=== PATIENT | female | born 1950 | race Hispanic/Latino ===

== ENCOUNTER 2019-01-03 21:32 | Emergency (ER) | payer OTHER ==
--- NOTE | 2019-01-03 22:05 | EDPHYS ---
Physician Documentation [facility] Name: Karin Mendosa Age: 68 yrs Sex: Female : 1950 Arrival Date: 01/03/2019 Time: 21:33 Bed 14 Private MD: ED Physician Yonas Castle Historical: - Allergies: 01/03 21:44 Morphine; la1 - PMHx: 21:44 Diabetes - NIDDM; Hypertension; Arthritis; Hypothyroidism; la1 - Immunization history:: Adult Immunizations up to date. - Social history:: Smoking status: Patient/guardian denies using tobacco. - Ebola Screening: : No symptoms or risks identified at this time. Vital Signs: 21:44 BP 170 / 80; Pulse 80; Resp 16; Temp 98.4; Pulse Ox 100% on R/A; Weight 99.79 kg; la1 22:29 BP 130 / 79; Pulse 75; Resp 18; Pulse Ox 98% on R/A; NIH Stroke Scale Scores: 21:50 NIHSS Score: 0 MDM: 22:04 Patient medically screened. kdr Administered Medications: 22:13 Drug: Neurontin 300 mg Route: PO; 22:28 Follow up: Response: No adverse reaction Disposition: 01/03/19 22:04 Discharged to Home. Impression: Idiopathic peripheral autonomic neuropathy. - Condition is Stable. - Discharge Instructions: Peripheral Neuropathy. - Prescriptions for Neurontin 300 mg Oral Capsule - take 1 capsule by ORAL route every 8 hours; 15 capsule. - Medication Reconciliation Form, Thank You Letter, Antibiotic Education, Prescription Opioid Use form. - Follow up: Alejandro Child MD; When: 2 - 3 days; Reason: If symptoms return, Further diagnostic work-up, Recheck today's complaints, Continuance of care, Re-evaluation by your physician. - Problem is new. - Symptoms have improved. NIH Stroke Scale - NIH Stroke Score Date: 01/03/2019 Time: 21:50 Total Score = 0 1a. Level of Consciousness (LOC) - 0(Alert) 1b. Level of Consciousness (LOC) (Year \T\ Age) - 0(Both) 1c. LOC Commands (Open \T\ Closes Eyes/Special Inspector) - 0(Both) 2. Best Gaze (Lateral Gaze Paresis) - 0(Normal) 3. Visual Field Loss - 0(No visual loss) 4. Facial Palsy - 0(Normal) 5a. Left Arm: Motor (10-second hold) - 0(No drift) 5b. Right Arm: Motor (10-second hold) - 0(No drift) 6a. Left Leg: Motor (5-second hold - always test supine) - 0(No drift) 6b. Right Leg: Motor (5-second hold - always test supine) - 0(No drift) 7. Limb Ataxia (finger/nose \T\ heel/haynes - test with eyes open) - 0(Absent) 8. Sensory Loss (pinprick arms/legs/face) - 0(Normal) 9. Best Language: Aphasia (description/naming/reading) - 0(No aphasia) 10. Dysarthria (speech clarity - read or repeat words) - 0(Normal) 11. Extinction and Inattention (visual/tactile/auditory/spatial/personal) - 0(No abnormality) Initials: Signatures: Yonas Castle MD MD [facility] Jamie Hoang RN RN laHeather Miller Corrections: (The following items were deleted from the chart) 22:29 22:04 01/03/2019 22:04 Discharged to Home. Impression: Idiopathic peripheral wh autonomic neuropathy. Condition is Stable. Forms are Medication Reconciliation Form, Thank You Letter, Antibiotic Education, Prescription Opioid Use. Follow up: Alejandro Child; When: 2 - 3 days; Reason: If symptoms return, Further diagnostic work-up, Recheck today's complaints, Continuance of care, Re-evaluation by your physician. Problem is new. Symptoms have improved. kdr
--- NOTE | 2019-01-03 22:05 | ER ---
Nurse's Notes [facility] Name: Karin Mendosa Age: 68 yrs Sex: Female : 1950 Arrival Date: 01/03/2019 Time: 21:33 Bed 14 Private MD: Diagnosis: Idiopathic peripheral autonomic neuropathy Presentation: 01/03 21:42 Presenting complaint: Patient states: numbness to left leg that began yesterday, left la1 arm numbness that began three days ago, pain on whole left side of body. Transition of care: patient was not received from another setting of care. Onset of symptoms was January 03, 2019. Risk Assessment: Do you want to hurt yourself or someone else? Patient reports no desire to harm self or others. Initial Sepsis Screen: Does the patient meet any 2 criteria? No. Patient's initial sepsis screen is negative. Does the patient have a suspected source of infection? No. Patient's initial sepsis screen is negative. Care prior to arrival: None. 21:42 Method Of Arrival: Wheelchair la1 21:42 Acuity: RAY 3 la1 Historical: - Allergies: 21:44 Morphine; la1 - PMHx: 21:44 Diabetes - NIDDM; Hypertension; Arthritis; Hypothyroidism; la1 - Immunization history:: Adult Immunizations up to date. - Social history:: Smoking status: Patient/guardian denies using tobacco. - Ebola Screening: : No symptoms or risks identified at this time. Screenin:50 VAN Screening: Arm Drift: Patient shows no arm weakness. Patient is VAN negative. wh Visual Disturbance: No visual disturbance noted. Aphasia: No aphasia noted. Neglect: No neglect noted. 22:00 Abuse screen: Denies threats or abuse. Denies injuries from another. Nutritional wh screening: No deficits noted. Tuberculosis screening: No symptoms or risk factors identified. Fall Risk None identified. Assessment: 21:50 General: Appears in no apparent distress. Behavior is calm, cooperative, appropriate wh for age. Pain: Complains of pain in lumbar area Pain does not radiate. Pain currently is 4 out of 10 on a pain scale. Quality of pain is described as aching. Neuro: Level of Consciousness is awake, alert, obeys commands, Oriented to person, place, time, situation, Appropriate for age Stamp Mounter are equal bilaterally Gait is steady, Speech is normal, Facial symmetry appears normal, Pupils are PERRLA, Reports paresthesias in left leg. Cardiovascular: Heart tones S1 S2. Respiratory: Airway is patent Respiratory effort is even, unlabored, Respiratory pattern is regular, symmetrical. GI: Abdomen is flat, non-distended. : No signs and/or symptoms were reported regarding the genitourinary system. EENT: No signs and/or symptoms were reported regarding the EENT system. Derm: Skin is intact, is healthy with good turgor, Skin is pink, warm \T\ dry. normal. Musculoskeletal: Circulation, motion, and sensation intact. Range of motion: intact in all extremities. 22:23 Reassessment: Patient appears in no apparent distress at this time. No changes from previously documented assessment. Patient and/or family updated on plan of care and expected duration. Pain level reassessed. Patient is alert, oriented x 3, equal unlabored respirations, skin warm/dry/pink. Vital Signs: 21:44 BP 170 / 80; Pulse 80; Resp 16; Temp 98.4; Pulse Ox 100% on R/A; Weight 99.79 kg; la1 22:29 BP 130 / 79; Pulse 75; Resp 18; Pulse Ox 98% on R/A; NIH Stroke Scale Scores: 21:50 NIHSS Score: 0 ED Course: 21:33 Patient arrived in ED. cf2 21:43 Triage completed. la1 21:44 Arm band placed on left wrist. la1 21:48 Heather Noyola is Primary Nurse. wh 21:49 Yonas Castle MD is Attending Physician. kdr 22:00 Patient has correct armband on for positive identification. Bed in low position. Call light in reach. Side rails up X 1. Pulse ox on. NIBP on. 22:04 Alejandro Child MD is Referral Physician. kdr 22:27 No provider procedures requiring assistance completed. Patient did not have IV access during this emergency room visit. Administered Medications: 22:13 Drug: Neurontin 300 mg Route: PO; 22:28 Follow up: Response: No adverse reaction Outcome: 22:04 Discharge ordered by . kdr 22:28 Discharged to home ambulatory, with family. 22:28 Condition: stable 22:28 Discharge instructions given to patient, family, Instructed on discharge instructions, follow up and referral plans. medication usage, POC Peripheral Neuropathy Demonstrated understanding of instructions, follow-up care, medications, POC Prescriptions given X 1. 22:29 Patient left the ED. NIH Stroke Scale - NIH Stroke Score Date: 01/03/2019 Time: 21:50 Total Score = 0 1a. Level of Consciousness (LOC) - 0(Alert) 1b. Level of Consciousness (LOC) (Year \T\ Age) - 0(Both) 1c. LOC Commands (Open \T\ Closes Eyes/Labor Utilization Superintendent) - 0(Both) 2. Best Gaze (Lateral Gaze Paresis) - 0(Normal) 3. Visual Field Loss - 0(No visual loss) 4. Facial Palsy - 0(Normal) 5a. Left Arm: Motor (10-second hold) - 0(No drift) 5b. Right Arm: Motor (10-second hold) - 0(No drift) 6a. Left Leg: Motor (5-second hold - always test supine) - 0(No drift) 6b. Right Leg: Motor (5-second hold - always test supine) - 0(No drift) 7. Limb Ataxia (finger/nose \T\ heel/haynes - test with eyes open) - 0(Absent) 8. Sensory Loss (pinprick arms/legs/face) - 0(Normal) 9. Best Language: Aphasia (description/naming/reading) - 0(No aphasia) 10. Dysarthria (speech clarity - read or repeat words) - 0(Normal) 11. Extinction and Inattention (visual/tactile/auditory/spatial/personal) - 0(No abnormality) Initials: Signatures: Yonas Castle MD MD [facility] Jamie Hoang RN RN kate1 Heather Noyola Dennys Leiva2
[2019-01-03] MEDS ORDERED: GABAPENTIN 300 MG CAP ONE (22:12)
[2019-01-03 23:06] VITALS: TEMP 98.4
[2019-01-03 23:07] VITALS: BP 130/79; O2SAT 98
== END 2019-01-03 22:29 | disposition home or self-care (01) ==
LOC: ER 21:32
DX: G90.09 Other idiopathic peripheral autonomic neuropathy (principal); I10 Essential (primary) hypertension; Z88.5 Allergy status to narcotic agent
CPT/HCPCS: 99283

== ENCOUNTER 2020-09-24 10:11 | Emergency (ER) | payer OTHER ==
--- NOTE | 2020-09-24 12:23 | RAD REPORT ---
EXAM DESCRIPTION: CT - [id number] - 09/24/2020 12:05 pm CLINICAL HISTORY: Trauma, head and neck injury. Numbness/tingling;Pain COMPARISON: No comparisons TECHNIQUE: Axial 5 mm thick images of the head were obtained. Axial 2 mm thick images of the cervical spine were obtained with sagittal and coronal reconstruction images generated and reviewed. All CT scans are performed using dose optimization technique as appropriate and may include automated exposure control or mA/KV adjustment according to patient size. FINDINGS: CT HEAD WITHOUT CONTRAST: No acute hemorrhage, hydrocephalus or extra-axial collection is identified.No areas of brain edema or midline shift. The paranasal sinuses and mastoids are clear.The calvarium is intact. CT CERVICAL SPINE WITHOUT CONTRAST: No fracture or subluxation.No prevertebral soft tissues swelling is identified. ACDF changes are pres ent at the C4-5 level. There are adjacent level degenerative changes at the C5-6 level with at least mild to moderate left neural foraminal narrowing. No definite central spinal stenosis is appreciated. IMPRESSION: No acute intracranial or cervical spine findings.
--- NOTE | 2020-09-24 12:42 | EDPHYS ---
Physician Documentation [facility] Name: Karin Mendosa Age: 70 yrs Sex: Female : 1950 Arrival Date: 09/24/2020 Time: 10:15 Bed 24 Private MD: ED Physician Pedro Calabrese HPI: 09/24 12:37 This 70 yrs old Female presents to ER via Ambulatory with complaints of rn Numbness Of Arm, Finger problem,left side pain. 12:37 The patient or guardian complains of pain, that is chronic. The complaints affect the rn left arm. Onset: The symptoms/episode began/occurred " Years ago". Modifying factors: The symptoms are alleviated by OTC meds, the symptoms are aggravated by nothing. Associated signs and symptoms: Pertinent positives: numbness, Pertinent negatives: decreased range of motion, deformity, erythema, fever, swelling, warmth, weakness. Severity of symptoms: At their worst the symptoms were moderate, in the emergency department the symptoms have improved. The patient has experienced similar episodes in the past, chronically. The patient has not recently seen a physician. Patient reports left arm tingling and pain for years, no recent injury, feels like pain coming from neck, has similar symptoms involving lower back and left leg. No weakness of extremity. Also has longstanding diabetes and known neuropathy. Denies any recent changes. Improved with Aleve, no help with Tylenol.. Historical: - Allergies: 10:51 Morphine; iw - Home Meds: 10:51 metformin 1,000 mg Oral tab 1 tab 2 times per day [Active]; glimepiride 1 mg Oral tab 1 iw tab once daily [Active]; atorvastatin 20 mg oral tab 1 tab once daily [Active]; Unithroid 137 mcg oral tab 1 tab once daily [Active]; lisinopril 40 mg Oral tab 1 tab once daily [Active]; isulin [Active]; - PMHx: 10:51 Arthritis; Diabetes - NIDDM; Hypertension; Hypothyroidism; iw - Immunization history:: Client reports receiving the 2nd dose of the Covid vaccine. - Social history:: Smoking status: Smoking status: Smoking status: Patient denies any tobacco usage or history of. - Family history:: not pertinent. - Hospitalizations: : No recent hospitalization is reported. ROS: 12:37 Constitutional: Negative for fever, chills, and weight loss, Eyes: Negative for injury, rn pain, redness, and discharge, Neck: Negative for injury, and swelling, Cardiovascular: Negative for chest pain, palpitations, and edema, Respiratory: Negative for shortness of breath, cough, wheezing, and pleuritic chest pain, Abdomen/GI: Negative for abdominal pain, nausea, vomiting, diarrhea, and constipation, Back: Negative for injury and pain, : Negative for injury, bleeding, discharge, and swelling, MS/Extremity: Negative for injury and deformity, Skin: Negative for injury, rash, and discoloration, Neuro: Negative for headache, weakness, and seizure Exam: 12:37 Constitutional: This is a well developed, well nourished patient who is awake, alert, rn and in no acute distress. Head/Face: Normocephalic, atraumatic. Neck: Trachea midline, no masses palpated, and no cervical lymphadenopathy. Supple, full range of motion without nuchal rigidity, or vertebral point tenderness. No Meningismus. Cardiovascular: Regular rate and rhythm. No pulse deficits. Respiratory: No increased work of breathing, no retractions or nasal flaring. Abdomen/GI: Soft, non-tender Skin: Warm, dry with normal turgor. Normal color with no rashes, no lesions, and no evidence of cellulitis. MS/ Extremity: Pulses equal, no cyanosis. Neurovascular intact. Full, normal range of motion. Equal circumference. Neuro: Awake and alert, GCS 15, oriented to person, place, time, and situation. Cranial nerves II-XII grossly intact. Motor strength 5/5 in all extremities. Sensory grossly intact. Cerebellar exam normal. Vital Signs: 10:49 BP 148 / 73; Pulse 94; Resp 16; Temp 97.6; Pulse Ox 98% on R/A; iw 12:30 BP 176 / 78; Pulse 79; Resp 16; Pulse Ox 100% on R/A; Pain 8/10; zb 12:45 BP 145 / 53; Pulse 80; Resp 16; Pulse Ox 99% on R/A; zb MDM: 11:51 Patient medically screened. rn 12:37 Differential diagnosis: Radiculopathy, neuropathy, disc problems, arthritis. Data rn reviewed: vital signs, nurses notes, radiologic studies, CT scan, and as a result, I will discharge patient. Counseling: I had a detailed discussion with the patient and/or guardian regarding: the historical points, exam findings, and any diagnostic results supporting the discharge/admit diagnosis, radiology results, the need for outpatient follow up, to return to the emergency department if symptoms worsen or persist or if there are any questions or concerns that arise at home. Special discussion: I discussed with the patient/guardian in detail that at this point there is no indication for admission to the hospital. It is understood, however, that if the symptoms persist or worsen the patient needs to return immediately for re-evaluation. Based on the history and exam findings, there is no indication for further emergent testing or inpatient evaluation. I discussed with the patient/guardian the need to see the back specialist for further evaluation of the symptoms. 12:37 ED course: No acute findings on CT head or CT C-spine, sounds most like radiculopathy, rn no acute trauma, normal exam. Will DC home with PCP follow-up.. 09/24 11:01 Order name: CT Head C Spine; Complete Time: 12:24 rn Administered Medications: No medications were administered Disposition Summary: 09/24/20 12:42 Discharge Ordered Location: Home rn Problem: chronic rn Symptoms: have improved rn Condition: Stable rn Diagnosis - Radiculopathy, cervical region rn - Diabetes mellitus due to underlying condition with diabetic neuropathy, unspecified rn Followup: rn - With: Private Physician - When: As needed - Reason: Recheck today's complaints, Re-evaluation by your physician Discharge Instructions: - Discharge Summary Sheet rn - Cervical Radiculopathy rn - Neuropathic Pain rn - Pinched Nerve rn Forms: - Medication Reconciliation Form rn - Thank You Letter rn - Antibiotic rn ostomy - Prescription Opioid Use rn Prescriptions: - Medrol (José Manuel) 4 mg Oral Tablets, Dose Pack - take 1 tablet by ORAL route as directed - follow package instructions; 1 rn packet; Refills: 0, Product Selection Permitted Signatures: Dispatcher [employer] Laura Morales RN Pedro Russell MD MD rn
--- NOTE | 2020-09-24 12:42 | ER ---
Nurse's Notes [facility] Name: Karin Mendosa Age: 70 yrs Sex: Female : 1950 Arrival Date: 09/24/2020 Time: 10:15 Bed 24 Private MD: Diagnosis: Radiculopathy, cervical region;Diabetes mellitus due to underlying condition with diabetic neuropathy, unspecified Presentation: 09/24 10:49 Chief complaint: Patient's son or daughter states: has had pain in left arm and once in iw a while her left ring finger will get stuck in bent position , and is having pain in left side of back, X 2-3 days, now pain has moved to front , sometimes she feels pressure in her chest and her left side of head hurts from forehead to ear to neck. Coronavirus screen: At this time, the client does not indicate any symptoms associated with coronavirus-19. Ebola Screen: Patient negative for fever greater than or equal to 101.5 degrees Fahrenheit, and additional compatible Ebola Virus Disease symptoms Patient denies exposure to infectious person. Patient denies travel to an Ebola-affected area in the 21 days before illness onset. No symptoms or risks identified at this time. Initial Sepsis Screen: Does the patient meet any 2 criteria? No. Patient's initial sepsis screen is negative. Does the patient have a suspected source of infection? No. Patient's initial sepsis screen is negative. Risk Assessment: Do you want to hurt yourself or someone else? Patient reports no desire to harm self or others. Onset of symptoms was September 21, 2020. 10:49 Method Of Arrival: Ambulatory iw 10:49 Acuity: RAY 3 iw Historical: - Allergies: 10:51 Morphine; iw - Home Meds: 10:51 metformin 1,000 mg Oral tab 1 tab 2 times per day [Active]; glimepiride 1 mg Oral tab 1 iw tab once daily [Active]; atorvastatin 20 mg oral tab 1 tab once daily [Active]; Unithroid 137 mcg oral tab 1 tab once daily [Active]; lisinopril 40 mg Oral tab 1 tab once daily [Active]; isulin [Active]; - PMHx: 10:51 Arthritis; Diabetes - NIDDM; Hypertension; Hypothyroidism; iw - Immunization history:: Client reports receiving the 2nd dose of the Covid vaccine. - Social history:: Smoking status: Smoking status: Smoking status: Patient denies any tobacco usage or history of. - Family history:: not pertinent. - Hospitalizations: : No recent hospitalization is reported. Screenin:30 Abuse screen: Denies threats or abuse. Denies injuries from another. Nutritional zb screening: No deficits noted. Tuberculosis screening: No symptoms or risk factors identified. Fall Risk None identified. Assessment: 12:25 General: Appears in no apparent distress. Behavior is calm, cooperative, appropriate zb for age. Pain: Complains of pain in back, left hand and left arm Pain currently is 9 out of 10 on a pain scale. Quality of pain is described as sharp, tingling, throbbing. Neuro: Level of Consciousness is awake, alert, obeys commands, Oriented to person, place, time, situation, General Cargo Clerk are weak bilaterally Moves all extremities. Full function. Neuro: Reports numbness in left hand. Cardiovascular: Capillary refill < 3 seconds Patient's skin is warm and dry. Respiratory: Airway is patent. GI: Abdomen is flat. :. : No deficits noted. Derm: Skin is intact, is healthy with good turgor. Musculoskeletal: Range of motion: intact in all extremities. 12:46 Reassessment: Patient appears in no apparent distress at this time. Patient and/or zb family updated on plan of care and expected duration. Pain level reassessed. Patient is alert, oriented x 3, equal unlabored respirations, skin warm/dry/pink. ECP at bedside discussing care and results. Vital Signs: 10:49 BP 148 / 73; Pulse 94; Resp 16; Temp 97.6; Pulse Ox 98% on R/A; iw 12:30 BP 176 / 78; Pulse 79; Resp 16; Pulse Ox 100% on R/A; Pain 8/10; zb 12:45 BP 145 / 53; Pulse 80; Resp 16; Pulse Ox 99% on R/A; zb ED Course: 10:15 Patient arrived in ED. mr 10:51 Triage completed. iw 11:51 Pedro Calabrese MD is Attending Physician. rn 12:05 CT Head C Spine In Process Unspecified. EDMS 12:12 Donna Fuller, DEMOND is Primary Nurse. zb 12:31 Patient has correct armband on for positive identification. Call light in reach. Side zb rails up X 1. Adult w/ patient. Pulse ox on. NIBP on. Door closed. Noise minimized. 12:46 Arm band placed on. zb 12:57 No provider procedures requiring assistance completed. Patient did not have IV access zb during this emergency room visit. Administered Medications: No medications were administered Outcome: 12:42 Discharge ordered by . rn 12:57 Discharged to home ambulatory, with family. zb 12:57 Condition: stable 12:57 Discharge instructions given to patient, family, Instructed on discharge instructions, follow up and referral plans. medication usage, Demonstrated understanding of instructions, follow-up care, medications, Prescriptions given X 1. 12:57 Patient left the ED. zb Signatures: Dispatcher [employer] Sweta Cash Irene, Pedro Russell RN, MD MD rn Brown, Zipporah, RN RN zb
[2020-09-24 13:01] VITALS: TEMP 97.6
[2020-09-24 13:06] VITALS: BP 145/53; O2SAT 99
== END 2020-09-24 12:57 | disposition home or self-care (01) ==
LOC: ER 10:11
DX: M54.12 Radiculopathy, cervical region (principal); E11.40 Type 2 diabetes mellitus with diabetic neuropathy, unspecified; Z79.4 Long term (current) use of insulin; I10 Essential (primary) hypertension; Z88.5 Allergy status to narcotic agent
CPT/HCPCS: 70450; 72125; 99283

== ENCOUNTER 2021-12-30 22:51 | Observation (INO) | payer OTHER ==
--- OUTSIDE RECORDS SUMMARY | 2021-12-30 22:56 | XMS REPORT | Continuity of Care Document ---
:1950 Author Organization [facility] t Address [address] Ortiz [address] [place] [id number] Care Team Providers Name Role Phone Williamza Sarai FORMAN Primary Care Physician [phone] Problems This patient has no known problems. Allergies, Adverse Reactions, Alerts This patient has no known allergies or adverse reactions. Medications Ordered Filled Start Stop Current Ordering Indication Dosage Frequency Signature Comments Components Source Medication Medication Date Date Medication? Clinician (SIG) Name Name AMLODIPINE 1 No BESYLATE 10 0-24 MG TABS 00:00: 00 IBUPROFEN 2021-0 No 600 MG TABS 8-23 00:00: 00 IBUPROFEN 2021-0 No 600 MG TABS 8-23 00:00: 00 &lt 2022-0 No 600 7-21 00:00: 00 &lt 2022-0 No 7-21 00:00: 00 &lt 2022-0 No 600 7-21 00:00: 00 &lt 2022-0 No 7-21 00:00: 00 &lt 2022-0 No 7-01 00:00: 00 &lt 2022-0 No 7-01 00:00: 00 Tresiba 2021-0 No (3 mL) FlexTouch 5-25 U-200 00:00: insulin 200 00 unit/mL (3 mL) subcutaneou s pen lisinopril 2021-0 No 1mg 40 mg 5-25 tablet 00:00: 00 atorvastati 2021-0 No 1mg n 20 mg 5-25 tablet 00:00: 00 levothyroxi 2-0 No 1mcg ne 137 mcg 5-25 tablet 00:00: 00 Tresiba 2-0 No (3 mL) FlexTouch 5-25 U-200 00:00: insulin 200 00 unit/mL (3 mL) subcutaneou s pen lisinopril 2022-0 No 1mg 40 mg 5-25 tablet 00:00: 00 atorvastati 2-0 No 1mg n 20 mg 5-25 tablet 00:00: 00 levothyroxi 2-0 No 1mcg ne 137 mcg 5-25 tablet 00:00: 00 metformin 2-0 No 1mg 1,000 mg 2-17 tablet 00:00: 00 ibuprofen 2022-0 No 1mg 600 mg 2-17 tablet 00:00: 00 metformin 2022-0 No 1mg 1,000 mg 2-17 tablet 00:00: 00 metformin 2022-0 No 1mg 1,000 mg 2-17 tablet 00:00: 00 ibuprofen 2022-0 No 1mg 600 mg 2-17 tablet 00:00: 00 metformin 2-0 No 1mg 1,000 mg 2-17 tablet 00:00: 00 lisinopril 1-1 No 1mg 40 mg 0-19 tablet 00:00: 00 atorvastati 1-1 No 1mg n 20 mg 0-19 tablet 00:00: 00 ibuprofen 1-1 No 1mg 600 mg 0-19 tablet 00:00: 00 levothyroxi 1-1 No 1mcg ne 137 mcg 0-19 tablet 00:00: 00 lisinopril 1-1 No 1mg 40 mg 0-19 tablet 00:00: 00 atorvastati 1-1 No 1mg n 20 mg 0-19 tablet 00:00: 00 ibuprofen 1-1 No 1mg 600 mg 0-19 tablet 00:00: 00 levothyroxi 1-1 No 1mcg ne 137 mcg 0-19 tablet 00:00: 00 Tresiba 1-0 No (3 mL) FlexTouch 8-05 U-200 00:00: insulin 200 00 unit/mL (3 mL) subcutaneou s pen lisinopril 1-0 No 1mg 40 mg 8-05 tablet 00:00: 00 atorvastati 1-0 No 1mg n 20 mg 8-05 tablet 00:00: 00 ibuprofen 1-0 No 1mg 600 mg 8-05 tablet 00:00: 00 Dose 2021-0 No Unknown 8-05 00:00: 00 levothyroxi 1-0 No 1mcg ne 137 mcg 8-05 tablet 00:00: 00 Tresiba 2021-0 No (3 mL) FlexTouch 8-05 U-200 00:00: insulin 200 00 unit/mL (3 mL) subcutaneou s pen lisinopril 2021-0 No 1mg 40 mg 8-05 tablet 00:00: 00 atorvastati 2021-0 No 1mg n 20 mg 8-05 tablet 00:00: 00 ibuprofen 2021-0 No 1mg 600 mg 8-05 tablet 00:00: 00 Dose 2021-0 No Unknown 8-05 00:00: 00 levothyroxi 2021-0 No 1mcg ne 137 mcg 8-05 tablet 00:00: 00 lisinopril 2021-0 No 1mg 40 mg 6-28 tablet 00:00: 00 lisinopril 2021-0 No 1mg 40 mg 6-28 tablet 00:00: 00 levothyroxi 2021-0 No 1mcg ne 137 mcg 5-22 tablet 00:00: 00 levothyroxi 2021-0 No 1mcg ne 137 mcg 5-22 tablet 00:00: 00 atorvastati 2021-0 No 1mg n 20 mg 5-21 tablet 00:00: 00 lisinopril 2021-0 No 1mg 40 mg 5-21 tablet 00:00: 00 glimepiride 2021-0 No 1mg 1 mg tablet 5-21 00:00: 00 metformin 2021-0 No 1mg 1,000 mg 5-21 tablet 00:00: 00 ibuprofen 2021-0 No 1mg 600 mg 5-21 tablet 00:00: 00 glimepiride 2021-0 No 2mg 1 mg tablet 5-21 00:00: 00 levothyroxi 2021-0 No 1mcg ne 137 mcg 5-21 tablet 00:00: 00 atorvastati 2021-0 No 1mg n 20 mg 5-21 tablet 00:00: 00 lisinopril 2021-0 No 1mg 40 mg 5-21 tablet 00:00: 00 glimepiride 2021-0 No 1mg 1 mg tablet 5-21 00:00: 00 metformin 2021-0 No 1mg 1,000 mg 5-21 tablet 00:00: 00 ibuprofen 2021-0 No 1mg 600 mg 5-21 tablet 00:00: 00 glimepiride 1-0 No 2mg 1 mg tablet 5- 00:00: 00 levothyroxi 2021-0 No 1mcg ne 137 mcg 5-21 tablet 00:00: 00 atorvastati 2021-0 No 1mg n 20 mg 4-09 tablet 00:00: 00 lisinopril 2021-0 No 1mg 30 mg 4-09 tablet 00:00: 00 atorvastati 1-0 No 1mg n 20 mg 4-09 tablet 00:00: 00 glimepiride 1-0 No 1mg 1 mg tablet 06-03 00:00: 00 metformin 1-0 No 1mg 1,000 mg 4-09 tablet 00:00: 00 glimepiride 1-0 No 1mg 1 mg tablet 06-03 00:00: 00 metformin 1-0 No 1mg 1,000 mg 4-09 tablet 00:00: 00 levothyroxi 1-0 No 1mcg ne 137 mcg 4-09 tablet 00:00: 00 levothyroxi 1-0 No 1mcg ne 137 mcg 4-09 tablet 00:00: 00 atorvastati 1-0 No 1mg n 20 mg 4-09 tablet 00:00: 00 lisinopril 1-0 No 1mg 30 mg 4-09 tablet 00:00: 00 atorvastati 1-0 No 1mg n 20 mg 4-09 tablet 00:00: 00 glimepiride 1-0 No 1mg 1 mg tablet 06-03 00:00: 00 metformin 2021-0 No 1mg 1,000 mg 4-09 tablet 00:00: 00 glimepiride 1-0 No 1mg 1 mg tablet 06-03 00:00: 00 metformin 2021-0 No 1mg 1,000 mg 4-09 tablet 00:00: 00 levothyroxi 2021-0 No 1mcg ne 137 mcg 4-09 tablet 00:00: 00 levothyroxi 1-0 No 1mcg ne 137 mcg 4-09 tablet 00:00: 00 lisinopril 2021-0 No 1mg 30 mg 1-13 tablet 00:00: 00 atorvastati 2021-0 No 1mg n 20 mg 1-13 tablet 00:00: 00 glimepiride 1-0 No 1mg 1 mg tablet 1-13 00:00: 00 metformin 1-0 No 1mg 1,000 mg 1-13 tablet 00:00: 00 levothyroxi 1-0 No 1mcg ne 137 mcg 1-13 tablet 00:00: 00 lisinopril 1-0 No 1mg 30 mg 1-13 tablet 00:00: 00 atorvastati 1-0 No 1mg n 20 mg 1-13 tablet 00:00: 00 glimepiride 1-0 No 1mg 1 mg tablet 1-13 00:00: 00 metformin 1-0 No 1mg 1,000 mg 1-13 tablet 00:00: 00 levothyroxi 1-0 No 1mcg ne 137 mcg 1-13 tablet 00:00: 00 metformin 1-0 No 1mg 1,000 mg 1-06 tablet 00:00: 00 metformin 1-0 No 1mg 1,000 mg 1-06 tablet 00:00: 00 diclofenac 2020-1 No 1% 3 % topical 0-13 gel 00:00: 00 lisinopril 2019-1 No 1mg 30 mg 0-13 tablet 00:00: 00 atorvastati 2019-1 No 1mg n 20 mg 0-13 tablet 00:00: 00 diclofenac 2020-1 No 1% 3 % topical 0-13 gel 00:00: 00 lisinopril 2020-1 No 1mg 30 mg 0-13 tablet 00:00: 00 atorvastati 2019-1 No 1mg n 20 mg 0-13 tablet 00:00: 00 levothyroxi 2019-1 No 1mcg ne 137 mcg 0-13 tablet 00:00: 00 levothyroxi 2020-1 No 1mcg ne 137 mcg 0-13 tablet 00:00: 00 glimepiride 2020-0 No 1mg 1 mg tablet 7 00:00: 00 levothyroxi 2020-0 No 1mcg ne 137 mcg 7-23 tablet 00:00: 00 glimepiride 2020-0 No 1mg 1 mg tablet 7 00:00: 00 levothyroxi 2020-0 No 1mcg ne 137 mcg 7-23 tablet 00:00: 00 Tresiba 2020-0 No 30(3 FlexTouch 7-14 mL) U-200 00:00: insulin 200 00 unit/mL (3 mL) subcutaneou s pen Tresiba 2020-0 No (3 mL) FlexTouch 7-14 U-200 00:00: insulin 200 00 unit/mL (3 mL) subcutaneou s pen lisinopril 2020-0 No 1mg 30 mg 7-14 tablet 00:00: 00 atorvastati 2020-0 No 1mg n 20 mg 7-14 tablet 00:00: 00 metformin 2020-0 No 1mg 1,000 mg 7-14 tablet 00:00: 00 levothyroxi 2020-0 No 1mcg ne 100 mcg 7-14 tablet 00:00: 00 Tresiba 2020-0 No 30(3 FlexTouch 7-14 mL) U-200 00:00: insulin 200 00 unit/mL (3 mL) subcutaneou s pen Tresiba 2020-0 No (3 mL) FlexTouch 7-14 U-200 00:00: insulin 200 00 unit/mL (3 mL) subcutaneou s pen lisinopril 2020-0 No 1mg 30 mg 7-14 tablet 00:00: 00 atorvastati 2020-0 No 1mg n 20 mg 7-14 tablet 00:00: 00 metformin 2020-0 No 1mg 1,000 mg 7-14 tablet 00:00: 00 levothyroxi 2020-0 No 1mcg ne 100 mcg 7-14 tablet 00:00: 00 levothyroxi 2020-0 No 1mcg ne 100 mcg 6-09 tablet 00:00: 00 levothyroxi 2020-0 No 1mcg ne 100 mcg 6-09 tablet 00:00: 00 lisinopril 2020-0 No 1mg 30 mg 4-03 tablet 00:00: 00 lisinopril 2020-0 No 1mg 30 mg 4-03 tablet 00:00: 00 Tresiba 2020-0 No 30(3 FlexTouch 4-02 mL) U-200 00:00: insulin 200 00 unit/mL (3 mL) subcutaneou s pen atorvastati 2020-0 No 1mg n 20 mg 4-02 tablet 00:00: 00 metformin 2020-0 No 1mg 1,000 mg 4-02 tablet 00:00: 00 Tresiba 2020-0 No 30(3 FlexTouch 4-02 mL) U-200 00:00: insulin 200 00 unit/mL (3 mL) subcutaneou s pen atorvastati 2020-0 No 1mg n 20 mg 4-02 tablet 00:00: 00 metformin 2020-0 No 1mg 1,000 mg 4-02 tablet 00:00: 00 metformin 2020-0 No 1mg 1,000 mg 3-09 tablet 00:00: 00 metformin 2020-0 No 1mg 1,000 mg 3-09 tablet 00:00: 00 Tresiba 2020-0 No 30(3 FlexTouch 1-09 mL) U-200 00:00: insulin 200 00 unit/mL (3 mL) subcutaneou s pen atorvastati 2020-0 No 1mg n 20 mg 1-09 tablet 00:00: 00 Tresiba 2020-0 No 30(3 FlexTouch 1-09 mL) U-200 00:00: insulin 200 00 unit/mL (3 mL) subcutaneou s pen atorvastati 2020-0 No 1mg n 20 mg 1-09 tablet 00:00: 00 Tresiba 2019-1 No 30(3 FlexTouch 1-30 mL) U-200 00:00: insulin 200 00 unit/mL (3 mL) subcutaneou s pen lisinopril 2019-1 No 1mg 30 mg 1-30 tablet 00:00: 00 metformin 2019-1 No 1mg 1,000 mg 1-30 tablet 00:00: 00 levothyroxi 2019-1 No 1mcg ne 100 mcg 1-30 tablet 00:00: 00 Tresiba 2019-1 No 30(3 FlexTouch 1-30 mL) U-200 00:00: insulin 200 00 unit/mL (3 mL) subcutaneou s pen lisinopril 2019-1 No 1mg 30 mg 1-30 tablet 00:00: 00 metformin 2019-1 No 1mg 1,000 mg 1-30 tablet 00:00: 00 levothyroxi 2019-1 No 1mcg ne 100 mcg 1-30 tablet 00:00: 00 Immunizations Ordered Immunization Filled Immunization Date Status Commen ts Source Name Name Kristina COVID-2020-05-07 Completed Vaccine 00:00:00 Kristina COVID-19 2020-05-07 Completed Vaccine 00:00:00 Moderna COVID-19 2020-04-01 Completed Vaccine 00:00:00 Moderna COVID-19 2020-04-01 Completed Vaccine 00:00:00 Influenza, seasonal, 2020-01-05 Completed inj 00:00:00 Influenza, seasonal, 2020-01-05 Completed inj 00:00:00 Influenza, seasonal, 2019-12-26 Completed inj 00:00:00 Influenza, seasonal, 2019-12-26 Completed inj 00:00:00 Vital Signs Vital Name Observation Time Observation Value Comments Source BP Systolic 2021-12-26 17:05:00 166 mm[Hg] BP Diastolic 2021-12-26 17:05:00 85 mm[Hg] Weight Measured 2021-12-26 17:05:00 208.50 pounds Height Measured 2021-12-26 17:05:00 63.00 inches Body Temperature 2021-12-26 17:05:00 Heart Rate 2021-12-26 17:05:00 92.00 /min Respiratory Rate 2021-12-26 17:05:00 BP Systolic 2021-12-12 12:05:00 160 mm[Hg] BP Diastolic 2021-12-12 12:05:00 84 mm[Hg] Weight Measured 2021-12-12 12:05:00 207.00 pounds Height Measured 2021-12-12 12:05:00 63.00 inches Body Temperature 2021-12-12 12:05:00 98.30 degrees Heart Rate 2021-12-12 12:05:00 91.00 /min Respiratory Rate 2021-12-12 12:05:00 17.00 /min BP Systolic 2021-07-19 10:43:00 147 mm[Hg] BP Diastolic 2021-07-19 10:43:00 80 mm[Hg] Weight Measured 2021-07-19 10:43:00 205.60 pounds Height Measured 2021-07-19 10:43:00 Body Temperature 2021-07-19 10:43:00 97.00 degrees Heart Rate 2021-07-19 10:43:00 102.00 /min Respiratory Rate 2021-07-19 10:43:00 BP Systolic 2020-12-13 17:08:00 186 mm[Hg] BP Diastolic 2020-12-13 17:08:00 94 mm[Hg] Weight Measured 2020-12-13 17:08:00 217.80 pounds Height Measured 2020-12-13 17:08:00 63.00 inches Body Temperature 2020-12-13 17:08:00 97.40 degrees Heart Rate 2020-12-13 17:08:00 83.00 /min Respiratory Rate 2020-12-13 17:08:00 16.00 /min BP Systolic 2020-09-29 08:29:00 160 mm[Hg] BP Diastolic 2020-09-29 08:29:00 77 mm[Hg] Weight Measured 2020-09-29 08:29:00 211.20 pounds Height Measured 2020-09-29 08:29:00 63.00 inches Body Temperature 2020-09-29 08:29:00 96.90 degrees Heart Rate 2020-09-29 08:29:00 78.00 /min Respiratory Rate 2020-09-29 08:29:00 16.00 /min BP Systolic 2020-07-15 09:46:00 152 mm[Hg] BP Diastolic 2020-07-15 09:46:00 82 mm[Hg] Weight Measured 2020-07-15 09:46:00 218.00 pounds Height Measured 2020-07-15 09:46:00 63.00 inches Body Temperature 2020-07-15 09:46:00 98.00 degrees Heart Rate 2020-07-15 09:46:00 84.00 /min Respiratory Rate 2020-07-15 09:46:00 BP Systolic 2020-03-09 14:20:00 178 mm[Hg] BP Diastolic 2020-03-09 14:20:00 87 mm[Hg] Weight Measured 2020-03-09 14:20:00 220.20 pounds Height Measured 2020-03-09 14:20:00 63.00 inches Body Temperature 2020-03-09 14:20:00 98.30 degrees Heart Rate 2020-03-09 14:20:00 93.00 /min Respiratory Rate 2020-03-09 14:20:00 BP Systolic 2019-12-26 08:55:00 175 mm[Hg] BP Diastolic 2019-12-26 08:55:00 82 mm[Hg] Weight Measured 2019-12-26 08:55:00 216.80 pounds Height Measured 2019-12-26 08:55:00 63.00 inches Body Temperature 2019-12-26 08:55:00 98.70 degrees Heart Rate 2019-12-26 08:55:00 83.00 /min Respiratory Rate 2019-12-26 08:55:00 16.00 /min BP Systolic 2019-09-08 11:21:00 181 mm[Hg] BP Diastolic 2019-09-08 11:21:00 74 mm[Hg] Weight Measured 2019-09-08 11:21:00 214.00 pounds Height Measured 2019-09-08 11:21:00 63.00 inches Body Temperature 2019-09-08 11:21:00 98.30 degrees Heart Rate 2019-09-08 11:21:00 80.00 /min Respiratory Rate 2019-09-08 11:21:00 18.00 /min BP Systolic 2019-05-28 08:45:00 161 mm[Hg] BP Diastolic 2019-05-28 08:45:00 83 mm[Hg] Weight Measured 2019-05-28 08:45:00 213.00 pounds Height Measured 2019-05-28 08:45:00 63.00 inches Body Temperature 2019-05-28 08:45:00 97.70 degrees Heart Rate 2019-05-28 08:45:00 79.00 /min Respiratory Rate 2019-05-28 08:45:00 16.00 /min BP Systolic 2019-03-05 11:16:00 BP Diastolic 2019-03-05 11:16:00 Weight Measured 2019-03-05 11:16:00 213.00 pounds Height Measured 2019-03-05 11:16:00 63.00 inches Body Temperature 2019-03-05 11:16:00 Heart Rate 2019-03-05 11:16:00 Respiratory Rate 2019-03-05 11:16:00 Procedures This patient has no known procedures. Plan of Care Planned Activity Planned Date Details Comments Source Goal Plan of Care Note [code = 50341-4] Goal Plan of Care Note [code = 09847-3] Goal Plan of Care Note [code = 21406-0] Goal Plan of Care Note [code = 50544-5] Goal Plan of Care Note [code = 58664-6] Goal Plan of Care Note [code = 46300-7] Goal Plan of Care Note [code = 36077-4] Goal Plan of Care Note [code = 93926-0] Goal Plan of Care Note [code = 63198-2] Goal Plan of Care Note [code = 94215-0] Goal Plan of Care Note [code = 52364-2] Goal Plan of Care Note [code = 85485-1] Goal Plan of Care Note [code = 78224-0] Goal Plan of Care Note [code = 82024-9] Goal Plan of Care Note [code = 22204-6] Goal Plan of Care Note [code = 69874-2] Goal Plan of Care Note [code = 87793-1] Goal Plan of Care Note [code = 27769-6] Goal Plan of Care Note [code = 40121-2] Goal Plan of Care Note [code = 78037-1] Goal Plan of Care Note [code = 62846-1] Goal Plan of Care Note [code = 48009-7] Goal Plan of Care Note [code = 40403-9] Goal Plan of Care Note [code = 19255-6] Goal Plan of Care Note [code = 85277-6] Goal Plan of Care Note [code = 64301-8] Goal Plan of Care Note [code = 33098-0] Goal Plan of Care Note [code = 00446-3] Encounters Start End Encounter Admission Attending Care Care Encounter Source Date/Time Date/Time Type Type Clinicians Facility Department ID 2021-12-26 2021-12-26 Outpatient NORBERTO THORNTON [id number] [facility] 16:57:36 16:57:36 1101 [address] Keith 2021-12-26 2021-12-26 Outpatient [id number] 00:00:00 00:00:00 Visit [id number] 2021-12-13 2021-12-13 Outpatient NORBERTO THORNTON [id number] [place] 10:06:48 10:06:48 1019 F Keith 2021-12-12 2021-12-12 Outpatient NORBERTO THORNTON [id number] [place] 12:01:06 12:01:06 1018 F Keith 2021-12-12 2021-12-12 Outpatient [id number] 00:00:00 00:00:00 Visit [id number] Results Test Description Test Time Test Comments Results Result Comments Source CBC W/AUTO DIFF WITH PLATELETS 2021-12-14 08:22:24 Test Item Value Reference Range Interpretation Comme nts WBC (test code = 1001) 8.6 K/UL 3.5-11.0 RBC (test code = 1002) 4.38 M/UL 3.80-5.40 HEMOGLOBIN (test code = 1003) 12.8 G/DL 11.5-15.5 HEMATOCRIT (test code = 1004) 39.3 % 34.0-45.0 MCV (test code = 1005) 89.7 fL 80.0-99.0 MCH (test code = 1006) 29.2 PG 25.0-33.0 MCHC (test code = 1007) 32.6 G/DL 31.0-36.0 RDW (test code = 1038) 13.2 % 11.5-15.0 NEUTROPHILS (test code = 53.5 % 1008) LYMPHOCYTES (test code = 36.8 % 1010) MONOCYTES (test code = 1011) 6.5 % EOSINOPHILS (test code = 2.3 % 1012) BASOPHILS (test code = 1013) 0.7 % IMMATURE GRANULOCYTES (test 0.2 % code = 1036) NUCLEATED RBCS (test code = 0.0 /100 WBC'S See_Comment [Automated message] The 1065) system which ge nerated this result transmit bhanu reference range : 0.0. The reference range was not used to interpr et this result as rayne l/abnormal. PLATELET COUNT (test code = 260 K/UL [phone]) ABSOLUTE NEUTROPHILS (test 4.62 K/UL 1.50-7.50 code = 1066) ABSOLUTE LYMPHOCYTES (test 3.18 K/UL 1.00-4.00 code = 1067) ABSOLUTE MONOCYTES (test code 0.56 K/UL 0.20-1.00 = 1068) ABSOLUTE EOSINOPHILS (test 0.20 K/UL 0.00-0.50 code = 1040) ABSOLUTE BASOPHILS (test code 0.06 K/UL 0.00-0.20 = 1069) ABS IMMATURE GRANULOCYTES 0.02 K/UL 0.00-0.10 (test code = 1020) ABS NUCLEATED RBCS (test code 0.00 K/UL 0.00-0.11 = 20729) HEMOGLOBIN [id number] 07:58:23 Test Item Value Reference Range Interpretation Comments HEMOGLOBIN A1c (test 9.5 % 4.2-5.6 H [employer] AN DIABETES code = 61732) ASSOCIATION IDELINES FOR HGB A1C: PREDIABETES/INC REASED RISK . . . . . . . 5.7 -6.4% DIAGNOSIS OF DI ABETES . . . . . . . . . >=6 .5% WITH CONFIRMATION OR APPROPRIATE SYMPTOMS NOTE: ASSAY MAY BE AFFECTED BY HEMOGLOBINOPATH IES (SICKLE CELL ANEMIA, S- C DISEASE, OTHERS) OR NEIDA FICIALLY LOWERED BY DECR EASED RED CELL SURVIVAL ( HEMOLYTIC ANEMIAS, BLOOD LOSS, ETC.). CONSIDER ALTERN ATE TESTING OR LABORATORY C ONSULTATION. TSH, THIRD [id number] 05:47:57 Test Item Value Reference Range Interpretation Comments TSH, THIRD 0.549 UIU/ML 0.400-4.100 UNLESS OTHERWI SE GENERATION (test INDICATED, ALL TESTING code = 2821) PERFORMED [facility], [address] DIRECTOR: SHAYY GARCIA M.D. CLIA NUMBER [id number] CAP ACCREDITATION N O. [id number] COMPREHENSIVE METABOLIC [id number] 04:41:17 Test Item Value Reference Range Interpretation Comments GLUCOSE (test code = 165 MG/DL 70-99 H 2216) BUN (test code = 25 MG/DL 8-23 H 2207) CREATININE (test 1.25 MG/DL 0.60-1.30 code = 2214) eGFR (2020 CKD-EPI) 46 ML/MIN/1.73 >60 L The N KF-ASN (test code = 56329) Taskforc e recommends use of Cystatin C to confirm eGFR inadults at [facility] k for CKD. [facility] offers eGFR with Cystatin C-Creatinineusi ng the 2020 CKD-EP I eGFR_creat-cyst at equation (order code 3057) toincreas e the accuracy of estimated GFR. For more informatio n, contactyour acc ount executive or se e announcement [email or web address] CALC BUN/CREAT (test 20 RATIO 6-28 code = 2235) SODIUM (test code = 138 MEQ/L [phone]) POTASSIUM (test code 5.3 MEQ/L 3.5-5.4 = 2227) CHLORIDE (test code 102 MEQ/L 95-107 = 2214) CARBON DIOXIDE (test 23 MEQ/L 19-31 code = 220) CALCIUM (test code = 10.1 MG/DL 8.5-10.5 2208) PROTEIN, TOTAL (test 7.4 G/DL 6.1-8.3 code = 222) ALBUMIN (test code = 4.3 G/DL 3.5-5.2 2200) CALC GLOBULIN (test 3.1 G/DL 1.9-3.7 code = 224) CALC A/G RATIO (test 1.4 RATIO 1.0-2.6 code = 223) BILIRUBIN, TOTAL 0.3 MG/DL See_Comment [Automated message] (test code = 220) The [employer]ste [employer] which generated this result transmit bhanu reference range : <=1.2. The refe rence range was not u sed to interpret th is result as normal/abnormal . ALKALINE PHOSPHATASE 80 U/L 40-142 (test code = 2204) AST (test code = 18 U/L 9-40 2217) ALT (test code = 19 U/L 5-40 2218) LIPID [id number] 04:41:17 Test Item Value Reference Range Interpretation Comments CHOLESTEROL (test 245 MG/DL <200 H code = 2210) TRIGLYCERIDES (test 403 MG/DL <150 H code = 2232) HDL CHOLESTEROL 43 MG/DL >39 (test code = 2220) CALC LDL CHOL (test (NOTE) MG/DL <100 UNABLE T O CALCULATE A code = 2237) VALID LDL LISET STEROL WHEN THE TRIGLYCERIDEVAL UE IS GREATER THAN 40 0 MG/DL.UNABLE TO CALCULATE A GABY ID LDL CHOLESTEROL WHE N THE TRIGLYCERIDEVAL UE IS GREATER THAN 40 0 MG/DL. NOTE: CALCULATE D LDL IS BASED ON GRISELDA -CHAVEZ METHOD WHICHINC LUDES ADJUSTABLE TRIGLYCERIDE:VL DL CHOLESTEROL RAT IO.THIS FACTOR VARIES B Y MEASURED TRIGLY CERIDE AND NON-HDLCHOL ESTEROL CONCENTRATIONS WITH INCREASED CALCU LATED LDL SEENIN HIGH ER TRIGLYCERIDE OR LOWER NON-HDL SPECIME NS. FOR MOREINFORMATION , SEE CLIENT ANNOUNCE MENT AT [email or web address] CalcLDL-C RISK RATIO LDL/HDL (NOTE) RATIO <3.22 UNABLE TO CALCULATE (test code = 2238) HEMOGLOBIN [id number] 00:00:00 Test Item Value Reference Range Interpretation Comments HEMOGLOBIN A1c (test code = 99519) 9.5 % HEMOGLOBIN [id number] 00:00:00 Test Item Value Reference Range Interpretation Comments HEMOGLOBIN A1c (test code = 03110) 9.5 % HEMOGLOBIN [id number] 00:00:00 Test Item Value Reference Range Interpretation Comments HEMOGLOBIN A1c (test code = 71906) 9.5 % CBC W/AUTO [id number] 00:00:00 Test Item Value Reference Range Interpretation Comments WBC (test code = 1001) 8.6 K/UL RBC (test code = 1002) 4.38 M/UL HEMOGLOBIN (test code = 1003) 12.8 G/DL HEMATOCRIT (test code = 1004) 39.3 % MCV (test code = 1005) 89.7 fL MCH (test code = 1006) 29.2 PG MCHC (test code = 1007) 32.6 G/DL RDW (test code = 1038) 13.2 % NEUTROPHILS (test code = 1008) 53.5 % LYMPHOCYTES (test code = 1010) 36.8 % MONOCYTES (test code = 1011) 6.5 % EOSINOPHILS (test code = 1012) 2.3 % BASOPHILS (test code = 1013) 0.7 % IMMATURE GRANULOCYTES (test 0.2 % code = 1036) NUCLEATED RBCS (test code = 0.0 /100WBC'S 1065) PLATELET COUNT (test code = 260 K/UL 1015) ABSOLUTE NEUTROPHILS (test code 4.62 K/UL = 1066) ABSOLUTE LYMPHOCYTES (test code 3.18 K/UL = 1067) ABSOLUTE MONOCYTES (test code = 0.56 K/UL 1068) ABSOLUTE EOSINOPHILS (test code 0.20 K/UL = 1040) ABSOLUTE BASOPHILS (test code = 0.06 K/UL 1069) ABS IMMATURE GRANULOCYTES (test 0.02 K/UL code = 1020) ABS NUCLEATED RBCS (test code = 0.00 K/UL 54967) CBC W/AUTO [id number] 00:00:00 Test Item Value Reference Range Interpretation Comments WBC (test code = 1001) 8.6 K/UL RBC (test code = 1002) 4.38 M/UL HEMOGLOBIN (test code = 1003) 12.8 G/DL HEMATOCRIT (test code = 1004) 39.3 % MCV (test code = 1005) 89.7 fL MCH (test code = 1006) 29.2 PG MCHC (test code = 1007) 32.6 G/DL RDW (test code = 1038) 13.2 % NEUTROPHILS (test code = 1008) 53.5 % LYMPHOCYTES (test code = 1010) 36.8 % MONOCYTES (test code = 1011) 6.5 % EOSINOPHILS (test code = 1012) 2.3 % BASOPHILS (test code = 1013) 0.7 % IMMATURE GRANULOCYTES (test 0.2 % code = 1036) NUCLEATED RBCS (test code = 0.0 /100WBC'S 1065) PLATELET COUNT (test code = 260 K/UL 1015) ABSOLUTE NEUTROPHILS (test code 4.62 K/UL = 1066) ABSOLUTE LYMPHOCYTES (test code 3.18 K/UL = 1067) ABSOLUTE MONOCYTES (test code = 0.56 K/UL 1068) ABSOLUTE EOSINOPHILS (test code 0.20 K/UL = 1040) ABSOLUTE BASOPHILS (test code = 0.06 K/UL 1069) ABS IMMATURE GRANULOCYTES (test 0.02 K/UL code = 1020) ABS NUCLEATED RBCS (test code = 0.00 K/UL 15247) CBC W/AUTO [id number] 00:00:00 Test Item Value Reference Range Interpretation Comments WBC (test code = 1001) 8.6 K/UL RBC (test code = 1002) 4.38 M/UL HEMOGLOBIN (test code = 1003) 12.8 G/DL HEMATOCRIT (test code = 1004) 39.3 % MCV (test code = 1005) 89.7 fL MCH (test code = 1006) 29.2 PG MCHC (test code = 1007) 32.6 G/DL RDW (test code = 1038) 13.2 % NEUTROPHILS (test code = 1008) 53.5 % LYMPHOCYTES (test code = 1010) 36.8 % MONOCYTES (test code = 1011) 6.5 % EOSINOPHILS (test code = 1012) 2.3 % BASOPHILS (test code = 1013) 0.7 % IMMATURE GRANULOCYTES (test 0.2 % code = 1036) NUCLEATED RBCS (test code = 0.0 /100WBC'S 1065) PLATELET COUNT (test code = 260 K/UL 1015) ABSOLUTE NEUTROPHILS (test code 4.62 K/UL = 1066) ABSOLUTE LYMPHOCYTES (test code 3.18 K/UL = 1067) ABSOLUTE MONOCYTES (test code = 0.56 K/UL 1068) ABSOLUTE EOSINOPHILS (test code 0.20 K/UL = 1040) ABSOLUTE BASOPHILS (test code = 0.06 K/UL 1069) ABS IMMATURE GRANULOCYTES (test 0.02 K/UL code = 1020) ABS NUCLEATED RBCS (test code = 0.00 K/UL 59366) COMPREHENSIVE METABOLIC [id number] 00:00:00 Test Item Value Reference Range Interpretation Comments GLUCOSE (test code = 2217) 165 MG/DL BUN (test code = 2208) 25 MG/DL CREATININE (test code = 2214) 1.25 MG/DL eGFR (2020 CKD-EPI) (test code 46 ML/MIN/1.73 = 59780) CALC BUN/CREAT (test code = 20 RATIO 2235) SODIUM (test code = 2231) 138 MEQ/L POTASSIUM (test code = 2228) 5.3 MEQ/L CHLORIDE (test code = 2215) 102 MEQ/L CARBON DIOXIDE (test code = 23 MEQ/L 2205) CALCIUM (test code = 2209) 10.1 MG/DL PROTEIN, TOTAL (test code = 7.4 G/DL 2228) ALBUMIN (test code = 2201) 4.3 G/DL CALC GLOBULIN (test code = 3.1 G/DL 2240) CALC A/G RATIO (test code = 1.4 RATIO 2234) BILIRUBIN, TOTAL (test code = 0.3 MG/DL 2206) ALKALINE PHOSPHATASE (test 80 U/L code = 2204) AST (test code = 2218) 18 U/L ALT (test code = 2219) 19 U/L COMPREHENSIVE METABOLIC [id number] 00:00:00 Test Item Value Reference Range Interpretation Comments GLUCOSE (test code = 2217) 165 MG/DL BUN (test code = 2208) 25 MG/DL CREATININE (test code = 2214) 1.25 MG/DL eGFR (2020 CKD-EPI) (test code 46 ML/MIN/1.73 = 78007) CALC BUN/CREAT (test code = 20 RATIO 2235) SODIUM (test code = 2231) 138 MEQ/L POTASSIUM (test code = 2228) 5.3 MEQ/L CHLORIDE (test code = 2215) 102 MEQ/L CARBON DIOXIDE (test code = 23 MEQ/L 2205) CALCIUM (test code = 220) 10.1 MG/DL PROTEIN, TOTAL (test code = 7.4 G/DL 2228) ALBUMIN (test code = 220) 4.3 G/DL CALC GLOBULIN (test code = 3.1 G/DL 2239) CALC A/G RATIO (test code = 1.4 RATIO 2233) BILIRUBIN, TOTAL (test code = 0.3 MG/DL 2206) ALKALINE PHOSPHATASE (test 80 U/L code = 2204) AST (test code = 2218) 18 U/L ALT (test code = 2219) 19 U/L LIPID [id number] 00:00:00 Test Item Value Reference Range Interpretation Comments CHOLESTEROL (test code = 2210) 245 MG/DL TRIGLYCERIDES (test code = 2232) 403 MG/DL HDL CHOLESTEROL (test code = 43 MG/DL 0) CALC LDL CHOL (test code = 2237) (NOTE) MG/DL RISK RATIO LDL/HDL (test code = (NOTE) RATIO 2238) LIPID [id number] 00:00:00 Test Item Value Reference Range Interpretation Comments CHOLESTEROL (test code = 2210) 245 MG/DL TRIGLYCERIDES (test code = 2232) 403 MG/DL HDL CHOLESTEROL (test code = 43 MG/DL 2220) CALC LDL CHOL (test code = 2237) (NOTE) MG/DL RISK RATIO LDL/HDL (test code = (NOTE) RATIO 2238) TSH, THIRD [id number] 00:00:00 Test Item Value Reference Range Interpretation Comments TSH, THIRD GENERATION (test code 0.549 UIU/ML = 2821) TSH, THIRD [id number] 00:00:00 Test Item Value Reference Range Interpretation Comments TSH, THIRD GENERATION (test code 0.549 UIU/ML = 2821) TSH, THIRD [id number] 00:00:00 Test Item Value Reference Range Interpretation Comments TSH, THIRD GENERATION (test code 0.549 UIU/ML = 2821) COMPREHENSIVE METABOLIC [id number] 05:40:31 Test Item Value Reference Range Interpretation Comments GLUCOSE (test code = 212 MG/DL 70-99 H 2216) BUN (test code = 24 MG/DL 8-23 H 2207) CREATININE (test 1.35 MG/DL 0.60-1.30 H code = 2214) eGFR (2020 CKD-EPI) 42 ML/MIN/1.73 >60 L (test code = 95935) CALC BUN/CREAT (test 18 RATIO 6-28 code = 2235) SODIUM (test code = 136 MEQ/L 685-788 3342) POTASSIUM (test code 5.0 MEQ/L 3.5-5.4 = 2227) CHLORIDE (test code 100 MEQ/L 95-107 = 2215) CARBON DIOXIDE (test 22 MEQ/L 19-31 code = 2206) CALCIUM (test code = 10.2 MG/DL 8.5-10.5 2208) PROTEIN, TOTAL (test 7.8 G/DL 6.1-8.3 code = 2229) ALBUMIN (test code = 4.6 G/DL 3.5-5.2 2200) CALC GLOBULIN (test 3.2 G/DL 1.9-3.7 code = 2240) CALC A/G RATIO (test 1.4 RATIO 1.0-2.6 code = 2234) BILIRUBIN, TOTAL 0.2 MG/DL See_Comment [Automated message] (test code = 2207) The syste m which generated this result transmit bhanu reference range : <=1.2. The refe rence range was not u sed to interpret th is result as normal/abnormal . ALKALINE PHOSPHATASE 77 U/L 40-142 (test code = 2204) AST (test code = 20 U/L 9-40 2217) ALT (test code = 24 U/L 5-40 2218) LIPID [id number] 05:40:31 Test Item Value Reference Range Interpretation Comments CHOLESTEROL (test 168 MG/DL <200 code = 2210) TRIGLYCERIDES (test 305 MG/DL <150 H code = 2232) HDL CHOLESTEROL (test 48 MG/DL >39 code = 2220) CALC LDL CHOL (test 83 MG/DL <100 NOTE: C ALCULATED LDL code = 2237) IS BASED ON GRISELDA-CHAVEZ METHOD WHICHINCLUDES ADJUSTABLE TRIGLYCERIDE:VL DL CHOLESTEROL RAT IO.THIS FACTOR VARIES B Y MEASURED TRIGLY CERIDE AND NON-HDLCHOL ESTEROL CONCENTRATIONS WITH INCREASED CALCU LATED LDL SEENIN HIGH ER TRIGLYCERIDE OR LOWER NON-HDL SPECIME NS. FOR MOREINFORMATION , SEE CLIENT ANNOUNCE MENT AT [email or web address] RISK RATIO LDL/HDL 1.73 RATIO <3.22 UNLESS O THERWISE (test code = 2238) INDICATED , ALL TESTING PERFORMED [facility], [facility]. [address] [place] [id number] [place] [address] DIRECTOR: SHAYY GARCIA M.D. IA NUMBER [id number] CAP ACCREDITATION N O. [id number] HEMOGLOBIN [id number] 03:57:08 Test Item Value Reference Range Interpretation Comments HEMOGLOBIN A1c (test 8.4 % 4.2-5.6 H AMERIC AN DIABETES code = 01869) ASSOCIATION IDELINES FOR HGB A1C: PREDIABETES/INC REASED RISK . . . . . . . 5.7 -6.4% DIAGNOSIS OF DI ABETES . . . . . . . . . >=6 .5% WITH CONFIRMATION OR APPROPRIATE SYMPTOMS NOTE: ASSAY MAY BE AFFECTED BY HEMOGLOBINOPATH IES (SICKLE CELL ANEMIA, S- C DISEASE, OTHERS) OR NEIDA FICIALLY LOWERED BY DECR EASED RED CELL SURVIVAL ( HEMOLYTIC ANEMIAS, BLOOD LOSS, ETC.). CONSIDER ALTERN ATE TESTING OR LABORATORY C ONSULTATION. HEMOGLOBIN [id number] 00:00:00 Test Item Value Reference Range Interpretation Comments HEMOGLOBIN A1c (test code = 71414) 8.4 % HEMOGLOBIN [id number] 00:00:00 Test Item Value Reference Range Interpretation Comments HEMOGLOBIN A1c (test code = 94500) 8.4 % HEMOGLOBIN [id number] 00:00:00 Test Item Value Reference Range Interpretation Comments HEMOGLOBIN A1c (test code = 18401) 8.4 % COMPREHENSIVE METABOLIC [id number] 00:00:00 Test Item Value Reference Range Interpretation Comments GLUCOSE (test code = 2217) 212 MG/DL BUN (test code = 2208) 24 MG/DL CREATININE (test code = 2214) 1.35 MG/DL eGFR (2020 CKD-EPI) (test code 42 ML/MIN/1.73 = 54395) CALC BUN/CREAT (test code = 18 RATIO 2235) SODIUM (test code = 2231) 136 MEQ/L POTASSIUM (test code = 2228) 5.0 MEQ/L CHLORIDE (test code = 2215) 100 MEQ/L CARBON DIOXIDE (test code = 22 MEQ/L 220) CALCIUM (test code = 2209) 10.2 MG/DL PROTEIN, TOTAL (test code = 7.8 G/DL 2228) ALBUMIN (test code = 2201) 4.6 G/DL CALC GLOBULIN (test code = 3.2 G/DL 2240) CALC A/G RATIO (test code = 1.4 RATIO 2234) BILIRUBIN, TOTAL (test code = 0.2 MG/DL 2206) ALKALINE PHOSPHATASE (test 77 U/L code = 2204) AST (test code = 2218) 20 U/L ALT (test code = 2219) 24 U/L COMPREHENSIVE METABOLIC [id number] 00:00:00 Test Item Value Reference Range Interpretation Comments GLUCOSE (test code = 2217) 212 MG/DL BUN (test code = 2208) 24 MG/DL CREATININE (test code = 2214) 1.35 MG/DL eGFR (2020 CKD-EPI) (test code 42 ML/MIN/1.73 = 69093) CALC BUN/CREAT (test code = 18 RATIO 2235) SODIUM (test code = 2231) 136 MEQ/L POTASSIUM (test code = 2228) 5.0 MEQ/L CHLORIDE (test code = 2215) 100 MEQ/L CARBON DIOXIDE (test code = 22 MEQ/L 220) CALCIUM (test code = 2209) 10.2 MG/DL PROTEIN, TOTAL (test code = 7.8 G/DL 2228) ALBUMIN (test code = 2201) 4.6 G/DL CALC GLOBULIN (test code = 3.2 G/DL 2240) CALC A/G RATIO (test code = 1.4 RATIO 2234) BILIRUBIN, TOTAL (test code = 0.2 MG/DL 2206) ALKALINE PHOSPHATASE (test 77 U/L code = 2204) AST (test code = 2218) 20 U/L ALT (test code = 2219) 24 U/L LIPID [id number] 00:00:00 Test Item Value Reference Range Interpretation Comments CHOLESTEROL (test code = 2210) 168 MG/DL TRIGLYCERIDES (test code = 2232) 305 MG/DL HDL CHOLESTEROL (test code = 2220) 48 MG/DL CALC LDL CHOL (test code = 2237) 83 MG/DL RISK RATIO LDL/HDL (test code = 1.73 RATIO 2238) LIPID [id number] 00:00:00 Test Item Value Reference Range Interpretation Comments CHOLESTEROL (test code = 2210) 168 MG/DL TRIGLYCERIDES (test code = 2232) 305 MG/DL HDL CHOLESTEROL (test code = 2220) 48 MG/DL CALC LDL CHOL (test code = 2237) 83 MG/DL RISK RATIO LDL/HDL (test code = 1.73 RATIO 2238) HEMOGLOBIN [id number] 00:00:00 Test Item Value Reference Range Interpretation Comments HEMOGLOBIN A1c (test code = 32270) 8.4 % HEMOGLOBIN [id number] 00:00:00 Test Item Value Reference Range Interpretation Comments HEMOGLOBIN A1c (test code = 07587) 8.4 % HEMOGLOBIN [id number] 00:00:00 Test Item Value Reference Range Interpretation Comments HEMOGLOBIN A1c (test code = 92990) 8.4 % COMPREHENSIVE METABOLIC [id number] 00:00:00 Test Item Value Reference Range Interpretation Comments GLUCOSE (test code = 2217) 212 MG/DL BUN (test code = 2208) 24 MG/DL CREATININE (test code = 2214) 1.35 MG/DL eGFR (2020 CKD-EPI) (test code 42 ML/MIN/1.73 = 19947) CALC BUN/CREAT (test code = 18 RATIO 5) SODIUM (test code = 2231) 136 MEQ/L POTASSIUM (test code = 2228) 5.0 MEQ/L CHLORIDE (test code = 2215) 100 MEQ/L CARBON DIOXIDE (test code = 22 MEQ/L 2205) CALCIUM (test code = 2209) 10.2 MG/DL PROTEIN, TOTAL (test code = 7.8 G/DL 2228) ALBUMIN (test code = 2201) 4.6 G/DL CALC GLOBULIN (test code = 3.2 G/DL 2240) CALC A/G RATIO (test code = 1.4 RATIO 2234) BILIRUBIN, TOTAL (test code = 0.2 MG/DL 2206) ALKALINE PHOSPHATASE (test 77 U/L code = 2204) AST (test code = 2218) 20 U/L ALT (test code = 2219) 24 U/L COMPREHENSIVE METABOLIC [id number] 00:00:00 Test Item Value Reference Range Interpretation Comments GLUCOSE (test code = 2217) 212 MG/DL BUN (test code = 2208) 24 MG/DL CREATININE (test code = 2214) 1.35 MG/DL eGFR (2020 CKD-EPI) (test code 42 ML/MIN/1.73 = 48404) CALC BUN/CREAT (test code = 18 RATIO 2235) SODIUM (test code = 2231) 136 MEQ/L POTASSIUM (test code = 2228) 5.0 MEQ/L CHLORIDE (test code = 2215) 100 MEQ/L CARBON DIOXIDE (test code = 22 MEQ/L 2205) CALCIUM (test code = 2209) 10.2 MG/DL PROTEIN, TOTAL (test code = 7.8 G/DL 2228) ALBUMIN (test code = 2201) 4.6 G/DL CALC GLOBULIN (test code = 3.2 G/DL 2240) CALC A/G RATIO (test code = 1.4 RATIO 2234) BILIRUBIN, TOTAL (test code = 0.2 MG/DL 2206) ALKALINE PHOSPHATASE (test 77 U/L code = 2204) AST (test code = 2218) 20 U/L ALT (test code = 2219) 24 U/L LIPID [id number] 00:00:00 Test Item Value Reference Range Interpretation Comments CHOLESTEROL (test code = 2210) 168 MG/DL TRIGLYCERIDES (test code = 2232) 305 MG/DL HDL CHOLESTEROL (test code = 2220) 48 MG/DL CALC LDL CHOL (test code = 2237) 83 MG/DL RISK RATIO LDL/HDL (test code = 1.73 RATIO 2238) LIPID [id number] 00:00:00 Test Item Value Reference Range Interpretation Comments CHOLESTEROL (test code = 2210) 168 MG/DL TRIGLYCERIDES (test code = 2232) 305 MG/DL HDL CHOLESTEROL (test code = 2220) 48 MG/DL CALC LDL CHOL (test code = 2237) 83 MG/DL RISK RATIO LDL/HDL (test code = 1.73 RATIO 2238) TSH, THIRD [id number] 05:23:02 Test Item Value Reference Range Interpretation Comments TSH, THIRD 1.730 UIU/ML 0.400-4.100 UNLESS OTHERWI SE GENERATION (test INDICATED, ALL TESTING code = 2821) PERFORMED [facility], [facility] [address] [place] [id number] [place] [address] DIRECTOR: SHAYY GARCIA M.D. CLIA NUMBER [id number] CAP ACCREDITATION N O. [id number] HEMOGLOBIN [id number] 04:30:06 Test Item Value Reference Range Interpretation Comments HEMOGLOBIN A1c (test 9.6 % 4.2-5.6 H AMERI CAN DIABETES code = 12822) ASSOCIATION IDELINES FOR HGB A1C: PREDIABETES/INC REASED RISK . . . . . . . 5.7 -6.4% DIAGNOSIS OF DI ABETES . . . . . . . . . >=6 .5% WITH CONFIRMATION OR APPROPRIATE SYMPTOMS NOTE: ASSAY MAY BE AFFECTED BY HEMOGLOBINOPATH IES (SICKLE CELL ANEMIA, S- C DISEASE, OTHERS) OR NEIDA FICIALLY LOWERED BY DECR EASED RED CELL SURVIVAL ( HEMOLYTIC ANEMIAS, BLOOD LOSS, ETC.). CONSIDER ALTERN ATE TESTING OR LABORATORY C ONSULTATION. LIPID [id number] 02:53:37 Test Item Value Reference Range Interpretation Comments CHOLESTEROL (test 156 MG/DL <200 code = 2210) TRIGLYCERIDES (test 182 MG/DL <150 H code = 2232) HDL CHOLESTEROL (test 52 MG/DL >39 code = 2220) CALC LDL CHOL (test 76 MG/DL <100 NOTE: C ALCULATED LDL code = 2237) IS BASED ON GRISELDA-CHAVEZ METHOD WHICHINCLUDES ADJUSTABLE TRIGLYCERIDE:VL DL CHOLESTEROL RAT IO.THIS FACTOR VARIES B Y MEASURED TRIGLY CERIDE AND NON-HDLCHOL ESTEROL CONCENTRATIONS WITH INCREASED CALCU LATED LDL SEENIN HIGH ER TRIGLYCERIDE OR LOWER NON-HDL SPECIME NS. FOR MOREINFORMATION , SEE CLIENT ANNOUNCE MENT AT [email or web address] RISK RATIO LDL/HDL 1.46 RATIO <3.22 (test code = 2238) COMPREHENSIVE METABOLIC [id number] 02:53:37 Test Item Value Reference Range Interpretation Comments GLUCOSE (test code = 195 MG/DL 70-99 H 2216) BUN (test code = 23 MG/DL 8-23 2207) CREATININE (test 1.13 MG/DL 0.60-1.30 code = 221) eGFR (2020 CKD-EPI) 53 ML/MIN/1.73 >60 L (test code = 07027) CALC BUN/CREAT (test 20 RATIO 6-28 code = 223) SODIUM (test code = 141 MEQ/L 389-706 5001) POTASSIUM (test code 5.1 MEQ/L 3.5-5.4 = 2227) CHLORIDE (test code 103 MEQ/L 95-107 = 2214) CARBON DIOXIDE (test 24 MEQ/L 19-31 code = 2205) CALCIUM (test code = 9.5 MG/DL 8.5-10.5 2208) PROTEIN, TOTAL (test 7.6 G/DL 6.1-8.3 code = 2228) ALBUMIN (test code = 4.3 G/DL 3.5-5.2 2200) CALC GLOBULIN (test 3.3 G/DL 1.9-3.7 code = 2240) CALC A/G RATIO (test 1.3 RATIO 1.0-2.6 code = 2234) BILIRUBIN, TOTAL 0.3 MG/DL See_Comment [Automated message] (test code = 220) The syste m which generated this result transmit bhanu reference range : <=1.2. The refe rence range was not u sed to interpret th is result as normal/abnormal . ALKALINE PHOSPHATASE 77 U/L 40-142 (test code = 2203) AST (test code = 26 U/L 9-40 2217) ALT (test code = 24 U/L 5-40 2218) HEMOGLOBIN [id number] 00:00:00 Test Item Value Reference Range Interpretation Comments HEMOGLOBIN A1c (test code = 55976) 9.6 % HEMOGLOBIN [id number] 00:00:00 Test Item Value Reference Range Interpretation Comments HEMOGLOBIN A1c (test code = 12695) 9.6 % HEMOGLOBIN [id number] 00:00:00 Test Item Value Reference Range Interpretation Comments HEMOGLOBIN A1c (test code = 29175) 9.6 % LIPID [id number] 00:00:00 Test Item Value Reference Range Interpretation Comments CHOLESTEROL (test code = 2210) 156 MG/DL TRIGLYCERIDES (test code = 2232) 182 MG/DL HDL CHOLESTEROL (test code = 2220) 52 MG/DL CALC LDL CHOL (test code = 2237) 76 MG/DL RISK RATIO LDL/HDL (test code = 1.46 RATIO 2238) LIPID [id number] 00:00:00 Test Item Value Reference Range Interpretation Comments CHOLESTEROL (test code = 2210) 156 MG/DL TRIGLYCERIDES (test code = 2232) 182 MG/DL HDL CHOLESTEROL (test code = 2220) 52 MG/DL CALC LDL CHOL (test code = 2237) 76 MG/DL RISK RATIO LDL/HDL (test code = 1.46 RATIO 2238) COMPREHENSIVE METABOLIC [id number] 00:00:00 Test Item Value Reference Range Interpretation Comments GLUCOSE (test code = 2217) 195 MG/DL BUN (test code = 2208) 23 MG/DL CREATININE (test code = 2214) 1.13 MG/DL eGFR (2020 CKD-EPI) (test code 53 ML/MIN/1.73 = 70865) CALC BUN/CREAT (test code = 20 RATIO 2235) SODIUM (test code = 2231) 141 MEQ/L POTASSIUM (test code = 2228) 5.1 MEQ/L CHLORIDE (test code = 2215) 103 MEQ/L CARBON DIOXIDE (test code = 24 MEQ/L 2205) CALCIUM (test code = 2209) 9.5 MG/DL PROTEIN, TOTAL (test code = 7.6 G/DL 2228) ALBUMIN (test code = 2201) 4.3 G/DL CALC GLOBULIN (test code = 3.3 G/DL 2239) CALC A/G RATIO (test code = 1.3 RATIO 2234) BILIRUBIN, TOTAL (test code = 0.3 MG/DL 2206) ALKALINE PHOSPHATASE (test 77 U/L code = 2204) AST (test code = 2218) 26 U/L ALT (test code = 2219) 24 U/L COMPREHENSIVE METABOLIC [id number] 00:00:00 Test Item Value Reference Range Interpretation Comments GLUCOSE (test code = 2217) 195 MG/DL BUN (test code = 2208) 23 MG/DL CREATININE (test code = 2214) 1.13 MG/DL eGFR (2020 CKD-EPI) (test code 53 ML/MIN/1.73 = 44014) CALC BUN/CREAT (test code = 20 RATIO 2234) SODIUM (test code = 2231) 141 MEQ/L POTASSIUM (test code = 2228) 5.1 MEQ/L CHLORIDE (test code = 2215) 103 MEQ/L CARBON DIOXIDE (test code = 24 MEQ/L 2205) CALCIUM (test code = 2209) 9.5 MG/DL PROTEIN, TOTAL (test code = 7.6 G/DL 2228) ALBUMIN (test code = 220) 4.3 G/DL CALC GLOBULIN (test code = 3.3 G/DL 2239) CALC A/G RATIO (test code = 1.3 RATIO 2233) BILIRUBIN, TOTAL (test code = 0.3 MG/DL 2206) ALKALINE PHOSPHATASE (test 77 U/L code = 2204) AST (test code = 2218) 26 U/L ALT (test code = 2219) 24 U/L [id number] 00:00:00 Test Item Value Reference Range Interpretation Comments TSH, THIRD GENERATION (test code 1.730 UIU/ML = 2821) [id number] 00:00:00 Test Item Value Reference Range Interpretation Comments TSH, THIRD GENERATION (test code 1.730 UIU/ML = 2821) [id number] 00:00:00 Test Item Value Reference Range Interpretation Comments TSH, THIRD GENERATION (test code 1.730 UIU/ML = 2821) HEMOGLOBIN [id number] 00:00:00 Test Item Value Reference Range Interpretation Comments HEMOGLOBIN A1c (test code = 44856) 9.6 % HEMOGLOBIN [id number] 00:00:00 Test Item Value Reference Range Interpretation Comments HEMOGLOBIN A1c (test code = 24488) 9.6 % HEMOGLOBIN [id number] 00:00:00 Test Item Value Reference Range Interpretation Comments HEMOGLOBIN A1c (test code = 03803) 9.6 % LIPID [id number] 00:00:00 Test Item Value Reference Range Interpretation Comments CHOLESTEROL (test code = 2210) 156 MG/DL TRIGLYCERIDES (test code = 2232) 182 MG/DL HDL CHOLESTEROL (test code = 2220) 52 MG/DL CALC LDL CHOL (test code = 2237) 76 MG/DL RISK RATIO LDL/HDL (test code = 1.46 RATIO 2238) LIPID [id number] 00:00:00 Test Item Value Reference Range Interpretation Comments CHOLESTEROL (test code = 2210) 156 MG/DL TRIGLYCERIDES (test code = 2232) 182 MG/DL HDL CHOLESTEROL (test code = 2220) 52 MG/DL CALC LDL CHOL (test code = 2237) 76 MG/DL RISK RATIO LDL/HDL (test code = 1.46 RATIO 2238) COMPREHENSIVE METABOLIC [id number] 00:00:00 Test Item Value Reference Range Interpretation Comments GLUCOSE (test code = 2217) 195 MG/DL BUN (test code = 2208) 23 MG/DL CREATININE (test code = 2214) 1.13 MG/DL eGFR (2020 CKD-EPI) (test code 53 ML/MIN/1.73 = 91780) CALC BUN/CREAT (test code = 20 RATIO 2235) SODIUM (test code = 2231) 141 MEQ/L POTASSIUM (test code = 2228) 5.1 MEQ/L CHLORIDE (test code = 2215) 103 MEQ/L CARBON DIOXIDE (test code = 24 MEQ/L 2205) CALCIUM (test code = 2209) 9.5 MG/DL PROTEIN, TOTAL (test code = 7.6 G/DL 2228) ALBUMIN (test code = 2201) 4.3 G/DL CALC GLOBULIN (test code = 3.3 G/DL 2240) CALC A/G RATIO (test code = 1.3 RATIO 2234) BILIRUBIN, TOTAL (test code = 0.3 MG/DL 2206) ALKALINE PHOSPHATASE (test 77 U/L code = 2204) AST (test code = 2218) 26 U/L ALT (test code = 2219) 24 U/L COMPREHENSIVE METABOLIC [id number] 00:00:00 Test Item Value Reference Range Interpretation Comments GLUCOSE (test code = 2217) 195 MG/DL BUN (test code = 2208) 23 MG/DL CREATININE (test code = 2214) 1.13 MG/DL eGFR (2020 CKD-EPI) (test code 53 ML/MIN/1.73 = 84735) CALC BUN/CREAT (test code = 20 RATIO 2235) SODIUM (test code = 2231) 141 MEQ/L POTASSIUM (test code = 2228) 5.1 MEQ/L CHLORIDE (test code = 2215) 103 MEQ/L CARBON DIOXIDE (test code = 24 MEQ/L 2205) CALCIUM (test code = 2209) 9.5 MG/DL PROTEIN, TOTAL (test code = 7.6 G/DL 2228) ALBUMIN (test code = 2201) 4.3 G/DL CALC GLOBULIN (test code = 3.3 G/DL 2239) CALC A/G RATIO (test code = 1.3 RATIO 2233) BILIRUBIN, TOTAL (test code = 0.3 MG/DL 2206) ALKALINE PHOSPHATASE (test 77 U/L code = 220) AST (test code = 2218) 26 U/L ALT (test code = 2219) 24 U/L [id number] 00:00:00 Test Item Value Reference Range Interpretation Comments TSH, THIRD GENERATION (test code 1.730 UIU/ML = 2821) [id number] 00:00:00 Test Item Value Reference Range Interpretation Comments TSH, THIRD GENERATION (test code 1.730 UIU/ML = 2821) [id number] 00:00:00 Test Item Value Reference Range Interpretation Comments TSH, THIRD GENERATION (test code 1.730 UIU/ML = 2821) CBC W/AUTO [id number] 00:00:00 Test Item Value Reference Range Interpretation Comments WBC (test code = 1001) 7.6 K/UL RBC (test code = 1002) 4.07 M/UL HEMOGLOBIN (test code = 1003) 12.1 G/DL HEMATOCRIT (test code = 1004) 36.9 % MCV (test code = 1005) 90.7 fL MCH (test code = 1006) 29.7 PG MCHC (test code = 1007) 32.8 G/DL RDW (test code = 1038) 13.8 % NEUTROPHILS (test code = 1008) 54.4 % LYMPHOCYTES (test code = 1010) 34.7 % MONOCYTES (test code = 1011) 7.4 % EOSINOPHILS (test code = 1012) 2.5 % BASOPHILS (test code = 1013) 0.7 % IMMATURE GRANULOCYTES (test 0.3 % code = 1036) NUCLEATED RBCS (test code = 0.0 /100WBC'S 1065) PLATELET COUNT (test code = 222 K/UL 1015) ABSOLUTE NEUTROPHILS (test code 4.12 K/UL = 1066) ABSOLUTE LYMPHOCYTES (test code 2.62 K/UL = 1067) ABSOLUTE MONOCYTES (test code = 0.56 K/UL 1068) ABSOLUTE EOSINOPHILS (test code 0.19 K/UL = 1040) ABSOLUTE BASOPHILS (test code = 0.05 K/UL 1069) ABS IMMATURE GRANULOCYTES (test 0.02 K/UL code = 1020) ABS NUCLEATED RBCS (test code = 0.00 K/UL 62395) CBC W/AUTO [id number] 00:00:00 Test Item Value Reference Range Interpretation Comments WBC (test code = 1001) 7.6 K/UL RBC (test code = 1002) 4.07 M/UL HEMOGLOBIN (test code = 1003) 12.1 G/DL HEMATOCRIT (test code = 1004) 36.9 % MCV (test code = 1005) 90.7 fL MCH (test code = 1006) 29.7 PG MCHC (test code = 1007) 32.8 G/DL RDW (test code = 1038) 13.8 % NEUTROPHILS (test code = 1008) 54.4 % LYMPHOCYTES (test code = 1010) 34.7 % MONOCYTES (test code = 1011) 7.4 % EOSINOPHILS (test code = 1012) 2.5 % BASOPHILS (test code = 1013) 0.7 % IMMATURE GRANULOCYTES (test 0.3 % code = 1036) NUCLEATED RBCS (test code = 0.0 /100WBC'S 1065) PLATELET COUNT (test code = 222 K/UL 1015) ABSOLUTE NEUTROPHILS (test code 4.12 K/UL = 1066) ABSOLUTE LYMPHOCYTES (test code 2.62 K/UL = 1067) ABSOLUTE MONOCYTES (test code = 0.56 K/UL 1068) ABSOLUTE EOSINOPHILS (test code 0.19 K/UL = 1040) ABSOLUTE BASOPHILS (test code = 0.05 K/UL 1069) ABS IMMATURE GRANULOCYTES (test 0.02 K/UL code = 1020) ABS NUCLEATED RBCS (test code = 0.00 K/UL 72757) CBC W/AUTO [id number] 00:00:00 Test Item Value Reference Range Interpretation Comments WBC (test code = 1001) 7.6 K/UL RBC (test code = 1002) 4.07 M/UL HEMOGLOBIN (test code = 1003) 12.1 G/DL HEMATOCRIT (test code = 1004) 36.9 % MCV (test code = 1005) 90.7 fL MCH (test code = 1006) 29.7 PG MCHC (test code = 1007) 32.8 G/DL RDW (test code = 1038) 13.8 % NEUTROPHILS (test code = 1008) 54.4 % LYMPHOCYTES (test code = 1010) 34.7 % MONOCYTES (test code = 1011) 7.4 % EOSINOPHILS (test code = 1012) 2.5 % BASOPHILS (test code = 1013) 0.7 % IMMATURE GRANULOCYTES (test 0.3 % code = 1036) NUCLEATED RBCS (test code = 0.0 /100WBC'S 1065) PLATELET COUNT (test code = 222 K/UL 1015) ABSOLUTE NEUTROPHILS (test code 4.12 K/UL = 1066) ABSOLUTE LYMPHOCYTES (test code 2.62 K/UL = 1067) ABSOLUTE MONOCYTES (test code = 0.56 K/UL 1068) ABSOLUTE EOSINOPHILS (test code 0.19 K/UL = 1040) ABSOLUTE BASOPHILS (test code = 0.05 K/UL 1069) ABS IMMATURE GRANULOCYTES (test 0.02 K/UL code = 1020) ABS NUCLEATED RBCS (test code = 0.00 K/UL 47274) HEMOGLOBIN [id number] 00:00:00 Test Item Value Reference Range Interpretation Comments HEMOGLOBIN A1c (test code = 38809) 9.1 % HEMOGLOBIN [id number] 00:00:00 Test Item Value Reference Range Interpretation Comments HEMOGLOBIN A1c (test code = 62098) 9.1 % HEMOGLOBIN [id number] 00:00:00 Test Item Value Reference Range Interpretation Comments HEMOGLOBIN A1c (test code = 03797) 9.1 % LIPID [id number] 00:00:00 Test Item Value Reference Range Interpretation Comments CHOLESTEROL (test code = 2210) 136 MG/DL TRIGLYCERIDES (test code = 2232) 191 MG/DL HDL CHOLESTEROL (test code = 2220) 44 MG/DL CALC LDL CHOL (test code = 2237) 66 MG/DL RISK RATIO LDL/HDL (test code = 1.50 RATIO 8) LIPID [id number] 00:00:00 Test Item Value Reference Range Interpretation Comments CHOLESTEROL (test code = 2210) 136 MG/DL TRIGLYCERIDES (test code = 2232) 191 MG/DL HDL CHOLESTEROL (test code = 2220) 44 MG/DL CALC LDL CHOL (test code = 2237) 66 MG/DL RISK RATIO LDL/HDL (test code = 1.50 RATIO 2238) CBC W/AUTO [id number] 00:00:00 Test Item Value Reference Range Interpretation Comments WBC (test code = 1001) 7.6 K/UL RBC (test code = 1002) 4.07 M/UL HEMOGLOBIN (test code = 1003) 12.1 G/DL HEMATOCRIT (test code = 1004) 36.9 % MCV (test code = 1005) 90.7 fL MCH (test code = 1006) 29.7 PG MCHC (test code = 1007) 32.8 G/DL RDW (test code = 1038) 13.8 % NEUTROPHILS (test code = 1008) 54.4 % LYMPHOCYTES (test code = 1010) 34.7 % MONOCYTES (test code = 1011) 7.4 % EOSINOPHILS (test code = 1012) 2.5 % BASOPHILS (test code = 1013) 0.7 % IMMATURE GRANULOCYTES (test 0.3 % code = 1036) NUCLEATED RBCS (test code = 0.0 /100WBC'S 1065) PLATELET COUNT (test code = 222 K/UL 1015) ABSOLUTE NEUTROPHILS (test code 4.12 K/UL = 1066) ABSOLUTE LYMPHOCYTES (test code 2.62 K/UL = 1067) ABSOLUTE MONOCYTES (test code = 0.56 K/UL 1068) ABSOLUTE EOSINOPHILS (test code 0.19 K/UL = 1040) ABSOLUTE BASOPHILS (test code = 0.05 K/UL 1069) ABS IMMATURE GRANULOCYTES (test 0.02 K/UL code = 1020) ABS NUCLEATED RBCS (test code = 0.00 K/UL 31232) CBC W/AUTO [id number] 00:00:00 Test Item Value Reference Range Interpretation Comments WBC (test code = 1001) 7.6 K/UL RBC (test code = 1002) 4.07 M/UL HEMOGLOBIN (test code = 1003) 12.1 G/DL HEMATOCRIT (test code = 1004) 36.9 % MCV (test code = 1005) 90.7 fL MCH (test code = 1006) 29.7 PG MCHC (test code = 1007) 32.8 G/DL RDW (test code = 1038) 13.8 % NEUTROPHILS (test code = 1008) 54.4 % LYMPHOCYTES (test code = 1010) 34.7 % MONOCYTES (test code = 1011) 7.4 % EOSINOPHILS (test code = 1012) 2.5 % BASOPHILS (test code = 1013) 0.7 % IMMATURE GRANULOCYTES (test 0.3 % code = 1036) NUCLEATED RBCS (test code = 0.0 /100WBC'S 1065) PLATELET COUNT (test code = 222 K/UL 1015) ABSOLUTE NEUTROPHILS (test code 4.12 K/UL = 1066) ABSOLUTE LYMPHOCYTES (test code 2.62 K/UL = 1067) ABSOLUTE MONOCYTES (test code = 0.56 K/UL 1068) ABSOLUTE EOSINOPHILS (test code 0.19 K/UL = 1040) ABSOLUTE BASOPHILS (test code = 0.05 K/UL 1069) ABS IMMATURE GRANULOCYTES (test 0.02 K/UL code = 1020) ABS NUCLEATED RBCS (test code = 0.00 K/UL 01708) CBC W/AUTO [id number] 00:00:00 Test Item Value Reference Range Interpretation Comments WBC (test code = 1001) 7.6 K/UL RBC (test code = 1002) 4.07 M/UL HEMOGLOBIN (test code = 1003) 12.1 G/DL HEMATOCRIT (test code = 1004) 36.9 % MCV (test code = 1005) 90.7 fL MCH (test code = 1006) 29.7 PG MCHC (test code = 1007) 32.8 G/DL RDW (test code = 1038) 13.8 % NEUTROPHILS (test code = 1008) 54.4 % LYMPHOCYTES (test code = 1010) 34.7 % MONOCYTES (test code = 1011) 7.4 % EOSINOPHILS (test code = 1012) 2.5 % BASOPHILS (test code = 1013) 0.7 % IMMATURE GRANULOCYTES (test 0.3 % code = 1036) NUCLEATED RBCS (test code = 0.0 /100WBC'S 1065) PLATELET COUNT (test code = 222 K/UL 1015) ABSOLUTE NEUTROPHILS (test code 4.12 K/UL = 1066) ABSOLUTE LYMPHOCYTES (test code 2.62 K/UL = 1067) ABSOLUTE MONOCYTES (test code = 0.56 K/UL 1068) ABSOLUTE EOSINOPHILS (test code 0.19 K/UL = 1040) ABSOLUTE BASOPHILS (test code = 0.05 K/UL 1069) ABS IMMATURE GRANULOCYTES (test 0.02 K/UL code = 1020) ABS NUCLEATED RBCS (test code = 0.00 K/UL 40371) HEMOGLOBIN [id number] 00:00:00 Test Item Value Reference Range Interpretation Comments HEMOGLOBIN A1c (test code = 30868) 9.1 % HEMOGLOBIN [id number] 00:00:00 Test Item Value Reference Range Interpretation Comments HEMOGLOBIN A1c (test code = 29635) 9.1 % HEMOGLOBIN [id number] 00:00:00 Test Item Value Reference Range Interpretation Comments HEMOGLOBIN A1c (test code = 45532) 9.1 % LIPID [id number] 00:00:00 Test Item Value Reference Range Interpretation Comments CHOLESTEROL (test code = 2210) 136 MG/DL TRIGLYCERIDES (test code = 2232) 191 MG/DL HDL CHOLESTEROL (test code = 2220) 44 MG/DL CALC LDL CHOL (test code = 2237) 66 MG/DL RISK RATIO LDL/HDL (test code = 1.50 RATIO 2238) LIPID [id number] 00:00:00 Test Item Value Reference Range Interpretation Comments CHOLESTEROL (test code = 2210) 136 MG/DL TRIGLYCERIDES (test code = 2232) 191 MG/DL HDL CHOLESTEROL (test code = 2220) 44 MG/DL CALC LDL CHOL (test code = 2237) 66 MG/DL RISK RATIO LDL/HDL (test code = 1.50 RATIO 2238) HEMOGLOBIN [id number] 00:00:00 Test Item Value Reference Range Interpretation Comments HEMOGLOBIN A1c (test code = 97748) 10.0 % LIPID [id number] 00:00:00 Test Item Value Reference Range Interpretation Comments CHOLESTEROL (test code = 2210) 143 MG/DL TRIGLYCERIDES (test code = 2232) 258 MG/DL HDL CHOLESTEROL (test code = 2220) 45 MG/DL CALC LDL CHOL (test code = 2237) 68 MG/DL RISK RATIO LDL/HDL (test code = 1.51 RATIO 2238) LIPID [id number] 00:00:00 Test Item Value Reference Range Interpretation Comments CHOLESTEROL (test code = 2210) 143 MG/DL TRIGLYCERIDES (test code = 2232) 258 MG/DL HDL CHOLESTEROL (test code = 2220) 45 MG/DL CALC LDL CHOL (test code = 2237) 68 MG/DL RISK RATIO LDL/HDL (test code = 1.51 RATIO 2238) COMPREHENSIVE METABOLIC [id number] 00:00:00 Test Item Value Reference Range Interpretation Comments GLUCOSE (test code = 2217) 166 MG/DL BUN (test code = 2208) 19 MG/DL CREATININE (test code = 2214) 1.04 MG/DL eGFR AMER. (test code 63 ML/MIN/1.73 = 03350) eGFR NON- AMER. (test 55 ML/MIN/1.73 code = 11854) CALC BUN/CREAT (test code = 18 RATIO 2235) SODIUM (test code = 2231) 138 MEQ/L POTASSIUM (test code = 2228) 5.3 MEQ/L CHLORIDE (test code = 2215) 102 MEQ/L CARBON DIOXIDE (test code = 24 MEQ/L 2205) CALCIUM (test code = 2209) 9.6 MG/DL PROTEIN, TOTAL (test code = 7.3 G/DL 2228) ALBUMIN (test code = 2201) 4.2 G/DL CALC GLOBULIN (test code = 3.1 G/DL 2240) CALC A/G RATIO (test code = 1.4 RATIO 2234) BILIRUBIN, TOTAL (test code = 0.3 MG/DL 2206) ALKALINE PHOSPHATASE (test 81 U/L code = 2204) AST (test code = 2218) 26 U/L ALT (test code = 2219) 23 U/L COMPREHENSIVE METABOLIC [id number] 00:00:00 Test Item Value Reference Range Interpretation Comments GLUCOSE (test code = 2217) 166 MG/DL BUN (test code = 2208) 19 MG/DL CREATININE (test code = 2214) 1.04 MG/DL eGFR AMER. (test code 63 ML/MIN/1.73 = 98799) eGFR NON- AMER. (test 55 ML/MIN/1.73 code = 16578) CALC BUN/CREAT (test code = 18 RATIO 2235) SODIUM (test code = 2231) 138 MEQ/L POTASSIUM (test code = 2228) 5.3 MEQ/L CHLORIDE (test code = 2215) 102 MEQ/L CARBON DIOXIDE (test code = 24 MEQ/L 2205) CALCIUM (test code = 2209) 9.6 MG/DL PROTEIN, TOTAL (test code = 7.3 G/DL 2228) ALBUMIN (test code = 2201) 4.2 G/DL CALC GLOBULIN (test code = 3.1 G/DL 0) CALC A/G RATIO (test code = 1.4 RATIO 2234) BILIRUBIN, TOTAL (test code = 0.3 MG/DL 2206) ALKALINE PHOSPHATASE (test 81 U/L code = 2204) AST (test code = 2218) 26 U/L ALT (test code = 2219) 23 U/L [id number] 00:00:00 Test Item Value Reference Range Interpretation Comments TSH, THIRD GENERATION (test code 2.640 UIU/ML = 2821) [id number] 00:00:00 Test Item Value Reference Range Interpretation Comments TSH, THIRD GENERATION (test code 2.640 UIU/ML = 2821) [id number] 00:00:00 Test Item Value Reference Range Interpretation Comments TSH, THIRD GENERATION (test code 2.640 UIU/ML = 2821) HEMOGLOBIN [id number] 00:00:00 Test Item Value Reference Range Interpretation Comments HEMOGLOBIN A1c (test code = 07119) 10.0 % HEMOGLOBIN [id number] 00:00:00 Test Item Value Reference Range Interpretation Comments HEMOGLOBIN A1c (test code = 48355) 10.0 % HEMOGLOBIN [id number] 00:00:00 Test Item Value Reference Range Interpretation Comments HEMOGLOBIN A1c (test code = 00278) 10.0 % LIPID [id number] 00:00:00 Test Item Value Reference Range Interpretation Comments CHOLESTEROL (test code = 2210) 143 MG/DL TRIGLYCERIDES (test code = 2232) 258 MG/DL HDL CHOLESTEROL (test code = 2220) 45 MG/DL CALC LDL CHOL (test code = 2237) 68 MG/DL RISK RATIO LDL/HDL (test code = 1.51 RATIO 2238) LIPID [id number] 00:00:00 Test Item Value Reference Range Interpretation Comments CHOLESTEROL (test code = 2210) 143 MG/DL TRIGLYCERIDES (test code = 2232) 258 MG/DL HDL CHOLESTEROL (test code = 2220) 45 MG/DL CALC LDL CHOL (test code = 2237) 68 MG/DL RISK RATIO LDL/HDL (test code = 1.51 RATIO 2238) COMPREHENSIVE METABOLIC [id number] 00:00:00 Test Item Value Reference Range Interpretation Comments GLUCOSE (test code = 2217) 166 MG/DL BUN (test code = 2208) 19 MG/DL CREATININE (test code = 2214) 1.04 MG/DL eGFR AMER. (test code 63 ML/MIN/1.73 = 31620) eGFR NON- AMER. (test 55 ML/MIN/1.73 code = 30630) CALC BUN/CREAT (test code = 18 RATIO 2235) SODIUM (test code = 2231) 138 MEQ/L POTASSIUM (test code = 2228) 5.3 MEQ/L CHLORIDE (test code = 2215) 102 MEQ/L CARBON DIOXIDE (test code = 24 MEQ/L 2205) CALCIUM (test code = 2209) 9.6 MG/DL PROTEIN, TOTAL (test code = 7.3 G/DL 2228) ALBUMIN (test code = 2201) 4.2 G/DL CALC GLOBULIN (test code = 3.1 G/DL 2239) CALC A/G RATIO (test code = 1.4 RATIO 2233) BILIRUBIN, TOTAL (test code = 0.3 MG/DL 2206) ALKALINE PHOSPHATASE (test 81 U/L code = 2204) AST (test code = 2218) 26 U/L ALT (test code = 2219) 23 U/L COMPREHENSIVE METABOLIC [id number] 00:00:00 Test Item Value Reference Range Interpretation Comments GLUCOSE (test code = 2217) 166 MG/DL BUN (test code = 2208) 19 MG/DL CREATININE (test code = 2214) 1.04 MG/DL eGFR AMER. (test code 63 ML/MIN/1.73 = 76688) eGFR NON- AMER. (test 55 ML/MIN/1.73 code = 88428) CALC BUN/CREAT (test code = 18 RATIO 2235) SODIUM (test code = 2231) 138 MEQ/L POTASSIUM (test code = 2228) 5.3 MEQ/L CHLORIDE (test code = 2215) 102 MEQ/L CARBON DIOXIDE (test code = 24 MEQ/L 2206) CALCIUM (test code = 2209) 9.6 MG/DL PROTEIN, TOTAL (test code = 7.3 G/DL 222) ALBUMIN (test code = 2201) 4.2 G/DL CALC GLOBULIN (test code = 3.1 G/DL 2240) CALC A/G RATIO (test code = 1.4 RATIO 2234) BILIRUBIN, TOTAL (test code = 0.3 MG/DL 220) ALKALINE PHOSPHATASE (test 81 U/L code = 2204) AST (test code = 2218) 26 U/L ALT (test code = 2219) 23 U/L [id number] 00:00:00 Test Item Value Reference Range Interpretation Comments TSH, THIRD GENERATION (test code 2.640 UIU/ML = 2821) [id number] 00:00:00 Test Item Value Reference Range Interpretation Comments TSH, THIRD GENERATION (test code 2.640 UIU/ML = 2821) [id number] 00:00:00 Test Item Value Reference Range Interpretation Comments TSH, THIRD GENERATION (test code 2.640 UIU/ML = 2821) HEMOGLOBIN [id number] 00:00:00 Test Item Value Reference Range Interpretation Comments HEMOGLOBIN A1c (test code = 36552) 10.0 % HEMOGLOBIN [id number] 00:00:00 Test Item Value Reference Range Interpretation Comments HEMOGLOBIN A1c (test code = 71989) 10.0 % MICROALBUMIN/CREATININE, RANDOM AND [id number] 00:00:00 Test Item Value Reference Range Interpretation Comments CREATININE, URINE, CONC. (test 68.9 MG/DL code = 2072) ALBUMIN, URINE, RANDOM (test code 0.3 MG/DL = 08720) CALC ALBUMIN/CREAT, RND (test code 4 MG/G = 15031) MICROALBUMIN/CREATININE, RANDOM AND [id number] 00:00:00 Test Item Value Reference Range Interpretation Comments CREATININE, URINE, CONC. (test 68.9 MG/DL code = 2072) ALBUMIN, URINE, RANDOM (test code 0.3 MG/DL = 31126) CALC ALBUMIN/CREAT, RND (test code 4 MG/G = 04157) MICROALBUMIN/CREATININE, RANDOM AND [id number] 00:00:00 Test Item Value Reference Range Interpretation Comments CREATININE, URINE, CONC. (test 68.9 MG/DL code = 2072) ALBUMIN, URINE, RANDOM (test code 0.3 MG/DL = 25957) CALC ALBUMIN/CREAT, RND (test code 4 MG/G = 38292) MICROALBUMIN/CREATININE, RANDOM AND [id number] 00:00:00 Test Item Value Reference Range Interpretation Comments CREATININE, URINE, CONC. (test 68.9 MG/DL code = 2072) ALBUMIN, URINE, RANDOM (test code 0.3 MG/DL = 77537) CALC ALBUMIN/CREAT, RND (test code 4 MG/G = 61004) HEMOGLOBIN [id number] 00:00:00 Test Item Value Reference Range Interpretation Comments HEMOGLOBIN A1c (test code = 73189) 8.9 % HEMOGLOBIN [id number] 00:00:00 Test Item Value Reference Range Interpretation Comments HEMOGLOBIN A1c (test code = 71945) 8.9 % LIPID [id number] 00:00:00 Test Item Value Reference Range Interpretation Comments CHOLESTEROL (test code = 2210) 132 MG/DL TRIGLYCERIDES (test code = 2232) 224 MG/DL HDL CHOLESTEROL (test code = 2220) 45 MG/DL CALC LDL CHOL (test code = 2237) 59 MG/DL RISK RATIO LDL/HDL (test code = 1.31 RATIO 2238) LIPID [id number] 00:00:00 Test Item Value Reference Range Interpretation Comments CHOLESTEROL (test code = 2210) 132 MG/DL TRIGLYCERIDES (test code = 2232) 224 MG/DL HDL CHOLESTEROL (test code = 2220) 45 MG/DL CALC LDL CHOL (test code = 2237) 59 MG/DL RISK RATIO LDL/HDL (test code = 1.31 RATIO 2238) COMPREHENSIVE METABOLIC [id number] 00:00:00 Test Item Value Reference Range Interpretation Comments GLUCOSE (test code = 2217) 137 MG/DL BUN (test code = 2208) 21 MG/DL CREATININE (test code = 2214) 1.21 MG/DL eGFR AMER. (test code 53 ML/MIN/1.73 = 08404) eGFR NON- AMER. (test 46 ML/MIN/1.73 code = 00605) CALC BUN/CREAT (test code = 17 RATIO 2235) SODIUM (test code = 2231) 141 MEQ/L POTASSIUM (test code = 2228) 5.0 MEQ/L CHLORIDE (test code = 2215) 105 MEQ/L CARBON DIOXIDE (test code = 24 MEQ/L 2205) CALCIUM (test code = 2209) 9.8 MG/DL PROTEIN, TOTAL (test code = 7.5 G/DL 2228) ALBUMIN (test code = 2201) 4.3 G/DL CALC GLOBULIN (test code = 3.2 G/DL 2240) CALC A/G RATIO (test code = 1.3 RATIO 2234) BILIRUBIN, TOTAL (test code = 0.3 MG/DL 2206) ALKALINE PHOSPHATASE (test 62 U/L code = 2204) AST (test code = 2218) 21 U/L ALT (test code = 2219) 22 U/L COMPREHENSIVE METABOLIC [id number] 00:00:00 Test Item Value Reference Range Interpretation Comments GLUCOSE (test code = 2217) 137 MG/DL BUN (test code = 2208) 21 MG/DL CREATININE (test code = 2214) 1.21 MG/DL eGFR AMER. (test code 53 ML/MIN/1.73 = 78189) eGFR NON- AMER. (test 46 ML/MIN/1.73 code = 69391) CALC BUN/CREAT (test code = 17 RATIO 2235) SODIUM (test code = 2231) 141 MEQ/L POTASSIUM (test code = 2228) 5.0 MEQ/L CHLORIDE (test code = 2215) 105 MEQ/L CARBON DIOXIDE (test code = 24 MEQ/L 2205) CALCIUM (test code = 2209) 9.8 MG/DL PROTEIN, TOTAL (test code = 7.5 G/DL 2228) ALBUMIN (test code = 2201) 4.3 G/DL CALC GLOBULIN (test code = 3.2 G/DL 2240) CALC A/G RATIO (test code = 1.3 RATIO 2234) BILIRUBIN, TOTAL (test code = 0.3 MG/DL 2206) ALKALINE PHOSPHATASE (test 62 U/L code = 2204) AST (test code = 2218) 21 U/L ALT (test code = 2219) 22 U/L HEMOGLOBIN [id number] 00:00:00 Test Item Value Reference Range Interpretation Comments HEMOGLOBIN A1c (test code = 73515) 8.9 % HEMOGLOBIN [id number] 00:00:00 Test Item Value Reference Range Interpretation Comments HEMOGLOBIN A1c (test code = 32833) 8.9 % HEMOGLOBIN [id number] 00:00:00 Test Item Value Reference Range Interpretation Comments HEMOGLOBIN A1c (test code = 00930) 8.9 % LIPID [id number] 00:00:00 Test Item Value Reference Range Interpretation Comments CHOLESTEROL (test code = 2210) 132 MG/DL TRIGLYCERIDES (test code = 2232) 224 MG/DL HDL CHOLESTEROL (test code = 2220) 45 MG/DL CALC LDL CHOL (test code = 2237) 59 MG/DL RISK RATIO LDL/HDL (test code = 1.31 RATIO 2238) LIPID [id number] 00:00:00 Test Item Value Reference Range Interpretation Comments CHOLESTEROL (test code = 2210) 132 MG/DL TRIGLYCERIDES (test code = 2232) 224 MG/DL HDL CHOLESTEROL (test code = 2220) 45 MG/DL CALC LDL CHOL (test code = 2237) 59 MG/DL RISK RATIO LDL/HDL (test code = 1.31 RATIO 2238) COMPREHENSIVE METABOLIC [id number] 00:00:00 Test Item Value Reference Range Interpretation Comments GLUCOSE (test code = 2217) 137 MG/DL BUN (test code = 2208) 21 MG/DL CREATININE (test code = 2214) 1.21 MG/DL eGFR AMER. (test code 53 ML/MIN/1.73 = 03312) eGFR NON- AMER. (test 46 ML/MIN/1.73 code = 26453) CALC BUN/CREAT (test code = 17 RATIO 2235) SODIUM (test code = 2231) 141 MEQ/L POTASSIUM (test code = 2228) 5.0 MEQ/L CHLORIDE (test code = 2215) 105 MEQ/L CARBON DIOXIDE (test code = 24 MEQ/L 2205) CALCIUM (test code = 2209) 9.8 MG/DL PROTEIN, TOTAL (test code = 7.5 G/DL 2228) ALBUMIN (test code = 220) 4.3 G/DL CALC GLOBULIN (test code = 3.2 G/DL 2239) CALC A/G RATIO (test code = 1.3 RATIO 2234) BILIRUBIN, TOTAL (test code = 0.3 MG/DL 2206) ALKALINE PHOSPHATASE (test 62 U/L code = 2204) AST (test code = 2218) 21 U/L ALT (test code = 2219) 22 U/L COMPREHENSIVE METABOLIC [id number] 00:00:00 Test Item Value Reference Range Interpretation Comments GLUCOSE (test code = 2217) 137 MG/DL BUN (test code = 2208) 21 MG/DL CREATININE (test code = 2214) 1.21 MG/DL eGFR AMER. (test code 53 ML/MIN/1.73 = 47347) eGFR NON- AMER. (test 46 ML/MIN/1.73 code = 26471) CALC BUN/CREAT (test code = 17 RATIO 2235) SODIUM (test code = 2231) 141 MEQ/L POTASSIUM (test code = 2228) 5.0 MEQ/L CHLORIDE (test code = 2215) 105 MEQ/L CARBON DIOXIDE (test code = 24 MEQ/L 2205) CALCIUM (test code = 2209) 9.8 MG/DL PROTEIN, TOTAL (test code = 7.5 G/DL 2228) ALBUMIN (test code = 2201) 4.3 G/DL CALC GLOBULIN (test code = 3.2 G/DL 2239) CALC A/G RATIO (test code = 1.3 RATIO 2233) BILIRUBIN, TOTAL (test code = 0.3 MG/DL 2206) ALKALINE PHOSPHATASE (test 62 U/L code = 2204) AST (test code = 2218) 21 U/L ALT (test code = 2219) 22 U/L HEMOGLOBIN [id number] 00:00:00 Test Item Value Reference Range Interpretation Comments HEMOGLOBIN A1c (test code = 27123) 8.9 % ALBUMIN/CREATININE RATIO, URINE, RANDOM [ADDED]2019-09-16 00:00:00 Test Item Value Reference Range Interpretation Comments CREATININE, URINE, TEST NOT PERFORMED MG/DL CONC. (test code = 2072) ALBUMIN, URINE, TEST NOT PERFORMED MG/DL RANDOM (test code = 88954) CALC ALBUMIN/CREAT, TEST NOT PERFORMED MG/G RND (test code = 27976) ALBUMIN/CREATININE RATIO, URINE, RANDOM [ADDED]2019-09-16 00:00:00 Test Item Value Reference Range Interpretation Comments CREATININE, URINE, TEST NOT PERFORMED MG/DL CONC. (test code = 207) ALBUMIN, URINE, TEST NOT PERFORMED MG/DL RANDOM (test code = 70789) CALC ALBUMIN/CREAT, TEST NOT PERFORMED MG/G RND (test code = 21680) ALBUMIN/CREATININE RATIO, URINE, RANDOM [ADDED]2019-09-16 00:00:00 Test Item Value Reference Range Interpretation Comments CREATININE, URINE, TEST NOT PERFORMED MG/DL CONC. (test code = 2072) ALBUMIN, URINE, TEST NOT PERFORMED MG/DL RANDOM (test code = 94034) CALC ALBUMIN/CREAT, TEST NOT PERFORMED MG/G RND (test code = 38289) ALBUMIN/CREATININE RATIO, URINE, RANDOM [ADDED]2019-09-16 00:00:00 Test Item Value Reference Range Interpretation Comments CREATININE, URINE, TEST NOT PERFORMED MG/DL CONC. (test code = 2072) ALBUMIN, URINE, TEST NOT PERFORMED MG/DL RANDOM (test code = 67669) CALC ALBUMIN/CREAT, TEST NOT PERFORMED MG/G RND (test code = 71725) COMPREHENSIVE METABOLIC PANEL [ADDED]2019-09-12 00:00:00 Test Item Value Reference Range Interpretation Comments GLUCOSE (test code = 2217) 182 MG/DL BUN (test code = 2208) 25 MG/DL CREATININE (test code = 2214) 1.16 MG/DL eGFR AMER. (test code 56 ML/MIN/1.73 = 17339) eGFR NON- AMER. (test 48 ML/MIN/1.73 code = 02544) CALC BUN/CREAT (test code = 22 RATIO 2235) SODIUM (test code = 2231) 138 MEQ/L POTASSIUM (test code = 2228) 4.7 MEQ/L CHLORIDE (test code = 2215) 101 MEQ/L CARBON DIOXIDE (test code = 22 MEQ/L 2205) CALCIUM (test code = 2209) 9.9 MG/DL PROTEIN, TOTAL (test code = 7.5 G/DL 2228) ALBUMIN (test code = 2201) 4.5 G/DL CALC GLOBULIN (test code = 3.0 G/DL 2239) CALC A/G RATIO (test code = 1.5 RATIO 2234) BILIRUBIN, TOTAL (test code = 0.2 MG/DL 2206) ALKALINE PHOSPHATASE (test 75 U/L code = 2204) AST (test code = 2218) 24 U/L ALT (test code = 2219) 23 U/L LIPID PANEL [ADDED]2019-09-12 00:00:00 Test Item Value Reference Range Interpretation Comments CHOLESTEROL (test code = 2210) 165 MG/DL TRIGLYCERIDES (test code = 2232) 345 MG/DL HDL CHOLESTEROL (test code = 2220) 50 MG/DL CALC LDL CHOL (test code = 2237) 73 MG/DL RISK RATIO LDL/HDL (test code = 1.46 RATIO 2238) LIPID PANEL [ADDED]2019-09-12 00:00:00 Test Item Value Reference Range Interpretation Comments CHOLESTEROL (test code = 2210) 165 MG/DL TRIGLYCERIDES (test code = 2232) 345 MG/DL HDL CHOLESTEROL (test code = 2220) 50 MG/DL CALC LDL CHOL (test code = 2237) 73 MG/DL RISK RATIO LDL/HDL (test code = 1.46 RATIO 2238) TSH, THIRD GENERATION [ADDED]2019-09-12 00:00:00 Test Item Value Reference Range Interpretation Comments TSH, THIRD GENERATION (test code 9.860 UIU/ML = 2821) TSH, THIRD GENERATION [ADDED]2019-09-12 00:00:00 Test Item Value Reference Range Interpretation Comments TSH, THIRD GENERATION (test code 9.860 UIU/ML = 2821) TSH, THIRD GENERATION [ADDED]2019-09-12 00:00:00 Test Item Value Reference Range Interpretation Comments TSH, THIRD GENERATION (test code 9.860 UIU/ML = 2821) NOTE: [ADDED]2019-09-12 00:00:00 Test Item Value Reference Range Interpretation Comments NOTE: (test code = 998) (NOTE) COMPREHENSIVE METABOLIC PANEL [ADDED]2019-09-12 00:00:00 Test Item Value Reference Range Interpretation Comments GLUCOSE (test code = 2217) 182 MG/DL BUN (test code = 2208) 25 MG/DL CREATININE (test code = 2214) 1.16 MG/DL eGFR AMER. (test code 56 ML/MIN/1.73 = 35610) eGFR NON- AMER. (test 48 ML/MIN/1.73 code = 19605) CALC BUN/CREAT (test code = 22 RATIO 2235) SODIUM (test code = 2231) 138 MEQ/L POTASSIUM (test code = 2228) 4.7 MEQ/L CHLORIDE (test code = 2215) 101 MEQ/L CARBON DIOXIDE (test code = 22 MEQ/L 220) CALCIUM (test code = 2209) 9.9 MG/DL PROTEIN, TOTAL (test code = 7.5 G/DL 2228) ALBUMIN (test code = 2201) 4.5 G/DL CALC GLOBULIN (test code = 3.0 G/DL 2240) CALC A/G RATIO (test code = 1.5 RATIO 2234) BILIRUBIN, TOTAL (test code = 0.2 MG/DL 220) ALKALINE PHOSPHATASE (test 75 U/L code = 2204) AST (test code = 2218) 24 U/L ALT (test code = 2219) 23 U/L COMPREHENSIVE METABOLIC PANEL [ADDED]2019-09-12 00:00:00 Test Item Value Reference Range Interpretation Comments GLUCOSE (test code = 2217) 182 MG/DL BUN (test code = 2208) 25 MG/DL CREATININE (test code = 2214) 1.16 MG/DL eGFR AMER. (test code 56 ML/MIN/1.73 = 95804) eGFR NON- AMER. (test 48 ML/MIN/1.73 code = 19989) CALC BUN/CREAT (test code = 22 RATIO 2235) SODIUM (test code = 2231) 138 MEQ/L POTASSIUM (test code = 2228) 4.7 MEQ/L CHLORIDE (test code = 2215) 101 MEQ/L CARBON DIOXIDE (test code = 22 MEQ/L 2205) CALCIUM (test code = 2209) 9.9 MG/DL PROTEIN, TOTAL (test code = 7.5 G/DL 2228) ALBUMIN (test code = 2201) 4.5 G/DL CALC GLOBULIN (test code = 3.0 G/DL 2240) CALC A/G RATIO (test code = 1.5 RATIO 2234) BILIRUBIN, TOTAL (test code = 0.2 MG/DL 7) ALKALINE PHOSPHATASE (test 75 U/L code = 2204) AST (test code = 2218) 24 U/L ALT (test code = 2219) 23 U/L LIPID PANEL [ADDED]2019-09-12 00:00:00 Test Item Value Reference Range Interpretation Comments CHOLESTEROL (test code = 2210) 165 MG/DL TRIGLYCERIDES (test code = 2232) 345 MG/DL HDL CHOLESTEROL (test code = 2220) 50 MG/DL CALC LDL CHOL (test code = 2237) 73 MG/DL RISK RATIO LDL/HDL (test code = 1.46 RATIO 2238) LIPID PANEL [ADDED]2019-09-12 00:00:00 Test Item Value Reference Range Interpretation Comments CHOLESTEROL (test code = 2210) 165 MG/DL TRIGLYCERIDES (test code = 2232) 345 MG/DL HDL CHOLESTEROL (test code = 2220) 50 MG/DL CALC LDL CHOL (test code = 2237) 73 MG/DL RISK RATIO LDL/HDL (test code = 1.46 RATIO 2238) TSH, THIRD GENERATION [ADDED]2019-09-12 00:00:00 Test Item Value Reference Range Interpretation Comments TSH, THIRD GENERATION (test code 9.860 UIU/ML = 2821) TSH, THIRD GENERATION [ADDED]2019-09-12 00:00:00 Test Item Value Reference Range Interpretation Comments TSH, THIRD GENERATION (test code 9.860 UIU/ML = 2821) TSH, THIRD GENERATION [ADDED]2019-09-12 00:00:00 Test Item Value Reference Range Interpretation Comments TSH, THIRD GENERATION (test code 9.860 UIU/ML = 2821) NOTE: [ADDED]2019-09-12 00:00:00 Test Item Value Reference Range Interpretation Comments NOTE: (test code = 998) (NOTE) COMPREHENSIVE METABOLIC PANEL [ADDED]2019-09-12 00:00:00 Test Item Value Reference Range Interpretation Comments GLUCOSE (test code = 2217) 182 MG/DL BUN (test code = 2208) 25 MG/DL CREATININE (test code = 2214) 1.16 MG/DL eGFR AMER. (test code 56 ML/MIN/1.73 = 75091) eGFR NON- AMER. (test 48 ML/MIN/1.73 code = 36071) CALC BUN/CREAT (test code = 22 RATIO 2235) SODIUM (test code = 2231) 138 MEQ/L POTASSIUM (test code = 2228) 4.7 MEQ/L CHLORIDE (test code = 2215) 101 MEQ/L CARBON DIOXIDE (test code = 22 MEQ/L 2206) CALCIUM (test code = 2209) 9.9 MG/DL PROTEIN, TOTAL (test code = 7.5 G/DL 2228) ALBUMIN (test code = 2201) 4.5 G/DL CALC GLOBULIN (test code = 3.0 G/DL 2240) CALC A/G RATIO (test code = 1.5 RATIO 2234) BILIRUBIN, TOTAL (test code = 0.2 MG/DL 7) ALKALINE PHOSPHATASE (test 75 U/L code = 2204) AST (test code = 2218) 24 U/L ALT (test code = 2219) 23 U/L CBC W/AUTO DIFF WITH PLATELETS [ADDED]2019-09-11 00:00:00 Test Item Value Reference Range Interpretation Comments WBC (test code = 1001) 8.7 K/UL RBC (test code = 1002) 4.14 M/UL HEMOGLOBIN (test code = 1003) 12.3 G/DL HEMATOCRIT (test code = 1004) 38.2 % MCV (test code = 1005) 92.3 fL MCH (test code = 1006) 29.7 PG MCHC (test code = 1007) 32.2 G/DL RDW (test code = 1038) 13.9 % NEUTROPHILS (test code = 1008) 58.7 % LYMPHOCYTES (test code = 1010) 34.3 % MONOCYTES (test code = 1011) 4.6 % EOSINOPHILS (test code = 1012) 1.7 % BASOPHILS (test code = 1013) 0.7 % PLATELET COUNT (test code = 1015) 232 K/UL CBC W/AUTO DIFF WITH PLATELETS [ADDED]2019-09-11 00:00:00 Test Item Value Reference Range Interpretation Comments WBC (test code = 1001) 8.7 K/UL RBC (test code = 1002) 4.14 M/UL HEMOGLOBIN (test code = 1003) 12.3 G/DL HEMATOCRIT (test code = 1004) 38.2 % MCV (test code = 1005) 92.3 fL MCH (test code = 1006) 29.7 PG MCHC (test code = 1007) 32.2 G/DL RDW (test code = 1038) 13.9 % NEUTROPHILS (test code = 1008) 58.7 % LYMPHOCYTES (test code = 1010) 34.3 % MONOCYTES (test code = 1011) 4.6 % EOSINOPHILS (test code = 1012) 1.7 % BASOPHILS (test code = 1013) 0.7 % PLATELET COUNT (test code = 1015) 232 K/UL CBC W/AUTO DIFF WITH PLATELETS [ADDED]2019-09-11 00:00:00 Test Item Value Reference Range Interpretation Comments WBC (test code = 1001) 8.7 K/UL RBC (test code = 1002) 4.14 M/UL HEMOGLOBIN (test code = 1003) 12.3 G/DL HEMATOCRIT (test code = 1004) 38.2 % MCV (test code = 1005) 92.3 fL MCH (test code = 1006) 29.7 PG MCHC (test code = 1007) 32.2 G/DL RDW (test code = 1038) 13.9 % NEUTROPHILS (test code = 1008) 58.7 % LYMPHOCYTES (test code = 1010) 34.3 % MONOCYTES (test code = 1011) 4.6 % EOSINOPHILS (test code = 1012) 1.7 % BASOPHILS (test code = 1013) 0.7 % PLATELET COUNT (test code = 1015) 232 K/UL HEMOGLOBIN A1c [ADDED]2019-09-11 00:00:00 Test Item Value Reference Range Interpretation Comments HEMOGLOBIN A1c (test code = 44556) 9.0 % HEMOGLOBIN A1c [ADDED]2019-09-11 00:00:00 Test Item Value Reference Range Interpretation Comments HEMOGLOBIN A1c (test code = 76558) 9.0 % HEMOGLOBIN A1c [ADDED]2019-09-11 00:00:00 Test Item Value Reference Range Interpretation Comments HEMOGLOBIN A1c (test code = 26976) 9.0 % CBC W/AUTO DIFF WITH PLATELETS [ADDED]2019-09-11 00:00:00 Test Item Value Reference Range Interpretation Comments WBC (test code = 1001) 8.7 K/UL RBC (test code = 1002) 4.14 M/UL HEMOGLOBIN (test code = 1003) 12.3 G/DL HEMATOCRIT (test code = 1004) 38.2 % MCV (test code = 1005) 92.3 fL MCH (test code = 1006) 29.7 PG MCHC (test code = 1007) 32.2 G/DL RDW (test code = 1038) 13.9 % NEUTROPHILS (test code = 1008) 58.7 % LYMPHOCYTES (test code = 1010) 34.3 % MONOCYTES (test code = 1011) 4.6 % EOSINOPHILS (test code = 1012) 1.7 % BASOPHILS (test code = 1013) 0.7 % PLATELET COUNT (test code = 1015) 232 K/UL CBC W/AUTO DIFF WITH PLATELETS [ADDED]2019-09-11 00:00:00 Test Item Value Reference Range Interpretation Comments WBC (test code = 1001) 8.7 K/UL RBC (test code = 1002) 4.14 M/UL HEMOGLOBIN (test code = 1003) 12.3 G/DL HEMATOCRIT (test code = 1004) 38.2 % MCV (test code = 1005) 92.3 fL MCH (test code = 1006) 29.7 PG MCHC (test code = 1007) 32.2 G/DL RDW (test code = 1038) 13.9 % NEUTROPHILS (test code = 1008) 58.7 % LYMPHOCYTES (test code = 1010) 34.3 % MONOCYTES (test code = 1011) 4.6 % EOSINOPHILS (test code = 1012) 1.7 % BASOPHILS (test code = 1013) 0.7 % PLATELET COUNT (test code = 1015) 232 K/UL CBC W/AUTO DIFF WITH PLATELETS [ADDED]2019-09-11 00:00:00 Test Item Value Reference Range Interpretation Comments WBC (test code = 1001) 8.7 K/UL RBC (test code = 1002) 4.14 M/UL HEMOGLOBIN (test code = 1003) 12.3 G/DL HEMATOCRIT (test code = 1004) 38.2 % MCV (test code = 1005) 92.3 fL MCH (test code = 1006) 29.7 PG MCHC (test code = 1007) 32.2 G/DL RDW (test code = 1038) 13.9 % NEUTROPHILS (test code = 1008) 58.7 % LYMPHOCYTES (test code = 1010) 34.3 % MONOCYTES (test code = 1011) 4.6 % EOSINOPHILS (test code = 1012) 1.7 % BASOPHILS (test code = 1013) 0.7 % PLATELET COUNT (test code = 1015) 232 K/UL HEMOGLOBIN A1c [ADDED]2019-09-11 00:00:00 Test Item Value Reference Range Interpretation Comments HEMOGLOBIN A1c (test code = 29301) 9.0 % HEMOGLOBIN A1c [ADDED]2019-09-11 00:00:00 Test Item Value Reference Range Interpretation Comments HEMOGLOBIN A1c (test code = 55783) 9.0 % HEMOGLOBIN A1c [ADDED]2019-09-11 00:00:00 Test Item Value Reference Range Interpretation Comments HEMOGLOBIN A1c (test code = 58467) 9.0 % CBC W/AUTO [id number] 00:00:00 Test Item Value Reference Range Interpretation Comments WBC (test code = 1001) 8.1 K/UL RBC (test code = 1002) 4.05 M/UL HEMOGLOBIN (test code = 1003) 12.0 G/DL HEMATOCRIT (test code = 1004) 35.7 % MCV (test code = 1005) 88.1 fL MCH (test code = 1006) 29.6 PG MCHC (test code = 1007) 33.6 G/DL RDW (test code = 1038) 13.5 % NEUTROPHILS (test code = 1008) 61.7 % LYMPHOCYTES (test code = 1010) 29.4 % MONOCYTES (test code = 1011) 5.9 % EOSINOPHILS (test code = 1012) 2.4 % BASOPHILS (test code = 1013) 0.6 % PLATELET COUNT (test code = 1015) 224 K/UL CBC W/AUTO [id number] 00:00:00 Test Item Value Reference Range Interpretation Comments WBC (test code = 1001) 8.1 K/UL RBC (test code = 1002) 4.05 M/UL HEMOGLOBIN (test code = 1003) 12.0 G/DL HEMATOCRIT (test code = 1004) 35.7 % MCV (test code = 1005) 88.1 fL MCH (test code = 1006) 29.6 PG MCHC (test code = 1007) 33.6 G/DL RDW (test code = 1038) 13.5 % NEUTROPHILS (test code = 1008) 61.7 % LYMPHOCYTES (test code = 1010) 29.4 % MONOCYTES (test code = 1011) 5.9 % EOSINOPHILS (test code = 1012) 2.4 % BASOPHILS (test code = 1013) 0.6 % PLATELET COUNT (test code = 1015) 224 K/UL HEMOGLOBIN [id number] 00:00:00 Test Item Value Reference Range Interpretation Comments HEMOGLOBIN A1c (test code = 05075) 8.3 % HEMOGLOBIN [id number] 00:00:00 Test Item Value Reference Range Interpretation Comments HEMOGLOBIN A1c (test code = 83308) 8.3 % HEMOGLOBIN [id number] 00:00:00 Test Item Value Reference Range Interpretation Comments HEMOGLOBIN A1c (test code = 42003) 8.3 % COMPREHENSIVE METABOLIC [id number] 00:00:00 Test Item Value Reference Range Interpretation Comments GLUCOSE (test code = 2217) 159 MG/DL BUN (test code = 2208) 22 MG/DL CREATININE (test code = 2214) 1.06 MG/DL eGFR AMER. (test code 62 ML/MIN/1.73 = 82192) eGFR NON- AMER. (test 54 ML/MIN/1.73 code = 79061) CALC BUN/CREAT (test code = 21 RATIO 2235) SODIUM (test code = 2231) 138 MEQ/L POTASSIUM (test code = 2228) 5.0 MEQ/L CHLORIDE (test code = 2215) 101 MEQ/L CARBON DIOXIDE (test code = 24 MEQ/L 2205) CALCIUM (test code = 2209) 9.5 MG/DL PROTEIN, TOTAL (test code = 7.2 G/DL 2228) ALBUMIN (test code = 2201) 4.2 G/DL CALC GLOBULIN (test code = 3.0 G/DL 2239) CALC A/G RATIO (test code = 1.4 RATIO 2234) BILIRUBIN, TOTAL (test code = 0.3 MG/DL 2206) ALKALINE PHOSPHATASE (test 74 U/L code = 2204) AST (test code = 2218) 16 U/L ALT (test code = 2219) 18 U/L COMPREHENSIVE METABOLIC [id number] 00:00:00 Test Item Value Reference Range Interpretation Comments GLUCOSE (test code = 2217) 159 MG/DL BUN (test code = 2208) 22 MG/DL CREATININE (test code = 2214) 1.06 MG/DL eGFR AMER. (test code 62 ML/MIN/1.73 = 47906) eGFR NON- AMER. (test 54 ML/MIN/1.73 code = 27535) CALC BUN/CREAT (test code = 21 RATIO 2235) SODIUM (test code = 2231) 138 MEQ/L POTASSIUM (test code = 2228) 5.0 MEQ/L CHLORIDE (test code = 2215) 101 MEQ/L CARBON DIOXIDE (test code = 24 MEQ/L 220) CALCIUM (test code = 2209) 9.5 MG/DL PROTEIN, TOTAL (test code = 7.2 G/DL 2228) ALBUMIN (test code = 2201) 4.2 G/DL CALC GLOBULIN (test code = 3.0 G/DL 2240) CALC A/G RATIO (test code = 1.4 RATIO 2234) BILIRUBIN, TOTAL (test code = 0.3 MG/DL 2206) ALKALINE PHOSPHATASE (test 74 U/L code = 2204) AST (test code = 2218) 16 U/L ALT (test code = 2219) 18 U/L LIPID [id number] 00:00:00 Test Item Value Reference Range Interpretation Comments CHOLESTEROL (test code = 2210) 145 MG/DL TRIGLYCERIDES (test code = 2232) 270 MG/DL HDL CHOLESTEROL (test code = 2220) 49 MG/DL CALC LDL CHOL (test code = 2237) 64 MG/DL RISK RATIO LDL/HDL (test code = 1.31 RATIO 2238) LIPID [id number] 00:00:00 Test Item Value Reference Range Interpretation Comments CHOLESTEROL (test code = 2210) 145 MG/DL TRIGLYCERIDES (test code = 2232) 270 MG/DL HDL CHOLESTEROL (test code = 2220) 49 MG/DL CALC LDL CHOL (test code = 2237) 64 MG/DL RISK RATIO LDL/HDL (test code = 1.31 RATIO 2238) CBC W/AUTO [id number] 00:00:00 Test Item Value Reference Range Interpretation Comments WBC (test code = 1001) 8.1 K/UL RBC (test code = 1002) 4.05 M/UL HEMOGLOBIN (test code = 1003) 12.0 G/DL HEMATOCRIT (test code = 1004) 35.7 % MCV (test code = 1005) 88.1 fL MCH (test code = 1006) 29.6 PG MCHC (test code = 1007) 33.6 G/DL RDW (test code = 1038) 13.5 % NEUTROPHILS (test code = 1008) 61.7 % LYMPHOCYTES (test code = 1010) 29.4 % MONOCYTES (test code = 1011) 5.9 % EOSINOPHILS (test code = 1012) 2.4 % BASOPHILS (test code = 1013) 0.6 % PLATELET COUNT (test code = 1015) 224 K/UL CBC W/AUTO [id number] 00:00:00 Test Item Value Reference Range Interpretation Comments WBC (test code = 1001) 8.1 K/UL RBC (test code = 1002) 4.05 M/UL HEMOGLOBIN (test code = 1003) 12.0 G/DL HEMATOCRIT (test code = 1004) 35.7 % MCV (test code = 1005) 88.1 fL MCH (test code = 1006) 29.6 PG MCHC (test code = 1007) 33.6 G/DL RDW (test code = 1038) 13.5 % NEUTROPHILS (test code = 1008) 61.7 % LYMPHOCYTES (test code = 1010) 29.4 % MONOCYTES (test code = 1011) 5.9 % EOSINOPHILS (test code = 1012) 2.4 % BASOPHILS (test code = 1013) 0.6 % PLATELET COUNT (test code = 1015) 224 K/UL CBC W/AUTO [id number] 00:00:00 Test Item Value Reference Range Interpretation Comments WBC (test code = 1001) 8.1 K/UL RBC (test code = 1002) 4.05 M/UL HEMOGLOBIN (test code = 1003) 12.0 G/DL HEMATOCRIT (test code = 1004) 35.7 % MCV (test code = 1005) 88.1 fL MCH (test code = 1006) 29.6 PG MCHC (test code = 1007) 33.6 G/DL RDW (test code = 1038) 13.5 % NEUTROPHILS (test code = 1008) 61.7 % LYMPHOCYTES (test code = 1010) 29.4 % MONOCYTES (test code = 1011) 5.9 % EOSINOPHILS (test code = 1012) 2.4 % BASOPHILS (test code = 1013) 0.6 % PLATELET COUNT (test code = 1015) 224 K/UL HEMOGLOBIN [id number] 00:00:00 Test Item Value Reference Range Interpretation Comments HEMOGLOBIN A1c (test code = 83175) 8.3 % HEMOGLOBIN [id number] 00:00:00 Test Item Value Reference Range Interpretation Comments HEMOGLOBIN A1c (test code = 42099) 8.3 % HEMOGLOBIN [id number] 00:00:00 Test Item Value Reference Range Interpretation Comments HEMOGLOBIN A1c (test code = 06457) 8.3 % COMPREHENSIVE METABOLIC [id number] 00:00:00 Test Item Value Reference Range Interpretation Comments GLUCOSE (test code = 2217) 159 MG/DL BUN (test code = 2208) 22 MG/DL CREATININE (test code = 2214) 1.06 MG/DL eGFR AMER. (test code 62 ML/MIN/1.73 = 70225) eGFR NON- AMER. (test 54 ML/MIN/1.73 code = 64423) CALC BUN/CREAT (test code = 21 RATIO 2235) SODIUM (test code = 2231) 138 MEQ/L POTASSIUM (test code = 2228) 5.0 MEQ/L CHLORIDE (test code = 2215) 101 MEQ/L CARBON DIOXIDE (test code = 24 MEQ/L 2205) CALCIUM (test code = 2209) 9.5 MG/DL PROTEIN, TOTAL (test code = 7.2 G/DL 2228) ALBUMIN (test code = 2201) 4.2 G/DL CALC GLOBULIN (test code = 3.0 G/DL 2240) CALC A/G RATIO (test code = 1.4 RATIO 2234) BILIRUBIN, TOTAL (test code = 0.3 MG/DL 2206) ALKALINE PHOSPHATASE (test 74 U/L code = 2204) AST (test code = 2218) 16 U/L ALT (test code = 2219) 18 U/L COMPREHENSIVE METABOLIC [id number] 00:00:00 Test Item Value Reference Range Interpretation Comments GLUCOSE (test code = 2217) 159 MG/DL BUN (test code = 2208) 22 MG/DL CREATININE (test code = 2214) 1.06 MG/DL eGFR AMER. (test code 62 ML/MIN/1.73 = 70572) eGFR NON- AMER. (test 54 ML/MIN/1.73 code = 08904) CALC BUN/CREAT (test code = 21 RATIO 2235) SODIUM (test code = 2231) 138 MEQ/L POTASSIUM (test code = 2228) 5.0 MEQ/L CHLORIDE (test code = 2215) 101 MEQ/L CARBON DIOXIDE (test code = 24 MEQ/L 2205) CALCIUM (test code = 2209) 9.5 MG/DL PROTEIN, TOTAL (test code = 7.2 G/DL 2228) ALBUMIN (test code = 2201) 4.2 G/DL CALC GLOBULIN (test code = 3.0 G/DL 2240) CALC A/G RATIO (test code = 1.4 RATIO 2234) BILIRUBIN, TOTAL (test code = 0.3 MG/DL 2206) ALKALINE PHOSPHATASE (test 74 U/L code = 2204) AST (test code = 2218) 16 U/L ALT (test code = 2219) 18 U/L LIPID [id number] 00:00:00 Test Item Value Reference Range Interpretation Comments CHOLESTEROL (test code = 2210) 145 MG/DL TRIGLYCERIDES (test code = 2232) 270 MG/DL HDL CHOLESTEROL (test code = 2220) 49 MG/DL CALC LDL CHOL (test code = 2237) 64 MG/DL RISK RATIO LDL/HDL (test code = 1.31 RATIO 2238) LIPID [id number] 00:00:00 Test Item Value Reference Range Interpretation Comments CHOLESTEROL (test code = 2210) 145 MG/DL TRIGLYCERIDES (test code = 2232) 270 MG/DL HDL CHOLESTEROL (test code = 2220) 49 MG/DL CALC LDL CHOL (test code = 2237) 64 MG/DL RISK RATIO LDL/HDL (test code = 1.31 RATIO 2238) CBC W/AUTO [id number] 00:00:00 Test Item Value Reference Range Interpretation Comments WBC (test code = 1001) 8.1 K/UL RBC (test code = 1002) 4.05 M/UL HEMOGLOBIN (test code = 1003) 12.0 G/DL HEMATOCRIT (test code = 1004) 35.7 % MCV (test code = 1005) 88.1 fL MCH (test code = 1006) 29.6 PG MCHC (test code = 1007) 33.6 G/DL RDW (test code = 1038) 13.5 % NEUTROPHILS (test code = 1008) 61.7 % LYMPHOCYTES (test code = 1010) 29.4 % MONOCYTES (test code = 1011) 5.9 % EOSINOPHILS (test code = 1012) 2.4 % BASOPHILS (test code = 1013) 0.6 % PLATELET COUNT (test code = 1015) 224 K/UL
[2021-12-30 23:29] LABS: Absolute Lymphocytes (CBC) 4.4 K/uL (0.7-4.9); Hematocrit 36.9 % (36.0-45.0); Lymphocytes % 42.8 % (15.3-44.8); MCV 88.7 fL (80-100); MPV 10.4 fL (7.6-11.3); RBC Red Blood Cell Count 4.16 M/uL (3.86-4.86)
[2021-12-30] MEDS ORDERED: ASPIRIN 81 MG CHEWABLE TABLET ONE (23:29)
[2021-12-30 23:31] LABS: Protime INR 0.95
[2021-12-30 23:47] LABS: SARS-CoV-2 Antigen Rapid Res Negative (Negative)
[2021-12-30 23:49] LABS: Albumin 3.8 g/dL (3.4-5.0); Bilirubin Direct 0.1 mg/dL (0-0.2); Bilirubin Total 0.3 mg/dL (0.2-1.0); Magnesium 2.2 mg/dL (1.8-2.4); Potassium 3.9 mmol/L (3.5-5.1); Troponin High Sensitivity 8.3 pg/mL (<58.9)
--- NOTE | 2021-12-30 23:57 | EDPHYS ---
Physician Documentation [facility] Name: Karin Mendosa Age: 71 yrs Sex: Female : 1950 Arrival Date: 12/30/2021 Time: 22:54 Bed 18 Private MD: ED Physician Yonas Castle HPI: 12/30 23:47 This 71 yrs old Female presents to ER via Ambulatory with complaints of Chest kb Pressure. 23:47 The patient or guardian reports chest pain that is located primarily in the anterior kb chest wall, left. Onset: 20 minute(s) ago. The pain does not radiate. Associated signs and symptoms: Pertinent positives: shortness of breath. The chest pain is described as a pressure. Duration: The patient or guardian reports a single episode, that is still ongoing. Modifying factors: The symptoms are alleviated by nothing. the symptoms are aggravated by nothing. Severity of pain: At its worst the pain was moderate in the emergency department the pain is unchanged. The patient has not experienced similar symptoms in the past. The patient has not recently seen a physician. 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 Reports pain is getting better, but still there. . Historical: - Allergies: 23:23 Morphine; bb - Home Meds: 23:23 atorvastatin 20 mg Oral tab 1 tab once daily [Active]; isulin [Active]; lisinopril 40 bb mg Oral tab 1 tab once daily [Active]; metformin 1,000 mg Oral tab 1 tab 2 times per day [Active]; amlodipine oral [Active]; Farxiga oral [Active]; - PMHx: 23:23 Arthritis; Diabetes - NIDDM; Hypertension; Hypothyroidism; bb - Immunization history:: Client reports receiving the 2nd dose of the Covid vaccine, Moderna. - Social history:: Smoking status: Patient denies any tobacco usage or history of. ROS: 23:47 Constitutional: Negative for fever, chills, and weight loss. kb 23:47 Cardiovascular: Positive for chest pain, Negative for edema, orthopnea, palpitations, paroxysmal nocturnal dyspnea. 23:47 Respiratory: Positive for shortness of breath. 23:47 All other systems are negative. Exam: 23:24 Constitutional: This is a well developed, well nourished patient who is awake, alert, kb and in no acute distress. Head/Face: Normocephalic, atraumatic. ENT: Moist Mucous membranes Cardiovascular: Regular rate and rhythm with a normal S1 and S2. No gallops, murmurs, or rubs. No pulse deficits. Respiratory: Respirations even and unlabored. No increased work of breathing. Talking in full sentences Abdomen/GI: Soft, non-tender. No distention Skin: Warm, dry with normal turgor. Normal color. MS/ Extremity: Pulses equal, no cyanosis. Neurovascular intact. Full, normal range of motion. Neuro: Awake and alert, GCS 15, oriented to person, place, time, and situation. Moves all extremities. Normal gait. Psych: Awake, alert, with orientation to person, place and time. Behavior, mood, and affect are within normal limits. 23:24 ECG was reviewed by the Attending Physician. Vital Signs: 23:00 BP 174 / 65; Pulse 101; Resp 18 S; Temp 98.3(O); Pulse Ox 98% on R/A; Weight 93.89 kg bb (R); Height 5 ft. 4 in. (162.56 cm) (R); Pain 0/10; 23:45 BP 165 / 64; Pulse 92; Resp 15 S; Pulse Ox 96% on R/A; bb 12/31 01:10 BP 142 / 63; Pulse 91; Resp 19 S; Pulse Ox 97% on R/A; bb 12/30 23:00 Body Mass Index 35.53 (93.89 kg, 162.56 cm) bb MDM: 12/30 23:02 Patient medically screened. kb 23:24 Data reviewed: vital signs, nurses notes. Data interpreted: Pulse oximetry: on room air kb is 98 %. Interpretation: normal. Counseling: I had a detailed discussion with the patient and/or guardian regarding: the historical points, exam findings, and any diagnostic results supporting the discharge/admit diagnosis, lab results, radiology results, the need for further work-up and treatment in the hospital. 23:54 The patient was given aspirin in the Emergency Department. kb 23:54 ED course: H:1, E:0, A:2,R:2,T0=5. kb 12/30 23:09 Order name: Basic Metabolic Panel; Complete Time: 23:53 kb 12/30 23:09 Order name: CBC with Diff; Complete Time: 23:42 kb 12/30 23:09 Order name: LFT's; Complete Time: 23:53 kb 12/30 23:09 Order name: Magnesium; Complete Time: 23:53 kb 12/30 23:09 Order name: NT PRO-BNP; Complete Time: 23:53 kb 12/30 23:09 Order name: PT-INR; Complete Time: 23:42 kb 12/30 23:09 Order name: Troponin HS; Complete Time: 23:53 kb 12/30 23:09 Order name: XRAY Chest (1 view) kb 12/30 23:09 Order name: EKG; Complete Time: 23:10 kb 12/30 23:09 Order name: Cardiac monitoring; Complete Time: 23:18 kb 12/30 23:09 Order name: EKG - Nurse/Tech; Complete Time: 23:25 kb 12/30 23:09 Order name: IV Saline Lock; Complete Time: 23:25 kb 12/30 23:09 Order name: SARS RAPID; Complete Time: 23:48 kb 12/30 23:09 Order name: Labs collected and sent; Complete Time: 23:25 kb 12/30 23:09 Order name: O2 Per Protocol; Complete Time: 23:18 kb 12/30 23:09 Order name: O2 Sat Monitoring; Complete Time: 23:18 kb EC:24 Rate is 100 beats/min. Rhythm is regular. QRS Dawson is Normal. ND interval is normal at kb 178 msec. QRS interval is normal at 106 msec. QT interval is normal at 482 msec. Administered Medications: 23:33 Drug: Aspirin Chewable Tablet 324 mg Route: PO; bb 12/31 01:13 Follow up: Response: No adverse reaction bb Disposition: 06:04 Co-signature as Attending Physician, Yonas Castle MD I agree with the assessment and kdr plan of care. Disposition Summary: 12/30/21 23:56 Hospitalization Ordered Hospitalization Status: Observation kb Provider: May Cabrera Location: Telemetry/MedSurg (observation) kb Condition: Stable kb Problem: new kb Symptoms: are unchanged kb Bed/Room Type: Standard Room Assignment: 232(12/31/21 00:19) Diagnosis - Chest pain, unspecified kb Forms: - Medication Reconciliation Form kb - SBAR form kb Signatures: Dispatcher [employer] EDMS Jama Ashley, [employer]IDENT[employer] INSURANCE INSPECTOR-Ayana Escobedo RN RN mw Rittger, Kevin, MD MD [facility] Britta Pena RN RN bb Corrections: (The following items were deleted from the chart) 00:19 12/30 23:56 kb
--- NOTE | 2021-12-30 23:57 | ER ---
Nurse's Notes [facility] Name: Karin Mendosa Age: 71 yrs Sex: Female : 1950 Arrival Date: 12/30/2021 Time: 22:54 Bed 18 Private MD: Diagnosis: Chest pain, unspecified Presentation: 12/30 23:00 Chief complaint: Patient states: she was told by her PCP she needs to come to ED to bb check her high blood pressure. Coronavirus screen: At this time, the client does not indicate any symptoms associated with coronavirus-19. Ebola Screen: No symptoms or risks identified at this time. Initial Sepsis Screen: Does the patient meet any 2 criteria? No. Patient's initial sepsis screen is negative. Does the patient have a suspected source of infection? No. Patient's initial sepsis screen is negative. Risk Assessment: Do you want to hurt yourself or someone else? Patient reports no desire to harm self or others. Onset of symptoms was December 30, 2021. 23:00 Method Of Arrival: Ambulatory bb 23:00 Acuity: RAY 3 bb Historical: - Allergies: 23:23 Morphine; bb - Home Meds: 23:23 atorvastatin 20 mg Oral tab 1 tab once daily [Active]; isulin [Active]; lisinopril 40 bb mg Oral tab 1 tab once daily [Active]; metformin 1,000 mg Oral tab 1 tab 2 times per day [Active]; amlodipine oral [Active]; Farxiga oral [Active]; - PMHx: 23:23 Arthritis; Diabetes - NIDDM; Hypertension; Hypothyroidism; bb - Immunization history:: Client reports receiving the 2nd dose of the Covid vaccine, Moderna. - Social history:: Smoking status: Patient denies any tobacco usage or history of. Screenin:25 Abuse screen: Denies threats or abuse. Nutritional screening: No deficits noted. bb Tuberculosis screening: No symptoms or risk factors identified. Fall Risk None identified. Assessment: 23:25 General: Appears in no apparent distress. Behavior is calm, cooperative. Pain: Denies bb pain. Neuro: Level of Consciousness is awake, alert, obeys commands, Oriented to person, place, time, situation. Cardiovascular: Capillary refill < 3 seconds Patient's skin is warm and dry. Respiratory: Respiratory effort is even, unlabored, Respiratory pattern is regular. GI: No signs and/or symptoms were reported involving the gastrointestinal system. Derm: Skin is pink, warm \T\ dry. Musculoskeletal: Circulation, motion, and sensation intact. 23:45 Reassessment: Patient is alert, oriented x 3, equal unlabored respirations, skin bb warm/dry/pink. 12/31 01:10 Reassessment: Patient is alert, oriented x 3, equal unlabored respirations, skin bb warm/dry/pink. Gay SINGH at bedside for discussion of admission pt verbalized understanding of and agrees to plan of care. 01:13 Reassessment: report called to Rolando LAGOS for room 232. bb Vital Signs: 12/30 23:00 BP 174 / 65; Pulse 101; Resp 18 S; Temp 98.3(O); Pulse Ox 98% on R/A; Weight 93.89 kg bb (R); Height 5 ft. 4 in. (162.56 cm) (R); Pain 0/10; 23:45 BP 165 / 64; Pulse 92; Resp 15 S; Pulse Ox 96% on R/A; bb 12/31 01:10 BP 142 / 63; Pulse 91; Resp 19 S; Pulse Ox 97% on R/A; bb 12/30 23:00 Body Mass Index 35.53 (93.89 kg, 162.56 cm) bb ED Course: 12/30 22:54 Patient arrived in ED. ja2 22:58 Britta Pena, DEMOND is Primary Nurse. bb 23:02 Ashley [facility]C [facility] kb 23:02 Yonas Castle MD is Attending Physician. kb 23:23 Triage completed. bb 23:23 Arm band placed on. EKG completed in triage. Results shown to MD. bb 23:25 Patient has correct armband on for positive identification. color television console monitor on. Pulse bb ox on. NIBP on. Warm blanket given. 23:25 SARS RAPID Sent. mm9 23:25 Basic Metabolic Panel Sent. mm9 23:25 LFT's Sent. mm9 23:25 Patient maintains SpO2 saturation greater than 95% on room air. bb 23:26 CBC with Diff Sent. mm9 23:26 Magnesium Sent. mm9 23:26 NT PRO-BNP Sent. mm9 23:26 PT-INR Sent. mm9 23:26 Troponin HS Sent. mm9 23:26 Initial lab(s) drawn, by me, sent to lab. EKG done, by ED staff, reviewed by Ashley ABBOTT COVID swab sent to lab. Inserted saline lock: 22 gauge in right antecubital area, using aseptic technique. Blood collected. 23:35 XRAY Chest (1 view) In Process Unspecified. EDMS 23:56 May Cabrera MD is Hospitalizing Provider. kb 12/31 01:09 No provider procedures requiring assistance completed. Patient admitted, IV remains in bb place. Administered Medications: 12/30 23:33 Drug: Aspirin Chewable Tablet 324 mg Route: PO; bb 12/31 01:13 Follow up: Response: No adverse reaction bb Medication: 12/30 23:25 VIS not applicable for this client. bb Outcome: 23:56 Decision to Hospitalize by Provider. kb 12/31 01:09 Admitted to Tele with chart. bb Condition: stable Instructed on the need for admit. 01:19 Patient left the ED. bb Signatures: Dispatcher [employer] EDMS Ashley Jama, HOME HEALTH CLINICAL SUPERVISORKaren SNIDERP-Britta Murguia, DEMOND RN Kesha Ronquillo Maria mm9 Corrections: (The following items were deleted from the chart) 12/30 23:23 23:00 Chief complaint: bb bb
--- NOTE | 2021-12-31 00:18 | P.HP ---
Certification for Inpatient Patient admitted to: Observation With expected LOS: <2 Midnights Patient will require the following post-hospital care: None Practitioner: I am a practitioner with admitting privileges, knowledge of patient current condition, hospital course, and medical plan of care. Services: Services provided to patient in accordance with Admission requirements found in Title 42 Section 412.3 of the Code of Federal Regulations <Kathleen Fuller - Last Filed: 12/31/21 03:15> Patient History Date of Service: 12/31/21 Reason for admission: Chest Pain History of Present Illness: Patient is a 71 year old female with history of hypertension and non-insulin dependent type 2 diabetes who presented to the ED with complaints of high blood pressure and chest pressure. Patient reports that she was at her PCP's office and was sent here due to high blood pressure reading. BP was 174/65 upon arrival to ED. She states that she has also been experiencing some chest pressure and a sensation of her heart pounding. She denies nausea, shortness of breath, or diaphoresis. She states the symptoms have now resolved. Her EKG was unremarkable. Labs significant for sodium 133, BUN 34, creatinine 1.7, glucose 249, Troponin negative. She was given 324 mg aspirin. Chest xray negative. Patient does not have a ring barker operator nor has had a cardiac workup. ED provider wishes to admit patient for observation for ACS rule out. Home medications list reviewed: Yes - Past Medical/Surgical History Diabetic: Yes -: Type 2 Diabetes, Non-Insulin Dependent -: Hypertension Past Surgical History: Patient denies surgical history Psychosocial/ Personal History: Patient lives at home with her daughter. - Family History Family History: Reviewed- Non-Contributory - Social History Smoking Status: Never smoker Alcohol use: No CD- Drugs: No Caffeine use: Yes Place of Residence: Home <JonnyKathleen - Last Filed: 12/31/21 03:15> Date of Service: 12/31/21 <May Cabrera - Last Filed: 12/31/21 17:39> Allergies morphine Allergy (Verified 12/31/21 01:36 CDT) Anaphylaxis Home Medications: Amlodipine [Norvasc] 10 mg PO DAILY 12/31/21 Ascorbic Acid [Vitamin C] 1,000 mg PO DAILY 12/31/21 Atorvastatin Calcium 40 mg PO BEDTIME 12/31/21 Dapagliflozin Propanediol [Farxiga] 10 mg PO DAILY 12/31/21 Insulin Degludec [Tresiba] 40 unit SQ DAILY 12/31/21 Lisinopril [Zestril] 40 mg PO DAILY 12/31/21 Metformin HCl 1,000 mg PO BID 12/31/21 Review of Systems Cardiovascular: Chest Pain <Kathleen Fuller - Last Filed: 12/31/21 03:15> Physical Examination - Physical Exam General: Alert, In no apparent distress HEENT: Atraumatic, PERRLA, EOMI, Sclerae nonicteric Neck: Supple, 2+ carotid pulse no bruit, No LAD, Without JVD or thyroid abnormality Respiratory: Clear to auscultation bilaterally, Normal air movement Cardiovascular: Regular rate/rhythm, Normal S1 S2 Gastrointestinal: Normal bowel sounds, No tenderness Musculoskeletal: No tenderness Integumentary: No rashes Neurological: Normal speech, Normal strength at 5/5 x4 extr, Normal tone, Normal affect - Studies Laboratory Data (last 24 hrs) 12/30/21 23:15: PT 10.4, INR 0.95 12/30/21 23:15: WBC 10.30, Hgb 12.4, Hct 36.9, Plt Count 250 12/30/21 23:15: Sodium 133 L, Potassium 3.9, BUN 34 H, Creatinine 1.70 H, G lucose 249 H, Magnesium 2.2, Total Bilirubin 0.3, AST 12 L, ALT 23, Alkaline Phosphatase 84 <Kathleen Fuller - Last Filed: 12/31/21 03:15> - Studies Laboratory Data (last 24 hrs) 12/30/21 23:15: PT 10.4, INR 0.95 12/30/21 23:15: WBC 10.30, Hgb 12.4, Hct 36.9, Plt Count 250 12/30/21 23:15: Sodium 133 L, Potassium 3.9, BUN 34 H, Creatinine 1.70 H, Glucose 249 H, Magnesium 2.2, Total Bilirubin 0.3, AST 12 L, ALT 23, Alkaline Phosphatase 84 <May Cabrera - Last Filed: 12/31/21 17:39> Assessment and Plan - Problems (Diagnosis) (1) Chest pain Current Visit: Yes Status: Acute Qualifiers: Chest pain type: unspecified Qualified Code(s): R07.9 - Chest pain, unspecified (2) Hypertension Current Visit: Yes Status: Chronic Qualifiers: Hypertension type: primary hypertension Qualified Code(s): I10 - Essential (primary) hypertension (3) Type 2 diabetes mellitus Current Visit: Yes Status: Chronic Qualifiers: Diabetes mellitus termite helper insulin use: without termite helper use Diabetes mellitus complication status: with hyperglycemia Qualified Code(s): E11.65 - Type 2 diabetes mellitus with hyperglycemia (4) Chronic kidney disease Current Visit: Yes Status: Chronic Qualifiers: Chronic kidney disease stage: stage 3 (moderate) Chronic kidney disease stage 3 subtype: stage 3b (GFR 30-44) Qualified Code(s): N18.32 - Chronic kidney disease, stage 3b - Plan Patient is admitted for observation for ACS rule out. Initial troponin negative. Trend. Aspirin and atorvastatin daily. Echo ordered. Cardiology consult. Monitor on telemetry. ACHS accu checks with mild sliding scale insulin and diabetic diet. Lipid panel, TSH, and A1c pending. Unsure if kidney function is at baseline as we do not have any previous labs on file. Monitor and replete electrolytes per protocol. Reconcile and continue home medications. Lovenox for VTE prophylaxis. Full code. Patient primarily Sammarinese-speaking. Daughter at bedside translating. Discharge Plan: Home Plan to discharge in: 24 Hours - Advance Directives Does patient have a Living Will: No Does patient have a Durable POA for Healthcare: No - Code Status/Comfort Care Code Status Assessed: Yes (Full) Critical Care: No Time Spent Managing Pts Care (In Minutes): 50 <Kathleen Fuller - Last Filed: 12/31/21 03:15> Date of Service: 12/31/21 Spoke with cardiology. Plan to do a stress test and an echocardiogram in the morning. If this is negative then anticipate discharge home. <May Cabrera - Last Filed: 12/31/21 17:39>
[2021-12-31 01:35] VITALS: O2SAT 96; BMI 35.0
[2021-12-31] MEDS ORDERED: ONDANSETRON 4 MG/2 ML VIAL IV PRN (01:51)
[2021-12-31] MEDS ORDERED: ACETAMINOPHEN 500 MG TAB PO PRN (01:51)
[2021-12-31] MEDS ORDERED: HYDRALAZINE HCL 20 MG/ML VIAL IV PRN (03:10)
[2021-12-31 06:59] LABS: Thyroid Stimulating Hormone 0.332 uIU/mL (0.360-3.740); Troponin High Sensitivity 17.2 pg/mL (<58.9)
[2021-12-31 07:09] LABS: Specific Gravity 1.011 (1.005-1.030); Urine Bilirubin NEGATIVE (Negative); Urine Blood Negative (Negative); Urine Clarity Clear (Clear); Urine Color Colorless (Yellow); Urine Glucose 4+ (Over) (Negative); Urine Protein NEGATIVE (Negative); Urine Urobilinogen Normal (Normal)
[2021-12-31] MEDS: INSULIN -REGULAR HUMAN 50 UNIT/0.5 ML ML SQ SCH ×4 (07:30→21:08)
[2021-12-31] MEDS: lisinopriL 20 MG TAB PO SCH (08:41)
[2021-12-31] MEDS: ASPIRIN EC 81 MG TAB PO SCH (08:42)
[2021-12-31] MEDS: AMLODIPINE 10 MG TAB PO SCH (08:42)
[2021-12-31] MEDS: METFORMIN HCL 500 MG TAB PO SCH ×2 (08:42→21:08)
[2021-12-31] MEDS: Insulin Degludec [Tresiba] 100 UNIT/ML Vial SQ SCH (08:43)
[2021-12-31] MEDS: ENOXAPARIN 30 MG/0.3 ML SQ SCH (08:43)
[2021-12-31] MEDS: Dapagliflozin Propanediol [Farxiga] 10 MG Tablet PO SCH (08:43)
[2021-12-31] MEDS ORDERED: INFLUENZA VACCINE (for 6+ mo) 0.5 ML DOSE IMVAC ONE (09:00)
[2021-12-31] MEDS ORDERED: PNEUMOCOCCAL VACCINE 0.5 ML IMVAC ONE (09:00)
--- NOTE | 2021-12-31 18:50 | CON ---
Date of Consultation: 12/31/2021 Reason For Consultation: Chest pain. History Of Present Illness: Ms. Mendosa is a 71-year-old Latin-Kyrgy[place] woman, non-South [place]ese speaking. I obtained the history with the help of her family. She has a history of diabetes, hypertension, dy slipidemia, and hypothyroidism. Came in with left upper chest pain that is pressure without any naus ea, vomiting, diaphoresis, PND, orthopnea, pedal edema, palpitation, or syncope. The patient's sympt oms were nonexertional. She has ruled out for DE. Her creatinine is 1.7. Otherwise, her EKG, chest x-ray, troponin are negative. Allergies: SHE IS ALLERGIC TO MORPHINE. Past Medical History: As stated above. Review of Systems: Negative. Social History: Negative. Family History: Negative. Medications: She does take metformin, aspirin, lisinopril, Norvasc, insulin, and Lipitor at home. Physical Examination: Vital Signs: Stable, afebrile. HEENT: Negative. Neck: Supple with no bruit. Chest: Clear. Cardiac: Normal. Abdomen: Benign. Extremities: Revealed no clubbing, cyanosis, or edema. Diagnostic Data: Normal except for the creatinine is 1.7. Troponin, BNP, chest x-ray, and EKG are n egative. Impression And Plan: Atypical chest pain in a woman with obesity, diabetes, hypertension, dyslipidem ia. I think it would be reasonable to do an echocardiogram and a Lexiscan on her in the morning befo re she goes home, she agrees to that. Her other problems include hypothyroidism, diabetes, hypertens ion, and dyslipidemia are well controlled at this point. BENNY/ANN Voice ID: [id number] Report ID: [id number]
[2021-12-31] MEDS ORDERED: ATORVASTATIN 40 MG TAB PO SCH (21:00)
--- NOTE | 2021-12-31 21:11 | RAD REPORT ---
EXAM DESCRIPTION: XR Chest, 1 View CLINICAL HISTORY: The patient is 71 years old and is Female; CHEST PAIN TECHNIQUE: Frontal view of the chest. COMPARISON: No relevant prior studies available. FINDINGS: Lungs: Unremarkable. No consolidation. Pleural space: Unremarkable. No pneumothorax. Heart: Unremarkable. Mediastinum: Unremarkable. Bones/joints: Postsurgical changes in the cervical spine. IMPRESSION: No acute findings in the chest. Electronically signed by: Ray Macias MD 12/30/2021 11:49 PM CDT Due to temporary technical issues with the PACS/Fluency reporting system, reports are being signed by the in house radiologists without review as a courtesy to insure prompt reporting. The interpreting radiologist is fully responsible for the content of the report.
[2022-01-01 03:52] LABS: Absolute Lymphocytes (CBC) 3.3 K/uL (0.7-4.9); Hematocrit 34.1 % (36.0-45.0); Lymphocytes % 38.7 % (15.3-44.8); MCV 88.7 fL (80-100); MPV 10.4 fL (7.6-11.3); RBC Red Blood Cell Count 3.84 M/uL (3.86-4.86)
[2022-01-01 04:15] LABS: Magnesium 2.3 mg/dL (1.8-2.4); Phosphorus 4.1 mg/dL (2.5-4.9); Potassium 4.8 mmol/L (3.5-5.1)
[2022-01-01] MEDS: INSULIN -REGULAR HUMAN 50 UNIT/0.5 ML ML SQ SCH ×2 (07:30→11:30)
[2022-01-01] MEDS: Insulin Degludec [Tresiba] 100 UNIT/ML Vial SQ SCH (09:00)
[2022-01-01] MEDS: Dapagliflozin Propanediol [Farxiga] 10 MG Tablet PO SCH (09:00)
[2022-01-01] MEDS: AMLODIPINE 10 MG TAB PO SCH (11:39)
[2022-01-01] MEDS: ASPIRIN EC 81 MG TAB PO SCH (11:39)
[2022-01-01] MEDS: METFORMIN HCL 500 MG TAB PO SCH (11:40)
[2022-01-01] MEDS: lisinopriL 20 MG TAB PO SCH (11:40)
[2022-01-01] MEDS: ENOXAPARIN 30 MG/0.3 ML SQ SCH (11:41)
[2022-01-01 12:04] VITALS: BP 129/59
--- NOTE | 2022-01-01 12:14 | EKG ---
Test Date: 2021-12-30 Test Time: 23:13:41 Sales And Marketing Agent: HUMBERTO MEASUREMENT RESULTS: Intervals: Rate: 100 SC: 178 QRSD: 106 QT: 374 QTc: 482 [place]: P: 39 SC: 178 QRS: -7 T: 30 INTERPRETIVE STATEMENTS: Normal sinus rhythm Possible Left atrial enlargement Left ventricular hypertrophy Abnormal ECG No previous ECG available for comparison Electronically Signed On 01-01-22 12:12:19 BALE PILER by Beto Torres
--- NOTE | 2022-01-01 12:19 | RAD REPORT ---
EXAM DESCRIPTION: NM - Rest Stress Cardiac Imaging - 01/01/2022 11:12 am CLINICAL HISTORY: Chest pain. COMPARISON: None. TECHNIQUE: The patient was administered 10.1 mCi of Tc 99m Sestamibi prior to resting SPECT imaging of the heart. The patient was then administered 31.8 mCi of Tc 99m Sestamibi following exercise or ph armacologic stress. Multiplanar SPECT images were reviewed. FINDINGS: Small area of diminished radiotracer uptake i involves the apical left ventricular myocard ium on rest and stress images. Remainder of the left ventricular myocardium demonstrates normal radiotracer activity on stress image s. The left ventricular ejection fraction equals 62% IMPRESSION: Apparent small fixed perfusion defect apical left ventricular myocardium probably physio logic thinning. An infarct can have a similar appearance No evidence of stress-induced ischemia
--- NOTE | 2022-01-01 14:06 | ECHO ---
HEIGHT: 5 ft 4 in WEIGHT: 204 lb 4.8 oz DATE OF STUDY: 01/01/[address]: Kathleen Fuller 2-DIMENSIONAL: YES M.MODE: YES DOPPLER: YES COLOR FLOW: YES TDS: NO PORTABLE: YES DEFINITY: NO BUBBLE STUDY: NO DIAGNOSIS: CHEST PAIN CARDIAC HISTORY: CATHERIZATION: NO SURGERY: NO PROSTHETIC VALVE: NO PACEMAKER: NO MEASUREMENTS (cm) DIASTOLIC (NORMALS) SYSTOLIC (NORMALS) IVSd 1.0 (0.6-1.2) LA Diam 2.5 (1.9-4.0) LVEF 55-60% LVIDd 4.3 (3.5-5.7) LVIDs 3.2 (2.0-3.5) %FS 25% LVPWd 1.2 (0.6-1.2) Ao Diam 3.1 (2.0-3.7) 2 DIMENSIONAL ASSESSMENT: RIGHT ATRIUM: NORMAL LEFT ATRIUM: NORMAL RIGHT VENTRICLE: NORMAL LEFT VENTRICLE: NORMAL TRICUSPID VALVE: MITRAL VALVE: PULMONIC VALVE: NORMAL AORTIC VALVE: NORMAL PERICARDIAL EFFUSION: NONE AORTIC ROOT: NORMAL LEFT VENTRICULAR WALL MOTION: NORMAL DOPPLER/COLOR FLOW: MILD MITRAL AND TRICUSPID REGURGITATION. COMMENTS: NORMAL LEFT VENTRICULAR EJECTION FRACTION 55-60%. NORMAL WALL MOTION. MILD MITRAL AND TRICUSPID REGURGITATION. POOR WINDOWS. TECHNOLOGIST: Ashley MARTINEZ
--- NOTE | 2022-01-01 14:19 | TREADPHA ---
DX: CHEST PAIN Date of Study: 01/01/2022 Ht: 5' 4 " Wt: 204 lb 4.8 oz Consulting Physician: GORDY MEDICATIONS: NORVASC, ASPIRIN, LIPITOR, LOVENOX, NOVOLIN-R, PRINIVIL HISTORY: 71 YEAR OLD FEMALE WITH COMPLAINTS OF CHEST PAIN. PATIENT REPORTS ALLERGY TO MORPHINE. PHYSICIAL EXAMINATION: RESTING B.P.: 152/71 RESTING H.R.: 85 RESTING EKG: NORMAL SINUS RHYTHM, WITHIN NORMAL LIMITS. PROTOCOL: LEXISCAN EXERCISE TIME: 3:30 B.P. AT PEAK STRESS: 175/64 IMPRESSION: LEXISCAN INJECTED. CARDIOLITE INJECTED PER PROTOCOL. SEE NUCLEAR MEDICINE REPORT. PATIENT DENIES CHEST PAIN. NO PREMATURE VENTRICULAR COMPLEXES OR PREMATURE ATRIAL COMPLEXES. NO SUPRAVENTRICULAR TACHYCARDIA OR VENTRICULAR TACHYCARDIA NOTED. NO EKG CHANGES OF ISCHEMIA WITH LEXISCAN.
--- NOTE | 2022-01-01 16:16 | P.DS ---
Admission Date: 12/31/21 Discharge Date: 01/01/22 Disposition: ROUTINE DISCHARGE Discharge Condition: GOOD Reason for Admission: Chest Pain Consultations: 1. Cardiology Hospital Course: DIAGNOSES: # Atypical Chest Pain # Hypertensive Urgency # Type II Diabetes Mellitus # Chronic Kidney Disease Stage III HOSPITAL COURSE: Ms. Karin Mendosa is a pleasant 71 year old female with a past medical history significant for type II diabetes mellitus, hypertension, and chronic kidney disease stage III who was admitted to the [facility] on 12/31/2021 for chest pain. She was admitted to the Medicine service. Her EKG was reportedly without STEMI criteria. Her troponin trend was 8.3-17.2, respectively. Cardiology was consulted and she was evaluated by Dr. Knight. A transthoracic echocardiogram was obtained, which revealed, "normal left ventricular ejection fraction 55-60%. normal wall motion. mild mitral and tricuspid regurgitation. poor windows." A cardiac nuclear stress test revealed, "no evidence of stress-induced ischemia." This morning, she reports that she no longer is experiencing any chest pain. Dr. Knight has cleared her for discharge with a close outpatient follow-up. She and her daughter are in agreement with this plan. On 01/01/2022, she was seen on morning rounds and deemed medically stable for discharge. She was discharged with instructions to schedule follow-up appointments with her PCP (Dr. Guadalupe) and with Cardiology (Dr. Knight). She and her daughter were given the opportunity to ask questions and reported no further questions. Furthermore, all questions were answered to the best of my ability. A copy of this discharge summary will be sent to the above providers to facilitate continuity of care. Today, I personally spent 20 minutes on her case, of which greater than 50% of the time was spent in patient education, counseling, and coordination of care as described above. Vital Signs/Physical Exam: Temp Pulse Resp BP Pulse Ox 97.3 F 90 14 129/59 L 96 01/01/22 12:00 01/01/22 12:00 01/01/22 12:00 01/01/22 12:00 01/01/22 12:00 General: Alert, In no apparent distress, Oriented x3 HEENT: Atraumatic, PERRLA, Mucous membr. moist/pink, EOMI, Sclerae nonicteric Neck: Supple, JVD not distended Respiratory: Clear to auscultation bilaterally, Normal air movement Cardiovascular: No edema, Regular rate/rhythm, Normal S1 S2, No gallops, No rubs, No murmurs Gastrointestinal: Normal bowel sounds, Soft and benign, Non-distended, No tenderness, No rebound, No guarding Musculoskeletal: No clubbing Integumentary: No rashes Neurological: Normal speech, Cranial nerves 3-12 intact, Normal affect Laboratory Data at Discharge: WBC 8.50 K/uL (4.3-10.9) 01/01/22 03:26 Hgb 11.5 g/dL (12.0-15.0) L 01/01/22 03:26 Hct 34.1 % (36.0-45.0) L 01/01/22 03:26 Plt Count 222 K/uL (152-406) 01/01/22 03:26 PT 10.4 SECONDS (9.5-12.5) 12/30/21 23:15 INR 0.95 12/30/21 23:15 Sodium 135 mmol/L (136-145) L 01/01/22 03:26 Potassium 4.8 mmol/L (3.5-5.1) 01/01/22 03:26 BUN 34 mg/dL (7-18) H 01/01/22 03:26 Creatinine 1.44 mg/dL (0.55-1.3) H 01/01/22 03:26 Glucose 103 mg/dL (74-106) 01/01/22 03:26 Phosphorus 4.1 mg/dL (2.5-4.9) 01/01/22 03:26 Magnesium 2.3 mg/dL (1.8-2.4) 01/01/22 03:26 Total Bilirubin 0.3 mg/dL (0.2-1.0) 12/30/21 23:15 AST 12 U/L (15-37) L 12/30/21 23:15 ALT 23 U/L (12-78) 12/30/21 23:15 Alkaline Phosphatase 84 U/L (45-117) 12/30/21 23:15 Triglycerides 187 mg/dL (<150) H 12/31/21 06:05 Cholesterol 122 mg/dL (<200) 12/31/21 06:05 HDL Cholesterol 45 mg/dL (40-60) 12/31/21 06:05 Cholesterol/HDL Ratio 2.71 12/31/21 06:05 Home Medications: RX: Amlodipine [Norvasc*] 10 mg PO DAILY 12/31/21 RX: Ascorbic Acid [Vitamin C] 1,000 mg PO DAILY 12/31/21 RX: Atorvastatin Calcium 40 mg PO BEDTIME 12/31/21 RX: Dapagliflozin Propanediol [Farxiga] 10 mg PO DAILY 12/31/21 RX: Insulin Degludec [Tresiba] 40 unit SQ DAILY 12/31/21 RX: Lisinopril [Zestril] 40 mg PO DAILY 12/31/21 RX: Metformin HCl 1,000 mg PO BID 12/31/21 Diet: AHA Activity: Ad annabel Followup: Jessee Knight MD [ACTIVE - CAN ADMIT] - DonavonOTIRWIN [Primary Care Provider] - Time spent managing pt's care (in minutes): 20
[2022-01-01 17:09] VITALS: TEMP 98.1
== END 2022-01-01 16:39 | disposition home or self-care (01) ==
LOC: ER 22:51 → ERHOLD 12-31 00:11 → 2ND 12-31 01:14
PROVIDERS: ADMIT Hospitalist; ATTEND Internal Medicine
DX: R07.89 Other chest pain (principal); I16.0 Hypertensive urgency; E11.22 Type 2 diabetes mellitus with diabetic chronic kidney disease; I12.9 Hypertensive chronic kidney disease with stage 1 through stage 4 chronic kidney disease, or unspecified chronic kidney disease; N18.30 Chronic kidney disease, stage 3 unspecified; E03.9 Hypothyroidism, unspecified; E66.9 Obesity, unspecified; E78.5 Hyperlipidemia, unspecified; Z88.6 Allergy status to analgesic agent; Z20.822 Contact with and (suspected) exposure to COVID-19; Z23 Encounter for immunization
CPT/HCPCS: 93005; 93017; 93306; 85025 ×2; 80048 ×2; 36415 ×2; 83735 ×2; 84100; 85610; 80061; 82947 ×7; 80076; 84443; 81003; 84484 ×2; 83880; 71045; 90471 ×2; 90732; 78452; 99285; 87811; J1815; Q2035; J1650 ×2; A9500; G0378 ×3

== ENCOUNTER → 2023-03-09 | Emergency (ER) | payer OTHER ==
[~2023-03-09] MED LIST: INSULIN REGULAR (HUMAN) 100 UNIT/ML ONE; MAGNESIUM SULFATE 1 gm IVPB 1 GM/100 ML BAG IV ONE; NA CHLORIDE 0.9% 500 ML ONE
--- OUTSIDE RECORDS SUMMARY | 2023-03-09 15:24 | XMS REPORT | Continuity of Care Document ---
Author Name Unknown Address [address] [place] [address] [address] [address] th[address] Address [address] [facility] [place]. [address] [place] [address] Care Team Providers Care Buckle Stapler Name Role Phone Sarai Charles Primary Care Physician [phone] GC_GCBZW_Kadiyala_S Attending Clinician Unavaila ble GC_GCBZW_Kadiyala_S Admitting Clinician Unavaila ble Medications Ordered Medication Name Filled Medication Name Start Date Stop Date Current Medication? Ordering Clinician Indication Dosage Frequency Signature (SIG) Comments Components Source AMLODIPINE BESYLATE 10 MG TABS 2021-1 0-24 00:00: 00 No IBUPROFEN 600 MG TABS 2021-0 8-23 00:00: 00 No IBUPROFEN 600 MG TABS 2-0 8-23 00:00: 00 No &lt 2022-0 7-21 00:00: 00 No 600 &lt 2022-0 7-21 00:00: 00 No &lt 2022-0 7-21 00:00: 00 No 600 &lt 2022-0 7-21 00:00: 00 No &lt 2022-0 7-01 00:00: 00 No &lt 2022-0 7-01 00:00: 00 No Tresiba FlexTouch U-200 insulin 200 unit/mL (3 mL) subcutaneou s pen 07-19 00:00: 00 No (3 mL) lisinopril 40 mg tablet 07-19 00:00: 00 No 1mg atorvastati n 20 mg tablet 07-19 00:00: 00 No 1mg levothyroxi ne 137 mcg tablet 07-19 00:00: 00 No 1mcg Tresiba FlexTouch U-200 insulin 200 unit/mL (3 mL) subcutaneou s pen - 00:00: 00 No (3 mL) lisinopril 40 mg tablet 5- 00:00: 00 No 1mg atorvastati n 20 mg tablet 5- 00:00: 00 No 1mg levothyroxi ne 137 mcg tablet 5- 00:00: 00 No 1mcg metformin 1,000 mg tablet 2-17 00:00: 00 No 1mg ibuprofen 600 mg tablet 2-17 00:00: 00 No 1mg metformin 1,000 mg tablet 2- 00:00: 00 No 1mg metformin 1,000 mg tablet 2- 00:00: 00 No 1mg ibuprofen 600 mg tablet 2-17 00:00: 00 No 1mg metformin 1,000 mg tablet 2-17 00:00: 00 No 1mg lisinopril 40 mg tablet 2020-02 0-19 00:00: 00 No 1mg atorvastati n 20 mg tablet 2020-02 0-19 00:00: 00 No 1mg ibuprofen 600 mg tablet 2020-02 0-19 00:00: 00 No 1mg levothyroxi ne 137 mcg tablet 2020-02 0-19 00:00: 00 No 1mcg lisinopril 40 mg tablet 2020-02 0-19 00:00: 00 No 1mg atorvastati n 20 mg tablet 2020-02 0-19 00:00: 00 No 1mg ibuprofen 600 mg tablet 2020-02 0-19 00:00: 00 No 1mg levothyroxi ne 137 mcg tablet 2020-02 0-19 00:00: 00 No 1mcg Tresiba FlexTouch U-200 insulin 200 unit/mL (3 mL) subcutaneou s pen 8-05 00:00: 00 No (3 mL) lisinopril 40 mg tablet 8-05 00:00: 00 No 1mg atorvastati n 20 mg tablet 8-05 00:00: 00 No 1mg ibuprofen 600 mg tablet 09-29 00:00: 00 No 1mg Dose Unknown 09-29 00:00: 00 No levothyroxi ne 137 mcg tablet 09-29 00:00: 00 No 1mcg Tresiba FlexTouch U-200 insulin 200 unit/mL (3 mL) subcutaneou s pen 09-29 00:00: 00 No (3 mL) lisinopril 40 mg tablet 09-29 00:00: 00 No 1mg atorvastati n 20 mg tablet 09-29 00:00: 00 No 1mg ibuprofen 600 mg tablet 09-29 00:00: 00 No 1mg Dose Unknown 09-29 00:00: 00 No levothyroxi ne 137 mcg tablet 09-29 00:00: 00 No 1mcg lisinopril 40 mg tablet 08-22 00:00: 00 No 1mg lisinopril 40 mg tablet 08-22 00:00: 00 No 1mg levothyroxi ne 137 mcg tablet 07-16 00:00: 00 No 1mcg levothyroxi ne 137 mcg tablet 07-16 00:00: 00 No 1mcg atorvastati n 20 mg tablet 07-15 00:00: 00 No 1mg lisinopril 40 mg tablet 07-15 00:00: 00 No 1mg glimepiride 1 mg tablet 07-15 00:00: 00 No 1mg metformin 1,000 mg tablet 07-15 00:00: 00 No 1mg ibuprofen 600 mg tablet 07-15 00:00: 00 No 1mg glimepiride 1 mg tablet 07-15 00:00: 00 No 2mg levothyroxi ne 137 mcg tablet 07-15 00:00: 00 No 1mcg atorvastati n 20 mg tablet 07-15 00:00: 00 No 1mg lisinopril 40 mg tablet 07-15 00:00: 00 No 1mg glimepiride 1 mg tablet 07-15 00:00: 00 No 1mg metformin 1,000 mg tablet 07-15 00:00: 00 No 1mg ibuprofen 600 mg tablet 07-15 00:00: 00 No 1mg glimepiride 1 mg tablet 07-15 00:00: 00 No 2mg levothyroxi ne 137 mcg tablet 07-15 00:00: 00 No 1mcg atorvastati n 20 mg tablet 06-03 00:00: 00 No 1mg lisinopril 30 mg tablet 06-03 00:00: 00 No 1mg atorvastati n 20 mg tablet 06-03 00:00: 00 No 1mg glimepiride 1 mg tablet 06-03 00:00: 00 No 1mg metformin 1,000 mg tablet 06-03 00:00: 00 No 1mg glimepiride 1 mg tablet 06-03 00:00: 00 No 1mg metformin 1,000 mg tablet 06-03 00:00: 00 No 1mg levothyroxi ne 137 mcg tablet 06-03 00:00: 00 No 1mcg levothyroxi ne 137 mcg tablet 06-03 00:00: 00 No 1mcg atorvastati n 20 mg tablet 06-03 00:00: 00 No 1mg lisinopril 30 mg tablet 06-03 00:00: 00 No 1mg atorvastati n 20 mg tablet 06-03 00:00: 00 No 1mg glimepiride 1 mg tablet 06-03 00:00: 00 No 1mg metformin 1,000 mg tablet 06-03 00:00: 00 No 1mg glimepiride 1 mg tablet 06-03 00:00: 00 No 1mg metformin 1,000 mg tablet 06-03 00:00: 00 No 1mg levothyroxi ne 137 mcg tablet 06-03 00:00: 00 No 1mcg levothyroxi ne 137 mcg tablet 2021-0 4-09 00:00: 00 No 1mcg lisinopril 30 mg tablet 1- 00:00: 00 No 1mg atorvastati n 20 mg tablet - 00:00: 00 No 1mg glimepiride 1 mg tablet 03-09 00:00: 00 No 1mg metformin 1,000 mg tablet - 00:00: 00 No 1mg levothyroxi ne 137 mcg tablet 03-09 00:00: 00 No 1mcg lisinopril 30 mg tablet 03-09 00:00: 00 No 1mg atorvastati n 20 mg tablet 03-09 00:00: 00 No 1mg glimepiride 1 mg tablet 03-09 00:00: 00 No 1mg metformin 1,000 mg tablet 03-09 00:00: 00 No 1mg levothyroxi ne 137 mcg tablet 03-09 00:00: 00 No 1mcg metformin 1,000 mg tablet 1- 00:00: 00 No 1mg metformin 1,000 mg tablet 1 00:00: 00 No 1mg diclofenac 3 % topical gel 2019-02 0 00:00: 00 No 1% lisinopril 30 mg tablet 2019-02 0 00:00: 00 No 1mg atorvastati n 20 mg tablet 2019-02 0 00:00: 00 No 1mg diclofenac 3 % topical gel 2019-02 0 00:00: 00 No 1% lisinopril 30 mg tablet 2019-02 0 00:00: 00 No 1mg atorvastati n 20 mg tablet 2019-02 0 00:00: 00 No 1mg levothyroxi ne 137 mcg tablet 2019-02 0 00:00: 00 No 1mcg levothyroxi ne 137 mcg tablet 2019-02 0 00:00: 00 No 1mcg glimepiride 1 mg tablet 09-16 00:00: 00 No 1mg levothyroxi ne 137 mcg tablet 09-16 00:00: 00 No 1mcg glimepiride 1 mg tablet 09-16 00:00: 00 No 1mg levothyroxi ne 137 mcg tablet 09-16 00:00: 00 No 1mcg Tresiba FlexTouch U-200 insulin 200 unit/mL (3 mL) subcutaneou s pen 09-07 00:00: 00 No 30(3 mL) Tresiba FlexTouch U-200 insulin 200 unit/mL (3 mL) subcutaneou s pen 09-07 00:00: 00 No (3 mL) lisinopril 30 mg tablet 09-07 00:00: 00 No 1mg atorvastati n 20 mg tablet 09-07 00:00: 00 No 1mg metformin 1,000 mg tablet 09-07 00:00: 00 No 1mg levothyroxi ne 100 mcg tablet 09-07 00:00: 00 No 1mcg Tresiba FlexTouch U-200 insulin 200 unit/mL (3 mL) subcutaneou s pen 09-07 00:00: 00 No 30(3 mL) Tresiba FlexTouch U-200 insulin 200 unit/mL (3 mL) subcutaneou s pen 09-07 00:00: 00 No (3 mL) lisinopril 30 mg tablet 09-07 00:00: 00 No 1mg atorvastati n 20 mg tablet 09-07 00:00: 00 No 1mg metformin 1,000 mg tablet 09-07 00:00: 00 No 1mg levothyroxi ne 100 mcg tablet 09-07 00:00: 00 No 1mcg levothyroxi ne 100 mcg tablet 08-03 00:00: 00 No 1mcg levothyroxi ne 100 mcg tablet 609 00:00: 00 No 1mcg lisinopril 30 mg tablet 4-03 00:00: 00 No 1mg lisinopril 30 mg tablet 4 00:00: 00 No 1mg Tresiba FlexTouch U-200 insulin 200 unit/mL (3 mL) subcutaneou s pen 4-02 00:00: 00 No 30(3 mL) atorvastati n 20 mg tablet 05-27 00:00: 00 No 1mg metformin 1,000 mg tablet 05-27 00:00: 00 No 1mg Tresiba FlexTouch U-200 insulin 200 unit/mL (3 mL) subcutaneou s pen 05-27 00:00: 00 No 30(3 mL) atorvastati n 20 mg tablet 05-27 00:00: 00 No 1mg metformin 1,000 mg tablet 05-27 00:00: 00 No 1mg metformin 1,000 mg tablet 05-03 00:00: 00 No 1mg metformin 1,000 mg tablet 05-03 00:00: 00 No 1mg Tresiba FlexTouch U-200 insulin 200 unit/mL (3 mL) subcutaneou s pen 03-05 00:00: 00 No 30(3 mL) atorvastati n 20 mg tablet 03-05 00:00: 00 No 1mg Tresiba FlexTouch U-200 insulin 200 unit/mL (3 mL) subcutaneou s pen 03-05 00:00: 00 No 30(3 mL) atorvastati n 20 mg tablet 03-05 00:00: 00 No 1mg Tresiba FlexTouch U-200 insulin 200 unit/mL (3 mL) subcutaneou s pen 2018-02 00:00: 00 No 30(3 mL) lisinopril 30 mg tablet 2018-02 00:00: 00 No 1mg metformin 1,000 mg tablet 2018-02 00:00: 00 No 1mg levothyroxi ne 100 mcg tablet 2018-02 00:00: 00 No 1mcg Tresiba FlexTouch U-200 insulin 200 unit/mL (3 mL) subcutaneou s pen 2018-02 00:00: 00 No 30(3 mL) lisinopril 30 mg tablet 2018-02 00:00: 00 No 1mg metformin 1,000 mg tablet 2018-02 00:00: 00 No 1mg levothyroxi ne 100 mcg tablet 2018-02 00:00: 00 No 1mcg Vital Signs Vital Name Observation Time Observation Value Comments S ource BP Systolic 2021-12-26 17:05:00 166 mm[Hg] BP [...] Rate 2019-03-05 11:16:00 Respiratory Rate 2019-03-05 11:16:00 Plan of Care Planned Activity Planned Date Details Comments Source Goal Plan of Care Note [code = 52197-2] Goal Plan of Care Note [code = 85394-2] Goal Plan of Care Note [code = 57697-0] Goal Plan of Care Note [code = 04827-3] Goal Plan of Care Note [code = 57017-3] Goal Plan of Care Note [code = 61352-5] Goal Plan of Care Note [code = 98160-7] Goal Plan of Care Note [code = 89189-9] Goal Plan of Care Note [code = 60522-7] Goal Plan of Care Note [code = 28055-2] Goal Plan of Care Note [code = 33953-4] Goal Plan of Care Note [code = 23046-0] Goal Plan of Care Note [code = 93315-5] Goal Plan of Care Note [code = 87204-3] Goal Plan of Care Note [code = 44197-5] Goal Plan of Care Note [code = 38681-5] Goal Plan of Care Note [code = 90575-2] Goal Plan of Care Note [code = 41952-3] Goal Plan of Care Note [code = 53967-3] Goal Plan of Care Note [code = 64799-8] Goal Plan of Care Note [code = 79419-3] Goal Plan of Care Note [code = 32264-1] Goal Plan of Care Note [code = 40406-3] Goal Plan of Care Note [code = 81878-8] Goal Plan of Care Note [code = 46010-4] Goal Plan of Care Note [code = 44611-7] Goal Plan of Care Note [code = 69751-7] Goal Plan of Care Note [code = 90703-7] Encounters Start Date/Time End Date/Time Encounter Type Admission Type Attending [facility] Facility Care Department Encounter ID Source 2023-03-02 09:32:20 2023-03-02 09:32:20 Outpatient [facility] [id number] Omero Parker 2023-02-28 16:55:23 2023-02-28 16:55:23 Outpatient [facility] [id number] Omero Parker 2022-12-25 00:00:00 2022-12-25 00:00:00 Outpatient GC_GCBZW_Ka diyala_S PRIV PRIV [id number] [facility] 2022-12-24 00:00:00 2022-12-24 00:00:00 Outpatient GC_GCBZW_Ka diyala_S PRIV PRIV [id number] [facility] 2022-11-09 08:19:14 2022-11-09 08:19:[address] [facility] [id number] Omero Parker 2022-10-11 11:42:48 2022-10-11 11:42:[address] [facility] [id number] Omero Parker 2022-06-20 11:50:09 2022-06-20 11:50:09 Outpatient [facility] [id number] Omeroadia Parker 2022-03-08 10:19:19 2022-03-08 10:19:19 Outpatient [facility] [id number] Omero Parker 2021-12-26 16:57:36 2021-12-26 16:57:36 Outpatient [facility] [id number] Omero Parker 2021-12-26 00:00:00 2021-12-26 00:00:00 Outpatient Visit [id number] 2021-12-13 10:06:48 2021-12-13 10:06:48 Outpatient [facility] [id number] Omero Parker 2021-12-12 12:01:06 2021-12-12 12:01:06 Outpatient [facility] [id number] Omero Parker 2021-12-12 00:00:00 2021-12-12 00:00:00 Outpatient Visit [id number] Results Test Description Test Time Test Comments Results Result Co mments Source LIPID [id number] 00:08:51* Test Item Value Reference Range Interpretation Comme nts CHOLESTEROL (test code = 2210) 164 MG/DL <200 TRIGLYCERIDES (test code = 2232) 363 MG/DL <150 H HDL CHOLESTEROL (test code = 2220) 40 MG/DL >39 CALC LDL CHOL (test code = 2237) 80 MG/DL <100 NOTE: CALCULATED LDL IS BASED ON GRISELDA-CHAVEZ METHOD WHICHINCLUDES ADJUSTABLE TRIGLYCERIDE:VLDL CHOLESTEROL RATIO.THIS FACTOR VARIES BY MEASURED TRIGLYCERIDE AND NON-HDLCHOLESTEROL CONCENTRATIONS WITH INCREASED CALCULATED LDL SEENIN HIGHER TRIGLYCERIDE OR LOWER NON-HDL SPECIMENS. FOR MOREINFORMATION, SEE CLIENT ANNOUNCEMENT AT [email or web address] RISK RATIO LDL/HDL (test code = 2238) 2.00 RATIO <3.22 HEMOGLOBIN [id number] 04:30:09* Test Item Value Reference Range Interpretation Comme [facility] HEMOGLOBIN A1c (test code = 40875) 8.6 % 4.2-5.6 H [employer] GUIDELINES FOR HGB A1C: PREDIABETES/INCREASED RISK . . . . . . . 5.7-6.4% DIAGNOSIS OF DIABETES . . . . . . . . . >=6.5% WITH CONFIRMATION OR APPROPRIATE SYMPTOMS NOTE: ASSAY MAY BE AFFECTED BY HEMOGLOBINOPATHIES (SICKLE CELL ANEMIA, S-C DISEASE, OTHERS) OR ARTIFICIALLY LOWERED BY DECREASED RED CELL SURVIVAL (HEMOLYTIC ANEMIAS, BLOOD LOSS, ETC.). CONSIDER ALTERNATE TESTING OR LABORATORY CONSULTATION. UNLESS OTHERWISE INDICATED, ALL TESTING PERFORMED AT [facility] [address] [place] [address] TRAIN CALLER: KINDRA GUTIERREZ M.D. CLIA NUMBER [id number] [facility] [place] [place]. [id number] TSH, THIRD [id number] 11:05:24* Test Item Value Reference Range Interpretation Comme [facility] TSH, THIRD GENERATION (test code = 2821) 0.449 UIU/ML 0.400-4.100 LIPID [id number] 07:29:44* Test Item Value Reference Range Interpretation Comme nts CHOLESTEROL (test code = 2210) 178 MG/DL <200 TRIGLYCERIDES (test code = 2232) 268 MG/DL <150 H HDL CHOLESTEROL (test code = 2220) 48 MG/DL >39 CALC LDL CHOL (test code = 2237) 92 MG/DL <100 NOTE: CALCULATED LDL IS BASED ON GRISELDA-CHAVEZ METHOD WHICHINCLUDES ADJUSTABLE TRIGLYCERIDE:VLDL CHOLESTEROL RATIO.THIS FACTOR VARIES BY MEASURED TRIGLYCERIDE AND NON-HDLCHOLESTEROL CONCENTRATIONS WITH INCREASED CALCULATED LDL SEENIN HIGHER TRIGLYCERIDE OR LOWER NON-HDL SPECIMENS. FOR MOREINFORMATION, SEE CLIENT ANNOUNCEMENT AT [email or web address] RISK RATIO LDL/HDL (test code = 2238) 1.92 RATIO <3.22 COMPREHENSIVE METABOLIC [id number] 07:29:44* Test Item Value Reference Range Interpretation Comme nts GLUCOSE (test code = 2217) 141 MG/DL 70-99 H BUN (test code = 2208) 27 MG/DL 8-23 H CREATININE (test code = 2214) 1.31 MG/DL 0.60-1.30 H eGFR (2020 CKD-EPI) (test code = 65063) 44 ML/MIN/1.73 >60 L CALC BUN/CREAT (test code = 2234) 21 RATIO 6-28 SODIUM (test code = 2230) 139 MEQ/L 133-146 POTASSIUM (test code = 2227) 4.6 MEQ/L 3.5-5.4 CHLORIDE (test code = 2214) 105 MEQ/L 95-107 CARBON DIOXIDE (test code = 2205) 23 MEQ/L 19-31 CALCIUM (test code = 2208) 9.4 MG/DL 8.5-10.5 PROTEIN, TOTAL (test code = 2228) 6.9 G/DL 6.1-8.3 ALBUMIN (test code = 2200) 3.9 G/DL 3.5-5.2 CALC GLOBULIN (test code = 2239) 3.0 G/DL 1.9-3.7 CALC A/G RATIO (test code = 2233) 1.3 RATIO 1.0-2.6 BILIRUBIN, TOTAL (test code = 2206) 0.3 MG/DL See_Comment [Automated me ssage] The system which generated this result transmitted reference range: <=1.2. The reference range was not used to interpret this result as normal/abnormal. ALKALINE PHOSPHATASE (test code = 2203) 69 U/L 40-142 AST (test code = 2217) 11 U/L 9-40 ALT (test code = 2218) 12 U/L 5-40 UNLESS OTHERWISE INDICATED, ALL TESTING PERFORMED AT [facility] [address] [place] [address] TRAIN CALLER: KINDRA GUTIERREZ M.D. CLIA NUMBER [id number] [facility] [place]. [id number] TSH, THIRD [id number] 05:16:55* Test Item Value Reference Range Interpretation Comme [facility] TSH, THIRD GENERATION (test code = 2821) 0.357 UIU/ML 0.400-4.100 L COMPREHENSIVE METABOLIC [id number] 03:49:34* Test Item Value Reference Range Interpretation Comme nts GLUCOSE (test code = 2216) 114 MG/DL 70-99 H BUN (test code = 2207) 31 MG/DL 8-23 H CREATININE (test code = 2213) 1.20 MG/DL 0.60-1.30 eGFR (2020 CKD-EPI) (test code = 62726) 48 ML/MIN/1.73 >60 L The NKF-ASN Taskforce recommends use of Cystatin C to confirm eGFR inadults at risk for CKD. [facility] offers eGFR with Cystatin C-Creatinineusing the 2020 CKD-EPI eGFR_creat-cystat equation (order code 3057) toincrease the accuracy of estimated GFR. For more information, contactur accounts officer or see announcement [email or web address] CALC BUN/CREAT (test code = 2234) 26 RATIO 6-28 SODIUM (test code = 2230) 141 MEQ/L 133-146 POTASSIUM (test code = 222) 5.2 MEQ/L 3.5-5.4 CHLORIDE (test code = 2214) 106 MEQ/L 95-107 CARBON DIOXIDE (test code = 2205) 22 MEQ/L 19-31 CALCIUM (test code = 2208) 9.6 MG/DL 8.5-10.5 PROTEIN, TOTAL (test code = 2228) 6.8 G/DL 6.1-8.3 ALBUMIN (test code = 2200) 4.2 G/DL 3.5-5.2 CALC GLOBULIN (test code = 2240) 2.6 G/DL 1.9-3.7 CALC A/G RATIO (test code = 2234) 1.6 RATIO 1.0-2.6 BILIRUBIN, TOTAL (test code = 220) <0.2 MG/DL See_Comment [Automated me ssage] The system which generated this result transmitted reference range: <=1.2. The reference range was not used to interpret this result as normal/abnormal. ALKALINE PHOSPHATASE (test code = 2203) 78 U/L 40-142 AST (test code = 2218) 15 U/L 9-40 ALT (test code = 2219) 18 U/L 5-40 LIPID [id number] 03:49:34* Test Item Value Reference Range Interpretation Comme nts CHOLESTEROL (test code = 2210) 193 MG/DL <200 TRIGLYCERIDES (test code = 2232) 461 MG/DL <150 H HDL CHOLESTEROL (test code = 2219) 45 MG/DL >39 CALC LDL CHOL (test code = 2237) (NOTE) MG/DL <100 UNABLE TO CALCUL ATE A VALID LDL CHOLESTEROL WHEN THE TRIGLYCERIDEVALUE IS GREATER THAN 400 MG/DL.UNABLE TO CALCULATE A VALID LDL CHOLESTEROL WHEN THE TRIGLYCERIDEVALUE IS GREATER THAN 400 MG/DL. NOTE: CALCULATED LDL IS BASED ON GRISELDA-CHAVEZ METHOD WHICHINCLUDES ADJUSTABLE TRIGLYCERIDE:VLDL CHOLESTEROL RATIO.THIS FACTOR VARIES BY MEASURED TRIGLYCERIDE AND NON-HDLCHOLESTEROL CONCENTRATIONS WITH INCREASED CALCULATED LDL SEENIN HIGHER TRIGLYCERIDE OR LOWER NON-HDL SPECIMENS. FOR MOREINFORMATION, SEE CLIENT ANNOUNCEMENT AT [email or web address] CalcLDL-C RISK RATIO LDL/HDL (test code = 2238) (NOTE) RATIO <3.22 UNABLE TO BERTO CULATE HEMOGLOBIN [id number] 02:59:31* Test Item Value Reference Range Interpretation Comme nts HEMOGLOBIN A1c (test code = 08612) 7.3 % 4.2-5.6 H [employer]IATION GUIDELINES FOR HGB A1C: PREDIABETES/INCREASED RISK . . . . . . . 5.7-6.4% DIAGNOSIS OF DIABETES . . . . . . . . . >=6.5% WITH CONFIRMATION OR APPROPRIATE SYMPTOMS NOTE: ASSAY MAY BE AFFECTED BY HEMOGLOBINOPATHIES (SICKLE CELL ANEMIA, S-C DISEASE, OTHERS) OR ARTIFICIALLY LOWERED BY DECREASED RED CELL SURVIVAL (HEMOLYTIC ANEMIAS, BLOOD LOSS, ETC.). CONSIDER ALTERNATE TESTING OR LABORATORY CONSULTATION. UNLESS OTHERWISE INDICATED, ALL TESTING PERFORMED AT [facility] [address] [place] [address] TRAIN CALLER: KINDRA GUTIERREZ M.D. IA NUMBER [id number] [facility] [place]. [id number] NOTE:2022-06-23 06:01:29* Test Item Value Reference Range Interpretation Comme nts NOTE: (test code = 998) (NOTE) IN ACCORDANCE [facility] FEDERAL GUIDELINES REQUIRING ALL VERBAL REQUESTS FOR LABORATORY TESTS TO BE ACCOMPANIED BY WRITTEN AUTHORIZATION WITHIN 30 DAYS OF THIS REQUEST, PLEASE SIGN BELOW AND RETURN A COPY OF THIS REPORT BY FAX TO THE LABORATORY SCANNING DEPARTMENT AT [phone]. PHYSICIAN'S SIGNATURE DATE [facility] has important pathology staff changes effective 04/25/2022. New pathology staff will provide uninterrupted, excellent patient care and clinical consultation. See URL: [email or web address]. UNLESS OTHERWISE INDICATED, ALL TESTING PERFORMED AT [facility] [address] [place] [address] TRAIN CALLER: KINDRA GUTIERREZ M.D. CLIA NUMBER [id number] [facility] [place] [place]. [id number] TSH, THIRD [id number] 02:17:51* Test Item Value Reference Range Interpretation Comme nts TSH, THIRD GENERATION (test code = 2821) 1.190 UIU/ML 0.400-4.100 LIPID [id number] 22:43:02* Test Item Value Reference Range Interpretation Comme nts CHOLESTEROL (test code = 2210) 166 MG/DL <200 TRIGLYCERIDES (test code = 2232) 261 MG/DL <150 H HDL CHOLESTEROL (test code = 2220) 47 MG/DL >39 CALC LDL CHOL (test code = 2237) 85 MG/DL <100 NOTE: CALCULATED LDL IS BASED ON GRISELDA-CHAVEZ METHOD WHICHINCLUDES ADJUSTABLE TRIGLYCERIDE:VLDL CHOLESTEROL RATIO.THIS FACTOR VARIES BY MEASURED TRIGLYCERIDE AND NON-HDLCHOLESTEROL CONCENTRATIONS WITH INCREASED CALCULATED LDL SEENIN HIGHER TRIGLYCERIDE OR LOWER NON-HDL SPECIMENS. FOR MOREINFORMATION, SEE CLIENT ANNOUNCEMENT AT [email or web address]-C RISK RATIO LDL/HDL (test code = 2238) 1.81 RATIO <3.22 COMPREHENSIVE METABOLIC [id number] 22:43:02* Test Item Value Reference Range Interpretation Comme nts GLUCOSE (test code = 2217) 115 MG/DL 70-99 H BUN (test code = 2208) 28 MG/DL 8-23 H CREATININE (test code = 2214) 1.39 MG/DL 0.60-1.30 H eGFR (2020 CKD-EPI) (test code = 71927) 41 ML/MIN/1.73 >60 L CALC BUN/CREAT (test code = 2235) 20 RATIO 6-28 SODIUM (test code = 2231) 139 MEQ/L 133-146 POTASSIUM (test code = 2228) 5.7 MEQ/L 3.5-5.4 H CHLORIDE (test code = 2215) 102 MEQ/L 95-107 CARBON DIOXIDE (test code = 2206) 20 MEQ/L 19-31 CALCIUM (test code = 2209) 9.8 MG/DL 8.5-10.5 PROTEIN, TOTAL (test code = 2229) 7.0 G/DL 6.1-8.3 ALBUMIN (test code = 2201) 4.1 G/DL 3.5-5.2 CALC GLOBULIN (test code = 2240) 2.9 G/DL 1.9-3.7 CALC A/G RATIO (test code = 2234) 1.4 RATIO 1.0-2.6 BILIRUBIN, TOTAL (test code = 2207) 0.2 MG/DL See_Comment [Automated me ssage] The system which generated this result transmitted reference range: <=1.2. The reference range was not used to interpret this result as normal/abnormal. ALKALINE PHOSPHATASE (test code = 2204) 71 U/L 40-142 AST (test code = 2218) 12 U/L 9-40 ALT (test code = 2219) 11 U/L 5-40 [facility] has impo rtant pathology staff changes effective 04/25/2022. New pathology staff will provide uninterrupted, excellent patient care and clinical consultation. See URL: [email or web address]. UNLESS OTHERWISE INDICATED, ALL TESTING PERFORMED AT [facility] [address] [place] [address] TRAIN CALLER: KINDRA GUTIERREZ M.D. CLIA NUMBER [id number] [facility] [place] [place]. [id number] HEMOGLOBIN [id number] 05:25:06* Test Item Value Reference Range Interpretation Comme [facility] HEMOGLOBIN A1c (test code = 12723) 8.2 % 4.2-5.6 H [employer] GUIDELINES FOR HGB A1C: PREDIABETES/INCREASED RISK . . . . . . . 5.7-6.4% DIAGNOSIS OF DIABETES . . . . . . . . . >=6.5% WITH CONFIRMATION OR APPROPRIATE SYMPTOMS NOTE: ASSAY MAY BE AFFECTED BY HEMOGLOBINOPATHIES (SICKLE CELL ANEMIA, S-C DISEASE, OTHERS) OR ARTIFICIALLY LOWERED BY DECREASED RED CELL SURVIVAL (HEMOLYTIC ANEMIAS, BLOOD LOSS, ETC.). CONSIDER ALTERNATE TESTING OR LABORATORY CONSULTATION. TSH, THIRD [id number] 06:35:24* Test Item Value Reference Range Interpretation Comme nts TSH, THIRD GENERATION (test code = 2821) 0.494 UIU/ML 0.400-4.100 UNLESS OTHERWISE INDICATED, ALL [facility]ING [facility]FOR[facility] [employer] [address] [place] [id number] TRAIN CALLER: SHAYY GARCIA M.D. CLIA NUMBER [id number] [facility] [place] [place]. [id number] HEMOGLOBIN [id number] 05:34:13* Test Item Value Reference Range Interpretation Comme [facility] HEMOGLOBIN A1c (test code = 37289) 7.9 % 4.2-5.6 H [employer] GUIDELINES FOR HGB A1C: PREDIABETES/INCREASED RISK . . . . . . . 5.7-6.4% DIAGNOSIS OF DIABETES . . . . . . . . . >=6.5% WITH CONFIRMATION OR APPROPRIATE SYMPTOMS NOTE: ASSAY MAY BE AFFECTED BY HEMOGLOBINOPATHIES (SICKLE CELL ANEMIA, S-C DISEASE, OTHERS) OR ARTIFICIALLY LOWERED BY DECREASED RED CELL SURVIVAL (HEMOLYTIC ANEMIAS, BLOOD LOSS, ETC.). CONSIDER ALTERNATE TESTING OR LABORATORY CONSULTATION. COMPREHENSIVE METABOLIC [id number] 03:52:41* Test Item Value Reference Range Interpretation Comme nts GLUCOSE (test code = 2217) 138 MG/DL 70-99 H BUN (test code = 8) 24 MG/DL 8-23 H CREATININE (test code = 2214) 1.35 MG/DL 0.60-1.30 H eGFR (2020 CKD-EPI) (test code = 53813) 42 ML/MIN/1.73 >60 L CALC BUN/CREAT (test code = 2235) 18 RATIO 6-28 SODIUM (test code = 2231) 139 MEQ/L 133-146 POTASSIUM (test code = 2228) 5.0 MEQ/L 3.5-5.4 CHLORIDE (test code = 2215) 105 MEQ/L 95-107 CARBON DIOXIDE (test code = 2206) 23 MEQ/L 19-31 CALCIUM (test code = 2209) 9.5 MG/DL 8.5-10.5 PROTEIN, TOTAL (test code = 222) 7.0 G/DL 6.1-8.3 ALBUMIN (test code = 2201) 4.2 G/DL 3.5-5.2 CALC GLOBULIN (test code = 2240) 2.8 G/DL 1.9-3.7 CALC A/G RATIO (test code = 223) 1.5 RATIO 1.0-2.6 BILIRUBIN, TOTAL (test code = 2207) <0.2 MG/DL See_Comment [Automated me ssage] The system which generated this result transmitted reference range: <=1.2. The reference range was not used to interpret this result as normal/abnormal. ALKALINE PHOSPHATASE (test code = 2203) 73 U/L 40-142 AST (test code = 2218) 13 U/L 9-40 ALT (test code = 2219) 13 U/L 5-40 LIPID [id number] 03:52:41* Test Item Value Reference Range Interpretation Comme nts CHOLESTEROL (test code = 0) 150 MG/DL <200 TRIGLYCERIDES (test code = 2) 277 MG/DL <150 H HDL CHOLESTEROL (test code = 0) 45 MG/DL >39 CALC LDL CHOL (test code = 2236) 69 MG/DL <100 NOTE: CALCULATED LDL IS BASED ON GRISELDA-CHAVEZ METHOD WHICHINCLUDES ADJUSTABLE TRIGLYCERIDE:VLDL CHOLESTEROL RATIO.THIS FACTOR VARIES BY MEASURED TRIGLYCERIDE AND NON-HDLCHOLESTEROL CONCENTRATIONS WITH INCREASED CALCULATED LDL SEENIN HIGHER TRIGLYCERIDE OR LOWER NON-HDL SPECIMENS. FOR MOREINFORMATION, SEE CLIENT ANNOUNCEMENT AT [email or web address] RISK RATIO LDL/HDL (test code = 223) 1.53 RATIO <3.22 CBC W/AUTO DIFF WITH [id number] 08:22:24* Test Item Value Reference Range Interpretation Comme [...] 13.2 % 11.5-15.0 NEUTROPHILS (test code = 1008) 53.5 % LYMPHOCYTES (test code = 1010) 36.8 % MONOCYTES (test code = 1011) 6.5 % EOSINOPHILS (test code = 1012) 2.3 % BASOPHILS (test code = 1013) 0.7 % IMMATURE GRANULOCYTES (test code = 1036) 0.2 % NUCLEATED RBCS (test code = 1065) 0.0 /100 WBC'S See_Comment [Automated [place] [employer]] The system which generated this result transmitted reference range: 0.0. The reference range was not used to interpret this result as normal/abnormal. PLATELET COUNT (test code = 1015) 260 K/UL 130-400 ABSOLUTE NEUTROPHILS (test code = 1066) 4.62 K/UL 1.50-7.50 ABSOLUTE LYMPHOCYTES (test code = 1067) 3.18 K/UL 1.00-4.00 ABSOLUTE MONOCYTES (test code = 1068) 0.56 K/UL 0.20-1.00 ABSOLUTE EOSINOPHILS (test code = 1040) 0.20 K/UL 0.00-0.50 ABSOLUTE BASOPHILS (test code = 1069) 0.06 K/UL 0.00-0.20 ABS IMMATURE GRANULOCYTES (test code = 1020) 0.02 K/UL 0.00-0.10 ABS NUCLEATED RBCS (test code = 39570) 0.00 K/UL 0.00-0.11 HEMOGLOBIN [id number] 07:58:23* Test Item Value Reference Range Interpretation Comme nts HEMOGLOBIN A1c (test code = 16626) 9.5 % 4.2-5.6 H [employer] GUIDELINES FOR HGB A1C: PREDIABETES/INCREASED RISK . . . . . . . 5.7-6.4% DIAGNOSIS OF DIABETES . . . . . . . . . >=6.5% WITH CONFIRMATION OR APPROPRIATE SYMPTOMS NOTE: ASSAY MAY BE AFFECTED BY HEMOGLOBINOPATHIES (SICKLE CELL ANEMIA, S-C DISEASE, OTHERS) OR ARTIFICIALLY LOWERED BY DECREASED RED CELL SURVIVAL (HEMOLYTIC ANEMIAS, BLOOD LOSS, ETC.). CONSIDER ALTERNATE TESTING OR LABORATORY CONSULTATION. TSH, THIRD [id number] 05:47:57* Test Item Value Reference Range Interpretation Comme nts TSH, THIRD GENERATION (test code = 2821) 0.549 UIU/ML 0.400-4.100 UNLESS OTHERWISE INDICATED, ALL TESTING PERFORMED [facility] [address] [place] [id number] TRAIN CALLER: SHAYY GARCIA M.D. CLIA NUMBER [id number] [facility] [place] [place]. [id number] COMPREHENSIVE METABOLIC [id number] 04:41:17* Test Item Value Reference Range Interpretation Comme nts GLUCOSE (test code = 2217) 165 MG/DL 70-99 H BUN (test code = 8) 25 MG/DL 8-23 H CREATININE (test code = 2214) 1.25 MG/DL 0.60-1.30 eGFR (2020 CKD-EPI) (test code = 60036) 46 ML/MIN/1.73 >60 L The NKF-ASN Taskforce recommends use of Cystatin C to confirm eGFR inadults at risk for CKD. [facility] offers eGFR with Cystatin C-Creatinineusing the 2020 CKD-EPI eGFR_creat-cystat equation (order code 3057) toincrease the accuracy of estimated GFR. For more information, contactur accounts officer or see announcement [email or web address] CALC BUN/CREAT (test code = 2234) 20 RATIO 6-28 SODIUM (test code = 223) 138 MEQ/L 133-146 POTASSIUM (test code = 2228) 5.3 MEQ/L 3.5-5.4 CHLORIDE (test code = 2215) 102 MEQ/L 95-107 CARBON DIOXIDE (test code = 2206) 23 MEQ/L 19-31 CALCIUM (test code = 2209) 10.1 MG/DL 8.5-10.5 PROTEIN, TOTAL (test code = 222) 7.4 G/DL 6.1-8.3 ALBUMIN (test code = 2201) 4.3 G/DL 3.5-5.2 CALC GLOBULIN (test code = 2240) 3.1 G/DL 1.9-3.7 CALC A/G RATIO (test code = 2234) 1.4 RATIO 1.0-2.6 BILIRUBIN, TOTAL (test code = 2207) 0.3 MG/DL See_Comment [Automated me ssage] The system which generated this result transmitted reference range: <=1.2. The reference range was not used to interpret this result as normal/abnormal. ALKALINE PHOSPHATASE (test code = 2204) 80 U/L 40-142 AST (test code = 2218) 18 U/L 9-40 ALT (test code = 2219) 19 U/L 5-40 LIPID [id number] 04:41:17* Test Item Value Reference Range Interpretation Comme nts CHOLESTEROL (test code = 2210) 245 MG/DL <200 H TRIGLYCERIDES (test code = 2232) 403 MG/DL <150 H HDL CHOLESTEROL (test code = 2220) 43 MG/DL >39 CALC LDL CHOL (test code = 2237) (NOTE) MG/DL <100 UNABLE TO CALCUL ATE A VALID LDL CHOLESTEROL WHEN THE TRIGLYCERIDEVALUE IS GREATER THAN 400 MG/DL.UNABLE TO CALCULATE A VALID LDL CHOLESTEROL WHEN THE TRIGLYCERIDEVALUE IS GREATER THAN 400 MG/DL. NOTE: CALCULATED LDL IS BASED ON GRISELDA-CHAVEZ METHOD WHICHINCLUDES ADJUSTABLE TRIGLYCERIDE:VLDL CHOLESTEROL RATIO.THIS FACTOR VARIES BY MEASURED TRIGLYCERIDE AND NON-HDLCHOLESTEROL CONCENTRATIONS WITH INCREASED CALCULATED LDL SEENIN HIGHER TRIGLYCERIDE OR LOWER NON-HDL SPECIMENS. FOR MOREINFORMATION, SEE CLIENT ANNOUNCEMENT AT [email or web address] CalcLDL-C RISK RATIO LDL/HDL (test code = 2238) (NOTE) RATIO <3.22 UNABLE TO BERTO CULATE HEMOGLOBIN [id number] 00:00:00* Test Item Value Reference Range Interpretation Comme nts HEMOGLOBIN A1c (test code = 63599) 9.5 % HEMOGLOBIN [id number] 00:00:00* Test Item Value Reference Range Interpretation Comme nts HEMOGLOBIN A1c (test code = 78538) 9.5 % HEMOGLOBIN [id number] 00:00:00* Test Item Value Reference Range Interpretation Comme nts HEMOGLOBIN A1c (test code = 14691) 9.5 % CBC W/AUTO [id number] 00:00:00* Test Item Value Reference Range Interpretation Comme [...] = 1013) 0.7 % IMMATURE GRANULOCYTES (test code = 1036) 0.2 % NUCLEATED RBCS (test code = 1065) 0.0 /100WBC'S PLATELET COUNT (test code = 1015) 260 K/UL ABSOLUTE NEUTROPHILS (test c ode = 1066) 4.62 K/UL ABSOLUTE LYMPHOCYTES (test c ode = 1067) 3.18 K/UL ABSOLUTE MONOCYTES (test cod e = 1068) 0.56 K/UL ABSOLUTE EOSINOPHILS (test c ode = 1040) 0.20 K/UL ABSOLUTE BASOPHILS (test cod e = 1069) 0.06 K/UL ABS IMMATURE GRANULOCYTES (t est code = 1020) 0.02 K/UL ABS NUCLEATED RBCS (test cod e = 38766) 0.00 K/UL CBC W/AUTO [id number] 00:00:00* Test Item Value Reference Range Interpretation Comme [...] = 1013) 0.7 % IMMATURE GRANULOCYTES (test code = 1036) 0.2 % NUCLEATED RBCS (test code = 1065) 0.0 /100WBC'S PLATELET COUNT (test code = 1015) 260 K/UL ABSOLUTE NEUTROPHILS (test c ode = 1066) 4.62 K/UL ABSOLUTE LYMPHOCYTES (test c ode = 1067) 3.18 K/UL ABSOLUTE MONOCYTES (test cod e = 1068) 0.56 K/UL ABSOLUTE EOSINOPHILS (test c ode = 1040) 0.20 K/UL ABSOLUTE BASOPHILS (test cod e = 1069) 0.06 K/UL ABS IMMATURE GRANULOCYTES (t est code = 1020) 0.02 K/UL ABS NUCLEATED RBCS (test cod e = 72436) 0.00 K/UL CBC W/AUTO [id number] 00:00:00* Test Item Value Reference Range Interpretation Comme [...] = 1013) 0.7 % IMMATURE GRANULOCYTES (test code = 1036) 0.2 % NUCLEATED RBCS (test code = 1065) 0.0 /100WBC'S PLATELET COUNT (test code = 1015) 260 K/UL ABSOLUTE NEUTROPHILS (test c ode = 1066) 4.62 K/UL ABSOLUTE LYMPHOCYTES (test c ode = 1067) 3.18 K/UL ABSOLUTE MONOCYTES (test cod e = 1068) 0.56 K/UL ABSOLUTE EOSINOPHILS (test c ode = 1040) 0.20 K/UL ABSOLUTE BASOPHILS (test cod e = 1069) 0.06 K/UL ABS IMMATURE GRANULOCYTES (t est code = 1020) 0.02 K/UL ABS NUCLEATED RBCS (test cod e = 77970) 0.00 K/UL COMPREHENSIVE METABOLIC [id number] 00:00:00* Test Item Value Reference Range Interpretation Comme nts GLUCOSE (test code = 2217) 165 MG/DL BUN (test code = 2208) 25 MG/DL CREATININE (test code = 2214) 1.25 MG/DL eGFR (2020 CKD-EPI) (test co de = 01754) 46 ML/MIN/1.73 CALC BUN/CREAT (test code = 2235) 20 RATIO SODIUM (test code = 2231) 138 MEQ/L POTASSIUM (test code = 2228) 5.3 MEQ/L CHLORIDE (test code = 2215) 102 MEQ/L CARBON DIOXIDE (test code = 2206) 23 MEQ/L CALCIUM (test code = 2209) 10.1 MG/DL PROTEIN, TOTAL (test code = 2229) 7.4 G/DL ALBUMIN (test code = 2201) 4.3 G/DL CALC GLOBULIN (test code = 2240) 3.1 G/DL CALC A/G RATIO (test code = 2234) 1.4 RATIO BILIRUBIN, TOTAL (test code = 2207) 0.3 MG/DL ALKALINE PHOSPHATASE (test code = 2204) 80 U/L AST (test code = 2218) 18 U/L ALT (test code = 2219) 19 U/L COMPREHENSIVE METABOLIC [id number] 00:00:00* Test Item Value Reference Range Interpretation Comme nts GLUCOSE (test code = 2217) 165 MG/DL BUN (test code = 2208) 25 MG/DL CREATININE (test code = 2214) 1.25 MG/DL eGFR (2020 CKD-EPI) (test co de = 88470) 46 ML/MIN/1.73 CALC BUN/CREAT (test code = 2235) 20 RATIO SODIUM (test code = 2231) 138 MEQ/L POTASSIUM (test code = 2228) 5.3 MEQ/L CHLORIDE (test code = 2215) 102 MEQ/L CARBON DIOXIDE (test code = 2206) 23 MEQ/L CALCIUM (test code = 2209) 10.1 MG/DL PROTEIN, TOTAL (test code = 2229) 7.4 G/DL ALBUMIN (test code = 2201) 4.3 G/DL CALC GLOBULIN (test code = 2240) 3.1 G/DL CALC A/G RATIO (test code = 2234) 1.4 RATIO BILIRUBIN, TOTAL (test code = 2207) 0.3 MG/DL ALKALINE PHOSPHATASE (test code = 2204) 80 U/L AST (test code = 2218) 18 U/L ALT (test code = 2219) 19 U/L LIPID [id number] 00:00:00* Test Item Value Reference Range Interpretation Comme nts CHOLESTEROL (test code = 2210) 245 MG/DL TRIGLYCERIDES (test code = 2232) 403 MG/DL HDL CHOLESTEROL (test code = 2220) 43 MG/DL CALC LDL CHOL (test code = 2237) (NOTE) MG/DL RISK RATIO LDL/HDL (test cod e = 2238) (NOTE) RATIO LIPID [id number] 00:00:00* Test Item Value Reference Range Interpretation Comme nts CHOLESTEROL (test code = 2210) 245 MG/DL TRIGLYCERIDES (test code = 2232) 403 MG/DL HDL CHOLESTEROL (test code = 2220) 43 MG/DL CALC LDL CHOL (test code = 2237) (NOTE) MG/DL RISK RATIO LDL/HDL (test cod e = 2238) (NOTE) RATIO TSH, THIRD [id number] 00:00:00* Test Item Value Reference Range Interpretation Comme nts TSH, THIRD GENERATION (test code = 2821) 0.549 UIU/ML TSH, THIRD [id number] 00:00:00* Test Item Value Reference Range Interpretation Comme nts TSH, THIRD GENERATION (test code = 2821) 0.549 UIU/ML TSH, THIRD [id number] 00:00:00* Test Item Value Reference Range Interpretation Comme nts TSH, THIRD GENERATION (test code = 2821) 0.549 UIU/ML COMPREHENSIVE METABOLIC [id number] 05:40:31* Test Item Value Reference Range Interpretation Comme nts GLUCOSE (test code = 2217) 212 MG/DL 70-99 H BUN (test code = 8) 24 MG/DL 8-23 H CREATININE (test code = 2214) 1.35 MG/DL 0.60-1.30 H eGFR (2020 CKD-EPI) (test code = 66431) 42 ML/MIN/1.73 >60 L CALC BUN/CREAT (test code = 2235) 18 RATIO 6-28 SODIUM (test code = 2231) 136 MEQ/L 133-146 POTASSIUM (test code = 8) 5.0 MEQ/L 3.5-5.4 CHLORIDE (test code = 2215) 100 MEQ/L 95-107 CARBON DIOXIDE (test code = 6) 22 MEQ/L 19-31 CALCIUM (test code = 2209) 10.2 MG/DL 8.5-10.5 PROTEIN, TOTAL (test code = 222) 7.8 G/DL 6.1-8.3 ALBUMIN (test code = 2201) 4.6 G/DL 3.5-5.2 CALC GLOBULIN (test code = 2240) 3.2 G/DL 1.9-3.7 CALC A/G RATIO (test code = 2234) 1.4 RATIO 1.0-2.6 BILIRUBIN, TOTAL (test code = 2206) 0.2 MG/DL See_Comment [Automated me ssage] The system which generated this result transmitted reference range: <=1.2. The reference range was not used to interpret this result as normal/abnormal. ALKALINE PHOSPHATASE (test code = 2203) 77 U/L 40-142 AST (test code = 2218) 20 U/L 9-40 ALT (test code = 2219) 24 U/L 5-40 LIPID [id number] 05:40:31* Test Item Value Reference Range Interpretation Comme nts CHOLESTEROL (test code = 2210) 168 MG/DL <200 TRIGLYCERIDES (test code = 2232) 305 MG/DL <150 H HDL CHOLESTEROL (test code = 0) 48 MG/DL >39 CALC LDL CHOL (test code = 7) 83 MG/DL <100 NOTE: CALCULATED LDL IS BASED ON GRISELDA-CHAVEZ METHOD WHICHINCLUDES ADJUSTABLE TRIGLYCERIDE:VLDL CHOLESTEROL RATIO.THIS FACTOR VARIES BY MEASURED TRIGLYCERIDE AND NON-HDLCHOLESTEROL CONCENTRATIONS WITH INCREASED CALCULATED LDL SEENIN HIGHER TRIGLYCERIDE OR LOWER NON-HDL SPECIMENS. FOR MOREINFORMATION, SEE CLIENT ANNOUNCEMENT AT [email or web address] RISK RATIO LDL/HDL (test code = 2238) 1.73 RATIO <3.22 UNLESS OTHERW ISE INDICATED, ALL TESTING PERFORMED [facility] [address] [facility] [place] [address] TRAIN CALLER: SHAYY GARCIA M.D. CLIA NUMBER [id number] [facility] [place]. [id number] HEMOGLOBIN [id number] 03:57:08* Test Item Value Reference Range Interpretation Comme nts HEMOGLOBIN A1c (test code = 32160) 8.4 % 4.2-5.6 H [employer] GUIDELINES FOR HGB A1C: PREDIABETES/INCREASED RISK . . . . . . . 5.7-6.4% DIAGNOSIS OF DIABETES . . . . . . . . . >=6.5% WITH CONFIRMATION OR APPROPRIATE SYMPTOMS NOTE: ASSAY MAY BE AFFECTED BY HEMOGLOBINOPATHIES (SICKLE CELL ANEMIA, S-C DISEASE, OTHERS) OR ARTIFICIALLY LOWERED BY DECREASED RED CELL SURVIVAL (HEMOLYTIC ANEMIAS, BLOOD LOSS, ETC.). CONSIDER ALTERNATE TESTING OR LABORATORY CONSULTATION. LIPID [id number] 00:00:00* Test Item Value Reference Range Interpretation Comme nts CHOLESTEROL (test code = 2210) 168 MG/DL TRIGLYCERIDES (test code = 2232) 305 MG/DL HDL CHOLESTEROL (test code = 2220) 48 MG/DL CALC LDL CHOL (test code = 2237) 83 MG/DL RISK RATIO LDL/HDL (test cod e = 2238) 1.73 RATIO HEMOGLOBIN [id number] 00:00:00* Test Item Value Reference Range Interpretation Comme nts HEMOGLOBIN A1c (test code = 48654) 8.4 % HEMOGLOBIN [id number] 00:00:00* Test Item Value Reference Range Interpretation Comme nts HEMOGLOBIN A1c (test code = 31093) 8.4 % HEMOGLOBIN [id number] 00:00:00* Test Item Value Reference Range Interpretation Comme nts HEMOGLOBIN A1c (test code = 59240) 8.4 % COMPREHENSIVE METABOLIC [id number] 00:00:00* Test Item Value Reference Range Interpretation Comme nts GLUCOSE (test code = 2217) 212 MG/DL BUN (test code = 2208) 24 MG/DL CREATININE (test code = 2214) 1.35 MG/DL eGFR (2020 CKD-EPI) (test co de = 42379) 42 ML/MIN/1.73 CALC BUN/CREAT (test code = 2235) 18 RATIO SODIUM (test code = 2231) 136 MEQ/L POTASSIUM (test code = 2228) 5.0 MEQ/L CHLORIDE (test code = 2215) 100 MEQ/L CARBON DIOXIDE (test code = 2206) 22 MEQ/L CALCIUM (test code = 2209) 10.2 MG/DL PROTEIN, TOTAL (test code = 2229) 7.8 G/DL ALBUMIN (test code = 2201) 4.6 G/DL CALC GLOBULIN (test code = 2240) 3.2 G/DL CALC A/G RATIO (test code = 2234) 1.4 RATIO BILIRUBIN, TOTAL (test code = 2207) 0.2 MG/DL ALKALINE PHOSPHATASE (test code = 2204) 77 U/L AST (test code = 2218) 20 U/L ALT (test code = 2219) 24 U/L COMPREHENSIVE METABOLIC [id number] 00:00:00* Test Item Value Reference Range Interpretation Comme nts GLUCOSE (test code = 2217) 212 MG/DL BUN (test code = 2208) 24 MG/DL CREATININE (test code = 2214) 1.35 MG/DL eGFR (2020 CKD-EPI) (test co de = 16859) 42 ML/MIN/1.73 CALC BUN/CREAT (test code = 2235) 18 RATIO SODIUM (test code = 2231) 136 MEQ/L POTASSIUM (test code = 2228) 5.0 MEQ/L CHLORIDE (test code = 2215) 100 MEQ/L CARBON DIOXIDE (test code = 2206) 22 MEQ/L CALCIUM (test code = 2209) 10.2 MG/DL PROTEIN, TOTAL (test code = 2229) 7.8 G/DL ALBUMIN (test code = 2201) 4.6 G/DL CALC GLOBULIN (test code = 2240) 3.2 G/DL CALC A/G RATIO (test code = 2234) 1.4 RATIO BILIRUBIN, TOTAL (test code = 2207) 0.2 MG/DL ALKALINE PHOSPHATASE (test code = 2204) 77 U/L AST (test code = 2218) 20 U/L ALT (test code = 2219) 24 U/L LIPID [id number] 00:00:00* Test Item Value Reference Range Interpretation Comme nts CHOLESTEROL (test code = 2210) 168 MG/DL TRIGLYCERIDES (test code = 2232) 305 MG/DL HDL CHOLESTEROL (test code = 2220) 48 MG/DL CALC LDL CHOL (test code = 2237) 83 MG/DL RISK RATIO LDL/HDL (test cod e = 2238) 1.73 RATIO LIPID [id number] 00:00:00* Test Item Value Reference Range Interpretation Comme nts CHOLESTEROL (test code = 2210) 168 MG/DL TRIGLYCERIDES (test code = 2232) 305 MG/DL HDL CHOLESTEROL (test code = 2220) 48 MG/DL CALC LDL CHOL (test code = 2237) 83 MG/DL RISK RATIO LDL/HDL (test cod e = 2238) 1.73 RATIO HEMOGLOBIN [id number] 00:00:00* Test Item Value Reference Range Interpretation Comme nts HEMOGLOBIN A1c (test code = 24788) 8.4 % HEMOGLOBIN [id number] 00:00:00* Test Item Value Reference Range Interpretation Comme nts HEMOGLOBIN A1c (test code = 56610) 8.4 % HEMOGLOBIN [id number] 00:00:00* Test Item Value Reference Range Interpretation Comme nts HEMOGLOBIN A1c (test code = 80768) 8.4 % COMPREHENSIVE METABOLIC [id number] 00:00:00* Test Item Value Reference Range Interpretation Comme nts GLUCOSE (test code = 2217) 212 MG/DL BUN (test code = 2208) 24 MG/DL CREATININE (test code = 2214) 1.35 MG/DL eGFR (2020 CKD-EPI) (test co de = 78046) 42 ML/MIN/1.73 CALC BUN/CREAT (test code = 2235) 18 RATIO SODIUM (test code = 2231) 136 MEQ/L POTASSIUM (test code = 2228) 5.0 MEQ/L CHLORIDE (test code = 2215) 100 MEQ/L CARBON DIOXIDE (test code = 2206) 22 MEQ/L CALCIUM (test code = 2209) 10.2 MG/DL PROTEIN, TOTAL (test code = 2229) 7.8 G/DL ALBUMIN (test code = 2201) 4.6 G/DL CALC GLOBULIN (test code = 2240) 3.2 G/DL CALC A/G RATIO (test code = 2234) 1.4 RATIO BILIRUBIN, TOTAL (test code = 2207) 0.2 MG/DL ALKALINE PHOSPHATASE (test code = 2204) 77 U/L AST (test code = 2218) 20 U/L ALT (test code = 2219) 24 U/L COMPREHENSIVE METABOLIC [id number] 00:00:00* Test Item Value Reference Range Interpretation Comme nts GLUCOSE (test code = 2217) 212 MG/DL BUN (test code = 2208) 24 MG/DL CREATININE (test code = 2214) 1.35 MG/DL eGFR (2020 CKD-EPI) (test co de = 89755) 42 ML/MIN/1.73 CALC BUN/CREAT (test code = 2235) 18 RATIO SODIUM (test code = 2231) 136 MEQ/L POTASSIUM (test code = 2228) 5.0 MEQ/L CHLORIDE (test code = 2215) 100 MEQ/L CARBON DIOXIDE (test code = 2206) 22 MEQ/L CALCIUM (test code = 2209) 10.2 MG/DL PROTEIN, TOTAL (test code = 2229) 7.8 G/DL ALBUMIN (test code = 2201) 4.6 G/DL CALC GLOBULIN (test code = 2240) 3.2 G/DL CALC A/G RATIO (test code = 2234) 1.4 RATIO BILIRUBIN, TOTAL (test code = 2207) 0.2 MG/DL ALKALINE PHOSPHATASE (test code = 2204) 77 U/L AST (test code = 2218) 20 U/L ALT (test code = 2219) 24 U/L LIPID [id number] 00:00:00* Test Item Value Reference Range Interpretation Comme nts CHOLESTEROL (test code = 2210) 168 MG/DL TRIGLYCERIDES (test code = 2232) 305 MG/DL HDL CHOLESTEROL (test code = 2220) 48 MG/DL CALC LDL CHOL (test code = 2237) 83 MG/DL RISK RATIO LDL/HDL (test cod e = 2238) 1.73 RATIO TSH, THIRD [id number] 05:23:02* Test Item Value Reference Range Interpretation Comme nts TSH, THIRD GENERATION (test code = 2821) 1.730 UIU/ML 0.400-4.100 UNLESS OTHERWISE INDICATED, ALL TESTING PERFORMED [facility] [address] [place] [address] TRAIN CALLER: SHAYY GARCIA M.D. CLIA NUMBER [id number] [facility] [place]. [id number] HEMOGLOBIN [id number] 04:30:06* Test Item Value Reference Range Interpretation Comme nts HEMOGLOBIN A1c (test code = 18316) 9.6 % 4.2-5.6 H [employer] GUIDELINES FOR HGB A1C: PREDIABETES/INCREASED RISK . . . . . . . 5.7-6.4% DIAGNOSIS OF DIABETES . . . . . . . . . >=6.5% WITH CONFIRMATION OR APPROPRIATE SYMPTOMS NOTE: ASSAY MAY BE AFFECTED BY HEMOGLOBINOPATHIES (SICKLE CELL ANEMIA, S-C DISEASE, OTHERS) OR ARTIFICIALLY LOWERED BY DECREASED RED CELL SURVIVAL (HEMOLYTIC ANEMIAS, BLOOD LOSS, ETC.). CONSIDER ALTERNATE TESTING OR LABORATORY CONSULTATION. LIPID [id number] 02:53:37* Test Item Value Reference Range Interpretation Comme nts CHOLESTEROL (test code = 2210) 156 MG/DL <200 TRIGLYCERIDES (test code = 2232) 182 MG/DL <150 H HDL CHOLESTEROL (test code = 2220) 52 MG/DL >39 CALC LDL CHOL (test code = 2237) 76 MG/DL <100 NOTE: CALCULATED LDL IS BASED ON GRISELDA-CHAVEZ METHOD WHICHINCLUDES ADJUSTABLE TRIGLYCERIDE:VLDL CHOLESTEROL RATIO.THIS FACTOR VARIES BY MEASURED TRIGLYCERIDE AND NON-HDLCHOLESTEROL CONCENTRATIONS WITH INCREASED CALCULATED LDL SEENIN HIGHER TRIGLYCERIDE OR LOWER NON-HDL SPECIMENS. FOR MOREINFORMATION, SEE CLIENT ANNOUNCEMENT AT [email or web address] [email or web address] RATIO LDL/HDL (test code = 2238) 1.46 RATIO <3.22 COMPREHENSIVE METABOLIC [id number] 02:53:37* Test Item Value Reference Range Interpretation Comme nts GLUCOSE (test code = 2217) 195 MG/DL 70-99 H BUN (test code = 220) 23 MG/DL 8-23 CREATININE (test code = 2214) 1.13 MG/DL 0.60-1.30 eGFR (2020 CKD-EPI) (test code = 16596) 53 ML/MIN/1.73 >60 L CALC BUN/CREAT (test code = 2235) 20 RATIO 6-28 SODIUM (test code = 223) 141 MEQ/L 133-146 POTASSIUM (test code = 2228) 5.1 MEQ/L 3.5-5.4 CHLORIDE (test code = 2215) 103 MEQ/L 95-107 CARBON DIOXIDE (test code = 2206) 24 MEQ/L 19-31 CALCIUM (test code = 220) 9.5 MG/DL 8.5-10.5 PROTEIN, TOTAL (test code = 222) 7.6 G/DL 6.1-8.3 ALBUMIN (test code = 220) 4.3 G/DL 3.5-5.2 CALC GLOBULIN (test code = 2240) 3.3 G/DL 1.9-3.7 CALC A/G RATIO (test code = 2234) 1.3 RATIO 1.0-2.6 BILIRUBIN, TOTAL (test code = 2207) 0.3 MG/DL See_Comment [Automated me ssage] The system which generated this result transmitted reference range: <=1.2. The reference range was not used to interpret this result as normal/abnormal. ALKALINE PHOSPHATASE (test code = 2204) 77 U/L 40-142 AST (test code = 2218) 26 U/L 9-40 ALT (test code = 2219) 24 U/L 5-40 [id number] 00:00:00* Test Item Value Reference Range Interpretation Comme nts TSH, THIRD GENERATION (test code = 2821) 1.730 UIU/ML [id number] 00:00:00* Test Item Value Reference Range Interpretation Comme nts TSH, THIRD GENERATION (test code = 2821) 1.730 UIU/ML [id number] 00:00:00* Test Item Value Reference Range Interpretation Comme nts TSH, THIRD GENERATION (test code = 2821) 1.730 UIU/ML HEMOGLOBIN [id number] 00:00:00* Test Item Value Reference Range Interpretation Comme nts HEMOGLOBIN A1c (test code = 04736) 9.6 % HEMOGLOBIN [id number] 00:00:00* Test Item Value Reference Range Interpretation Comme nts HEMOGLOBIN A1c (test code = 63638) 9.6 % HEMOGLOBIN [id number] 00:00:00* Test Item Value Reference Range Interpretation Comme nts HEMOGLOBIN A1c (test code = 08321) 9.6 % LIPID [id number] 00:00:00* Test Item Value Reference Range Interpretation Comme nts CHOLESTEROL (test code = 2210) 156 MG/DL TRIGLYCERIDES (test code = 2232) 182 MG/DL HDL CHOLESTEROL (test code = 2220) 52 MG/DL CALC LDL CHOL (test code = 2237) 76 MG/DL RISK RATIO LDL/HDL (test cod e = 2238) 1.46 RATIO LIPID [id number] 00:00:00* Test Item Value Reference Range Interpretation Comme nts CHOLESTEROL (test code = 2210) 156 MG/DL TRIGLYCERIDES (test code = 2232) 182 MG/DL HDL CHOLESTEROL (test code = 2220) 52 MG/DL CALC LDL CHOL (test code = 2237) 76 MG/DL RISK RATIO LDL/HDL (test cod e = 2238) 1.46 RATIO COMPREHENSIVE METABOLIC [id number] 00:00:00* Test Item Value Reference Range Interpretation Comme nts GLUCOSE (test code = 2217) 195 MG/DL BUN (test code = 2208) 23 MG/DL CREATININE (test code = 2214) 1.13 MG/DL eGFR (2020 CKD-EPI) (test co de = 28999) 53 ML/MIN/1.73 CALC BUN/CREAT (test code = 2235) 20 RATIO SODIUM (test code = 2231) 141 MEQ/L POTASSIUM (test code = 2228) 5.1 MEQ/L CHLORIDE (test code = 2215) 103 MEQ/L CARBON DIOXIDE (test code = 2206) 24 MEQ/L CALCIUM (test code = 2209) 9.5 MG/DL PROTEIN, TOTAL (test code = 2229) 7.6 G/DL ALBUMIN (test code = 2201) 4.3 G/DL CALC GLOBULIN (test code = 2240) 3.3 G/DL CALC A/G RATIO (test code = 2234) 1.3 RATIO BILIRUBIN, TOTAL (test code = 2207) 0.3 MG/DL ALKALINE PHOSPHATASE (test code = 2204) 77 U/L AST (test code = 2218) 26 U/L ALT (test code = 2219) 24 U/L COMPREHENSIVE METABOLIC [id number] 00:00:00* Test Item Value Reference Range Interpretation Comme nts GLUCOSE (test code = 2217) 195 MG/DL BUN (test code = 2208) 23 MG/DL CREATININE (test code = 2214) 1.13 MG/DL eGFR (2020 CKD-EPI) (test co de = 16843) 53 ML/MIN/1.73 CALC BUN/CREAT (test code = 2235) 20 RATIO SODIUM (test code = 2231) 141 MEQ/L POTASSIUM (test code = 2228) 5.1 MEQ/L CHLORIDE (test code = 2215) 103 MEQ/L CARBON DIOXIDE (test code = 2206) 24 MEQ/L CALCIUM (test code = 2209) 9.5 MG/DL PROTEIN, TOTAL (test code = 2229) 7.6 G/DL ALBUMIN (test code = 2201) 4.3 G/DL CALC GLOBULIN (test code = 2240) 3.3 G/DL CALC A/G RATIO (test code = 2234) 1.3 RATIO BILIRUBIN, TOTAL (test code = 2207) 0.3 MG/DL ALKALINE PHOSPHATASE (test code = 2204) 77 U/L AST (test code = 2218) 26 U/L ALT (test code = 2219) 24 U/L [id number] 00:00:00* Test Item Value Reference Range Interpretation Comme nts TSH, THIRD GENERATION (test code = 2821) 1.730 UIU/ML [id number] 00:00:00* Test Item Value Reference Range Interpretation Comme nts TSH, THIRD GENERATION (test code = 2821) 1.730 UIU/ML [id number] 00:00:00* Test Item Value Reference Range Interpretation Comme nts TSH, THIRD GENERATION (test code = 2821) 1.730 UIU/ML HEMOGLOBIN [id number] 00:00:00* Test Item Value Reference Range Interpretation Comme nts HEMOGLOBIN A1c (test code = 63509) 9.6 % HEMOGLOBIN [id number] 00:00:00* Test Item Value Reference Range Interpretation Comme nts HEMOGLOBIN A1c (test code = 41235) 9.6 % HEMOGLOBIN [id number] 00:00:00* Test Item Value Reference Range Interpretation Comme nts HEMOGLOBIN A1c (test code = 45859) 9.6 % LIPID [id number] 00:00:00* Test Item Value Reference Range Interpretation Comme nts CHOLESTEROL (test code = 2210) 156 MG/DL TRIGLYCERIDES (test code = 2232) 182 MG/DL HDL CHOLESTEROL (test code = 2220) 52 MG/DL CALC LDL CHOL (test code = 2237) 76 MG/DL RISK RATIO LDL/HDL (test cod e = 2238) 1.46 RATIO LIPID [id number] 00:00:00* Test Item Value Reference Range Interpretation Comme nts CHOLESTEROL (test code = 2210) 156 MG/DL TRIGLYCERIDES (test code = 2232) 182 MG/DL HDL CHOLESTEROL (test code = 2220) 52 MG/DL CALC LDL CHOL (test code = 2237) 76 MG/DL RISK RATIO LDL/HDL (test cod e = 2238) 1.46 RATIO COMPREHENSIVE METABOLIC [id number] 00:00:00* Test Item Value Reference Range Interpretation Comme nts GLUCOSE (test code = 2217) 195 MG/DL BUN (test code = 2208) 23 MG/DL CREATININE (test code = 2214) 1.13 MG/DL eGFR (2020 CKD-EPI) (test co de = 31461) 53 ML/MIN/1.73 CALC BUN/CREAT (test code = 2235) 20 RATIO SODIUM (test code = 2231) 141 MEQ/L POTASSIUM (test code = 2228) 5.1 MEQ/L CHLORIDE (test code = 2215) 103 MEQ/L CARBON DIOXIDE (test code = 2206) 24 MEQ/L CALCIUM (test code = 2209) 9.5 MG/DL PROTEIN, TOTAL (test code = 2229) 7.6 G/DL ALBUMIN (test code = 2201) 4.3 G/DL CALC GLOBULIN (test code = 2240) 3.3 G/DL CALC A/G RATIO (test code = 2234) 1.3 RATIO BILIRUBIN, TOTAL (test code = 2207) 0.3 MG/DL ALKALINE PHOSPHATASE (test code = 2204) 77 U/L AST (test code = 2218) 26 U/L ALT (test code = 2219) 24 U/L COMPREHENSIVE METABOLIC [id number] 00:00:00* Test Item Value Reference Range Interpretation Comme nts GLUCOSE (test code = 2217) 195 MG/DL BUN (test code = 2208) 23 MG/DL CREATININE (test code = 2214) 1.13 MG/DL eGFR (2020 CKD-EPI) (test co de = 33341) 53 ML/MIN/1.73 CALC BUN/CREAT (test code = 2235) 20 RATIO SODIUM (test code = 2231) 141 MEQ/L POTASSIUM (test code = 2228) 5.1 MEQ/L CHLORIDE (test code = 2215) 103 MEQ/L CARBON DIOXIDE (test code = 2206) 24 MEQ/L CALCIUM (test code = 2209) 9.5 MG/DL PROTEIN, TOTAL (test code = 2229) 7.6 G/DL ALBUMIN (test code = 2201) 4.3 G/DL CALC GLOBULIN (test code = 2240) 3.3 G/DL CALC A/G RATIO (test code = 2234) 1.3 RATIO BILIRUBIN, TOTAL (test code = 2207) 0.3 MG/DL ALKALINE PHOSPHATASE (test code = 2204) 77 U/L AST (test code = 2218) 26 U/L ALT (test code = 2219) 24 U/L CBC W/AUTO [id number] 00:00:00* Test Item Value Reference Range Interpretation Comme nts WBC (test code = 1001) 7.6 K/UL [...] = 1013) 0.7 % IMMATURE GRANULOCYTES (test code = 1036) 0.3 % NUCLEATED RBCS (test code = 1065) 0.0 /100WBC'S PLATELET COUNT (test code = 1015) 222 K/UL ABSOLUTE NEUTROPHILS (test c ode = 1066) 4.12 K/UL ABSOLUTE LYMPHOCYTES (test c ode = 1067) 2.62 K/UL ABSOLUTE MONOCYTES (test cod e = 1068) 0.56 K/UL ABSOLUTE EOSINOPHILS (test c ode = 1040) 0.19 K/UL ABSOLUTE BASOPHILS (test cod e = 1069) 0.05 K/UL ABS IMMATURE GRANULOCYTES (t est code = 1020) 0.02 K/UL ABS NUCLEATED RBCS (test cod e = 74093) 0.00 K/UL CBC W/AUTO [id number] 00:00:00* Test Item Value Reference Range Interpretation Comme nts WBC (test code = 1001) 7.6 K/UL [...] = 1013) 0.7 % IMMATURE GRANULOCYTES (test code = 1036) 0.3 % NUCLEATED RBCS (test code = 1065) 0.0 /100WBC'S PLATELET COUNT (test code = 1015) 222 K/UL ABSOLUTE NEUTROPHILS (test c ode = 1066) 4.12 K/UL ABSOLUTE LYMPHOCYTES (test c ode = 1067) 2.62 K/UL ABSOLUTE MONOCYTES (test cod e = 1068) 0.56 K/UL ABSOLUTE EOSINOPHILS (test c ode = 1040) 0.19 K/UL ABSOLUTE BASOPHILS (test cod e = 1069) 0.05 K/UL ABS IMMATURE GRANULOCYTES (t est code = 1020) 0.02 K/UL ABS NUCLEATED RBCS (test cod e = 80603) 0.00 K/UL CBC W/AUTO [id number] 00:00:00* Test Item Value Reference Range Interpretation Comme nts WBC (test code = 1001) 7.6 K/UL [...] = 1013) 0.7 % IMMATURE GRANULOCYTES (test code = 1036) 0.3 % NUCLEATED RBCS (test code = 1065) 0.0 /100WBC'S PLATELET COUNT (test code = 1015) 222 K/UL ABSOLUTE NEUTROPHILS (test c ode = 1066) 4.12 K/UL ABSOLUTE LYMPHOCYTES (test c ode = 1067) 2.62 K/UL ABSOLUTE MONOCYTES (test cod e = 1068) 0.56 K/UL ABSOLUTE EOSINOPHILS (test c ode = 1040) 0.19 K/UL ABSOLUTE BASOPHILS (test cod e = 1069) 0.05 K/UL ABS IMMATURE GRANULOCYTES (t est code = 1020) 0.02 K/UL ABS NUCLEATED RBCS (test cod e = 20839) 0.00 K/UL HEMOGLOBIN [id number] 00:00:00* Test Item Value Reference Range Interpretation Comme nts HEMOGLOBIN A1c (test code = 63986) 9.1 % HEMOGLOBIN [id number] 00:00:00* Test Item Value Reference Range Interpretation Comme nts HEMOGLOBIN A1c (test code = 59665) 9.1 % HEMOGLOBIN [id number] 00:00:00* Test Item Value Reference Range Interpretation Comme nts HEMOGLOBIN A1c (test code = 66292) 9.1 % LIPID [id number] 00:00:00* Test Item Value Reference Range Interpretation Comme nts CHOLESTEROL (test code = 2210) 136 MG/DL TRIGLYCERIDES (test code = 2232) 191 MG/DL HDL CHOLESTEROL (test code = 2220) 44 MG/DL CALC LDL CHOL (test code = 2237) 66 MG/DL RISK RATIO LDL/HDL (test cod e = 2238) 1.50 RATIO LIPID [id number] 00:00:00* Test Item Value Reference Range Interpretation Comme nts CHOLESTEROL (test code = 2210) 136 MG/DL TRIGLYCERIDES (test code = 2232) 191 MG/DL HDL CHOLESTEROL (test code = 2220) 44 MG/DL CALC LDL CHOL (test code = 2237) 66 MG/DL RISK RATIO LDL/HDL (test cod e = 2238) 1.50 RATIO CBC W/AUTO [id number] 00:00:00* Test Item Value Reference Range Interpretation Comme nts WBC (test code = 1001) 7.6 K/UL [...] = 1013) 0.7 % IMMATURE GRANULOCYTES (test code = 1036) 0.3 % NUCLEATED RBCS (test code = 1065) 0.0 /100WBC'S PLATELET COUNT (test code = 1015) 222 K/UL ABSOLUTE NEUTROPHILS (test c ode = 1066) 4.12 K/UL ABSOLUTE LYMPHOCYTES (test c ode = 1067) 2.62 K/UL ABSOLUTE MONOCYTES (test cod e = 1068) 0.56 K/UL ABSOLUTE EOSINOPHILS (test c ode = 1040) 0.19 K/UL ABSOLUTE BASOPHILS (test cod e = 1069) 0.05 K/UL ABS IMMATURE GRANULOCYTES (t est code = 1020) 0.02 K/UL ABS NUCLEATED RBCS (test cod e = 18104) 0.00 K/UL CBC W/AUTO [id number] 00:00:00* Test Item Value Reference Range Interpretation Comme nts WBC (test code = 1001) 7.6 K/UL [...] = 1013) 0.7 % IMMATURE GRANULOCYTES (test code = 1036) 0.3 % NUCLEATED RBCS (test code = 1065) 0.0 /100WBC'S PLATELET COUNT (test code = 1015) 222 K/UL ABSOLUTE NEUTROPHILS (test c ode = 1066) 4.12 K/UL ABSOLUTE LYMPHOCYTES (test c ode = 1067) 2.62 K/UL ABSOLUTE MONOCYTES (test cod e = 1068) 0.56 K/UL ABSOLUTE EOSINOPHILS (test c ode = 1040) 0.19 K/UL ABSOLUTE BASOPHILS (test cod e = 1069) 0.05 K/UL ABS IMMATURE GRANULOCYTES (t est code = 1020) 0.02 K/UL ABS NUCLEATED RBCS (test cod e = 68185) 0.00 K/UL CBC W/AUTO [id number] 00:00:00* Test Item Value Reference Range Interpretation Comme nts WBC (test code = 1001) 7.6 K/UL [...] = 1013) 0.7 % IMMATURE GRANULOCYTES (test code = 1036) 0.3 % NUCLEATED RBCS (test code = 1065) 0.0 /100WBC'S PLATELET COUNT (test code = 1015) 222 K/UL ABSOLUTE NEUTROPHILS (test c ode = 1066) 4.12 K/UL ABSOLUTE LYMPHOCYTES (test c ode = 1067) 2.62 K/UL ABSOLUTE MONOCYTES (test cod e = 1068) 0.56 K/UL ABSOLUTE EOSINOPHILS (test c ode = 1040) 0.19 K/UL ABSOLUTE BASOPHILS (test cod e = 1069) 0.05 K/UL ABS IMMATURE GRANULOCYTES (t est code = 1020) 0.02 K/UL ABS NUCLEATED RBCS (test cod e = 10085) 0.00 K/UL HEMOGLOBIN [id number] 00:00:00* Test Item Value Reference Range Interpretation Comme nts HEMOGLOBIN A1c (test code = 04870) 9.1 % HEMOGLOBIN [id number] 00:00:00* Test Item Value Reference Range Interpretation Comme nts HEMOGLOBIN A1c (test code = 71756) 9.1 % HEMOGLOBIN [id number] 00:00:00* Test Item Value Reference Range Interpretation Comme nts HEMOGLOBIN A1c (test code = 91282) 9.1 % LIPID [id number] 00:00:00* Test Item Value Reference Range Interpretation Comme nts CHOLESTEROL (test code = 2210) 136 MG/DL TRIGLYCERIDES (test code = 2232) 191 MG/DL HDL CHOLESTEROL (test code = 2220) 44 MG/DL CALC LDL CHOL (test code = 2237) 66 MG/DL RISK RATIO LDL/HDL (test cod e = 2238) 1.50 RATIO LIPID [id number] 00:00:00* Test Item Value Reference Range Interpretation Comme nts CHOLESTEROL (test code = 2210) 136 MG/DL TRIGLYCERIDES (test code = 2232) 191 MG/DL HDL CHOLESTEROL (test code = 2220) 44 MG/DL CALC LDL CHOL (test code = 2237) 66 MG/DL RISK RATIO LDL/HDL (test cod e = 2238) 1.50 RATIO COMPREHENSIVE METABOLIC [id number] 00:00:00* Test Item Value Reference Range Interpretation Comme nts GLUCOSE (test code = 2217) 166 MG/DL BUN (test code = 2208) 19 MG/DL CREATININE (test code = 2214) 1.04 MG/DL eGFR AMER. (test cod e = 12229) 63 ML/MIN/1.73 eGFR NON- AMER. (test code = 67619) 55 ML/MIN/1.73 CALC BUN/CREAT (test code = 2235) 18 RATIO SODIUM (test code = 2231) 138 MEQ/L POTASSIUM (test code = 2228) 5.3 MEQ/L CHLORIDE (test code = 2215) 102 MEQ/L CARBON DIOXIDE (test code = 2206) 24 MEQ/L CALCIUM (test code = 2209) 9.6 MG/DL PROTEIN, TOTAL (test code = 2229) 7.3 G/DL ALBUMIN (test code = 2201) 4.2 G/DL CALC GLOBULIN (test code = 2240) 3.1 G/DL CALC A/G RATIO (test code = 2234) 1.4 RATIO BILIRUBIN, TOTAL (test code = 2207) 0.3 MG/DL ALKALINE PHOSPHATASE (test code = 2204) 81 U/L AST (test code = 2218) 26 U/L ALT (test code = 2219) 23 U/L COMPREHENSIVE METABOLIC [id number] 00:00:00* Test Item Value Reference Range Interpretation Comme nts GLUCOSE (test code = 2217) 166 MG/DL BUN (test code = 2208) 19 MG/DL CREATININE (test code = 2214) 1.04 MG/DL eGFR AMER. (test cod e = 23226) 63 ML/MIN/1.73 eGFR NON- AMER. (test code = 90587) 55 ML/MIN/1.73 CALC BUN/CREAT (test code = 2235) 18 RATIO SODIUM (test code = 2231) 138 MEQ/L POTASSIUM (test code = 2228) 5.3 MEQ/L CHLORIDE (test code = 2215) 102 MEQ/L CARBON DIOXIDE (test code = 2206) 24 MEQ/L CALCIUM (test code = 2209) 9.6 MG/DL PROTEIN, TOTAL (test code = 2229) 7.3 G/DL ALBUMIN (test code = 2201) 4.2 G/DL CALC GLOBULIN (test code = 2240) 3.1 G/DL CALC A/G RATIO (test code = 2234) 1.4 RATIO BILIRUBIN, TOTAL (test code = 2207) 0.3 MG/DL ALKALINE PHOSPHATASE (test code = 2204) 81 U/L AST (test code = 2218) 26 U/L ALT (test code = 2219) 23 U/L [id number] 00:00:00* Test Item Value Reference Range Interpretation Comme nts TSH, THIRD GENERATION (test code = 2821) 2.640 UIU/ML [id number] 00:00:00* Test Item Value Reference Range Interpretation Comme nts TSH, THIRD GENERATION (test code = 2821) 2.640 UIU/ML [id number] 00:00:00* Test Item Value Reference Range Interpretation Comme nts TSH, THIRD GENERATION (test code = 2821) 2.640 UIU/ML HEMOGLOBIN [id number] 00:00:00* Test Item Value Reference Range Interpretation Comme nts HEMOGLOBIN A1c (test code = 96218) 10.0 % HEMOGLOBIN [id number] 00:00:00* Test Item Value Reference Range Interpretation Comme nts HEMOGLOBIN A1c (test code = 50850) 10.0 % HEMOGLOBIN [id number] 00:00:00* Test Item Value Reference Range Interpretation Comme nts HEMOGLOBIN A1c (test code = 39596) 10.0 % LIPID [id number] 00:00:00* Test Item Value Reference Range Interpretation Comme nts CHOLESTEROL (test code = 2210) 143 MG/DL TRIGLYCERIDES (test code = 2232) 258 MG/DL HDL CHOLESTEROL (test code = 2220) 45 MG/DL CALC LDL CHOL (test code = 2237) 68 MG/DL RISK RATIO LDL/HDL (test cod e = 2238) 1.51 RATIO LIPID [id number] 00:00:00* Test Item Value Reference Range Interpretation Comme nts CHOLESTEROL (test code = 2210) 143 MG/DL TRIGLYCERIDES (test code = 2232) 258 MG/DL HDL CHOLESTEROL (test code = 2220) 45 MG/DL CALC LDL CHOL (test code = 2237) 68 MG/DL RISK RATIO LDL/HDL (test cod e = 2238) 1.51 RATIO COMPREHENSIVE METABOLIC [id number] 00:00:00* Test Item Value Reference Range Interpretation Comme nts GLUCOSE (test code = 2217) 166 MG/DL BUN (test code = 2208) 19 MG/DL CREATININE (test code = 2214) 1.04 MG/DL eGFR AMER. (test cod e = 41615) 63 ML/MIN/1.73 eGFR NON- AMER. (test code = 85238) 55 ML/MIN/1.73 CALC BUN/CREAT (test code = 2235) 18 RATIO SODIUM (test code = 2231) 138 MEQ/L POTASSIUM (test code = 2228) 5.3 MEQ/L CHLORIDE (test code = 2215) 102 MEQ/L CARBON DIOXIDE (test code = 2206) 24 MEQ/L CALCIUM (test code = 2209) 9.6 MG/DL PROTEIN, TOTAL (test code = 2229) 7.3 G/DL ALBUMIN (test code = 2201) 4.2 G/DL CALC GLOBULIN (test code = 2240) 3.1 G/DL CALC A/G RATIO (test code = 2234) 1.4 RATIO BILIRUBIN, TOTAL (test code = 2207) 0.3 MG/DL ALKALINE PHOSPHATASE (test code = 2204) 81 U/L AST (test code = 2218) 26 U/L ALT (test code = 2219) 23 U/L COMPREHENSIVE METABOLIC [id number] 00:00:00* Test Item Value Reference Range Interpretation Comme nts GLUCOSE (test code = 2217) 166 MG/DL BUN (test code = 2208) 19 MG/DL CREATININE (test code = 2214) 1.04 MG/DL eGFR AMER. (test cod e = 71175) 63 ML/MIN/1.73 eGFR NON- AMER. (test code = 42802) 55 ML/MIN/1.73 CALC BUN/CREAT (test code = 2235) 18 RATIO SODIUM (test code = 2231) 138 MEQ/L POTASSIUM (test code = 2228) 5.3 MEQ/L CHLORIDE (test code = 2215) 102 MEQ/L CARBON DIOXIDE (test code = 2206) 24 MEQ/L CALCIUM (test code = 2209) 9.6 MG/DL PROTEIN, TOTAL (test code = 2229) 7.3 G/DL ALBUMIN (test code = 2201) 4.2 G/DL CALC GLOBULIN (test code = 2240) 3.1 G/DL CALC A/G RATIO (test code = 2234) 1.4 RATIO BILIRUBIN, TOTAL (test code = 2207) 0.3 MG/DL ALKALINE PHOSPHATASE (test code = 2204) 81 U/L AST (test code = 2218) 26 U/L ALT (test code = 2219) 23 U/L [id number] 00:00:00* Test Item Value Reference Range Interpretation Comme nts TSH, THIRD GENERATION (test code = 2821) 2.640 UIU/ML [id number] 00:00:00* Test Item Value Reference Range Interpretation Comme nts TSH, THIRD GENERATION (test code = 2821) 2.640 UIU/ML [id number] 00:00:00* Test Item Value Reference Range Interpretation Comme nts TSH, THIRD GENERATION (test code = 2821) 2.640 UIU/ML HEMOGLOBIN [id number] 00:00:00* Test Item Value Reference Range Interpretation Comme nts HEMOGLOBIN A1c (test code = 50625) 10.0 % HEMOGLOBIN [id number] 00:00:00* Test Item Value Reference Range Interpretation Comme nts HEMOGLOBIN A1c (test code = 27494) 10.0 % HEMOGLOBIN [id number] 00:00:00* Test Item Value Reference Range Interpretation Comme nts HEMOGLOBIN A1c (test code = 84379) 10.0 % LIPID [id number] 00:00:00* Test Item Value Reference Range Interpretation Comme nts CHOLESTEROL (test code = 2210) 143 MG/DL TRIGLYCERIDES (test code = 2232) 258 MG/DL HDL CHOLESTEROL (test code = 2220) 45 MG/DL CALC LDL CHOL (test code = 2237) 68 MG/DL RISK RATIO LDL/HDL (test cod e = 2238) 1.51 RATIO LIPID [id number] 00:00:00* Test Item Value Reference Range Interpretation Comme nts CHOLESTEROL (test code = 2210) 143 MG/DL TRIGLYCERIDES (test code = 2232) 258 MG/DL HDL CHOLESTEROL (test code = 2220) 45 MG/DL CALC LDL CHOL (test code = 2237) 68 MG/DL RISK RATIO LDL/HDL (test cod e = 2238) 1.51 RATIO MICROALBUMIN/CREATININE, RANDOM AND [id number] 00:00:00* Test Item Value Reference Range Interpretation Comme nts CREATININE, URINE, CONC. (te st code = 2071) 68.9 MG/DL ALBUMIN, URINE, RANDOM (test code = 89421) 0.3 MG/DL CALC ALBUMIN/CREAT, RND (jaimee t code = 27986) 4 MG/G MICROALBUMIN/CREATININE, RANDOM AND [id number] 00:00:00* Test Item Value Reference Range Interpretation Comme nts CREATININE, URINE, CONC. (te st code = 2071) 68.9 MG/DL ALBUMIN, URINE, RANDOM (test code = 52977) 0.3 MG/DL CALC ALBUMIN/CREAT, RND (jaimee t code = 71279) 4 MG/G MICROALBUMIN/CREATININE, RANDOM AND [id number] 00:00:00* Test Item Value Reference Range Interpretation Comme nts CREATININE, URINE, CONC. (te st code = 2071) 68.9 MG/DL ALBUMIN, URINE, RANDOM (test code = 32576) 0.3 MG/DL CALC ALBUMIN/CREAT, RND (jaimee t code = 21619) 4 MG/G MICROALBUMIN/CREATININE, RANDOM AND [id number] 00:00:00* Test Item Value Reference Range Interpretation Comme nts CREATININE, URINE, CONC. (te st code = 2072) 68.9 MG/DL ALBUMIN, URINE, RANDOM (test code = 32918) 0.3 MG/DL CALC ALBUMIN/CREAT, RND (jaimee t code = 81402) 4 MG/G HEMOGLOBIN [id number] 00:00:00* Test Item Value Reference Range Interpretation Comme nts HEMOGLOBIN A1c (test code = 02517) 8.9 % HEMOGLOBIN [id number] 00:00:00* Test Item Value Reference Range Interpretation Comme nts HEMOGLOBIN A1c (test code = 53292) 8.9 % HEMOGLOBIN [id number] 00:00:00* Test Item Value Reference Range Interpretation Comme nts HEMOGLOBIN A1c (test code = 75938) 8.9 % LIPID [id number] 00:00:00* Test Item Value Reference Range Interpretation Comme nts CHOLESTEROL (test code = 2210) 132 MG/DL TRIGLYCERIDES (test code = 2232) 224 MG/DL HDL CHOLESTEROL (test code = 2220) 45 MG/DL CALC LDL CHOL (test code = 2237) 59 MG/DL RISK RATIO LDL/HDL (test cod e = 2238) 1.31 RATIO LIPID [id number] 00:00:00* Test Item Value Reference Range Interpretation Comme nts CHOLESTEROL (test code = 2210) 132 MG/DL TRIGLYCERIDES (test code = 2232) 224 MG/DL HDL CHOLESTEROL (test code = 2220) 45 MG/DL CALC LDL CHOL (test code = 2237) 59 MG/DL RISK RATIO LDL/HDL (test cod e = 2238) 1.31 RATIO COMPREHENSIVE METABOLIC [id number] 00:00:00* Test Item Value Reference Range Interpretation Comme nts GLUCOSE (test code = 2217) 137 MG/DL BUN (test code = 2208) 21 MG/DL CREATININE (test code = 2214) 1.21 MG/DL eGFR AMER. (test cod e = 24688) 53 ML/MIN/1.73 eGFR NON- AMER. (test code = 39123) 46 ML/MIN/1.73 CALC BUN/CREAT (test code = 2235) 17 RATIO SODIUM (test code = 2231) 141 MEQ/L POTASSIUM (test code = 2228) 5.0 MEQ/L CHLORIDE (test code = 2215) 105 MEQ/L CARBON DIOXIDE (test code = 2206) 24 MEQ/L CALCIUM (test code = 2209) 9.8 MG/DL PROTEIN, TOTAL (test code = 2229) 7.5 G/DL ALBUMIN (test code = 2201) 4.3 G/DL CALC GLOBULIN (test code = 2240) 3.2 G/DL CALC A/G RATIO (test code = 2234) 1.3 RATIO BILIRUBIN, TOTAL (test code = 2207) 0.3 MG/DL ALKALINE PHOSPHATASE (test code = 2204) 62 U/L AST (test code = 2218) 21 U/L ALT (test code = 2219) 22 U/L COMPREHENSIVE METABOLIC [id number] 00:00:00* Test Item Value Reference Range Interpretation Comme nts GLUCOSE (test code = 2217) 137 MG/DL BUN (test code = 2208) 21 MG/DL CREATININE (test code = 2214) 1.21 MG/DL eGFR AMER. (test cod e = 58003) 53 ML/MIN/1.73 eGFR NON- AMER. (test code = 57407) 46 ML/MIN/1.73 CALC BUN/CREAT (test code = 2235) 17 RATIO SODIUM (test code = 2231) 141 MEQ/L POTASSIUM (test code = 2228) 5.0 MEQ/L CHLORIDE (test code = 2215) 105 MEQ/L CARBON DIOXIDE (test code = 2206) 24 MEQ/L CALCIUM (test code = 2209) 9.8 MG/DL PROTEIN, TOTAL (test code = 2229) 7.5 G/DL ALBUMIN (test code = 2201) 4.3 G/DL CALC GLOBULIN (test code = 2240) 3.2 G/DL CALC A/G RATIO (test code = 2234) 1.3 RATIO BILIRUBIN, TOTAL (test code = 2207) 0.3 MG/DL ALKALINE PHOSPHATASE (test code = 2204) 62 U/L AST (test code = 2218) 21 U/L ALT (test code = 2219) 22 U/L HEMOGLOBIN [id number] 00:00:00* Test Item Value Reference Range Interpretation Comme nts HEMOGLOBIN A1c (test code = 68183) 8.9 % HEMOGLOBIN [id number] 00:00:00* Test Item Value Reference Range Interpretation Comme nts HEMOGLOBIN A1c (test code = 18409) 8.9 % HEMOGLOBIN [id number] 00:00:00* Test Item Value Reference Range Interpretation Comme nts HEMOGLOBIN A1c (test code = 77719) 8.9 % LIPID [id number] 00:00:00* Test Item Value Reference Range Interpretation Comme nts CHOLESTEROL (test code = 2210) 132 MG/DL TRIGLYCERIDES (test code = 2232) 224 MG/DL HDL CHOLESTEROL (test code = 2220) 45 MG/DL CALC LDL CHOL (test code = 2237) 59 MG/DL RISK RATIO LDL/HDL (test cod e = 2238) 1.31 RATIO LIPID [id number] 00:00:00* Test Item Value Reference Range Interpretation Comme nts CHOLESTEROL (test code = 2210) 132 MG/DL TRIGLYCERIDES (test code = 2232) 224 MG/DL HDL CHOLESTEROL (test code = 2220) 45 MG/DL CALC LDL CHOL (test code = 2237) 59 MG/DL RISK RATIO LDL/HDL (test cod e = 2238) 1.31 RATIO COMPREHENSIVE METABOLIC [id number] 00:00:00* Test Item Value Reference Range Interpretation Comme nts GLUCOSE (test code = 2217) 137 MG/DL BUN (test code = 2208) 21 MG/DL CREATININE (test code = 2214) 1.21 MG/DL eGFR AMER. (test cod e = 21023) 53 ML/MIN/1.73 eGFR NON- AMER. (test code = 12539) 46 ML/MIN/1.73 CALC BUN/CREAT (test code = 2235) 17 RATIO SODIUM (test code = 2231) 141 MEQ/L POTASSIUM (test code = 2228) 5.0 MEQ/L CHLORIDE (test code = 2215) 105 MEQ/L CARBON DIOXIDE (test code = 2206) 24 MEQ/L CALCIUM (test code = 2209) 9.8 MG/DL PROTEIN, TOTAL (test code = 2229) 7.5 G/DL ALBUMIN (test code = 2201) 4.3 G/DL CALC GLOBULIN (test code = 2240) 3.2 G/DL CALC A/G RATIO (test code = 2234) 1.3 RATIO BILIRUBIN, TOTAL (test code = 2207) 0.3 MG/DL ALKALINE PHOSPHATASE (test code = 2204) 62 U/L AST (test code = 2218) 21 U/L ALT (test code = 2219) 22 U/L COMPREHENSIVE METABOLIC [id number] 00:00:00* Test Item Value Reference Range Interpretation Comme nts GLUCOSE (test code = 2217) 137 MG/DL BUN (test code = 2208) 21 MG/DL CREATININE (test code = 2214) 1.21 MG/DL eGFR AMER. (test cod e = 32010) 53 ML/MIN/1.73 eGFR NON- AMER. (test code = 30887) 46 ML/MIN/1.73 CALC BUN/CREAT (test code = 2235) 17 RATIO SODIUM (test code = 2231) 141 MEQ/L POTASSIUM (test code = 2228) 5.0 MEQ/L CHLORIDE (test code = 2215) 105 MEQ/L CARBON DIOXIDE (test code = 2206) 24 MEQ/L CALCIUM (test code = 2209) 9.8 MG/DL PROTEIN, TOTAL (test code = 2229) 7.5 G/DL ALBUMIN (test code = 2201) 4.3 G/DL CALC GLOBULIN (test code = 2240) 3.2 G/DL CALC A/G RATIO (test code = 2234) 1.3 RATIO BILIRUBIN, TOTAL (test code = 2207) 0.3 MG/DL ALKALINE PHOSPHATASE (test code = 2204) 62 U/L AST (test code = 2218) 21 U/L ALT (test code = 2219) 22 U/L ALBUMIN/CREATININE RATIO, URINE, RANDOM [ADDED]2019-09-16 00:00:00* Test Item Value Reference Range Interpretation Comme nts CREATININE, URINE, CONC. (test code = 2072) TEST NOT PERFORMED MG/DL ALBUMIN, URINE, RANDOM (test code = 44307) TEST NOT PERFORMED MG/DL CALC ALBUMIN/CREAT, RND (test code = 82488) TEST NOT PERFORMED MG/G ALBUMIN/CREATININE RATIO, URINE, RANDOM [ADDED]2019-09-16 00:00:00* Test Item Value Reference Range Interpretation Comme nts CREATININE, URINE, CONC. (test code = 2072) TEST NOT PERFORMED MG/DL ALBUMIN, URINE, RANDOM (test code = 16046) TEST NOT PERFORMED MG/DL CALC ALBUMIN/CREAT, RND (test code = 96815) TEST NOT PERFORMED MG/G ALBUMIN/CREATININE RATIO, URINE, RANDOM [ADDED]2019-09-16 00:00:00* Test Item Value Reference Range Interpretation Comme nts CREATININE, URINE, CONC. (test code = 207) TEST NOT PERFORMED MG/DL ALBUMIN, URINE, RANDOM (test code = 05902) TEST NOT PERFORMED MG/DL CALC ALBUMIN/CREAT, RND (test code = 61593) TEST NOT PERFORMED MG/G ALBUMIN/CREATININE RATIO, URINE, RANDOM [ADDED]2019-09-16 00:00:00* Test Item Value Reference Range Interpretation Comme nts CREATININE, URINE, CONC. (test code = 207) TEST NOT PERFORMED MG/DL ALBUMIN, URINE, RANDOM (test code = 08591) TEST NOT PERFORMED MG/DL CALC ALBUMIN/CREAT, RND (test code = 03038) TEST NOT PERFORMED MG/G TSH, THIRD GENERATION [ADDED]2019-09-12 00:00:00* Test Item Value Reference Range Interpretation Comme nts TSH, THIRD GENERATION (test code = 2821) 9.860 UIU/ML TSH, THIRD GENERATION [ADDED]2019-09-12 00:00:00* Test Item Value Reference Range Interpretation Comme nts TSH, THIRD GENERATION (test code = 2821) 9.860 UIU/ML TSH, THIRD GENERATION [ADDED]2019-09-12 00:00:00* Test Item Value Reference Range Interpretation Comme nts TSH, THIRD GENERATION (test code = 2821) 9.860 UIU/ML NOTE: [ADDED]2019-09-12 00:00:00* Test Item Value Reference Range Interpretation Comme nts NOTE: (test code = 998) (NOTE) COMPREHENSIVE METABOLIC PANEL [ADDED]2019-09-12 00:00:00* Test Item Value Reference Range Interpretation Comme nts GLUCOSE (test code = 2217) 182 MG/DL BUN (test code = 2208) 25 MG/DL CREATININE (test code = 2214) 1.16 MG/DL eGFR AMER. (test cod e = 97753) 56 ML/MIN/1.73 eGFR NON- AMER. (test code = 83787) 48 ML/MIN/1.73 CALC BUN/CREAT (test code = 2235) 22 RATIO SODIUM (test code = 2231) 138 MEQ/L POTASSIUM (test code = 2228) 4.7 MEQ/L CHLORIDE (test code = 2215) 101 MEQ/L CARBON DIOXIDE (test code = 2206) 22 MEQ/L CALCIUM (test code = 2209) 9.9 MG/DL PROTEIN, TOTAL (test code = 2229) 7.5 G/DL ALBUMIN (test code = 2201) 4.5 G/DL CALC GLOBULIN (test code = 2240) 3.0 G/DL CALC A/G RATIO (test code = 2234) 1.5 RATIO BILIRUBIN, TOTAL (test code = 2207) 0.2 MG/DL ALKALINE PHOSPHATASE (test code = 2204) 75 U/L AST (test code = 2218) 24 U/L ALT (test code = 2219) 23 U/L COMPREHENSIVE METABOLIC PANEL [ADDED]2019-09-12 00:00:00* Test Item Value Reference Range Interpretation Comme nts GLUCOSE (test code = 2217) 182 MG/DL BUN (test code = 2208) 25 MG/DL CREATININE (test code = 2214) 1.16 MG/DL eGFR AMER. (test cod e = 37084) 56 ML/MIN/1.73 eGFR NON- AMER. (test code = 56968) 48 ML/MIN/1.73 CALC BUN/CREAT (test code = 2235) 22 RATIO SODIUM (test code = 2231) 138 MEQ/L POTASSIUM (test code = 2228) 4.7 MEQ/L CHLORIDE (test code = 2215) 101 MEQ/L CARBON DIOXIDE (test code = 2206) 22 MEQ/L CALCIUM (test code = 2209) 9.9 MG/DL PROTEIN, TOTAL (test code = 2229) 7.5 G/DL ALBUMIN (test code = 2201) 4.5 G/DL CALC GLOBULIN (test code = 2240) 3.0 G/DL CALC A/G RATIO (test code = 2234) 1.5 RATIO BILIRUBIN, TOTAL (test code = 2207) 0.2 MG/DL ALKALINE PHOSPHATASE (test code = 2204) 75 U/L AST (test code = 2218) 24 U/L ALT (test code = 2219) 23 U/L LIPID PANEL [ADDED]2019-09-12 00:00:00* Test Item Value Reference Range Interpretation Comme nts CHOLESTEROL (test code = 2210) 165 MG/DL TRIGLYCERIDES (test code = 2232) 345 MG/DL HDL CHOLESTEROL (test code = 2220) 50 MG/DL CALC LDL CHOL (test code = 2237) 73 MG/DL RISK RATIO LDL/HDL (test cod e = 2238) 1.46 RATIO LIPID PANEL [ADDED]2019-09-12 00:00:00* Test Item Value Reference Range Interpretation Comme nts CHOLESTEROL (test code = 2210) 165 MG/DL TRIGLYCERIDES (test code = 2232) 345 MG/DL HDL CHOLESTEROL (test code = 2220) 50 MG/DL CALC LDL CHOL (test code = 2237) 73 MG/DL RISK RATIO LDL/HDL (test cod e = 2238) 1.46 RATIO TSH, THIRD GENERATION [ADDED]2019-09-12 00:00:00* Test Item Value Reference Range Interpretation Comme nts TSH, THIRD GENERATION (test code = 2821) 9.860 UIU/ML TSH, THIRD GENERATION [ADDED]2019-09-12 00:00:00* Test Item Value Reference Range Interpretation Comme nts TSH, THIRD GENERATION (test code = 2821) 9.860 UIU/ML TSH, THIRD GENERATION [ADDED]2019-09-12 00:00:00* Test Item Value Reference Range Interpretation Comme nts TSH, THIRD GENERATION (test code = 2821) 9.860 UIU/ML NOTE: [ADDED]2019-09-12 00:00:00* Test Item Value Reference Range Interpretation Comme nts NOTE: (test code = 998) (NOTE) COMPREHENSIVE METABOLIC PANEL [ADDED]2019-09-12 00:00:00* Test Item Value Reference Range Interpretation Comme nts GLUCOSE (test code = 2217) 182 MG/DL BUN (test code = 2208) 25 MG/DL CREATININE (test code = 2214) 1.16 MG/DL eGFR AMER. (test cod e = 86927) 56 ML/MIN/1.73 eGFR NON- AMER. (test code = 04036) 48 ML/MIN/1.73 CALC BUN/CREAT (test code = 2235) 22 RATIO SODIUM (test code = 2231) 138 MEQ/L POTASSIUM (test code = 2228) 4.7 MEQ/L CHLORIDE (test code = 2215) 101 MEQ/L CARBON DIOXIDE (test code = 2206) 22 MEQ/L CALCIUM (test code = 2209) 9.9 MG/DL PROTEIN, TOTAL (test code = 2229) 7.5 G/DL ALBUMIN (test code = 2201) 4.5 G/DL CALC GLOBULIN (test code = 2240) 3.0 G/DL CALC A/G RATIO (test code = 2234) 1.5 RATIO BILIRUBIN, TOTAL (test code = 2207) 0.2 MG/DL ALKALINE PHOSPHATASE (test code = 2204) 75 U/L AST (test code = 2218) 24 U/L ALT (test code = 2219) 23 U/L COMPREHENSIVE METABOLIC PANEL [ADDED]2019-09-12 00:00:00* Test Item Value Reference Range Interpretation Comme nts GLUCOSE (test code = 2217) 182 MG/DL BUN (test code = 2208) 25 MG/DL CREATININE (test code = 2214) 1.16 MG/DL eGFR AMER. (test cod e = 88369) 56 ML/MIN/1.73 eGFR NON- AMER. (test code = 49278) 48 ML/MIN/1.73 CALC BUN/CREAT (test code = 2235) 22 RATIO SODIUM (test code = 2231) 138 MEQ/L POTASSIUM (test code = 2228) 4.7 MEQ/L CHLORIDE (test code = 2215) 101 MEQ/L CARBON DIOXIDE (test code = 2206) 22 MEQ/L CALCIUM (test code = 2209) 9.9 MG/DL PROTEIN, TOTAL (test code = 2229) 7.5 G/DL ALBUMIN (test code = 2201) 4.5 G/DL CALC GLOBULIN (test code = 2240) 3.0 G/DL CALC A/G RATIO (test code = 2234) 1.5 RATIO BILIRUBIN, TOTAL (test code = 2207) 0.2 MG/DL ALKALINE PHOSPHATASE (test code = 2204) 75 U/L AST (test code = 2218) 24 U/L ALT (test code = 2219) 23 U/L LIPID PANEL [ADDED]2019-09-12 00:00:00* Test Item Value Reference Range Interpretation Comme nts CHOLESTEROL (test code = 2210) 165 MG/DL TRIGLYCERIDES (test code = 2232) 345 MG/DL HDL CHOLESTEROL (test code = 2220) 50 MG/DL CALC LDL CHOL (test code = 2237) 73 MG/DL RISK RATIO LDL/HDL (test cod e = 2238) 1.46 RATIO LIPID PANEL [ADDED]2019-09-12 00:00:00* Test Item Value Reference Range Interpretation Comme nts CHOLESTEROL (test code = 2210) 165 MG/DL TRIGLYCERIDES (test code = 2232) 345 MG/DL HDL CHOLESTEROL (test code = 2220) 50 MG/DL CALC LDL CHOL (test code = 2237) 73 MG/DL RISK RATIO LDL/HDL (test cod e = 2238) 1.46 RATIO CBC W/AUTO DIFF WITH PLATELETS [ADDED]2019-09-11 00:00:00* Test Item Value Reference Range Interpretation Comme nts WBC (test code = 1001) 8.7 K/UL [...] K/UL CBC W/AUTO DIFF WITH PLATELETS [ADDED]2019-09-11 00:00:00* Test Item Value Reference Range Interpretation Comme nts WBC (test code = 1001) 8.7 K/UL [...] = 1015) 232 K/UL HEMOGLOBIN A1c [ADDED]2019-09-11 00:00:00* Test Item Value Reference Range Interpretation Comme nts HEMOGLOBIN A1c (test code = 09366) 9.0 % HEMOGLOBIN A1c [ADDED]2019-09-11 00:00:00* Test Item Value Reference Range Interpretation Comme nts HEMOGLOBIN A1c (test code = 78331) 9.0 % HEMOGLOBIN A1c [ADDED]2019-09-11 00:00:00* Test Item Value Reference Range Interpretation Comme nts HEMOGLOBIN A1c (test code = 28111) 9.0 % CBC W/AUTO DIFF WITH PLATELETS [ADDED]2019-09-11 00:00:00* Test Item Value Reference Range Interpretation Comme nts WBC (test code = 1001) 8.7 K/UL [...] K/UL CBC W/AUTO DIFF WITH PLATELETS [ADDED]2019-09-11 00:00:00* Test Item Value Reference Range Interpretation Comme nts WBC (test code = 1001) 8.7 K/UL [...] K/UL CBC W/AUTO DIFF WITH PLATELETS [ADDED]2019-09-11 00:00:00* Test Item Value Reference Range Interpretation Comme nts WBC (test code = 1001) 8.7 K/UL [...] = 1015) 232 K/UL HEMOGLOBIN A1c [ADDED]2019-09-11 00:00:00* Test Item Value Reference Range Interpretation Comme nts HEMOGLOBIN A1c (test code = 21675) 9.0 % HEMOGLOBIN A1c [ADDED]2019-09-11 00:00:00* Test Item Value Reference Range Interpretation Comme nts HEMOGLOBIN A1c (test code = 27610) 9.0 % HEMOGLOBIN A1c [ADDED]2019-09-11 00:00:00* Test Item Value Reference Range Interpretation Comme nts HEMOGLOBIN A1c (test code = 18237) 9.0 % CBC W/AUTO DIFF WITH PLATELETS [ADDED]2019-09-11 00:00:00* Test Item Value Reference Range Interpretation Comme nts WBC (test code = 1001) 8.7 K/UL [...] COUNT (test code = 1015) 232 K/UL COMPREHENSIVE METABOLIC [id number] 00:00:00* Test Item Value Reference Range Interpretation Comme nts GLUCOSE (test code = 2217) 159 MG/DL BUN (test code = 2208) 22 MG/DL CREATININE (test code = 2214) 1.06 MG/DL eGFR AMER. (test cod e = 97285) 62 ML/MIN/1.73 eGFR NON- AMER. (test code = 24149) 54 ML/MIN/1.73 CALC BUN/CREAT (test code = 2235) 21 RATIO SODIUM (test code = 2231) 138 MEQ/L POTASSIUM (test code = 2228) 5.0 MEQ/L CHLORIDE (test code = 2215) 101 MEQ/L CARBON DIOXIDE (test code = 2206) 24 MEQ/L CALCIUM (test code = 2209) 9.5 MG/DL PROTEIN, TOTAL (test code = 2229) 7.2 G/DL ALBUMIN (test code = 2201) 4.2 G/DL CALC GLOBULIN (test code = 2240) 3.0 G/DL CALC A/G RATIO (test code = 2234) 1.4 RATIO BILIRUBIN, TOTAL (test code = 2207) 0.3 MG/DL ALKALINE PHOSPHATASE (test code = 2204) 74 U/L AST (test code = 2218) 16 U/L ALT (test code = 2219) 18 U/L COMPREHENSIVE METABOLIC [id number] 00:00:00* Test Item Value Reference Range Interpretation Comme nts GLUCOSE (test code = 2217) 159 MG/DL BUN (test code = 2208) 22 MG/DL CREATININE (test code = 2214) 1.06 MG/DL eGFR AMER. (test cod e = 87590) 62 ML/MIN/1.73 eGFR NON- AMER. (test code = 89115) 54 ML/MIN/1.73 CALC BUN/CREAT (test code = 2235) 21 RATIO SODIUM (test code = 2231) 138 MEQ/L POTASSIUM (test code = 2228) 5.0 MEQ/L CHLORIDE (test code = 2215) 101 MEQ/L CARBON DIOXIDE (test code = 2206) 24 MEQ/L CALCIUM (test code = 2209) 9.5 MG/DL PROTEIN, TOTAL (test code = 2229) 7.2 G/DL ALBUMIN (test code = 2201) 4.2 G/DL CALC GLOBULIN (test code = 2240) 3.0 G/DL CALC A/G RATIO (test code = 2234) 1.4 RATIO BILIRUBIN, TOTAL (test code = 2207) 0.3 MG/DL ALKALINE PHOSPHATASE (test code = 2204) 74 U/L AST (test code = 2218) 16 U/L ALT (test code = 2219) 18 U/L LIPID [id number] 00:00:00* Test Item Value Reference Range Interpretation Comme nts CHOLESTEROL (test code = 2210) 145 MG/DL TRIGLYCERIDES (test code = 2232) 270 MG/DL HDL CHOLESTEROL (test code = 2220) 49 MG/DL CALC LDL CHOL (test code = 2237) 64 MG/DL RISK RATIO LDL/HDL (test cod e = 2238) 1.31 RATIO LIPID [id number] 00:00:00* Test Item Value Reference Range Interpretation Comme nts CHOLESTEROL (test code = 2210) 145 MG/DL TRIGLYCERIDES (test code = 2232) 270 MG/DL HDL CHOLESTEROL (test code = 2220) 49 MG/DL CALC LDL CHOL (test code = 2237) 64 MG/DL RISK RATIO LDL/HDL (test cod e = 2238) 1.31 RATIO CBC W/AUTO [id number] 00:00:00* Test Item Value Reference Range Interpretation Comme nts WBC (test code = 1001) 8.1 K/UL [...] code = 1015) 224 K/UL CBC W/AUTO [id number] 00:00:00* Test Item Value Reference Range Interpretation Comme nts WBC (test code = 1001) 8.1 K/UL [...] code = 1015) 224 K/UL CBC W/AUTO [id number] 00:00:00* Test Item Value Reference Range Interpretation Comme nts WBC (test code = 1001) 8.1 K/UL [...] (test code = 1015) 224 K/UL HEMOGLOBIN [id number] 00:00:00* Test Item Value Reference Range Interpretation Comme nts HEMOGLOBIN A1c (test code = 73733) 8.3 % HEMOGLOBIN [id number] 00:00:00* Test Item Value Reference Range Interpretation Comme nts HEMOGLOBIN A1c (test code = 62696) 8.3 % HEMOGLOBIN [id number] 00:00:00* Test Item Value Reference Range Interpretation Comme nts HEMOGLOBIN A1c (test code = 46616) 8.3 % COMPREHENSIVE METABOLIC [id number] 00:00:00* Test Item Value Reference Range Interpretation Comme nts GLUCOSE (test code = 2217) 159 MG/DL BUN (test code = 2208) 22 MG/DL CREATININE (test code = 2214) 1.06 MG/DL eGFR AMER. (test cod e = 26874) 62 ML/MIN/1.73 eGFR NON- AMER. (test code = 62609) 54 ML/MIN/1.73 CALC BUN/CREAT (test code = 2235) 21 RATIO SODIUM (test code = 2231) 138 MEQ/L POTASSIUM (test code = 2228) 5.0 MEQ/L CHLORIDE (test code = 2215) 101 MEQ/L CARBON DIOXIDE (test code = 2206) 24 MEQ/L CALCIUM (test code = 2209) 9.5 MG/DL PROTEIN, TOTAL (test code = 2229) 7.2 G/DL ALBUMIN (test code = 2201) 4.2 G/DL CALC GLOBULIN (test code = 2240) 3.0 G/DL CALC A/G RATIO (test code = 2234) 1.4 RATIO BILIRUBIN, TOTAL (test code = 2207) 0.3 MG/DL ALKALINE PHOSPHATASE (test code = 2204) 74 U/L AST (test code = 2218) 16 U/L ALT (test code = 2219) 18 U/L COMPREHENSIVE METABOLIC [id number] 00:00:00* Test Item Value Reference Range Interpretation Comme nts GLUCOSE (test code = 2217) 159 MG/DL BUN (test code = 2208) 22 MG/DL CREATININE (test code = 2214) 1.06 MG/DL eGFR AMER. (test cod e = 42633) 62 ML/MIN/1.73 eGFR NON- AMER. (test code = 64196) 54 ML/MIN/1.73 CALC BUN/CREAT (test code = 2235) 21 RATIO SODIUM (test code = 2231) 138 MEQ/L POTASSIUM (test code = 2228) 5.0 MEQ/L CHLORIDE (test code = 2215) 101 MEQ/L CARBON DIOXIDE (test code = 2206) 24 MEQ/L CALCIUM (test code = 2209) 9.5 MG/DL PROTEIN, TOTAL (test code = 2229) 7.2 G/DL ALBUMIN (test code = 2201) 4.2 G/DL CALC GLOBULIN (test code = 2240) 3.0 G/DL CALC A/G RATIO (test code = 2234) 1.4 RATIO BILIRUBIN, TOTAL (test code = 220) 0.3 MG/DL ALKALINE PHOSPHATASE (test code = 2204) 74 U/L AST (test code = 2218) 16 U/L ALT (test code = 2219) 18 U/L LIPID [id number] 00:00:00* Test Item Value Reference Range Interpretation Comme nts CHOLESTEROL (test code = 2210) 145 MG/DL TRIGLYCERIDES (test code = 2232) 270 MG/DL HDL CHOLESTEROL (test code = 2220) 49 MG/DL CALC LDL CHOL (test code = 2237) 64 MG/DL RISK RATIO LDL/HDL (test cod e = 2238) 1.31 RATIO LIPID [id number] 00:00:00* Test Item Value Reference Range Interpretation Comme nts CHOLESTEROL (test code = 2210) 145 MG/DL TRIGLYCERIDES (test code = 2232) 270 MG/DL HDL CHOLESTEROL (test code = 2220) 49 MG/DL CALC LDL CHOL (test code = 2237) 64 MG/DL RISK RATIO LDL/HDL (test cod e = 2238) 1.31 RATIO CBC W/AUTO [id number] 00:00:00* Test Item Value Reference Range Interpretation Comme nts WBC (test code = 1001) 8.1 K/UL [...] code = 1015) 224 K/UL CBC W/AUTO [id number] 00:00:00* Test Item Value Reference Range Interpretation Comme nts WBC (test code = 1001) 8.1 K/UL [...] code = 1015) 224 K/UL CBC W/AUTO [id number] 00:00:00* Test Item Value Reference Range Interpretation Comme nts WBC (test code = 1001) 8.1 K/UL [...] (test code = 1015) 224 K/UL HEMOGLOBIN [id number] 00:00:00* Test Item Value Reference Range Interpretation Comme nts HEMOGLOBIN A1c (test code = 61177) 8.3 % HEMOGLOBIN [id number] 00:00:00* Test Item Value Reference Range Interpretation Comme nts HEMOGLOBIN A1c (test code = 01126) 8.3 % HEMOGLOBIN [id number] 00:00:00* Test Item Value Reference Range Interpretation Comme nts HEMOGLOBIN A1c (test code = 54508) 8.3 %
[2023-03-09 16:22] LABS: Absolute Lymphocytes (CBC) 2.1 K/uL (0.7-4.9); Hematocrit 37.9 % (36.0-45.0); Lymphocytes % 21.6 % (15.3-44.8); MCV 89.4 fL (80-100); MPV 10.5 fL (7.6-11.3); Platelets 218 thou/uL (152-406); RBC Red Blood Cell Count 4.24 M/uL (3.86-4.86)
[2023-03-09 16:42] LABS: Albumin 3.2 g/dL (3.4-5.0); Bilirubin Direct 0.2 mg/dL (0-0.2); Bilirubin Indirect, Calculated 0.2 mg/dL (0.2-0.8); Bilirubin Total 0.4 mg/dL (0.2-1.0); Magnesium 2.1 mg/dL (1.6-2.4); Potassium 4.6 mEq/L (3.5-5.1); Protein, Total 7.1 g/dL (6.4-8.2); Thyroid Stimulating Hormone 0.255 uIU/mL (0.358-3.740); Troponin High Sensitivity 13.6 pg/mL (<58.9)
[2023-03-09 16:57] LABS: Protime INR 1.06
--- NOTE | 2023-03-09 17:06 | RAD REPORT ---
EXAM DESCRIPTION: Jacobo Single View03/09/2023 4:33 pm CLINICAL HISTORY: Palpitations COMPARISON: 2021 FINDINGS: The lungs appear clear of acute infiltrate. The heart is normal size IMPRESSION: No acute abnormalities displayed
--- NOTE | 2023-03-09 18:55 | EDPHYS ---
Physician Documentation [facility] Name: Karin Mendosa Age: 72 yrs Sex: Female : 1950 Arrival Date: 03/09/2023 Time: 15:18 Bed 13 Private MD: VREA Physician Philippe Hunter HPI: 03/09 17:52 This 72 yrs old Female presents to ER via Ambulatory with complaints of ponce Palpitations. 17:52 The patient presents with a history of heart racing. Context: The symptoms occur at ponce rest, with light activity. Onset: The symptoms/episode began/occurred 2 day(s) ago. Duration: The patient or guardian reports multiple episodes, that wax and wane, with no pattern. Modifying factors: The symptoms are aggravated by nothing. The symptoms are alleviated by nothing. Associated signs and symptoms: Pertinent positives: lightheadedness. Severity of symptoms: At their worst the symptoms were mild in the emergency department the symptoms are unchanged. The patient has experienced similar episodes in the past, a few times. Historical: - Allergies: 15:41 Morphine; nj1 - PMHx: 15:41 Arthritis; Diabetes - NIDDM; Hypertension; Hypothyroidism; nj1 - PSHx: 15:41 Cholecystectomy; Back surgery; nj1 - Immunization history:: Client reports receiving the 2nd dose of the Covid vaccine. - Social history:: Smoking status: Patient denies any tobacco usage or history of. - Family history:: not pertinent. ROS: 17:52 Constitutional: Negative for fever, chills, and weight loss, Eyes: Negative for injury, ponce pain, redness, and discharge, ENT: Negative for injury, pain, and discharge, Neck: Negative for injury, pain, and swelling, Respiratory: Negative for shortness of breath, cough, wheezing, and pleuritic chest pain, Abdomen/GI: Negative for abdominal pain, nausea, vomiting, diarrhea, and constipation, Back: Negative for injury and pain, : Negative for injury, bleeding, discharge, and swelling, MS/Extremity: Negative for injury and deformity, Skin: Negative for injury, rash, and discoloration, Neuro: Negative for headache, weakness, numbness, tingling, and seizure, Psych: Negative for depression, anxiety, suicide ideation, homicidal ideation, and hallucinations, Allergy/Immunology: Negative for hives, rash, and allergies, Endocrine: Negative for neck swelling, polydipsia, polyuria, polyphagia, and marked weight changes, 17:52 Cardiovascular: Positive for palpitations, Exam: 17:52 Constitutional: This is a well developed, well nourished patient who is awake, alert, ponce and in no acute distress. Head/Face: Normocephalic, atraumatic. Eyes: Pupils equal round and reactive to light, extra-ocular motions intact. Lids and lashes normal. Conjunctiva and sclera are non-icteric and not injected. Cornea within normal limits. Periorbital areas with no swelling, redness, or edema. ENT: Nares patent. No nasal discharge, no septal abnormalities noted. Tympanic membranes are normal and external auditory canals are clear. Oropharynx with no redness, swelling, or masses, exudates, or evidence of obstruction, uvula midline. Mucous membranes moist. Neck: Trachea midline, no thyromegaly or masses palpated, and no cervical lymphadenopathy. Supple, full range of motion without nuchal rigidity, or vertebral point tenderness. No Meningismus. Chest/axilla: Normal chest wall appearance and motion. Nontender with no deformity. No lesions are appreciated. Cardiovascular: Regular rate and rhythm with a normal S1 and S2. No gallops, murmurs, or rubs. Normal PMI, no JVD. No pulse deficits. Respiratory: Lungs have equal breath sounds bilaterally, clear to auscultation and percussion. No rales, rhonchi or wheezes noted. No increased work of breathing, no retractions or nasal flaring. Abdomen/GI: Soft, non-tender, with normal bowel sounds. No distension or tympany. No guarding or rebound. No evidence of tenderness throughout. Back: No spinal tenderness. No costovertebral tenderness. Full range of motion. Skin: Warm, dry with normal turgor. Normal color with no rashes, no lesions, and no evidence of cellulitis. MS/ Extremity: Pulses equal, no cyanosis. Neurovascular intact. Full, normal range of motion. Neuro: Awake and alert, GCS 15, oriented to person, place, time, and situation. Cranial nerves II-XII grossly intact. Motor strength 5/5 in all extremities. Sensory grossly intact. Cerebellar exam normal. Normal gait. Psych: Awake, alert, with orientation to person, place and time. Behavior, mood, and affect are within normal limits. 17:52 ECG was reviewed by the Attending Physician. 18:53 ECG was reviewed by the Attending Physician. [facility] Vital Signs: 15:36 BP 176 / 74; Pulse 98; Resp 18; Temp 98.2(TE); Pulse Ox 99% on R/A; Weight 87.54 kg; nj1 Height 5 ft. 0 in. ; 17:04 BP 150 / 66; Pulse 79; Resp 16 S; Pulse Ox 97% on R/A; kc6 18:32 BP 148 / 60; Pulse 78; Resp 16 S; Pulse Ox 98% on R/A; kc6 15:36 Body Mass Index 36.91 (87.54 kg, 154 cm) nj1 MDM: 16:00 Patient medically screened. [facility] 17:56 QAMAR Risk Score: 1 - Patient's age is greater or equal to 65, 1 - 3 or more CAD risk ponce factors, [Family HX] [HTN] [DM] 1 - Known CAD, 1 - ASA use in past 7 days, Total Score = 4. Differential diagnosis: arrythmia, dehydration. Data reviewed: vital signs, nurses notes, lab test result(s), EKG, radiologic studies, plain films. Consideration of Admission/Observation Escalation of care including admission/observation considered. I considered the following discharge prescriptions or medication management in the emergency department Medications were administered in the Emergency Department. See MAR. Independent interpretation of the following test(s) in the Emergency Department EKG: See my EKG interpretation above. Test considered but Not performed: CT: CT CHEST. Care significantly affected by the following chronic conditions: Diabetes, Hypertension, Obesity, Chronic Kidney Disease. 03/09 16:02 Order name: Basic Metabolic Panel; Complete Time: 17:24 [facility] 03/09 16:02 Order name: CBC with Diff; Complete Time: 17:24 ponce 03/09 16:02 Order name: LFT's; Complete Time: 17:24 03/09 16:02 Order name: Magnesium; Complete Time: 17:24 03/09 16:02 Order name: NT PRO-BNP; Complete Time: 17:24 03/09 16:02 Order name: PT-INR; Complete Time: 17:24 03/09 16:02 Order name: Troponin HS; Complete Time: 17:24 ponce 03/09 16:02 Order name: TSH; Complete Time: 17:24 [facility] 03/09 17:52 Order name: Troponin HS; Complete Time: 18:53 [facility] 03/09 18:46 Order name: Glucose, Ancillary Testing; Complete Time: 18:53 [facility] 03/09 16:02 Order name: XRAY Chest (1 view); Complete Time: 17:24 [facility] 03/09 16:02 Order name: EKG; Complete Time: 16:03 [facility] 03/09 17:52 Order name: EKG; Complete Time: 17:53 [facility] 03/09 16:02 Order name: Cardiac monitoring; Complete Time: 16:30 [facility] 03/09 16:02 Order name: EKG - Nurse/Tech; Complete Time: 16:25 [facility] 03/09 16:02 Order name: IV Saline Lock; Complete Time: 16:25 ponce 03/09 16:02 Order name: Labs collected and sent; Complete Time: 16:25 [facility] 03/09 16:02 Order name: O2 Per Protocol; Complete Time: 16:24 [facility] 03/09 16:02 Order name: O2 Sat Monitoring; Complete Time: 16:24 [facility] 03/09 17:52 Order name: EKG - Nurse/Tech; Complete Time: 18:30 [facility] EC:52 Rate is 82 beats/min. Rhythm is regular. QRS [place] is Normal. AR interval is normal. QRS ponce interval is normal. QT interval is normal. No Q waves. T waves are Normal. ST Segment is depressed in leads II, III, aVF, V4, V5, V6. Clinical impression: Abnormal EKG without significant change. Interpreted by me. Reviewed by me. 18:53 Rate is 78 beats/min. Rhythm is regular. QRS [place] is Normal. AR interval is normal. QRS ponce interval is normal. QT interval is normal. No Q waves. T waves are Normal. ST Segment is depressed in leads II, III, aVF, V5, V6. Clinical impression: Abnormal EKG without significant change. Interpreted by me. Reviewed by me. Administered Medications: 16:34 Drug: Magnesium Sulfate IVPB 1 grams IVPB once over 1 hrs Route: IVPB; Infused Over: 1 kc6 hrs; Site: right antecubital; 17:46 Follow up: Response: No adverse reaction; IV Status: Completed infusion; IV Intake: kc6 100ml 16:34 Drug: NS 0.9% IV 500 ml IV at bolus once Route: IV; Rate: bolus; Site: right kc6 antecubital; 17:59 Follow up: Response: No adverse reaction; IV Status: Completed infusion; IV Intake: kc6 500ml 18:01 Drug: Insulin Regular Human IVP 10 units IVP once {Co-Signature: esau (Mehnaz Fernandez RN).} Route: IVP; Site: right antecubital; 18:34 Follow up: Response: No adverse reaction; Blood sugar is lowered kc6 18:02 Drug: Insulin Regular Human Sub-Q 10 units Sub-Q once {Co-Signature: esau (carlos Fernandez RN).} Route: Sub-Q; Site: right upper arm; 18:34 Follow up: Response: No adverse reaction; Blood sugar is lowered kc6 Disposition Summary: 03/09/23 18:55 Discharge Ordered Notes: Location: Home ponce Problem: new ponce Symptoms: have improved ponce Condition: Stable ponce Diagnosis - Disorder of thyroid, unspecified ponce - Abnormal results of thyroid function studies ponce - Type 2 diabetes mellitus with hyperglycemia ponce - Obesity, unspecified ponce - Palpitations ponce Followup: ponce - With: Private Physician - When: 2 - 3 days - Reason: Recheck today's complaints, Continuance of care, Re-evaluation by your physician Followup: ponce - With: Beto Torres MD - When: 2 - 3 days - Reason: Recheck today's complaints, Re-evaluation by your physician Discharge Instructions: - Discharge Summary Sheet ponce - Type 2 Diabetes Mellitus, Diagnosis, Adult ponce - Hyperglycemia ponce - Obesity, Adult ponce - Palpitations ponce - Diabetes Mellitus and Nutrition, Adult ponce - Hyperglycemia, [id number] ponce - Aspirin and Your Heart ponce - Palpitations, [id number] ponce Forms: - Medication Reconciliation Form ponce - Thank You Letter ponce - Antibiotic Education ponce - Prescription Opioid Use ponce - Patient Portal Instructions ponce - Leadership Thank You Letter [facility] Prescriptions: - Synthroid 125 mcg Oral tablet - take 1 tablet ORAL route daily; 30 tablet; Refills: 0, Product Selection ponce Permitted Signatures: Dispatcher [employer] Philippe Ellison MD MD cha Campbell, Kaitlyn, RN RN kc6 Mary Casanova RN RN nj1 Mehnaz Fernandez RN hb
--- NOTE | 2023-03-09 18:55 | ER ---
Nurse's Notes [facility] Name: Karin Mendosa Age: 72 yrs Sex: Female : 1950 Arrival Date: 03/09/2023 Time: 15:18 Bed 13 Private MD: Diagnosis: Disorder of thyroid, unspecified;Abnormal results of thyroid function studies;Type 2 diabetes mellitus with hyperglycemia;Obesity, unspecified;Palpitations Presentation: 03/09 15:36 Chief complaint: Patient states: Malaise since yesterday, palpitations today. Had an nj1 episode of dizziness. Coronavirus screen: Vaccine status: Patient reports receiving the 2nd dose of the covid vaccine. Ebola Screen: Patient denies travel to an Ebola-affected area in the 21 days before illness onset. Initial Sepsis Screen: Does the patient meet any 2 criteria? HR > 90 bpm. No. Patient's initial sepsis screen is negative. Does the patient have a suspected source of infection? No. Patient's initial sepsis screen is negative. Risk Assessment: Do you want to hurt yourself or someone else? Patient reports no desire to harm self or others. Onset of symptoms was March 08, 2023. 15:36 Method Of Arrival: Ambulatory [facility] 15:36 Acuity: RAY 3 nj1 Historical: - Allergies: 15:41 Morphine; nj1 - PMHx: 15:41 Arthritis; Diabetes - NIDDM; Hypertension; Hypothyroidism; nj1 - PSHx: 15:41 Cholecystectomy; Back surgery; nj1 - Immunization history:: Client reports receiving the 2nd dose of the Covid vaccine. - Social history:: Smoking status: Patient denies any tobacco usage or history of. - Family history:: not pertinent. Screenin:00 [facility] ED Fall Risk Assessment (Adult) History of falling in the last 3 months, kc6 including since admission No falls in past 3 months (0 pts) Confusion or Disorientation No (0 pts) Intoxicated or Sedated No (0 pts) Impaired Gait No (0 pts) Mobility Assist Device Used No (0 pt) Altered Elimination No (0 pt) Score/Fall Risk Level 0 - 2 = Low Risk. Abuse screen: Denies threats or abuse. Denies injuries from another. Nutritional screening: No deficits noted. Tuberculosis screening: No symptoms or risk factors identified. Assessment: 16:30 General: Appears in no apparent distress. comfortable, well groomed, well developed, kc6 Behavior is calm, cooperative, appropriate for age. Pain: Denies pain. Neuro: Level of Consciousness is awake, alert, obeys commands, Oriented to person, place, time, situation, Appropriate for age. Cardiovascular: Reports palpitations, Denies chest pain, Heart tones S1 S2 present Capillary refill < 3 seconds Rhythm is sinus rhythm. Respiratory: Airway is patent Trachea midline Respiratory effort is even, unlabored, Respiratory pattern is regular, symmetrical. GI: No signs and/or symptoms were reported involving the gastrointestinal system. : No signs and/or symptoms were reported regarding the genitourinary system. EENT: No signs and/or symptoms were reported regarding the EENT system. Derm: No signs and/or symptoms reported regarding the dermatologic system. Skin is intact, is healthy with good turgor, Skin is pink, warm \T\ dry. Musculoskeletal: No signs and/or symptoms reported regarding the musculoskeletal system. Circulation, motion, and sensation intact. Capillary refill < 3 seconds, Range of motion: intact in all extremities. 17:30 Reassessment: Patient appears in no apparent distress at this time. No changes from kc6 previously documented assessment. Patient and/or family updated on plan of care and expected duration. Pain level reassessed. Patient is alert, oriented x 3, equal unlabored respirations, skin warm/dry/pink. 18:30 Reassessment: Patient appears in no apparent distress at this time. No changes from kc6 previously documented assessment. Patient and/or family updated on plan of care and expected duration. Pain level reassessed. Patient is alert, oriented x 3, equal unlabored respirations, skin warm/dry/pink. Vital Signs: 15:36 BP 176 / 74; Pulse 98; Resp 18; Temp 98.2(TE); Pulse Ox 99% on R/A; Weight 87.54 kg; nj1 Height 5 ft. 0 in. ; 17:04 BP 150 / 66; Pulse 79; Resp 16 S; Pulse Ox 97% on R/A; kc6 18:32 BP 148 / 60; Pulse 78; Resp 16 S; Pulse Ox 98% on R/A; kc6 15:36 Body Mass Index 36.91 (87.54 kg, 154 cm) [facility] ED Course: 15:21 Patient arrived in ED. ts1 15:41 Triage completed. nj1 15:42 Arm band placed on left wrist. nj1 15:45 Patient maintains SpO2 saturation greater than 95% on room air. kc6 16:00 Philippe Hunter MD is Attending Physician. ponce 16:00 Patient has correct armband on for positive identification. Placed in gown. Bed in low kc6 position. Call light in reach. Side rails up X 1. Adult w/ patient. Client placed on continuous cardiac and pulse oximetry monitoring. NIBP monitoring applied. monitoring specialist on. 16:04 Verito Landa, DEMOND is Primary Nurse. kc6 16:25 TSH Sent. bc6 16:25 Basic Metabolic Panel Sent. bc6 16:25 LFT's Sent. bc6 16:25 Magnesium Sent. bc6 16:26 NT PRO-BNP Sent. bc6 16:26 PT-INR Sent. bc6 16:26 Troponin HS Sent. bc6 16:26 Inserted saline lock: 22 gauge in right antecubital area, using aseptic technique. bc6 Blood collected. 16:34 XRAY Chest (1 view) In Process Unspecified. EDMS 18:55 Beto Torres MD is Referral Physician. ponce 20:36 No provider procedures requiring assistance completed. IV discontinued, intact, nw1 bleeding controlled, No redness/swelling at site. Pressure dressing applied. Administered Medications: 16:34 Drug: Magnesium Sulfate IVPB 1 grams IVPB once over 1 hrs Route: IVPB; Infused Over: 1 kc6 hrs; Site: right antecubital; 17:46 Follow up: Response: No adverse reaction; IV Status: Completed infusion; IV Intake: kc6 100ml 16:34 Drug: NS 0.9% IV 500 ml IV at bolus once Route: IV; Rate: bolus; Site: right kc6 antecubital; 17:59 Follow up: Response: No adverse reaction; IV Status: Completed infusion; IV Intake: kc6 500ml 18:01 Drug: Insulin Regular Human IVP 10 units IVP once {Co-Signature: esau (Mehnaz Fernandez RN).} Route: IVP; Site: right antecubital; 18:34 Follow up: Response: No adverse reaction; Blood sugar is lowered [facility] 18:02 Drug: Insulin Regular Human Sub-Q 10 units Sub-Q once {Co-Signature: carlos Oneal RN).} Route: Sub-Q; Site: right upper arm; 18:34 Follow up: Response: No adverse reaction; Blood sugar is lowered kc6 Intake: 17:46 IV: 100ml; Total: 100ml. kc6 17:59 IV: 500ml; Total: 600ml. kc6 Outcome: 18:55 Discharge ordered by . ponce 20:36 Discharged to home with family, nw1 20:36 Condition: stable 20:36 Discharge instructions given to patient, daughter Instructed on discharge instructions, 20:36 Patient left the ED. nw1 Signatures: Dispatcher [employer] EDNJ Philippe Hunter MD MD cha Campbell, Kaitlyn RN RN kc6 Kelly Perkins6 Mary Casanova RN RN nj1 Katie Nicholas PAS PAS ts1 Zeinab Chase, RN RN nw1 Mehnaz Fernandez RN hb
[2023-03-09 22:26] VITALS: BP 148/60; TEMP 98.2; O2SAT 98
--- NOTE | 2023-03-11 17:03 | EKG ---
Test Date: 2023-03-09 Test Time: 18:24:19 Drainlayer: ALBIN MEASUREMENT RESULTS: Intervals: Rate: 78 NE: 198 QRSD: 92 QT: 376 QTc: 428 [place]: P: 57 NE: 198 QRS: 12 T: 61 INTERPRETIVE STATEMENTS: Normal sinus rhythm Anterior infarct, age undetermined Abnormal ECG Compared to ECG 03/09/2023 16:22:32 No significant changes Electronically Signed On 03-11-23 16:57:37 APPLIANCE WORKER by Beto Torres
--- NOTE | 2023-03-11 17:03 | EKG ---
Test Date: 2023-03-09 Test Time: 16:22:32 Jewel Supervisor: SHELBI MEASUREMENT RESULTS: Intervals: Rate: 82 [place]: 192 QRSD: 86 QT: 356 QTc: 415 [place]: P: 53 [place]: 192 QRS: 38 T: 94 INTERPRETIVE STATEMENTS: Normal sinus rhythm Possible Anterior infarct, age undetermined Abnormal ECG Compared to ECG 12/30/2021 23:13:41 Myocardial infarct finding now present Left ventricular hypertrophy no longer present Electronically Signed On 03-11-23 16:58:04 NUCLEAR MEDICINE MEDICAL DIRECTOR by Beto Torres
== END ==
LOC: ER 15:18
DX: E07.9 Disorder of thyroid, unspecified (principal); R94.6 Abnormal results of thyroid function studies; E11.65 Type 2 diabetes mellitus with hyperglycemia; E66.9 Obesity, unspecified; Z68.36 Body mass index [BMI] 36.0-36.9, adult; I10 Essential (primary) hypertension; Z88.5 Allergy status to narcotic agent
CPT/HCPCS: 96365; 93005 ×2; 85025; 80048; 36415; 83735; 85610; 82947; 80076; 84443; 84484 ×2; 83880; 71045; 96375; 96372; 99285; J1815; J3475; J7040

== ENCOUNTER 2024-02-16 01:59 | Emergency (ER) | payer OTHER ==
--- OUTSIDE RECORDS SUMMARY | 2024-02-16 02:06 | XMS REPORT | Continuity of Care Document ---
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 Ordering Clinician Indication Dosage Frequency Signature (SIG) Comments Components Source fenofibrate 120 mg tablet 2023-02 00:00: 00 Yes 1mg Omero Parker diclofenac potassium 50 mg tablet 2023-02 00:00: 00 Yes 1mg Omero Parker Vascepa 1 gram capsule 2023-02 00:00: 00 Yes 2gram Omero Parker fenofibrate 120 mg tablet 2023-02 00:00: 00 Yes 1mg Omero Parker Tresiba FlexTouch U-100 insulin 100 unit/mL (3 mL) subcutaneou s pen 2023-02 00:00: 00 Yes (3 mL) Omero Parker meloxicam 15 mg tablet 2023-02 00:00: 00 Yes 1mg Omero Parker amlodipine 10 mg tablet 2023-02 00:00: 00 Yes 1mg Omero Parker lisinopril 40 mg tablet 2023-02 00:00: 00 Yes 1mg Omero Parker Farxiga 10 mg tablet 2023-02 00:00: 00 Yes 1mg Omero Parker atorvastati n 20 mg tablet 2023-02 00:00: 00 Yes 1mg Omero Parker levothyroxi ne 137 mcg tablet 2023-02 00:00: 00 Yes 1mcg Omero Parker levothyroxi ne 137 mcg tablet 09-16 00:00: 00 Yes 1mcg Omero Parker Tresiba FlexTouch U-100 insulin 100 unit/mL (3 mL) subcutaneou s pen 09-15 00:00: 00 Yes (3 mL) Omero Parker amlodipine 10 mg tablet 09-15 00:00: 00 Yes 1mg Omero Parker lisinopril 40 mg tablet 09-15 00:00: 00 Yes 1mg Omero Parker Farxiga 10 mg tablet 09-15 00:00: 00 Yes 1mg Omero Parker amlodipine 10 mg tablet 05-19 00:00: 00 Yes 1mg Omero Parker TAKE 1 TABLET BY MOUTH EVERY DAY 02-28 00:00: 00 Yes 137 Omero Parker TAKE 1 TABLET BY MOUTH DAILY 02-28 00:00: 00 Yes 40 Omero Parker AMLODIPINE BESYLATE 10 MG TABS 02-28 00:00: 00 Yes Omero Parker TAKE 1 TABLET BY MOUTH EVERY EVENING 02-28 00:00: 00 Yes 20 Omero Parker TAKE 1 TABLET BY MOUTH EVERY MORNING 02-28 00:00: 00 Yes 10 Omero Parker TAKE 1 TABLET EVERY 8 HOURS NEEDED. 02-28 00:00: 00 07-01 00:00 :00 No 600 Omero Parker TAKE 1 TABLET EVERY 8 HOURS NEEDED. 2022-02 0 00:00: 00 07-01 00:00 :00 No 600 Omero Parker LISINOPRIL 40 MG TABS 10-11 00:00: 00 Yes Omero Parker INJECT 40 UNITS DAILY 10-11 00:00: 00 Yes 200 Omero Parker TAKE 1 TABLET DAILY NEEDED. 10-11 00:00: 00 07-01 00:00 :00 No 125 Omero Parker TAKE 1 TABLET BY MOUTH EVERY DAY 10-11 00:00: 00 07-01 00:00 :00 No 137 Omero Parker TAKE 1 TABLET BY MOUTH EVERY EVENING 10-11 00:00: 00 07-01 00:00 :00 No 20 Omeroadia Parker TAKE 1 TABLET EVERY 8 HOURS NEEDED. 10-11 00:00: 00 07-01 00:00 :00 No 600 Omero Parker TAKE 1 TABLET BY MOUTH EVERY MORNING 10-04 00:00: 00 07-01 00:00 :00 No 10 Omeroadia Parker TAKE 1 TABLET BY MOUTH DAILY. 10-02 00:00: 00 07-01 00:00 :00 No 10 Omero Parker TAKE 1 TABLET BY MOUTH EVERY MORNING 08-08 00:00: 00 07-01 00:00 :00 No 10 Omero Amanda Parker FARXIGA 10 MG TABS 08-07 00:00: 00 Yes Omero Parker LISINOPRIL 40 MG TABS 03-08 00:00: 00 Yes Omero Parker AMLODIPINE BESYLATE 10 MG TABS 03-08 00:00: 00 Yes Omero Parker UNITHROID 137 MCG TABS 03-08 00:00: 00 Yes Omero Parker TAKE 1 TABLET BY MOUTH EVERY EVENING 03-08 00:00: 00 07-01 00:00 :00 No 20 Omero Amanda Parker TAKE 1 TABLET BY MOUTH EVERY DAY 03-08 00:00: 00 07-01 00:00 :00 No 137 Omero Parker TAKE 1 TABLET BY MOUTH TWICE A DAY 03-08 00:00: 00 07-01 00:00 :00 No 1000 Omero Parker TAKE 1 TABLET BY MOUTH EVERY MORNING 03-08 00:00: 00 07-01 00:00 :00 No 10 Omero Parker Dose Unknown 2021-02 2- 00:00: 00 Yes 137 Omero Parker ATORVASTATI N CALCIUM 20 MG TABS 2021-02 2- 00:00: 00 Yes 20 Omero Parker Dose Unknown 2021-02 2- 00:00: 00 Yes 137 Omero Parker FARXIGA 10 MG TABS 2021-02 2- 00:00: 00 Yes 10 Omero Parker LISINOPRIL 40 MG TABS 2021-02 2- 00:00: 00 Yes 40 Omero Parker Dose Unknown 2021-02 2- 00:00: 00 07-01 00:00 :00 No 10 Omero Parker TAKE 1 TABLET BY MOUTH TWICE A DAY 2021-02 2- 00:00: 00 07-01 00:00 :00 No 1000 Omero Parker TAKE 1 TABLET BY MOUTH EVERY DAY 2021-02 00:00: 00 07-01 00:00 :00 No 137 Omero Parker TAKE 1 TABLET DAILY. 2021-02 00:00: 00 07-01 00:00 :00 No 10 Omero Parker AMLODIPINE BESYLATE 10 MG TABS 2021-02 0-24 00:00: 00 No FENOFIBRATE 160 MG TABS 2021-02 0-20 00:00: 00 Yes Omero Parker TRESIBA FLEXTOUCH 200 UNIT/ML SOPN 2021-02 0-19 00:00: 00 Yes Omero Parker UNITHROID 137 MCG TABS 2021-02 0-19 00:00: 00 Yes Omero Parker METFORMIN HYDROCHLORI DE 1000 MG TABS 2021-02 0-19 00:00: 00 Yes Omero Parker METFORMIN HYDROCHLORI DE 1000 MG TABS 9- 00:00: 00 Yes Omero Parker IBUPROFEN 600 MG TABS 8-23 00:00: 00 Yes Omero Parker IBUPROFEN 600 MG TABS 0 8-23 00:00: 00 No IBUPROFEN 600 MG TABS 0 8-23 00:00: 00 No &lt 2-0 7-21 00:00: 00 Yes 600 Omero Parker &lt 2022-0 7-21 00:00: 00 Yes Omero Parker &lt 2022-0 7- 00:00: 00 No 600 &lt 2022-0 7-21 00:00: 00 No &lt 2022-0 7- 00:00: 00 No 600 &lt 2022-0 7- 00:00: 00 No &lt 2022-0 7- 00:00: 00 Yes Omero Parker &lt 2022-0 7- 00:00: 00 No &lt 2022-0 7- 00:00: 00 No Tresiba FlexTouch U-200 insulin 200 unit/mL (3 mL) subcutaneou s pen 0 - 00:00: 00 Yes (3 mL) Omero Parker lisinopril 40 mg tablet 0 5-25 00:00: 00 Yes 1mg Omero Parker atorvastati n 20 mg tablet 2021-0 5-25 00:00: 00 Yes 1mg Omero Parker levothyroxi ne 137 mcg tablet 0 5- 00:00: 00 Yes 1mcg Omero Parker Tresiba FlexTouch U-200 insulin 200 unit/mL (3 mL) subcutaneou s pen 0 - 00:00: 00 No (3 mL) lisinopril 40 mg tablet 2021-0 5-25 00:00: 00 No 1mg atorvastati n 20 mg tablet 2021-0 5-25 00:00: 00 No 1mg levothyroxi ne 137 mcg tablet 2021-0 5-25 00:00: 00 No 1mcg Tresiba FlexTouch U-200 insulin 200 unit/mL (3 mL) subcutaneou s pen 0 -25 00:00: 00 No (3 mL) lisinopril 40 mg tablet 2021-0 5-25 00:00: 00 No 1mg atorvastati n 20 mg tablet 2021-0 5-25 00:00: 00 No 1mg levothyroxi ne 137 mcg tablet 2021-0 5-25 00:00: 00 No 1mcg metformin 1,000 mg tablet 2021-0 2-17 00:00: 00 Yes 1mg Omero Parker ibuprofen 600 mg tablet - 00:00: 00 Yes 1mg Omero Parker metformin 1,000 mg tablet 2- 00:00: 00 No 1mg ibuprofen 600 mg tablet 04-13 00:00: 00 No 1mg metformin 1,000 mg tablet 04-13 00:00: 00 No 1mg ibuprofen 600 mg tablet 04-13 00:00: 00 No 1mg lisinopril 40 mg tablet 2020-02 0- 00:00: 00 Yes 1mg Omero Parker atorvastati n 20 mg tablet 2020-02 00:00: 00 Yes 1mg Omero Parker ibuprofen 600 mg tablet 2020-02 00:00: 00 Yes 1mg Omero Parker levothyroxi ne 137 mcg tablet 2020-02 00:00: 00 Yes 1mcg Omero Parker lisinopril 40 mg tablet 2020-02 0 00:00: 00 No 1mg atorvastati n 20 mg tablet 2020-02 00:00: 00 No 1mg ibuprofen 600 mg tablet 2020-02 00:00: 00 No 1mg levothyroxi ne 137 mcg tablet 2020-02 00:00: 00 No 1mcg lisinopril 40 mg tablet 2020-02 00:00: 00 No 1mg atorvastati n 20 mg tablet 2020-02 00:00: 00 No 1mg ibuprofen 600 mg tablet 2020-02 00:00: 00 No 1mg levothyroxi ne 137 mcg tablet 2020-02 00:00: 00 No 1mcg Tresiba FlexTouch U-200 insulin 200 unit/mL (3 mL) subcutaneou s pen - 00:00: 00 Yes (3 mL) Omero Parker lisinopril 40 mg tablet - 00:00: 00 Yes 1mg Omero Parker atorvastati n 20 mg tablet 09-29 00:00: 00 Yes 1mg Omero Parker ibuprofen 600 mg tablet 09-29 00:00: 00 Yes 1mg Omero Parker Dose Unknown 09-29 00:00: 00 Yes Omero Parker levothyroxi ne 137 mcg tablet 09-29 00:00: 00 Yes 1mcg Omero Parker Tresiba FlexTouch U-200 insulin 200 unit/mL (3 [...] lisinopril 40 mg tablet 08-22 00:00: 00 Yes 1mg Omero Parker lisinopril 40 mg tablet 08-22 00:00: 00 No 1mg lisinopril 40 mg tablet 08-22 00:00: 00 No 1mg levothyroxi ne 137 mcg tablet 07-16 00:00: 00 Yes 1mcg Omero Parker levothyroxi ne 137 mcg tablet 07-16 00:00: 00 No 1mcg levothyroxi ne 137 mcg tablet 07-16 00:00: 00 No 1mcg atorvastati n 20 mg tablet 07-15 00:00: 00 Yes 1mg Omero Parker lisinopril 40 mg tablet 07-15 00:00: 00 Yes 1mg Omero Parker glimepiride 1 mg tablet 07-15 00:00: 00 Yes 1mg Omero Parker metformin 1,000 mg tablet 07-15 00:00: 00 Yes 1mg Omero Parker ibuprofen 600 mg tablet 07-15 00:00: 00 Yes 1mg Omero Parker levothyroxi ne 137 mcg tablet 07-15 00:00: 00 Yes 1mcg Omero Parker atorvastati n 20 mg tablet 07-15 00:00: [...] n 20 mg tablet 06-03 00:00: 00 Yes 1mg Omero Parker lisinopril 30 mg tablet 06-03 00:00: 00 Yes 1mg Omero Parker glimepiride 1 mg tablet 06-03 00:00: 00 Yes 1mg Omero Parker metformin 1,000 mg tablet 06-03 00:00: 00 Yes 1mg Omero Parker levothyroxi ne 137 mcg tablet 06-03 00:00: 00 Yes 1mcg Omero Parker atorvastati n 20 mg tablet 06-03 00:00: [...] mcg tablet 06-03 00:00: 00 No 1mcg lisinopril 30 mg tablet 03-09 00:00: 00 Yes 1mg Omero Parker atorvastati n 20 mg tablet 03-09 00:00: 00 Yes 1mg Omero Parker glimepiride 1 mg tablet - 00:00: 00 Yes 1mg Omero Parker metformin 1,000 mg tablet 03-09 00:00: 00 Yes 1mg Omero Parker levothyroxi ne 137 mcg tablet - 00:00: 00 Yes 1mcg Omero Parker lisinopril 30 mg tablet - 00:00: 00 No 1mg atorvastati n 20 mg tablet - 00:00: 00 No 1mg glimepiride 1 mg tablet - 00:00: 00 No 1mg metformin 1,000 mg [...] 00 No 1mcg metformin 1,000 mg tablet 03-02 00:00: 00 Yes 1mg Omero Parker metformin 1,000 mg tablet 03-02 00:00: 00 No 1mg metformin 1,000 mg tablet 03-02 00:00: 00 No 1mg diclofenac 3 % topical gel 2019-02 00:00: 00 Yes 1% Omero Parker lisinopril 30 mg tablet 2019-02 00:00: 00 Yes 1mg Omero Parker atorvastati n 20 mg tablet 2019-02 00:00: 00 Yes 1mg Omero Parker levothyroxi ne 137 mcg tablet 2019-02 00:00: 00 Yes 1mcg Omero Parkre diclofenac 3 % topical gel 2019-02 00:00: 00 No 1% lisinopril 30 mg tablet 2019-02 00:00: 00 No 1mg atorvastati n 20 mg tablet 2019-02 00:00: 00 No 1mg diclofenac 3 % topical gel 2019-02 00:00: 00 No 1% lisinopril 30 mg tablet 2019-02 00:00: 00 No 1mg atorvastati n 20 mg tablet 2019-02 00:00: 00 No 1mg levothyroxi ne 137 mcg tablet 2019-02 00:00: 00 No 1mcg levothyroxi ne 137 mcg tablet 2019-02 00:00: 00 No 1mcg glimepiride 1 mg tablet 09-16 00:00: 00 Yes 1mg Omero Parker levothyroxi ne 137 mcg tablet 09-16 00:00: 00 Yes 1mcg Omero Parker glimepiride 1 mg tablet 09-16 00:00: 00 No 1mg levothyroxi ne 137 mcg tablet 09-16 00:00: 00 No 1mcg glimepiride 1 mg tablet 09-16 00:00: 00 No 1mg levothyroxi ne 137 mcg tablet 09-16 00:00: 00 No 1mcg Tresiba FlexTouch U-200 insulin 200 unit/mL (3 mL) subcutaneou s pen 09-07 00:00: 00 Yes 30(3 mL) Omero Parker lisinopril 30 mg tablet 09-07 00:00: 00 Yes 1mg Omero Parker atorvastati n 20 mg tablet 09-07 00:00: 00 Yes 1mg Omero Parker metformin 1,000 mg tablet 09-07 00:00: 00 Yes 1mg Omero Parker levothyroxi ne 100 mcg tablet 09-07 00:00: 00 Yes 1mcg Omero Parker Tresiba FlexTouch U-200 insulin 200 unit/mL (3 mL) subcutaneou s pen 09-07 00:00: 00 No 30(3 mL) lisinopril 30 mg tablet 09-07 00:00: 00 No 1mg atorvastati n 20 mg tablet 09-07 00:00: 00 No 1mg metformin 1,000 mg tablet 09-07 00:00: 00 No 1mg levothyroxi ne 100 mcg tablet 09-07 00:00: 00 No 1mcg Tresiba FlexTouch U-200 insulin 200 unit/mL (3 mL) subcutaneou s pen 09-07 00:00: 00 No 30(3 mL) lisinopril 30 mg tablet 09-07 00:00: 00 No 1mg atorvastati n 20 mg tablet 2020-0 7-14 00:00: 00 No 1mg metformin 1,000 mg tablet 0 -14 00:00: 00 No 1mg levothyroxi ne 100 mcg tablet 0 14 00:00: 00 No 1mcg levothyroxi ne 100 mcg tablet 0 6-09 00:00: 00 Yes 1mcg Omero Parker levothyroxi ne 100 mcg tablet - 00:00: 00 No 1mcg levothyroxi ne 100 mcg tablet 08-03 00:00: 00 No 1mcg lisinopril 30 mg tablet - 00:00: 00 Yes 1mg Omero Parker lisinopril 30 mg tablet - 00:00: 00 No 1mg lisinopril 30 mg tablet 05-28 00:00: 00 No 1mg Tresiba FlexTouch U-200 insulin 200 unit/mL (3 mL) subcutaneou s pen - 00:00: 00 Yes 30(3 mL) Omero Parker atorvastati n 20 mg tablet 05-27 00:00: 00 Yes 1mg Omero Parker metformin 1,000 mg tablet 05-27 00:00: 00 Yes 1mg Omero Parker Tresiba FlexTouch U-200 insulin 200 unit/mL (3 mL) subcutaneou s pen 05-27 00:00: 00 No 30(3 mL) atorvastati n 20 mg tablet 05-27 00:00: 00 No 1mg metformin 1,000 mg tablet 05-27 00:00: 00 No 1mg Tresiba FlexTouch U-200 insulin 200 unit/mL (3 mL) subcutaneou s pen 05-27 00:00: 00 No 30(3 mL) atorvastati n 20 mg tablet - 00:00: 00 No 1mg metformin 1,000 mg tablet 05-27 00:00: 00 No 1mg metformin 1,000 mg tablet 05-03 00:00: 00 Yes 1mg Omero Parker metformin 1,000 mg tablet - 00:00: 00 No 1mg metformin 1,000 mg tablet 05-03 00:00: 00 No 1mg Tresiba FlexTouch U-200 insulin 200 unit/mL (3 mL) subcutaneou s pen 03-05 00:00: 00 Yes 30(3 mL) Omero Parker atorvastati n 20 mg tablet 03-05 00:00: 00 Yes 1mg Omero Parker Tresiba FlexTouch U-200 insulin 200 unit/mL (3 [...] mL) subcutaneou s pen 2018-02 00:00: 00 Yes 30(3 mL) Omero Parker lisinopril 30 mg tablet 2018-02 00:00: 00 Yes 1mg Omero Parker metformin 1,000 mg tablet 2018-02 00:00: 00 Yes 1mg Omero Parker levothyroxi ne 100 mcg tablet 2018-02 00:00: 00 Yes 1mcg Omero Parker Tresiba FlexTouch U-200 insulin 200 unit/mL (3 [...] mcg tablet 2018-02 00:00: 00 No 1mcg Immunizations Ordered Immunization Name Filled Immunization Name Date Status Comments Source Moderna COVID-19 Vaccine Moderna COVID-19 Vaccine 2020-05-07 00:00:00 Completed Omero Parker Moderna COVID-19 Vaccine 2020-05-07 00:00:00 Completed Moderna COVID-19 Vaccine 2020-05-07 00:00:00 Completed Moderna COVID-19 Vaccine Moderna COVID-19 Vaccine 2020-04-01 00:00:00 Completed Omero Parker Moderna COVID-19 Vaccine 2020-04-01 00:00:00 Completed Moderna COVID-19 Vaccine 2020-04-01 00:00:00 Completed Influenza, seasonal, inj Influenza, seasonal, inj 2020-01-05 00:00:00 Completed Omero Amanda Parker Influenza, seasonal, inj 2020-01-05 00:00:00 Completed Influenza, seasonal, inj 2020-01-05 00:00:00 Completed Influenza, seasonal, inj Influenza, seasonal, inj 2019-12-26 00:00:00 Completed Omero Parker Influenza, seasonal, inj 2019-12-26 00:00:00 Completed Influenza, seasonal, inj 2019-12-26 00:00:00 Completed Vital Signs Vital Name Observation Time Observation Value Comments S ource BP Systolic 2024-01-31 16:20:00 128 mm[Hg] Step hen Amanda Parker BP Diastolic 2024-01-31 16:20:00 70 mm[Hg] Jarrett phen Amanda Parker Weight Measured 2024-01-31 16:20:00 200.80 pounds Omero Parker Height Measured 2024-01-31 16:20:00 63.00 inches Omero Parker Body Temperature 2024-01-31 16:20:00 97.80 degrees Omero Parker Heart Rate 2024-01-31 16:20:00 98.00 /min Jessica en F Keith Respiratory Rate 2024-01-31 16:20:00 18.00 /min Omero Parker BP Systolic 2024-01-03 13:19:00 161 mm[Hg] Step hen Amanda Parker BP Diastolic 2024-01-03 13:19:00 81 mm[Hg] Jarrett phen F Keith Weight Measured 2024-01-03 13:19:00 197.80 pounds Omero F Keith Height Measured 2024-01-03 13:19:00 63.00 inches Omero F Keith Body Temperature 2024-01-03 13:19:00 98.00 degrees Omero F Keith Heart Rate 2024-01-03 13:19:00 83.00 /min Jessica en F Keith Respiratory Rate 2024-01-03 13:19:00 Omero F Keith BP Systolic 2023-09-16 09:21:00 141 mm[Hg] Step hen F Keith BP Diastolic 2023-09-16 09:21:00 77 mm[Hg] Jarrett phen F Keith Weight Measured 2023-09-16 09:21:00 194.20 pounds Omero F Keith Height Measured 2023-09-16 09:21:00 63.00 inches Omero F Keith Body Temperature 2023-09-16 09:21:00 97.40 degrees Omero F Keith Heart Rate 2023-09-16 09:21:00 80.00 /min Jessica en F Keith Respiratory Rate 2023-09-16 09:21:00 19.00 /min Omero F Keith BP Systolic 2023-05-20 09:55:00 134 mm[Hg] Step hen F Keith BP Diastolic 2023-05-20 09:55:00 80 mm[Hg] Jarrett phen F Keith Weight Measured 2023-05-20 09:55:00 190.40 pounds Omero F Keith Height Measured 2023-05-20 09:55:00 63.00 inches Omero F Keith Body Temperature 2023-05-20 09:55:00 Omero F Keith Heart Rate 2023-05-20 09:55:00 75.00 /min Jessica en F Keith Respiratory Rate 2023-05-20 09:55:00 18.00 /min Omero F Keith BP Systolic 2023-03-02 09:38:00 138 mm[Hg] Step hen F Keith BP Diastolic 2023-03-02 09:38:00 86 mm[Hg] Jarrett phen F Keith Weight Measured 2023-03-02 09:38:00 197.00 pounds Omero F Keith Height Measured 2023-03-02 09:38:00 63.00 inches Omero F Keith Body Temperature 2023-03-02 09:38:00 98.10 degrees Omero F Keith Heart Rate 2023-03-02 09:38:00 84.00 /min Jessica en F Keith Respiratory Rate 2023-03-02 09:38:00 20.00 /min Omero F Keith BP Systolic 2023-02-28 16:57:00 162 mm[Hg] Step hen F Keith BP Diastolic 2023-02-28 16:57:00 80 mm[Hg] Jarrett phen F Keith Weight Measured 2023-02-28 16:57:00 200.00 pounds Omero F Keith Height Measured 2023-02-28 16:57:00 63.00 inches Omero F Keith Body Temperature 2023-02-28 16:57:00 97.50 degrees Omero F Keith Heart Rate 2023-02-28 16:57:00 71.00 /min Jessica en F Keith Respiratory Rate 2023-02-28 16:57:00 Omero F Keith BP Systolic 2022-10-11 11:56:00 Step hen F Keith BP Diastolic 2022-10-11 11:56:00 Jarrett phen F Keith Weight Measured 2022-10-11 11:56:00 201.80 pounds Omero F Keith Height Measured 2022-10-11 11:56:00 63.00 inches Omero F Keith Body Temperature 2022-10-11 11:56:00 Omero F Keith Heart Rate 2022-10-11 11:56:00 Jessica en F Keith Respiratory Rate 2022-10-11 11:56:00 Omero F Keith BP Systolic 2022-10-11 11:47:00 160 mm[Hg] Step hen F Keith BP Diastolic 2022-10-11 11:47:00 77 mm[Hg] Jarrett phen F Keith Weight Measured 2022-10-11 11:47:00 201.80 pounds Omero F Keith Height Measured 2022-10-11 11:47:00 63.00 inches Omero F Keith Body Temperature 2022-10-11 11:47:00 97.50 degrees Omero F Keith Heart Rate 2022-10-11 11:47:00 93.00 /min Jessica en F Keith Respiratory Rate 2022-10-11 11:47:00 Omero F Keith BP Systolic 2022-06-20 11:57:00 155 mm[Hg] Step hen F Keith BP Diastolic 2022-06-20 11:57:00 78 mm[Hg] Jarrett phen F Keith Weight Measured 2022-06-20 11:57:00 203.40 pounds Omero F Keith Height Measured 2022-06-20 11:57:00 63.00 inches Omero F Keith Body Temperature 2022-06-20 11:57:00 Omero F Keith Heart Rate 2022-06-20 11:57:00 80.00 /min Jessica en F Keith Respiratory Rate 2022-06-20 11:57:00 Omero F Keith BP Systolic 2022-03-08 10:23:00 163 mm[Hg] Step hen F Keith BP Diastolic 2022-03-08 10:23:00 77 mm[Hg] Jarrett phen F Keith Weight Measured 2022-03-08 10:23:00 204.60 pounds Omero F Keith Height Measured 2022-03-08 10:23:00 63.00 inches Omero F Keith Body Temperature 2022-03-08 10:23:00 98.20 degrees Omero F Keith Heart Rate 2022-03-08 10:23:00 86.00 /min Jessica en F Keith Respiratory Rate 2022-03-08 10:23:00 Omero F Keith BP Systolic 2021-12-26 17:05:00 166 mm[Hg] Step hen F Keith BP Diastolic 2021-12-26 17:05:00 85 mm[Hg] Jarrett phen F Keith Weight Measured 2021-12-26 17:05:00 208.50 pounds Omero F Keith Height Measured 2021-12-26 17:05:00 63.00 inches Omero F Keith Body Temperature 2021-12-26 17:05:00 Omero F Keith Heart Rate 2021-12-26 17:05:00 92.00 /min Jessica en F Keith Respiratory Rate 2021-12-26 17:05:00 Omero F Keith BP Systolic 2021-12-12 12:05:00 160 mm[Hg] Step hen F Keith BP Diastolic 2021-12-12 12:05:00 84 mm[Hg] Jarrett phen F Keith Weight Measured 2021-12-12 12:05:00 207.00 pounds Omero Parker Height Measured 2021-12-12 12:05:00 63.00 inches Omero Parker Body Temperature 2021-12-12 12:05:00 98.30 degrees Omero Parker Heart Rate 2021-12-12 12:05:00 91.00 /min Jessica Parker Respiratory Rate 2021-12-12 12:05:00 17.00 /min Omero Parker BP Systolic 2021-07-19 10:43:00 147 mm[Hg] BP [...] Goal Plan of Care Note [code = 97818-8] Goal Plan of Care Note [code = 40397-4] Goal Plan of Care Note [code = 12771-7] Goal Plan of Care Note [code = 97637-2] Goal Plan of Care Note [code = 84427-4] Goal Plan of Care Note [code = 79159-3] Goal Plan of Care Note [code = 83051-0] Goal Plan of Care Note [code = 87313-9] Goal Plan of Care Note [code = 20640-6] Goal Plan of Care Note [code = 66351-8] Goal Plan of Care Note [code = 42470-7] Goal Plan of Care Note [code = 87318-0] Goal Plan of Care Note [code = 73426-6] Goal Plan of Care Note [code = 50423-4] Goal Plan of Care Note [code = 28533-1] Goal Plan of Care Note [code = 77405-6] Goal Plan of Care Note [code = 15939-5] Goal Plan of Care Note [code = 82215-5] Goal Plan of Care Note [code = 32647-7] Goal Plan of Care Note [code = 76252-4] Goal Plan of Care Note [code = 91273-5] Goal Plan of Care Note [code = 87924-6] Goal Plan of Care Note [code = 80999-3] Goal Plan of Care Note [code = 33134-1] Goal Plan of Care Note [code = 78390-3] Goal Plan of Care Note [code = 99889-1] Goal Plan of Care Note [code = 52513-6] Goal Plan of Care Note [code = 72593-7] Encounters Start Date/Time End Date/Time Encounter Type Admission Type Attending [facility] Care Department Encounter ID Source 2024-01-31 00:00:00 2024-01-31 00:00:00 Outpatient Visit [facility] [id number] Omero Parker 2024-01-03 13:18:40 2024-01-03 13:18:40 Outpatient [facility] [id number] Omero Parker 2024-01-03 00:00:00 2024-01-03 00:00:00 Outpatient Visit [facility] [id number] Omero Parker 2023-09-16 09:17:22 2023-09-16 09:17:22 Outpatient [facility] [id number] Omero Parker 2023-09-16 00:00:00 2023-09-16 00:00:00 Outpatient Visit [facility] [id number] Omero Parker 2023-05-27 15:01:49 2023-05-27 15:01:49 Outpatient [facility] [id number] Omero Parker 2023-05-20 09:46:42 2023-05-20 09:46:42 Outpatient [facility] [id number] Omero Parker 2023-03-02 09:32:20 2023-03-02 09:32:20 Outpatient [facility] [id number] Omero Parker 2023-02-28 16:55:23 2023-02-28 16:55:23 Outpatient [facility] [id number] Omero Parker 2022-12-25 00:00:00 2022-12-25 00:00:00 Outpatient [email or web address] diyala_S [facility] [id number] [facility] 2022-12-24 00:00:00 2022-12-24 00:00:00 Outpatient [email or web address] Makayla [facility] [id number] [facility] 2022-11-09 08:19:14 2022-11-09 08:19:14 Outpatient [facility] [id number] 0915 Omero Parker 2022-10-11 11:42:48 2022-10-11 11:42:48 Outpatient SFA SFA [id number] 0817 Omero Patel Keith 2022-06-20 11:50:09 2022-06-20 11:50:09 Outpatient SFA SFA [id number] 0426 Omero Parker 2022-03-08 10:19:19 2022-03-08 10:19:19 Outpatient SFA SFA [id number] Omero Patel Keith 2021-12-26 16:57:36 2021-12-26 16:57:36 Outpatient SFA SFA [id number] 1101 Omero Patel Keith 2021-12-26 00:00:00 2021-12-26 00:00:00 Outpatient Visit [id number] 2021-12-13 10:06:48 2021-12-13 10:06:48 Outpatient SFA SFA [id number] 1019 Omero Patel Keith 2021-12-12 12:01:06 2021-12-12 12:01:06 Outpatient SFA SFA [id number] 1018 Omero Patel [place] 2021-12-12 00:00:00 2021-12-12 00:00:00 Outpatient Visit [id number] Results Test Description Test Time Test Comments Results Result Co mments Source COMPREHENSIVE METABOLIC [id number] 05:01:38* Test Item Value Reference Range Interpretation Comme nts GLUCOSE (test code = 2217) 137 MG/DL 70-99 H BUN (test code = 2207) 35 MG/DL 8-23 H CREATININE (test code = 2213) 1.44 MG/DL 0.60-1.30 H eGFR (2020 CKD-EPI) (test co de = 04160) 39 ML/MIN/1.73 >60 L CALC BUN/CREAT (test code = 2234) 24 RATIO 6-28 SODIUM (test code = 2230) 136 MEQ/L 133-146 POTASSIUM (test code = 2227) 4.9 MEQ/L 3.5-5.4 CHLORIDE (test code = 2214) 101 MEQ/L 95-107 CARBON DIOXIDE (test code = 2205) 23 MEQ/L 19-31 CALCIUM (test code = 2208) 9.7 MG/DL 8.5-10.5 PROTEIN, TOTAL (test code = 2228) 7.5 G/DL 6.1-8.3 ALBUMIN (test code = 2200) 4.2 G/DL 3.5-5.2 CALC GLOBULIN (test code = 0) 3.3 G/DL 1.9-3.7 CALC A/G RATIO (test code = 2233) 1.3 RATIO 1.0-2.6 BILIRUBIN, TOTAL (test code = 2206) <0.2 MG/DL <=1.2 ALKALINE PHOSPHATASE (test code = 2203) 88 U/L 40-142 AST (test code = 2217) 13 U/L 9-40 ALT (test code = 9) 15 U/L 5-40 TSH, THIRD [id number] 05:01:24* Test Item Value Reference Range Interpretation Comme [facility] TSH, THIRD GENERATION (test code = 2821) 0.810 UIU/ML 0.400-4.100 UNLESS OTHERWISE INDICATED, ALL TESTING PERFORMED AT [facility] [address] [facility] [place] [address] [place] LECTURER: KINDRA GUTIERREZ M.D. CLIA NUMBER [id number] [facility] [place]. [id number] HEMOGLOBIN [id number] 03:21:40* Test Item Value Reference Range Interpretation Comme nts HEMOGLOBIN A1c (test code = 78671) 9.1 % 4.2-5.6 H [employer] GUIDELINES FOR HGB A1C: [...] ETC.). CONSIDER ALTERNATE TESTING OR LABORATORY CONSULTATION. HEMOGLOBIN [id number] 00:00:00* Test Item Value Reference Range Interpretation Comme [facility] HEMOGLOBIN A1c (test code = 43230) 9.1 % Omero Patel AustinLIPID [id number] 00:00:00* Test Item Value Reference Range Interpretation Comme nts CHOLESTEROL (test code = 2210) 255 MG/DL TRIGLYCERIDES (test code = 2232) 493 MG/DL HDL CHOLESTEROL (test code = 2220) 46 MG/DL CALC LDL CHOL (test code = 2237) (NOTE) MG/DL RISK RATIO LDL/HDL (test cod e = 2238) (NOTE) RATIO Omero ParkerCOMPREHENSIVE METABOLIC [id number] 00:00:00* Test Item Value Reference Range Interpretation Comme nts GLUCOSE (test code = 2217) 137 MG/DL BUN (test code = 2208) 35 MG/DL CREATININE (test code = 2214) 1.44 MG/DL eGFR (2020 CKD-EPI) (test co de = 66297) 39 ML/MIN/1.73 CALC BUN/CREAT (test code = 2235) 24 RATIO SODIUM (test code = 2231) 136 MEQ/L POTASSIUM (test code = 2228) 4.9 MEQ/L CHLORIDE (test code = 2215) 101 MEQ/L CARBON DIOXIDE (test code = 2206) 23 MEQ/L CALCIUM (test code = 2209) 9.7 MG/DL PROTEIN, TOTAL (test code = 2229) 7.5 G/DL ALBUMIN (test code = 2201) 4.2 G/DL CALC GLOBULIN (test code = 2240) 3.3 G/DL CALC A/G RATIO (test code = 2234) 1.3 RATIO BILIRUBIN, TOTAL (test code = 2207) <0.2 MG/DL ALKALINE PHOSPHATASE (test code = 2204) 88 U/L AST (test code = 2218) 13 U/L ALT (test code = 2219) 15 U/L Omero Diaz, THIRD [id number] 00:00:00* Test Item Value Reference Range Interpretation Comme [facility] TSH, THIRD GENERATION (test code = 2821) 0.810 UIU/ML Omero Diaz THIRD [id number] 08:30:47* Test Item Value Reference Range Interpretation Comme [facility] TSH, THIRD GENERATION (test code = 2821) 0.540 UIU/ML 0.400-4.100 UNLESS OTHERWISE INDICATED, ALL TESTING PERFORMED AT [facility] [address] [place] [address] [place]IAN LECTURER: KINDRA GUTIERREZ M.D. IA NUMBER [id number] [facility] [place]. [id number] LIPID [id number] 06:57:03* Test Item Value Reference Range Interpretation Comme nts CHOLESTEROL (test code = 2210) 175 MG/DL <200 TRIGLYCERIDES (test code = 2232) 156 MG/DL <150 H HDL CHOLESTEROL (test code = 2220) 49 MG/DL >39 CALC LDL CHOL (test code = 2237) 101 MG/DL <100 H NOTE: CALCULATED LDL IS BASED ON GRISELDA-CHAVEZ METHOD WHICHINCLUDES ADJUSTABLE TRIGLYCERIDE:VLDL CHOLESTEROL RATIO.THIS FACTOR VARIES BY MEASURED TRIGLYCERIDE AND NON-HDLCHOLESTEROL CONCENTRATIONS WITH INCREASED CALCULATED LDL SEENIN HIGHER TRIGLYCERIDE OR LOWER NON-HDL SPECIMENS. FOR MOREINFORMATION, SEE CLIENT ANNOUNCEMENT AT [email or web address] [email or web address] RATIO LDL/HDL (test code = 2238) 2.06 RATIO <3.22 COMPREHENSIVE METABOLIC [id number] 06:57:03* Test Item Value Reference Range Interpretation Comme nts GLUCOSE (test code = 2217) 168 MG/DL 70-99 H BUN (test code = 2208) 34 MG/DL 8-23 H CREATININE (test code = 2214) 1.41 MG/DL 0.60-1.30 H eGFR (2020 CKD-EPI) (test co de = 33064) 40 ML/MIN/1.73 >60 L CALC BUN/CREAT (test code = 2235) 24 RATIO 6-28 SODIUM (test code = 223) 140 MEQ/L 133-146 POTASSIUM (test code = 2228) 4.8 MEQ/L 3.5-5.4 CHLORIDE (test code = 2215) 106 MEQ/L 95-107 CARBON DIOXIDE (test code = 2206) 22 MEQ/L 19-31 CALCIUM (test code = 2209) 9.6 MG/DL 8.5-10.5 PROTEIN, TOTAL (test code = 2229) 7.1 G/DL 6.1-8.3 ALBUMIN (test code = 2201) 4.1 G/DL 3.5-5.2 CALC GLOBULIN (test code = 2240) 3.0 G/DL 1.9-3.7 CALC A/G RATIO (test code = 2234) 1.4 RATIO 1.0-2.6 BILIRUBIN, TOTAL (test code = 220) 0.3 MG/DL <=1.2 ALKALINE PHOSPHATASE (test code = 2203) 90 U/L 40-142 AST (test code = 2218) 8 U/L 9-40 L ALT (test code = 221) 9 U/L 5-40 HEMOGLOBIN [id number] 04:39:43* Test Item Value Reference Range Interpretation Comme nts HEMOGLOBIN A1c (test code = 58218) 8.2 % 4.2-5.6 H [employer] GUIDELINES FOR HGB A1C: [...] CONSIDER ALTERNATE TESTING OR LABORATORY CONSULTATION. LIPID [id number] 00:00:00* Test Item Value Reference Range Interpretation Comme nts CHOLESTEROL (test code = 2210) 175 MG/DL TRIGLYCERIDES (test code = 2232) 156 MG/DL HDL CHOLESTEROL (test code = 2220) 49 MG/DL CALC LDL CHOL (test code = 2237) 101 MG/DL RISK RATIO LDL/HDL (test cod e = 2238) 2.06 RATIO Omero F KeithCOMPREHENSIVE METABOLIC [id number] 00:00:00* Test Item Value Reference Range Interpretation Comme nts GLUCOSE (test code = 2217) 168 MG/DL BUN (test code = 2208) 34 MG/DL CREATININE (test code = 2214) 1.41 MG/DL eGFR (2020 CKD-EPI) (test co de = 59431) 40 ML/MIN/1.73 CALC BUN/CREAT (test code = 2235) 24 RATIO SODIUM (test code = 2231) 140 MEQ/L POTASSIUM (test code = 2228) 4.8 MEQ/L CHLORIDE (test code = 2215) 106 MEQ/L CARBON DIOXIDE (test code = 2206) 22 MEQ/L CALCIUM (test code = 2209) 9.6 MG/DL PROTEIN, TOTAL (test code = 2229) 7.1 G/DL ALBUMIN (test code = 2201) 4.1 G/DL CALC GLOBULIN (test code = 2240) 3.0 G/DL CALC A/G RATIO (test code = 2234) 1.4 RATIO BILIRUBIN, TOTAL (test code = 2207) 0.3 MG/DL ALKALINE PHOSPHATASE (test code = 2204) 90 U/L AST (test code = 2218) 8 U/L ALT (test code = 2219) 9 U/L Omero ParkerTSH, THIRD [id number] 00:00:00* Test Item Value Reference Range Interpretation Comme nts TSH, THIRD GENERATION (test code = 2821) 0.540 UIU/ML Omero ParkerHEMOGLOBIN [id number] 00:00:00* Test Item Value Reference Range Interpretation Comme nts HEMOGLOBIN A1c (test code = 95664) 8.2 % Omero ParkerLIPID [id number] 00:00:00* Test Item Value Reference Range Interpretation Comme nts CHOLESTEROL (test code = 2210) 175 MG/DL TRIGLYCERIDES (test code = 2232) 156 MG/DL HDL CHOLESTEROL (test code = 2220) 49 MG/DL CALC LDL CHOL (test code = 2237) 101 MG/DL RISK RATIO LDL/HDL (test cod e = 2238) 2.06 RATIO Omero ParkerCOMPREHENSIVE METABOLIC [id number] 00:00:00* Test Item Value Reference Range Interpretation Comme nts GLUCOSE (test code = 2217) 168 MG/DL BUN (test code = 2208) 34 MG/DL CREATININE (test code = 2214) 1.41 MG/DL eGFR (2020 CKD-EPI) (test co de = 02127) 40 ML/MIN/1.73 CALC BUN/CREAT (test code = 2235) 24 RATIO SODIUM (test code = 2231) 140 MEQ/L POTASSIUM (test code = 2228) 4.8 MEQ/L CHLORIDE (test code = 2215) 106 MEQ/L CARBON DIOXIDE (test code = 2206) 22 MEQ/L CALCIUM (test code = 2209) 9.6 MG/DL PROTEIN, TOTAL (test code = 2229) 7.1 G/DL ALBUMIN (test code = 2201) 4.1 G/DL CALC GLOBULIN (test code = 2240) 3.0 G/DL CALC A/G RATIO (test code = 2234) 1.4 RATIO BILIRUBIN, TOTAL (test code = 2207) 0.3 MG/DL ALKALINE PHOSPHATASE (test code = 2204) 90 U/L AST (test code = 2218) 8 U/L ALT (test code = 2219) 9 U/L Omero ParkerTSH, THIRD [id number] 00:00:00* Test Item Value Reference Range Interpretation Comme nts TSH, THIRD GENERATION (test code = 2821) 0.540 UIU/ML Omero ParkerHEMOGLOBIN [id number] 00:00:00* Test Item Value Reference Range Interpretation Comme nts HEMOGLOBIN A1c (test code = 70028) 8.2 % Omero ParkerALBUMIN/CREATININE RATIO, URINE, [id number] 04:59:23* Test Item Value Reference Range Interpretation Comme nts CREATININE, URINE, CONC. (test code = 2072) 23.5 MG/DL NOT ESTAB ALBUMIN, URINE, RANDOM (test code = 06530) 0.6 MG/DL NOT ESTAB CALC ALBUMIN/CREAT, RND (test code = 78520) 26 MG/G <30 Note: Albumin/Cr eatinine ratio reference interval reflects ADA and NKF guidelines. UNLESS OTHERWISE INDICATED, ALL TESTING PERFORMED AT [facility] [address] [place] [address] [place] LECTURER: KINDRA GUTIERREZ M.D. CLIA NUMBER [id number] [place]. [id number] ALBUMIN/CREATININE RATIO, RANDOM [id number] 00:00:00* Test Item Value Reference Range Interpretation Comme nts CREATININE, URINE, CONC. (te st code = 2071) 23.5 MG/DL ALBUMIN, URINE, RANDOM (test code = 76872) 0.6 MG/DL CALC ALBUMIN/CREAT, RND (jaimee t code = 12387) 26 MG/G Omero Patel AustinALBUMIN/CREATININE RATIO, RANDOM [id number] 00:00:00* Test Item Value Reference Range Interpretation Comme nts CREATININE, URINE, CONC. (te st code = 2071) 23.5 MG/DL ALBUMIN, URINE, RANDOM (test code = 26542) 0.6 MG/DL CALC ALBUMIN/CREAT, RND (jaimee t code = 29899) 26 MG/G Omero F AustinALBUMIN/CREATININE RATIO, RANDOM [id number] 00:00:00* Test Item Value Reference Range Interpretation Comme nts CREATININE, URINE, CONC. (te st code = 2071) 23.5 MG/DL ALBUMIN, URINE, RANDOM (test code = 39288) 0.6 MG/DL CALC ALBUMIN/CREAT, RND (jaimee t code = 91681) 26 MG/G Omero Patel AustinCOMPREHENSIVE METABOLIC [id number] 00:08:51* Test Item Value Reference Range Interpretation Comme nts GLUCOSE (test code = 2217) 207 MG/DL 70-99 H BUN (test code = 8) 20 MG/DL 8-23 CREATININE (test code = 2214) 1.41 MG/DL 0.60-1.30 H eGFR (2020 CKD-EPI) (test co de = 77977) 40 ML/MIN/1.73 >60 L CALC BUN/CREAT (test code = 2235) 14 RATIO 6-28 SODIUM (test code = 2231) 141 MEQ/L 133-146 POTASSIUM (test code = 2228) 5.2 MEQ/L 3.5-5.4 CHLORIDE (test code = 2215) 105 MEQ/L 95-107 CARBON DIOXIDE (test code = 2206) 23 MEQ/L 19-31 CALCIUM (test code = 2209) 9.4 MG/DL 8.5-10.5 PROTEIN, TOTAL (test code = 222) 6.6 G/DL 6.1-8.3 ALBUMIN (test code = 220) 3.8 G/DL 3.5-5.2 CALC GLOBULIN (test code = 2240) 2.8 G/DL 1.9-3.7 CALC A/G RATIO (test code = 2234) 1.4 RATIO 1.0-2.6 BILIRUBIN, TOTAL (test code = 2207) 0.3 MG/DL <=1.2 ALKALINE PHOSPHATASE (test code = 2204) 79 U/L 40-142 AST (test code = 2218) 14 U/L 9-40 ALT (test code = 2219) 14 U/L 5-40 LIPID [id number] 00:08:51* Test Item Value Reference Range Interpretation [...] SPECIMENS. FOR MOREINFORMATION, SEE CLIENT ANNOUNCEMENT AT [email or web address] RISK RATIO LDL/HDL (test code = 2238) 2.00 RATIO <3.22 COMPREHENSIVE METABOLIC [id number] 00:00:00* Test Item Value Reference Range Interpretation Comme nts GLUCOSE (test code = 2217) 207 MG/DL BUN (test code = 8) 20 MG/DL CREATININE (test code = 2214) 1.41 MG/DL eGFR (2020 CKD-EPI) (test co de = 64674) 40 ML/MIN/1.73 CALC BUN/CREAT (test code = 2235) 14 RATIO SODIUM (test code = 223) 141 MEQ/L POTASSIUM (test code = 2228) 5.2 MEQ/L CHLORIDE (test code = 2215) 105 MEQ/L CARBON DIOXIDE (test code = 2206) 23 MEQ/L CALCIUM (test code = 2209) 9.4 MG/DL PROTEIN, TOTAL (test code = 2229) 6.6 G/DL ALBUMIN (test code = 2201) 3.8 G/DL CALC GLOBULIN (test code = 2240) 2.8 G/DL CALC A/G RATIO (test code = 2234) 1.4 RATIO BILIRUBIN, TOTAL (test code = 2207) 0.3 MG/DL ALKALINE PHOSPHATASE (test code = 2204) 79 U/L AST (test code = 2218) 14 U/L ALT (test code = 2219) 14 U/L Omero Patel AustinLIPID [id number] 00:00:00* Test Item Value Reference Range Interpretation Comme nts CHOLESTEROL (test code = 2210) 164 MG/DL TRIGLYCERIDES (test code = 2232) 363 MG/DL HDL CHOLESTEROL (test code = 2220) 40 MG/DL CALC LDL CHOL (test code = 2237) 80 MG/DL RISK RATIO LDL/HDL (test cod e = 2238) 2.00 RATIO Omero ParkerCOMPREHENSIVE METABOLIC [id number] 00:00:00* Test Item Value Reference Range Interpretation Comme nts GLUCOSE (test code = 2217) 207 MG/DL BUN (test code = 2208) 20 MG/DL CREATININE (test code = 2214) 1.41 MG/DL eGFR (2020 CKD-EPI) (test co de = 73869) 40 ML/MIN/1.73 CALC BUN/CREAT (test code = 2235) 14 RATIO SODIUM (test code = 2231) 141 MEQ/L POTASSIUM (test code = 2228) 5.2 MEQ/L CHLORIDE (test code = 2215) 105 MEQ/L CARBON DIOXIDE (test code = 2206) 23 MEQ/L CALCIUM (test code = 2209) 9.4 MG/DL PROTEIN, TOTAL (test code = 2229) 6.6 G/DL ALBUMIN (test code = 2201) 3.8 G/DL CALC GLOBULIN (test code = 2240) 2.8 G/DL CALC A/G RATIO (test code = 2234) 1.4 RATIO BILIRUBIN, TOTAL (test code = 2207) 0.3 MG/DL ALKALINE PHOSPHATASE (test code = 2204) 79 U/L AST (test code = 2218) 14 U/L ALT (test code = 2219) 14 U/L Omreo Patel AustinLIPID [id number] 00:00:00* Test Item Value Reference Range Interpretation Comme nts CHOLESTEROL (test code = 2210) 164 MG/DL TRIGLYCERIDES (test code = 2232) 363 MG/DL HDL CHOLESTEROL (test code = 2220) 40 MG/DL CALC LDL CHOL (test code = 2237) 80 MG/DL RISK RATIO LDL/HDL (test cod e = 2238) 2.00 RATIO Omero ParkerCOMPREHENSIVE METABOLIC [id number] 00:00:00* Test Item Value Reference Range Interpretation Comme nts GLUCOSE (test code = 2217) 207 MG/DL BUN (test code = 2208) 20 MG/DL CREATININE (test code = 2214) 1.41 MG/DL eGFR (2020 CKD-EPI) (test co de = 96039) 40 ML/MIN/1.73 CALC BUN/CREAT (test code = 2235) 14 RATIO SODIUM (test code = 2231) 141 MEQ/L POTASSIUM (test code = 2228) 5.2 MEQ/L CHLORIDE (test code = 2215) 105 MEQ/L CARBON DIOXIDE (test code = 2206) 23 MEQ/L CALCIUM (test code = 2209) 9.4 MG/DL PROTEIN, TOTAL (test code = 2229) 6.6 G/DL ALBUMIN (test code = 2201) 3.8 G/DL CALC GLOBULIN (test code = 2240) 2.8 G/DL CALC A/G RATIO (test code = 2234) 1.4 RATIO BILIRUBIN, TOTAL (test code = 2207) 0.3 MG/DL ALKALINE PHOSPHATASE (test code = 2204) 79 U/L AST (test code = 2218) 14 U/L ALT (test code = 2219) 14 U/L Omero ParkerLIPID [id number] 00:00:00* Test Item Value Reference Range Interpretation Comme nts CHOLESTEROL (test code = 2210) 164 MG/DL TRIGLYCERIDES (test code = 2232) 363 MG/DL HDL CHOLESTEROL (test code = 2220) 40 MG/DL CALC LDL CHOL (test code = 2237) 80 MG/DL RISK RATIO LDL/HDL (test cod e = 2238) 2.00 RATIO Omero ParkerHEMOGLOBIN [id number] 04:30:09* Test Item Value Reference Range Interpretation Comme nts HEMOGLOBIN A1c (test code = 47492) 8.6 % 4.2-5.6 H [employer] GUIDELINES FOR HGB A1C: [...] TESTING PERFORMED AT [facility] [address] [place] [address] [place] LECTURER: KINDRA GUTIERREZ M.D. IA NUMBER [id number] [facility] [place]. [id number] HEMOGLOBIN [id number] 00:00:00* Test Item Value Reference Range Interpretation Commkarol [place] HEMOGLOBIN A1c (test code = 25830) 8.6 % Omero ParkerHEMOGLOBIN [id number] 00:00:00* Test Item Value Reference Range Interpretation Comm[facility] [place] HEMOGLOBIN A1c (test code = 59799) 8.6 % Omero ParkerHEMOGLOBIN [id number] 00:00:00* Test Item Value Reference Range Interpretation [place] [place] HEMOGLOBIN A1c (test code = 69305) 8.6 % Omero Patel AustinTSH, THIRD [id number] 11:05:24* Test Item Value Reference Range Interpretation Comm[facility] [place] TSH, THIRD GENERATION (test code = 2821) 0.449 UIU/ML 0.400-4.100 LIPID [id number] 07:29:44* Test Item Value Reference Range Interpretation [...] SPECIMENS. FOR MOREINFORMATION, SEE CLIENT ANNOUNCEMENT AT [email or web address] RISK RATIO LDL/HDL (test code = 2238) 1.92 RATIO <3.22 COMPREHENSIVE METABOLIC [id number] 07:29:44* Test Item Value Reference Range Interpretation Comme nts GLUCOSE (test code = 7) 141 MG/DL 70-99 H BUN (test code = 2207) 27 MG/DL 8-23 H CREATININE (test code = 221) 1.31 MG/DL 0.60-1.30 H eGFR (2020 CKD-EPI) (test code = 03951) 44 ML/MIN/1.73 >60 L CALC BUN/CREAT (test code = 2235) 21 RATIO 6-28 SODIUM (test code = 223) 139 MEQ/L 133-146 POTASSIUM (test code = 2228) 4.6 MEQ/L 3.5-5.4 CHLORIDE (test code = 2214) 105 MEQ/L 95-107 CARBON DIOXIDE (test code = 2206) 23 MEQ/L 19-31 CALCIUM (test code = 220) 9.4 MG/DL 8.5-10.5 PROTEIN, TOTAL (test code = 2228) 6.9 G/DL 6.1-8.3 ALBUMIN (test code = 2200) 3.9 G/DL 3.5-5.2 CALC GLOBULIN (test code = 2240) 3.0 G/DL 1.9-3.7 CALC A/G RATIO (test code = 223) 1.3 RATIO 1.0-2.6 BILIRUBIN, TOTAL (test code = 2206) 0.3 MG/DL See_Comment [Automated me ssage] The system which generated this result transmitted reference range: <=1.2. The reference range was not used to interpret this result as normal/abnormal. ALKALINE PHOSPHATASE (test code = 2203) 69 U/L 40-142 AST (test code = 2218) 11 U/L 9-40 ALT (test code = 2219) 12 U/L 5-40 UNLESS OTHERWISE INDICATED, ALL TESTING PERFORMED AT [facility] [address] [place] [address] [place] LECTURER: KINDRA GUTIERREZ M.D. CLIA NUMBER [id number] [facility] [place]. [id number] LIPID [id number] 00:00:00* Test Item Value Reference Range Interpretation Comme nts CHOLESTEROL (test code = 2210) 178 MG/DL TRIGLYCERIDES (test code = 2232) 268 MG/DL HDL CHOLESTEROL (test code = 2220) 48 MG/DL CALC LDL CHOL (test code = 2237) 92 MG/DL RISK RATIO LDL/HDL (test cod e = 2238) 1.92 RATIO Omero ParkerCOMPREHENSIVE METABOLIC [id number] 00:00:00* Test Item Value Reference Range Interpretation Comme nts GLUCOSE (test code = 2217) 141 MG/DL BUN (test code = 2208) 27 MG/DL CREATININE (test code = 2214) 1.31 MG/DL eGFR (2020 CKD-EPI) (test co de = 24244) 44 ML/MIN/1.73 CALC BUN/CREAT (test code = 2235) 21 RATIO SODIUM (test code = 2231) 139 MEQ/L POTASSIUM (test code = 2228) 4.6 MEQ/L CHLORIDE (test code = 2215) 105 MEQ/L CARBON DIOXIDE (test code = 2206) 23 MEQ/L CALCIUM (test code = 2209) 9.4 MG/DL PROTEIN, TOTAL (test code = 2229) 6.9 G/DL ALBUMIN (test code = 2201) 3.9 G/DL CALC GLOBULIN (test code = 2240) 3.0 G/DL CALC A/G RATIO (test code = 2234) 1.3 RATIO BILIRUBIN, TOTAL (test code = 2207) 0.3 MG/DL ALKALINE PHOSPHATASE (test code = 2204) 69 U/L AST (test code = 2218) 11 U/L ALT (test code = 2219) 12 U/L Omero ParkerTSH, THIRD [id number] 00:00:00* Test Item Value Reference Range Interpretation Comme nts TSH, THIRD GENERATION (test code = 2821) 0.449 UIU/ML Omero ParkerLIPID [id number] 00:00:00* Test Item Value Reference Range Interpretation Comme nts CHOLESTEROL (test code = 2210) 178 MG/DL TRIGLYCERIDES (test code = 2232) 268 MG/DL HDL CHOLESTEROL (test code = 2220) 48 MG/DL CALC LDL CHOL (test code = 2237) 92 MG/DL RISK RATIO LDL/HDL (test cod e = 2238) 1.92 RATIO Omero ParkerCOMPREHENSIVE METABOLIC [id number] 00:00:00* Test Item Value Reference Range Interpretation Comme nts GLUCOSE (test code = 2217) 141 MG/DL BUN (test code = 2208) 27 MG/DL CREATININE (test code = 2214) 1.31 MG/DL eGFR (2020 CKD-EPI) (test co de = 82891) 44 ML/MIN/1.73 CALC BUN/CREAT (test code = 2235) 21 RATIO SODIUM (test code = 2231) 139 MEQ/L POTASSIUM (test code = 2228) 4.6 MEQ/L CHLORIDE (test code = 2215) 105 MEQ/L CARBON DIOXIDE (test code = 2206) 23 MEQ/L CALCIUM (test code = 2209) 9.4 MG/DL PROTEIN, TOTAL (test code = 2229) 6.9 G/DL ALBUMIN (test code = 2201) 3.9 G/DL CALC GLOBULIN (test code = 2240) 3.0 G/DL CALC A/G RATIO (test code = 2234) 1.3 RATIO BILIRUBIN, TOTAL (test code = 2207) 0.3 MG/DL ALKALINE PHOSPHATASE (test code = 2204) 69 U/L AST (test code = 2218) 11 U/L ALT (test code = 2219) 12 U/L Omero ParkerTSH, THIRD [id number] 00:00:00* Test Item Value Reference Range Interpretation Comme nts TSH, THIRD GENERATION (test code = 2821) 0.449 UIU/ML Omero ParkerLIPID [id number] 00:00:00* Test Item Value Reference Range Interpretation Comme nts CHOLESTEROL (test code = 2210) 178 MG/DL TRIGLYCERIDES (test code = 2232) 268 MG/DL HDL CHOLESTEROL (test code = 2220) 48 MG/DL CALC LDL CHOL (test code = 2237) 92 MG/DL RISK RATIO LDL/HDL (test cod e = 2238) 1.92 RATIO Omero ParkerCOMPREHENSIVE METABOLIC [id number] 00:00:00* Test Item Value Reference Range Interpretation Comme nts GLUCOSE (test code = 2217) 141 MG/DL BUN (test code = 2208) 27 MG/DL CREATININE (test code = 2214) 1.31 MG/DL eGFR (2020 CKD-EPI) (test co de = 86394) 44 ML/MIN/1.73 CALC BUN/CREAT (test code = 2234) 21 RATIO SODIUM (test code = 223) 139 MEQ/L POTASSIUM (test code = 2228) 4.6 MEQ/L CHLORIDE (test code = 2215) 105 MEQ/L CARBON DIOXIDE (test code = 2206) 23 MEQ/L CALCIUM (test code = 2209) 9.4 MG/DL PROTEIN, TOTAL (test code = 2228) 6.9 G/DL ALBUMIN (test code = 220) 3.9 G/DL CALC GLOBULIN (test code = 2240) 3.0 G/DL CALC A/G RATIO (test code = 2234) 1.3 RATIO BILIRUBIN, TOTAL (test code = 2206) 0.3 MG/DL ALKALINE PHOSPHATASE (test code = 2203) 69 U/L AST (test code = 2217) 11 U/L ALT (test code = 221) 12 U/L Omero Diaz, THIRD [id number] 00:00:00* Test Item Value Reference Range Interpretation Comme nts TSH, THIRD GENERATION (test code = 2821) 0.449 UIU/ML Omero Diaz, THIRD [id number] 05:16:55* Test Item Value Reference Range Interpretation Comme nts TSH, THIRD GENERATION (test code = 2821) 0.357 UIU/ML 0.400-4.100 L COMPREHENSIVE METABOLIC [id number] 03:49:34* Test Item Value Reference Range Interpretation Comme nts GLUCOSE (test code = 7) 114 MG/DL 70-99 H BUN (test code = 2207) 31 MG/DL 8-23 H CREATININE (test code = 2213) 1.20 MG/DL 0.60-1.30 eGFR (2020 CKD-EPI) (test code = 16024) 48 ML/MIN/1.73 >60 L The NKF-ASN Taskforce recommends use of Cystatin C to confirm eGFR inadults at risk for CKD. [facility] offers eGFR with Cystatin C-Creatinineusing the 2020 CKD-EPI eGFR_creat-cystat equation (order code 3057) toincrease the accuracy of estimated GFR. For more information, contactur accounts payables clerk or see announcement [email or web address] CALC BUN/CREAT (test code = 2234) 26 RATIO 6-28 SODIUM (test code = 2230) 141 MEQ/L 133-146 POTASSIUM (test code = 2228) 5.2 MEQ/L 3.5-5.4 CHLORIDE (test code = 221) 106 MEQ/L 95-107 CARBON DIOXIDE (test code = 2205) 22 MEQ/L 19-31 CALCIUM (test code = 2208) 9.6 MG/DL 8.5-10.5 PROTEIN, TOTAL (test code = 2228) 6.8 G/DL 6.1-8.3 ALBUMIN (test code = 2200) 4.2 G/DL 3.5-5.2 CALC GLOBULIN (test code = 2240) 2.6 G/DL 1.9-3.7 CALC A/G RATIO (test code = 2233) 1.6 RATIO 1.0-2.6 BILIRUBIN, TOTAL (test code = 2206) <0.2 MG/DL See_Comment [Automated me ssage] The system which generated this result transmitted reference range: <=1.2. The reference range was not used to interpret this result as normal/abnormal. ALKALINE PHOSPHATASE (test code = 2203) 78 U/L 40-142 AST (test code = 8) 15 U/L 9-40 ALT (test code = 221) 18 U/L 5-40 LIPID [id number] 03:49:34* Test Item Value Reference Range Interpretation Comme nts CHOLESTEROL (test code = 2210) 193 MG/DL <200 TRIGLYCERIDES (test code = 2) 461 MG/DL <150 H HDL CHOLESTEROL (test code = 2219) 45 MG/DL >39 CALC LDL CHOL (test code = 223) (NOTE) MG/DL <100 UNABLE TO CALCUL ATE [...] SPECIMENS. FOR MOREINFORMATION, SEE CLIENT ANNOUNCEMENT AT [email or web address] RATIO LDL/HDL (test code = 2238) (NOTE) RATIO <3.22 UNABLE TO BERTO CULATE HEMOGLOBIN [id number] 02:59:31* Test Item Value Reference Range Interpretation Comme [facility] HEMOGLOBIN A1c (test code = 68975) 7.3 % 4.2-5.6 H [employer] GUIDELINES FOR HGB A1C: [...] INDICATED, ALL TESTING PERFORMED AT [facility] [address] [place] [id number] [employer]IAN LECTURER: KINDRA GUTIERREZ M.D. [place] NUMBER [id number] [facility] [place]. [id number] COMPREHENSIVE METABOLIC [id number] 00:00:00* Test Item Value Reference Range Interpretation Comme [facility] GLUCOSE (test code = 2217) 114 MG/DL BUN (test code = 2208) 31 MG/DL CREATININE (test code = 2214) 1.20 MG/DL eGFR (2020 CKD-EPI) (test co de = 05858) 48 ML/MIN/1.73 CALC BUN/CREAT (test code = 2235) 26 RATIO SODIUM (test code = 2231) 141 MEQ/L POTASSIUM (test code = 2228) 5.2 MEQ/L CHLORIDE (test code = 2215) 106 MEQ/L CARBON DIOXIDE (test code = 2206) 22 MEQ/L CALCIUM (test code = 2209) 9.6 MG/DL PROTEIN, TOTAL (test code = 2229) 6.8 G/DL ALBUMIN (test code = 2201) 4.2 G/DL CALC GLOBULIN (test code = 2240) 2.6 G/DL CALC A/G RATIO (test code = 2234) 1.6 RATIO BILIRUBIN, TOTAL (test code = 2207) <0.2 MG/DL ALKALINE PHOSPHATASE (test code = 2204) 78 U/L AST (test code = 2218) 15 U/L ALT (test code = 2219) 18 U/L Omero Diaz, THIRD [id number] 00:00:00* Test Item Value Reference Range Interpretation Comme nts TSH, THIRD GENERATION (test code = 2821) 0.357 UIU/ML Omero ParkerLIPID [id number] 00:00:00* Test Item Value Reference Range Interpretation Comme nts CHOLESTEROL (test code = 2210) 193 MG/DL TRIGLYCERIDES (test code = 2232) 461 MG/DL HDL CHOLESTEROL (test code = 2220) 45 MG/DL CALC LDL CHOL (test code = 2237) (NOTE) MG/DL RISK RATIO LDL/HDL (test cod e = 2238) (NOTE) RATIO Omero ParkerHEMOGLOBIN [id number] 00:00:00* Test Item Value Reference Range Interpretation Comme eliana HEMOGLOBIN A1c (test code = 15093) 7.3 % Omero ParkerCOMPREHENSIVE METABOLIC [id number] 00:00:00* Test Item Value Reference Range Interpretation Comme nts GLUCOSE (test code = 2217) 114 MG/DL BUN (test code = 2208) 31 MG/DL CREATININE (test code = 2214) 1.20 MG/DL eGFR (2020 CKD-EPI) (test co de = 75594) 48 ML/MIN/1.73 CALC BUN/CREAT (test code = 2235) 26 RATIO SODIUM (test code = 2231) 141 MEQ/L POTASSIUM (test code = 2228) 5.2 MEQ/L CHLORIDE (test code = 2215) 106 MEQ/L CARBON DIOXIDE (test code = 2206) 22 MEQ/L CALCIUM (test code = 2209) 9.6 MG/DL PROTEIN, TOTAL (test code = 2229) 6.8 G/DL ALBUMIN (test code = 2201) 4.2 G/DL CALC GLOBULIN (test code = 2240) 2.6 G/DL CALC A/G RATIO (test code = 2234) 1.6 RATIO BILIRUBIN, TOTAL (test code = 2207) <0.2 MG/DL ALKALINE PHOSPHATASE (test code = 2204) 78 U/L AST (test code = 2218) 15 U/L ALT (test code = 2219) 18 U/L Omero Diaz THIRD [id number] 00:00:00* Test Item Value Reference Range Interpretation Comme nts TSH, THIRD GENERATION (test code = 2821) 0.357 UIU/ML Omero ParkerLIPID [id number] 00:00:00* Test Item Value Reference Range Interpretation Comme nts CHOLESTEROL (test code = 2210) 193 MG/DL TRIGLYCERIDES (test code = 2232) 461 MG/DL HDL CHOLESTEROL (test code = 2220) 45 MG/DL CALC LDL CHOL (test code = 2237) (NOTE) MG/DL RISK RATIO LDL/HDL (test cod e = 2238) (NOTE) RATIO Omreo ParkerHEMOGLOBIN [id number] 00:00:00* Test Item Value Reference Range Interpretation Comme nts HEMOGLOBIN A1c (test code = 37357) 7.3 % Omero ParkerCOMPREHENSIVE METABOLIC [id number] 00:00:00* Test Item Value Reference Range Interpretation Comme nts GLUCOSE (test code = 2217) 114 MG/DL BUN (test code = 2208) 31 MG/DL CREATININE (test code = 2214) 1.20 MG/DL eGFR (2020 CKD-EPI) (test co de = 64575) 48 ML/MIN/1.73 CALC BUN/CREAT (test code = 2235) 26 RATIO SODIUM (test code = 2231) 141 MEQ/L POTASSIUM (test code = 2228) 5.2 MEQ/L CHLORIDE (test code = 2215) 106 MEQ/L CARBON DIOXIDE (test code = 2206) 22 MEQ/L CALCIUM (test code = 2209) 9.6 MG/DL PROTEIN, TOTAL (test code = 2229) 6.8 G/DL ALBUMIN (test code = 2201) 4.2 G/DL CALC GLOBULIN (test code = 2240) 2.6 G/DL CALC A/G RATIO (test code = 2234) 1.6 RATIO BILIRUBIN, TOTAL (test code = 2207) <0.2 MG/DL ALKALINE PHOSPHATASE (test code = 2204) 78 U/L AST (test code = 2218) 15 U/L ALT (test code = 2219) 18 U/L Omero ParkerTSH, THIRD [id number] 00:00:00* Test Item Value Reference Range Interpretation Comme nts TSH, THIRD GENERATION (test code = 2821) 0.357 UIU/ML Omero ParkerLIPID [id number] 00:00:00* Test Item Value Reference Range Interpretation Comme nts CHOLESTEROL (test code = 2210) 193 MG/DL TRIGLYCERIDES (test code = 2232) 461 MG/DL HDL CHOLESTEROL (test code = 2220) 45 MG/DL CALC LDL CHOL (test code = 2237) (NOTE) MG/DL RISK RATIO LDL/HDL (test cod e = 2238) (NOTE) RATIO Omero ParkerHEMOGLOBIN [id number] 00:00:00* Test Item Value Reference Range Interpretation Comme nts HEMOGLOBIN A1c (test code = 88949) 7.3 % Omero ParkerNOTE:2022-06-23 06:01:29* Test Item Value Reference Range Interpretation Comme nts NOTE: (test code = 998) (NOTE) IN ACCORDANCE [facility] FEDERAL GUIDELINES REQUIRING ALL VERBAL REQUESTS FOR LABORATORY TESTS TO BE ACCOMPANIED BY WRITTEN AUTHORIZATION WITHIN 30 DAYS OF THIS REQUEST, PLEASE SIGN BELOW AND RETURN A COPY OF THIS REPORT BY FAX TO THE LABORATORY SCANNING DEPARTMENT AT [phone]. PHYSICIAN'S SIGNATURE DATE [facility] has important pathology staff changes effective 04/25/2022. New pathology staff will provide uninterrupted, excellent patient care and clinical consultation. See URL: [email or web address] Precision [email or web address].[employer]/pathology-[email or web address] am. UNLESS OTHERWISE INDICATED, ALL TESTING PERFORMED AT [facility] [address] [place] [address] [place] LECTURER: KINDRA GUTIERREZ M.D. CLIA NUMBER [id number] [facility] [place]. [id number] TSH, THIRD [id number] 02:17:51* Test Item Value Reference Range Interpretation Comme nts TSH, THIRD GENERATION (test code = 2821) 1.190 UIU/ML 0.400-4.100 NOTE: [ADDED]2022-06-23 00:00:00* Test Item Value Reference Range Interpretation Comme nts NOTE: (test code = 998) (NOTE) Omero ParkerTSH, THIRD GENERATION [ADDED]2022-06-23 00:00:00* Test Item Value Reference Range Interpretation Comme nts TSH, THIRD GENERATION (test code = 2821) 1.190 UIU/ML Omero ParkerNOTE: [ADDED]2022-06-23 00:00:00* Test Item Value Reference Range Interpretation Comme nts NOTE: (test code = 998) (NOTE) Omero Diaz, THIRD GENERATION [ADDED]2022-06-23 00:00:00* Test Item Value Reference Range Interpretation Comme nts TSH, THIRD GENERATION (test code = 2821) 1.190 UIU/ML Omero ParkerNOTE: [ADDED]2022-06-23 00:00:00* Test Item Value Reference Range Interpretation Comme nts NOTE: (test code = 998) (NOTE) Omero Diaz THIRD GENERATION [ADDED]2022-06-23 00:00:00* Test Item Value Reference Range Interpretation Comme nts TSH, THIRD GENERATION (test code = 2821) 1.190 UIU/ML Omero ParkerLIPID [id number] 22:43:02* Test Item Value Reference Range Interpretation [...] SPECIMENS. FOR MOREINFORMATION, SEE CLIENT ANNOUNCEMENT AT [email or web address] RISK RATIO LDL/HDL (test code = 2238) 1.81 RATIO <3.22 COMPREHENSIVE METABOLIC [id number] 22:43:02* Test Item Value Reference Range Interpretation Comme nts GLUCOSE (test code = 2217) 115 MG/DL 70-99 H BUN (test code = 2208) 28 MG/DL 8-23 H CREATININE (test code = 2214) 1.39 MG/DL 0.60-1.30 H eGFR (2020 CKD-EPI) (test code = 62803) 41 ML/MIN/1.73 >60 L CALC BUN/CREAT (test code = 2235) 20 RATIO 6-28 SODIUM (test code = 223) 139 MEQ/L 133-146 POTASSIUM (test code = 2228) 5.7 MEQ/L 3.5-5.4 H CHLORIDE (test code = 2215) 102 MEQ/L 95-107 CARBON DIOXIDE (test code = 2206) 20 MEQ/L 19-31 CALCIUM (test code = 2209) 9.8 MG/DL 8.5-10.5 PROTEIN, TOTAL (test code = 222) 7.0 G/DL 6.1-8.3 ALBUMIN (test code = 220) 4.1 G/DL 3.5-5.2 CALC GLOBULIN (test code = 2240) 2.9 G/DL 1.9-3.7 CALC A/G RATIO (test code = 2234) 1.4 RATIO 1.0-2.6 BILIRUBIN, TOTAL (test code = 2207) 0.2 MG/DL See_Comment [Automated me ssage] The system which generated this result transmitted reference range: <=1.2. The reference range was not used to interpret this result as normal/abnormal. ALKALINE PHOSPHATASE (test code = 2203) 71 U/L 40-142 AST (test code = 2218) 12 U/L 9-40 ALT (test code = 2219) 11 U/L 5-40 [facility] has impo rtant pathology staff changes effective 04/25/2022. New pathology staff will provide uninterrupted, excellent patient care and clinical consultation. See URL: [email or web address] [employer] & Data/patho logy-team. UNLESS OTHERWISE INDICATED, ALL TESTING PERFORMED AT [facility] [address] [place] [address] [place]IAN LECTURER: KINDRA GUTIERREZ M.D. CLIA NUMBER [id number] [facility] [place]. [id number] HEMOGLOBIN [id number] 05:25:06* Test Item Value Reference Range Interpretation Comme nts HEMOGLOBIN A1c (test code = 19636) 8.2 % 4.2-5.6 H [employer] GUIDELINES FOR HGB A1C: [...] ETC.). CONSIDER ALTERNATE TESTING OR LABORATORY CONSULTATION. HEMOGLOBIN [id number] 00:00:00* Test Item Value Reference Range Interpretation Comme nts HEMOGLOBIN A1c (test code = 90269) 8.2 % Omero ParkerLIPID [id number] 00:00:00* Test Item Value Reference Range Interpretation Comme nts CHOLESTEROL (test code = 2210) 166 MG/DL TRIGLYCERIDES (test code = 2232) 261 MG/DL HDL CHOLESTEROL (test code = 2220) 47 MG/DL CALC LDL CHOL (test code = 2237) 85 MG/DL RISK RATIO LDL/HDL (test cod e = 2238) 1.81 RATIO Omero ParkerCOMPREHENSIVE METABOLIC [id number] 00:00:00* Test Item Value Reference Range Interpretation Comme nts GLUCOSE (test code = 2217) 115 MG/DL BUN (test code = 2208) 28 MG/DL CREATININE (test code = 2214) 1.39 MG/DL eGFR (2020 CKD-EPI) (test co de = 21707) 41 ML/MIN/1.73 CALC BUN/CREAT (test code = 2235) 20 RATIO SODIUM (test code = 2231) 139 MEQ/L POTASSIUM (test code = 2228) 5.7 MEQ/L CHLORIDE (test code = 2215) 102 MEQ/L CARBON DIOXIDE (test code = 2206) 20 MEQ/L CALCIUM (test code = 2209) 9.8 MG/DL PROTEIN, TOTAL (test code = 2229) 7.0 G/DL ALBUMIN (test code = 2201) 4.1 G/DL CALC GLOBULIN (test code = 2240) 2.9 G/DL CALC A/G RATIO (test code = 2234) 1.4 RATIO BILIRUBIN, TOTAL (test code = 2207) 0.2 MG/DL ALKALINE PHOSPHATASE (test code = 2204) 71 U/L AST (test code = 2218) 12 U/L ALT (test code = 2219) 11 U/L Omero ParkerHEMOGLOBIN [id number] 00:00:00* Test Item Value Reference Range Interpretation Comme nts HEMOGLOBIN A1c (test code = 63671) 8.2 % Omero ParkerLIPID [id number] 00:00:00* Test Item Value Reference Range Interpretation Comme nts CHOLESTEROL (test code = 2210) 166 MG/DL TRIGLYCERIDES (test code = 2232) 261 MG/DL HDL CHOLESTEROL (test code = 2220) 47 MG/DL CALC LDL CHOL (test code = 2237) 85 MG/DL RISK RATIO LDL/HDL (test cod e = 2238) 1.81 RATIO Omero ParkerCOMPREHENSIVE METABOLIC [id number] 00:00:00* Test Item Value Reference Range Interpretation Comme nts GLUCOSE (test code = 2217) 115 MG/DL BUN (test code = 2208) 28 MG/DL CREATININE (test code = 2214) 1.39 MG/DL eGFR (2020 CKD-EPI) (test co de = 08900) 41 ML/MIN/1.73 CALC BUN/CREAT (test code = 2235) 20 RATIO SODIUM (test code = 2231) 139 MEQ/L POTASSIUM (test code = 2228) 5.7 MEQ/L CHLORIDE (test code = 2215) 102 MEQ/L CARBON DIOXIDE (test code = 2206) 20 MEQ/L CALCIUM (test code = 2209) 9.8 MG/DL PROTEIN, TOTAL (test code = 2229) 7.0 G/DL ALBUMIN (test code = 2201) 4.1 G/DL CALC GLOBULIN (test code = 2240) 2.9 G/DL CALC A/G RATIO (test code = 2234) 1.4 RATIO BILIRUBIN, TOTAL (test code = 2207) 0.2 MG/DL ALKALINE PHOSPHATASE (test code = 2204) 71 U/L AST (test code = 2218) 12 U/L ALT (test code = 2219) 11 U/L Omero ParkerHEMOGLOBIN [id number] 00:00:00* Test Item Value Reference Range Interpretation Comme nts HEMOGLOBIN A1c (test code = 96097) 8.2 % Omero ParkerLIPID [id number] 00:00:00* Test Item Value Reference Range Interpretation Comme nts CHOLESTEROL (test code = 2210) 166 MG/DL TRIGLYCERIDES (test code = 2232) 261 MG/DL HDL CHOLESTEROL (test code = 2220) 47 MG/DL CALC LDL CHOL (test code = 2237) 85 MG/DL RISK RATIO LDL/HDL (test cod e = 2238) 1.81 RATIO Omero ParkerCOMPREHENSIVE METABOLIC [id number] 00:00:00* Test Item Value Reference Range Interpretation Comme nts GLUCOSE (test code = 2217) 115 MG/DL BUN (test code = 2208) 28 MG/DL CREATININE (test code = 2214) 1.39 MG/DL eGFR (2020 CKD-EPI) (test co de = 36887) 41 ML/MIN/1.73 CALC BUN/CREAT (test code = 2235) 20 RATIO SODIUM (test code = 2231) 139 MEQ/L POTASSIUM (test code = 2228) 5.7 MEQ/L CHLORIDE (test code = 2215) 102 MEQ/L CARBON DIOXIDE (test code = 2206) 20 MEQ/L CALCIUM (test code = 2209) 9.8 MG/DL PROTEIN, TOTAL (test code = 2229) 7.0 G/DL ALBUMIN (test code = 2201) 4.1 G/DL CALC GLOBULIN (test code = 2240) 2.9 G/DL CALC A/G RATIO (test code = 2234) 1.4 RATIO BILIRUBIN, TOTAL (test code = 2207) 0.2 MG/DL ALKALINE PHOSPHATASE (test code = 2204) 71 U/L AST (test code = 2218) 12 U/L ALT (test code = 2219) 11 U/L Omero ParkerTSH, THIRD [id number] 06:35:24* Test Item Value Reference Range Interpretation Comme nts TSH, THIRD GENERATION (test code = 2821) 0.494 UIU/ML 0.400-4.100 UNLESS OTHERWISE INDICATED, [facility] [address] [place] [address] ITALIAN LECTURER: SHAYY GARCIA M.D. CLIA NUMBER [id number] [facility] [place]. [id number] HEMOGLOBIN [id number] 05:34:13* Test Item Value Reference Range Interpretation Comme nts HEMOGLOBIN A1c (test code = 44499) 7.9 % 4.2-5.6 H [employer]ATION GUIDELINES FOR HGB A1C: [...] ALTERNATE TESTING OR LABORATORY CONSULTATION. COMPREHENSIVE METABOLIC [id number] 03:52:41* Test Item Value Reference Range Interpretation Comme nts GLUCOSE (test code = 7) 138 MG/DL 70-99 H BUN (test code = 2208) 24 MG/DL 8-23 H CREATININE (test code = 2214) 1.35 MG/DL 0.60-1.30 H eGFR (2020 CKD-EPI) (test code = 39427) 42 ML/MIN/1.73 >60 L CALC BUN/CREAT (test code = 2235) 18 RATIO 6-28 SODIUM (test code = 223) 139 MEQ/L 133-146 POTASSIUM (test code = [...] RATIO (test code = 2234) 1.5 RATIO 1.0-2.6 BILIRUBIN, TOTAL (test code = 2207) <0.2 MG/DL See_Comment [Automated me ssage] The system which generated this result transmitted reference range: <=1.2. The reference range was not used to interpret this result as normal/abnormal. ALKALINE PHOSPHATASE (test code = 2204) 73 U/L 40-142 AST (test code = 2218) 13 U/L 9-40 ALT (test code = 2219) 13 U/L 5-40 LIPID [id number] 03:52:41* Test Item Value Reference Range Interpretation Comme nts CHOLESTEROL (test code = 2210) 150 MG/DL <200 TRIGLYCERIDES (test code = 2232) 277 MG/DL <150 H HDL CHOLESTEROL (test code = 2220) 45 MG/DL >39 CALC LDL CHOL (test code = 2237) 69 MG/DL <100 NOTE: CALCULATED LDL IS BASED ON GRISELDA-CHAVEZ METHOD WHICHINCLUDES ADJUSTABLE TRIGLYCERIDE:VLDL CHOLESTEROL RATIO.THIS FACTOR VARIES BY MEASURED TRIGLYCERIDE AND NON-HDLCHOLESTEROL CONCENTRATIONS WITH INCREASED CALCULATED LDL SEENIN HIGHER TRIGLYCERIDE OR LOWER NON-HDL SPECIMENS. FOR MOREINFORMATION, SEE CLIENT ANNOUNCEMENT AT [email or web address] RISK RATIO LDL/HDL (test code = 2238) 1.53 RATIO <3.22 LIPID PANEL [ADDED]2022-03-09 00:00:00* Test Item Value Reference Range Interpretation Comme nts CHOLESTEROL (test code = 2210) 150 MG/DL TRIGLYCERIDES (test code = 2232) 277 MG/DL HDL CHOLESTEROL (test code = 2220) 45 MG/DL CALC LDL CHOL (test code = 2237) 69 MG/DL RISK RATIO LDL/HDL (test cod e = 2238) 1.53 RATIO Omero Amanda KeithHEMOGLOBIN A1c [ADDED]2022-03-09 00:00:00* Test Item Value Reference Range Interpretation Comme nts HEMOGLOBIN A1c (test code = 56692) 7.9 % Omero BargerH, THIRD GENERATION [ADDED]2022-03-09 00:00:00* Test Item Value Reference Range Interpretation Comme nts TSH, THIRD GENERATION (test code = 2821) 0.494 UIU/ML Omero ParkerCOMPREHENSIVE METABOLIC PANEL [ADDED]2022-03-09 00:00:00* Test Item Value Reference Range Interpretation Comme nts GLUCOSE (test code = 2217) 138 MG/DL BUN (test code = 2208) 24 MG/DL CREATININE (test code = 2214) 1.35 MG/DL eGFR (2020 CKD-EPI) (test co de = 76573) 42 ML/MIN/1.73 CALC BUN/CREAT (test code = 2235) 18 RATIO SODIUM (test code = 2231) 139 MEQ/L POTASSIUM (test code = 2228) 5.0 MEQ/L CHLORIDE (test code = 2215) 105 MEQ/L CARBON DIOXIDE (test code = 2206) 23 MEQ/L CALCIUM (test code = 2209) 9.5 MG/DL PROTEIN, TOTAL (test code = 2229) 7.0 G/DL ALBUMIN (test code = 2201) 4.2 G/DL CALC GLOBULIN (test code = 2240) 2.8 G/DL CALC A/G RATIO (test code = 2234) 1.5 RATIO BILIRUBIN, TOTAL (test code = 2207) <0.2 MG/DL ALKALINE PHOSPHATASE (test code = 2204) 73 U/L AST (test code = 2218) 13 U/L ALT (test code = 2219) 13 U/L Omero ParkerLIPID PANEL [ADDED]2022-03-09 00:00:00* Test Item Value Reference Range Interpretation Comme nts CHOLESTEROL (test code = 2210) 150 MG/DL TRIGLYCERIDES (test code = 2232) 277 MG/DL HDL CHOLESTEROL (test code = 2220) 45 MG/DL CALC LDL CHOL (test code = 2237) 69 MG/DL RISK RATIO LDL/HDL (test cod e = 2238) 1.53 RATIO Omero ParkerHEMOGLOBIN A1c [ADDED]2022-03-09 00:00:00* Test Item Value Reference Range Interpretation Comme nts HEMOGLOBIN A1c (test code = 48501) 7.9 % Omero ParkerTSH, THIRD GENERATION [ADDED]2022-03-09 00:00:00* Test Item Value Reference Range Interpretation Comme nts TSH, THIRD GENERATION (test code = 2821) 0.494 UIU/ML Omero ParkerCOMPREHENSIVE METABOLIC PANEL [ADDED]2022-03-09 00:00:00* Test Item Value Reference Range Interpretation Comme nts GLUCOSE (test code = 2217) 138 MG/DL BUN (test code = 2208) 24 MG/DL CREATININE (test code = 2214) 1.35 MG/DL eGFR (2020 CKD-EPI) (test co de = 77913) 42 ML/MIN/1.73 CALC BUN/CREAT (test code = 2235) 18 RATIO SODIUM (test code = 2231) 139 MEQ/L POTASSIUM (test code = 2228) 5.0 MEQ/L CHLORIDE (test code = 2215) 105 MEQ/L CARBON DIOXIDE (test code = 2206) 23 MEQ/L CALCIUM (test code = 2209) 9.5 MG/DL PROTEIN, TOTAL (test code = 2229) 7.0 G/DL ALBUMIN (test code = 2201) 4.2 G/DL CALC GLOBULIN (test code = 2240) 2.8 G/DL CALC A/G RATIO (test code = 2234) 1.5 RATIO BILIRUBIN, TOTAL (test code = 2207) <0.2 MG/DL ALKALINE PHOSPHATASE (test code = 2204) 73 U/L AST (test code = 2218) 13 U/L ALT (test code = 2219) 13 U/L Omero ParkerLIPID PANEL [ADDED]2022-03-09 00:00:00* Test Item Value Reference Range Interpretation Comme nts CHOLESTEROL (test code = 2210) 150 MG/DL TRIGLYCERIDES (test code = 2232) 277 MG/DL HDL CHOLESTEROL (test code = 2220) 45 MG/DL CALC LDL CHOL (test code = 2237) 69 MG/DL RISK RATIO LDL/HDL (test cod e = 2238) 1.53 RATIO Omero ParkerHEMOGLOBIN A1c [ADDED]2022-03-09 00:00:00* Test Item Value Reference Range Interpretation Comme nts HEMOGLOBIN A1c (test code = 71959) 7.9 % Omero ParkerTSH, THIRD GENERATION [ADDED]2022-03-09 00:00:00* Test Item Value Reference Range Interpretation Comme nts TSH, THIRD GENERATION (test code = 2821) 0.494 UIU/ML Omero ParkerCOMPREHENSIVE METABOLIC PANEL [ADDED]2022-03-09 00:00:00* Test Item Value Reference Range Interpretation Comme nts GLUCOSE (test code = 2217) 138 MG/DL BUN (test code = 2208) 24 MG/DL CREATININE (test code = 2214) 1.35 MG/DL eGFR (2020 CKD-EPI) (test co de = 69074) 42 ML/MIN/1.73 CALC BUN/CREAT (test code = 2235) 18 RATIO SODIUM (test code = 2231) 139 MEQ/L POTASSIUM (test code = 2228) 5.0 MEQ/L CHLORIDE (test code = 2215) 105 MEQ/L CARBON DIOXIDE (test code = 2206) 23 MEQ/L CALCIUM (test code = 2209) 9.5 MG/DL PROTEIN, TOTAL (test code = 2229) 7.0 G/DL ALBUMIN (test code = 2201) 4.2 G/DL CALC GLOBULIN (test code = 2240) 2.8 G/DL CALC A/G RATIO (test code = 2234) 1.5 RATIO BILIRUBIN, TOTAL (test code = 2207) <0.2 MG/DL ALKALINE PHOSPHATASE (test code = 2204) 73 U/L AST (test code = 2218) 13 U/L ALT (test code = 2219) 13 U/L Omero Patel [facility] W/AUTO DIFF WITH [id number] 08:22:24* Test Item Value Reference Range Interpretation [...] = 1065) 0.0 /100 WBC'S See_Comment [Automated CardiAQ Valve Technologiesa ge] The system which generated this result [...] 0.00-0.10 ABS NUCLEATED RBCS (test code = 77422) 0.00 K/UL 0.00-0.11 HEMOGLOBIN [id number] 07:58:23* Test Item Value Reference Range Interpretation Comme [facility] HEMOGLOBIN A1c (test code = 45787) 9.5 % 4.2-5.6 H [employer] GUIDELINES FOR HGB A1C: [...] ALTERNATE TESTING OR LABORATORY CONSULTATION. TSH, THIRD [id number] 05:47:57* Test Item Value Reference Range Interpretation Comme [facility] TSH, THIRD GENERATION (test code = 2821) 0.549 UIU/ML 0.400-4.100 UNLESS OTHERWISE INDICATED, ALL TESTING PERFORMED [facility] [address] [place] [address] [place] LECTURER: SHAYY GARCIA M.D. CLIA NUMBER [id number] [facility] [place]. [id number] COMPREHENSIVE METABOLIC [id number] 04:41:17* Test Item Value Reference Range Interpretation Comme [facility] GLUCOSE (test code = 2217) 165 MG/DL 70-99 H BUN (test code = 2208) 25 MG/DL 8-23 H CREATININE (test code = 2214) 1.25 MG/DL 0.60-1.30 eGFR (2020 CKD-EPI) (test code = 02633) 46 ML/MIN/1.73 >60 L The NKF-ASN Taskforce recommends use of Cystatin C to confirm eGFR inadults at risk for CKD. [facility] offers eGFR with Cystatin C-Creatinineusing the 2020 CKD-EPI eGFR_creat-cystat equation (order code 3057) toincrease the accuracy of estimated GFR. For more information, contactyour accounts payables clerk or see announcement [email or web address] CALC BUN/CREAT (test code = 2234) 20 RATIO 6-28 SODIUM (test code = 2230) 138 MEQ/L 133-146 POTASSIUM (test code = 2227) 5.3 MEQ/L 3.5-5.4 CHLORIDE (test code = 2214) 102 MEQ/L 95-107 CARBON DIOXIDE (test code = 2205) 23 MEQ/L 19-31 CALCIUM (test code = 2208) 10.1 MG/DL 8.5-10.5 PROTEIN, TOTAL (test code = 2228) 7.4 G/DL 6.1-8.3 ALBUMIN (test code = 2200) 4.3 G/DL 3.5-5.2 CALC GLOBULIN (test code = 2239) 3.1 G/DL 1.9-3.7 CALC A/G RATIO (test code = 2233) 1.4 RATIO 1.0-2.6 BILIRUBIN, TOTAL (test code = 2206) 0.3 MG/DL See_Comment [Automated me ssage] The system which generated this result transmitted reference range: <=1.2. The reference range was not used to interpret this result as normal/abnormal. ALKALINE PHOSPHATASE (test code = 2203) 80 U/L 40-142 AST (test code = 2217) 18 U/L 9-40 ALT (test code = 2218) 19 U/L 5-40 LIPID [id number] 04:41:17* Test Item Value Reference Range Interpretation Comme nts CHOLESTEROL (test code = 2209) 245 MG/DL <200 H TRIGLYCERIDES (test code = 2232) 403 MG/DL <150 H HDL CHOLESTEROL (test code = 2219) 43 MG/DL >39 CALC LDL CHOL (test code = 7) (NOTE) MG/DL <100 UNABLE TO CALCUL ATE [...] SPECIMENS. FOR MOREINFORMATION, SEE CLIENT ANNOUNCEMENT AT [email or web address] CalcLDL-C RISK RATIO LDL/HDL (test code = 2238) (NOTE) RATIO <3.22 UNABLE TO BERTO CULATE HEMOGLOBIN [id number] 00:00:00* Test Item Value Reference Range Interpretation Comme nts HEMOGLOBIN A1c (test code = 25164) 9.5 % Omero Patel KeithCBC W/AUTO [id number] 00:00:00* Test Item Value Reference Range Interpretation [...] ABS NUCLEATED RBCS (test cod e = 86629) 0.00 K/UL Omero ParkerCOMPREHENSIVE METABOLIC [id number] 00:00:00* Test Item Value Reference Range Interpretation Comme nts GLUCOSE (test code = 2217) 165 MG/DL BUN (test code = 2208) 25 MG/DL CREATININE (test code = 2214) 1.25 MG/DL eGFR (2020 CKD-EPI) (test co de = 25481) 46 ML/MIN/1.73 CALC BUN/CREAT (test code = [...] ALT (test code = 2219) 19 U/L Omero ParkerLIPID [id number] 00:00:00* Test Item Value Reference Range Interpretation Comme nts CHOLESTEROL (test code = 2210) 245 MG/DL TRIGLYCERIDES (test code = 2232) 403 MG/DL HDL CHOLESTEROL (test code = 2220) 43 MG/DL CALC LDL CHOL (test code = 2237) (NOTE) MG/DL RISK RATIO LDL/HDL (test cod e = 2238) (NOTE) RATIO Omero ParkerTSH, THIRD [id number] 00:00:00* Test Item Value Reference Range Interpretation Comme nts TSH, THIRD GENERATION (test code = 2821) 0.549 UIU/ML Omero ParkerHEMOGLOBIN [id number] 00:00:00* Test Item Value Reference Range Interpretation Comme nts HEMOGLOBIN A1c (test code = 72616) 9.5 % Omero ParkerCBC W/AUTO [id number] 00:00:00* Test Item Value Reference Range Interpretation [...] ABS NUCLEATED RBCS (test cod e = 04825) 0.00 K/UL Omero ParkerCOMPREHENSIVE METABOLIC [id number] 00:00:00* Test Item Value Reference Range Interpretation Comme nts GLUCOSE (test code = 2217) 165 MG/DL BUN (test code = 2208) 25 MG/DL CREATININE (test code = 2214) 1.25 MG/DL eGFR (2020 CKD-EPI) (test co de = 01407) 46 ML/MIN/1.73 CALC BUN/CREAT (test code = [...] ALT (test code = 2219) 19 U/L Omero ParkerLIPID [id number] 00:00:00* Test Item Value Reference Range Interpretation Comme nts CHOLESTEROL (test code = 2210) 245 MG/DL TRIGLYCERIDES (test code = 2232) 403 MG/DL HDL CHOLESTEROL (test code = 2220) 43 MG/DL CALC LDL CHOL (test code = 2237) (NOTE) MG/DL RISK RATIO LDL/HDL (test cod e = 2238) (NOTE) RATIO Omero ParkerTSH, THIRD [id number] 00:00:00* Test Item Value Reference Range Interpretation Comme eliana TSH, THIRD GENERATION (test code = 2821) 0.549 UIU/ML Omero ParkerHEMOGLOBIN [id number] 00:00:00* Test Item Value Reference Range Interpretation Comme eliana HEMOGLOBIN A1c (test code = 30625) 9.5 % Omero ParkerHEMOGLOBIN [id number] 00:00:00* Test Item Value Reference Range Interpretation Comme eliana HEMOGLOBIN A1c (test code = 10160) 9.5 % CBC W/AUTO [id number] 00:00:00* Test Item Value Reference Range Interpretation Comme eliana WBC (test code = 1001) 8.6 K/UL [...] ABS NUCLEATED RBCS (test cod e = 95516) 0.00 K/UL COMPREHENSIVE METABOLIC [id number] 00:00:00* Test Item Value Reference Range Interpretation Comme nts GLUCOSE (test code = 2217) 165 MG/DL BUN (test code = 2208) 25 MG/DL CREATININE (test code = 2214) 1.25 MG/DL eGFR (2020 CKD-EPI) (test co de = 97408) 46 ML/MIN/1.73 CALC BUN/CREAT (test code = [...] (test code = 2219) 19 U/L LIPID [id number] 00:00:00* Test Item Value Reference Range Interpretation Comme nts CHOLESTEROL (test code = 2210) 245 MG/DL TRIGLYCERIDES (test code = 2232) 403 MG/DL HDL CHOLESTEROL (test code = 2220) 43 MG/DL CALC LDL CHOL (test code = 2237) (NOTE) MG/DL RISK RATIO LDL/HDL (test cod e = 2238) (NOTE) RATIO TSH, THIRD [id number] 00:00:00* Test Item Value Reference Range Interpretation Comme nts TSH, THIRD GENERATION (test code = 2821) 0.549 UIU/ML CBC W/AUTO [id number] 00:00:00* Test Item Value Reference Range Interpretation [...] ABS NUCLEATED RBCS (test cod e = 35371) 0.00 K/UL Omero F AustinCOMPREHENSIVE METABOLIC [id number] 00:00:00* Test Item Value Reference Range Interpretation Comme nts GLUCOSE (test code = 2217) 165 MG/DL BUN (test code = 2208) 25 MG/DL CREATININE (test code = 2214) 1.25 MG/DL eGFR (2020 CKD-EPI) (test co de = 67812) 46 ML/MIN/1.73 CALC BUN/CREAT (test code = [...] ALT (test code = 2219) 19 U/L Omero ParkerLIPID [id number] 00:00:00* Test Item Value Reference Range Interpretation Comme nts CHOLESTEROL (test code = 2210) 245 MG/DL TRIGLYCERIDES (test code = 2232) 403 MG/DL HDL CHOLESTEROL (test code = 2220) 43 MG/DL CALC LDL CHOL (test code = 2237) (NOTE) MG/DL RISK RATIO LDL/HDL (test cod e = 2238) (NOTE) RATIO Omero Patel KeithTSH, THIRD [id number] 00:00:00* Test Item Value Reference Range Interpretation Comme nts TSH, THIRD GENERATION (test code = 2821) 0.549 UIU/ML Omero F KeithCOMPREHENSIVE METABOLIC [id number] 05:40:31* Test Item Value Reference Range Interpretation Comme nts GLUCOSE (test code = 2217) 212 MG/DL 70-99 H BUN (test code = 2208) 24 MG/DL 8-23 H CREATININE (test code = 2214) 1.35 MG/DL 0.60-1.30 H eGFR (2020 CKD-EPI) (test code = 06527) 42 ML/MIN/1.73 >60 L CALC BUN/CREAT (test code = 2235) 18 RATIO 6-28 SODIUM (test code = 2231) 136 MEQ/L 133-146 POTASSIUM (test code = 2228) 5.0 MEQ/L 3.5-5.4 CHLORIDE (test code = 2215) 100 MEQ/L 95-107 CARBON DIOXIDE (test code = 2205) 22 MEQ/L 19-31 CALCIUM (test code = 2208) 10.2 MG/DL 8.5-10.5 PROTEIN, TOTAL (test code = 2228) 7.8 G/DL 6.1-8.3 ALBUMIN (test code = 2200) 4.6 G/DL 3.5-5.2 CALC GLOBULIN (test code = 2240) 3.2 G/DL 1.9-3.7 CALC A/G RATIO (test code = 2233) 1.4 RATIO 1.0-2.6 BILIRUBIN, TOTAL (test code = 2206) 0.2 MG/DL See_Comment [Automated me ssage] The system which generated this result transmitted reference range: <=1.2. The reference range was not used to interpret this result as normal/abnormal. ALKALINE PHOSPHATASE (test code = 2203) 77 U/L 40-142 AST (test code = 221) 20 U/L 9-40 ALT (test code = 2219) 24 U/L 5-40 LIPID [id number] 05:40:31* Test Item Value Reference Range Interpretation Comme nts CHOLESTEROL (test code = 2210) 168 MG/DL <200 TRIGLYCERIDES (test code = 2232) 305 MG/DL <150 H HDL CHOLESTEROL (test code = 0) 48 MG/DL >39 CALC LDL CHOL (test code = 2236) 83 MG/DL <100 NOTE: CALCULATED LDL IS BASED ON GRISELDA-CHAVEZ METHOD WHICHINCLUDES ADJUSTABLE TRIGLYCERIDE:VLDL CHOLESTEROL RATIO.THIS FACTOR VARIES BY MEASURED TRIGLYCERIDE AND NON-HDLCHOLESTEROL CONCENTRATIONS WITH INCREASED CALCULATED LDL SEENIN HIGHER TRIGLYCERIDE OR LOWER NON-HDL SPECIMENS. FOR MOREINFORMATION, SEE CLIENT ANNOUNCEMENT AT [email or web address] RISK RATIO LDL/HDL (test code = 223) 1.73 RATIO <3.22 UNLESS OTHERW ISE INDICATED, ALL TESTING PERFORMED [facility] [address] [place] [address], [place] [address] ITALIAN LECTURER: SHAYY GARCIA M.D. CLIA NUMBER [id number] [place]. [id number] HEMOGLOBIN [id number] 03:57:08* Test Item Value Reference Range Interpretation Comme [facility] HEMOGLOBIN A1c (test code = 42411) 8.4 % 4.2-5.6 H [employer] GUIDELINES FOR HGB A1C: [...] ETC.). CONSIDER ALTERNATE TESTING OR LABORATORY CONSULTATION. HEMOGLOBIN [id number] 00:00:00* Test Item Value Reference Range Interpretation Comme [facility] HEMOGLOBIN A1c (test code = 74668) 8.4 % Omero ParkerCOMPREHENSIVE METABOLIC [id number] 00:00:00* Test Item Value Reference Range Interpretation Comme nts GLUCOSE (test code = 2217) 212 MG/DL BUN (test code = 2208) 24 MG/DL CREATININE (test code = 2214) 1.35 MG/DL eGFR (2020 CKD-EPI) (test co de = 81649) 42 ML/MIN/1.73 CALC BUN/CREAT (test code = [...] ALT (test code = 2219) 24 U/L Oemro ParkerLIPID [id number] 00:00:00* Test Item Value Reference Range Interpretation Comme nts CHOLESTEROL (test code = 2210) 168 MG/DL TRIGLYCERIDES (test code = 2232) 305 MG/DL HDL CHOLESTEROL (test code = 2220) 48 MG/DL CALC LDL CHOL (test code = 2237) 83 MG/DL RISK RATIO LDL/HDL (test cod e = 2238) 1.73 RATIO Omero Patel AustinHEMOGLOBIN [id number] 00:00:00* Test Item Value Reference Range Interpretation Comme nts HEMOGLOBIN A1c (test code = 30413) 8.4 % Omero ParkerCOMPREHENSIVE METABOLIC [id number] 00:00:00* Test Item Value Reference Range Interpretation Comme nts GLUCOSE (test code = 2217) 212 MG/DL BUN (test code = 2208) 24 MG/DL CREATININE (test code = 2214) 1.35 MG/DL eGFR (2020 CKD-EPI) (test co de = 92970) 42 ML/MIN/1.73 CALC BUN/CREAT (test code = [...] ALT (test code = 2219) 24 U/L Omero Patel AustinLIPID [id number] 00:00:00* Test Item Value Reference Range Interpretation Comme nts CHOLESTEROL (test code = 2210) 168 MG/DL TRIGLYCERIDES (test code = 2232) 305 MG/DL HDL CHOLESTEROL (test code = 2220) 48 MG/DL CALC LDL CHOL (test code = 2237) 83 MG/DL RISK RATIO LDL/HDL (test cod e = 2238) 1.73 RATIO Omero F AustinHEMOGLOBIN [id number] 00:00:00* Test Item Value Reference Range Interpretation Comme nts HEMOGLOBIN A1c (test code = 95671) 8.4 % Omero ParkerCOMPREHENSIVE METABOLIC [id number] 00:00:00* Test Item Value Reference Range Interpretation Comme nts GLUCOSE (test code = 2217) 212 MG/DL BUN (test code = 2208) 24 MG/DL CREATININE (test code = 2214) 1.35 MG/DL eGFR (2020 CKD-EPI) (test co de = 64592) 42 ML/MIN/1.73 CALC BUN/CREAT (test code = [...] (test code = 2219) 24 U/L LIPID [id number] 00:00:00* Test Item Value Reference Range Interpretation Comme nts CHOLESTEROL (test code = 2210) 168 MG/DL TRIGLYCERIDES (test code = 2232) 305 MG/DL HDL CHOLESTEROL (test code = 2220) 48 MG/DL CALC LDL CHOL (test code = 2237) 83 MG/DL RISK RATIO LDL/HDL (test cod e = 2238) 1.73 RATIO HEMOGLOBIN [id number] 00:00:00* Test Item Value Reference Range Interpretation Comme nts HEMOGLOBIN A1c (test code = 17356) 8.4 % COMPREHENSIVE METABOLIC [id number] 00:00:00* Test Item Value Reference Range Interpretation Comme nts GLUCOSE (test code = 2217) 212 MG/DL BUN (test code = 2208) 24 MG/DL CREATININE (test code = 2214) 1.35 MG/DL eGFR (2020 CKD-EPI) (test co de = 11527) 42 ML/MIN/1.73 CALC BUN/CREAT (test code = [...] (test code = 2219) 24 U/L LIPID [id number] 00:00:00* Test Item Value Reference Range Interpretation Comme nts CHOLESTEROL (test code = 2210) 168 MG/DL TRIGLYCERIDES (test code = 2232) 305 MG/DL HDL CHOLESTEROL (test code = 2220) 48 MG/DL CALC LDL CHOL (test code = 2237) 83 MG/DL RISK RATIO LDL/HDL (test cod e = 2238) 1.73 RATIO HEMOGLOBIN [id number] 00:00:00* Test Item Value Reference Range Interpretation Comme nts HEMOGLOBIN A1c (test code = 88499) 8.4 % COMPREHENSIVE METABOLIC [id number] 00:00:00* Test Item Value Reference Range Interpretation Comme nts GLUCOSE (test code = 2217) 212 MG/DL BUN (test code = 2208) 24 MG/DL CREATININE (test code = 2214) 1.35 MG/DL eGFR (2020 CKD-EPI) (test co de = 84741) 42 ML/MIN/1.73 CALC BUN/CREAT (test code = [...] ALT (test code = 2219) 24 U/L Omero ParkerLIPID [id number] 00:00:00* Test Item Value Reference Range Interpretation Comme nts CHOLESTEROL (test code = 2210) 168 MG/DL TRIGLYCERIDES (test code = 2232) 305 MG/DL HDL CHOLESTEROL (test code = 2220) 48 MG/DL CALC LDL CHOL (test code = 2237) 83 MG/DL RISK RATIO LDL/HDL (test cod e = 2238) 1.73 RATIO Omero ParkerTSH, THIRD [id number] 05:23:02* Test Item Value Reference Range Interpretation Comme nts TSH, THIRD GENERATION (test code = 2821) 1.730 UIU/ML 0.400-4.100 UNLESS OTHERWISE INDICATED, ALL TESTING PERFORMED [facility] [address] [place] [address] ITALIAN LECTURER: SHAYY GARCIA M.D. IA NUMBER [id number] [facility] [place]. [id number] HEMOGLOBIN [id number] 04:30:06* Test Item Value Reference Range Interpretation Comme nts HEMOGLOBIN A1c (test code = 30518) 9.6 % 4.2-5.6 H [employer] GUIDELINES FOR HGB A1C: [...] CONSIDER ALTERNATE TESTING OR LABORATORY CONSULTATION. LIPID [id number] 02:53:37* Test Item Value Reference Range Interpretation [...] SPECIMENS. FOR MOREINFORMATION, SEE CLIENT ANNOUNCEMENT AT [email or web address] RISK RATIO LDL/HDL (test code = 2238) 1.46 RATIO <3.22 COMPREHENSIVE METABOLIC [id number] 02:53:37* Test Item Value Reference Range Interpretation Comme nts GLUCOSE (test code = 2217) 195 MG/DL 70-99 H BUN (test code = 220) 23 MG/DL 8-23 CREATININE (test code = 2214) 1.13 MG/DL 0.60-1.30 eGFR (2020 CKD-EPI) (test code = 49934) 53 ML/MIN/1.73 >60 L CALC BUN/CREAT (test code = 2235) 20 RATIO 6-28 SODIUM (test code = 2231) 141 MEQ/L 133-146 POTASSIUM (test code = 2228) 5.1 MEQ/L 3.5-5.4 CHLORIDE (test code = 2215) 103 MEQ/L 95-107 CARBON DIOXIDE (test code = 2206) 24 MEQ/L 19-31 CALCIUM (test code = 2209) 9.5 MG/DL 8.5-10.5 PROTEIN, TOTAL (test code = 2229) 7.6 G/DL 6.1-8.3 ALBUMIN (test code = 2201) [...] (test code = 2219) 24 U/L 5-40 HEMOGLOBIN [id number] 00:00:00* Test Item Value Reference Range Interpretation Comme [facility] HEMOGLOBIN A1c (test code = 65473) 9.6 % Omero Patel AustinLIPID [id number] 00:00:00* Test Item Value Reference Range Interpretation Comme nts CHOLESTEROL (test code = 2210) 156 MG/DL TRIGLYCERIDES (test code = 2232) 182 MG/DL HDL CHOLESTEROL (test code = 2220) 52 MG/DL CALC LDL CHOL (test code = 2237) 76 MG/DL RISK RATIO LDL/HDL (test cod e = 2238) 1.46 RATIO Omero ParkerCOMPREHENSIVE METABOLIC [id number] 00:00:00* Test Item Value Reference Range Interpretation Comme nts GLUCOSE (test code = 2217) 195 MG/DL BUN (test code = 2208) 23 MG/DL CREATININE (test code = 2214) 1.13 MG/DL eGFR (2020 CKD-EPI) (test co de = 57090) 53 ML/MIN/1.73 CALC BUN/CREAT (test code = [...] ALT (test code = 2219) 24 U/L Omero [id number] 00:00:00* Test Item Value Reference Range Interpretation Comme eliana TSH, THIRD GENERATION (test code = 2821) 1.730 UIU/ML Omero ParkerHEMOGLOBIN [id number] 00:00:00* Test Item Value Reference Range Interpretation Comme eliana HEMOGLOBIN A1c (test code = 75919) 9.6 % Omero ParkerLIPID [id number] 00:00:00* Test Item Value Reference Range Interpretation Comme nts CHOLESTEROL (test code = 2210) 156 MG/DL TRIGLYCERIDES (test code = 2232) 182 MG/DL HDL CHOLESTEROL (test code = 2220) 52 MG/DL CALC LDL CHOL (test code = 2237) 76 MG/DL RISK RATIO LDL/HDL (test cod e = 2238) 1.46 RATIO Omero ParkerCOMPREHENSIVE METABOLIC [id number] 00:00:00* Test Item Value Reference Range Interpretation Comme nts GLUCOSE (test code = 2217) 195 MG/DL BUN (test code = 2208) 23 MG/DL CREATININE (test code = 2214) 1.13 MG/DL eGFR (2020 CKD-EPI) (test co de = 97897) 53 ML/MIN/1.73 CALC BUN/CREAT (test code = [...] ALT (test code = 2219) 24 U/L Omero [id number] 00:00:00* Test Item Value Reference Range Interpretation Comme eliana TSH, THIRD GENERATION (test code = 2821) 1.730 UIU/ML Omero ParkerHEMOGLOBIN [id number] 00:00:00* Test Item Value Reference Range Interpretation Comme nts HEMOGLOBIN A1c (test code = 17964) 9.6 % Omero ParkerLIPID [id number] 00:00:00* Test Item Value Reference Range Interpretation Comme nts CHOLESTEROL (test code = 2210) 156 MG/DL TRIGLYCERIDES (test code = 2232) 182 MG/DL HDL CHOLESTEROL (test code = 2220) 52 MG/DL CALC LDL CHOL (test code = 2237) 76 MG/DL RISK RATIO LDL/HDL (test cod e = 2238) 1.46 RATIO COMPREHENSIVE METABOLIC [id number] 00:00:00* Test Item Value Reference Range Interpretation Comme nts GLUCOSE (test code = 2217) 195 MG/DL BUN (test code = 2208) 23 MG/DL CREATININE (test code = 2214) 1.13 MG/DL eGFR (2020 CKD-EPI) (test co de = 13483) 53 ML/MIN/1.73 CALC BUN/CREAT (test code = [...] ALT (test code = 2219) 24 U/L [id number] 00:00:00* Test Item Value Reference Range Interpretation Comme nts TSH, THIRD GENERATION (test code = 2821) 1.730 UIU/ML HEMOGLOBIN [id number] 00:00:00* Test Item Value Reference Range Interpretation Comme nts HEMOGLOBIN A1c (test code = 83309) 9.6 % LIPID [id number] 00:00:00* Test Item Value Reference Range Interpretation Comme nts CHOLESTEROL (test code = 2210) 156 MG/DL TRIGLYCERIDES (test code = 2232) 182 MG/DL HDL CHOLESTEROL (test code = 2220) 52 MG/DL CALC LDL CHOL (test code = 2237) 76 MG/DL RISK RATIO LDL/HDL (test cod e = 2238) 1.46 RATIO COMPREHENSIVE METABOLIC [id number] 00:00:00* Test Item Value Reference Range Interpretation Comme nts GLUCOSE (test code = 2217) 195 MG/DL BUN (test code = 2208) 23 MG/DL CREATININE (test code = 2214) 1.13 MG/DL eGFR (2020 CKD-EPI) (test co de = 25173) 53 ML/MIN/1.73 CALC BUN/CREAT (test code = [...] ALT (test code = 2219) 24 U/L [id number] 00:00:00* Test Item Value Reference Range Interpretation Comme nts TSH, THIRD GENERATION (test code = 2821) 1.730 UIU/ML HEMOGLOBIN [id number] 00:00:00* Test Item Value Reference Range Interpretation Comme nts HEMOGLOBIN A1c (test code = 55236) 9.6 % LIPID [id number] 00:00:00* Test Item Value Reference Range Interpretation Comme nts CHOLESTEROL (test code = 2210) 156 MG/DL TRIGLYCERIDES (test code = 2232) 182 MG/DL HDL CHOLESTEROL (test code = 2220) 52 MG/DL CALC LDL CHOL (test code = 2237) 76 MG/DL RISK RATIO LDL/HDL (test cod e = 2238) 1.46 RATIO Omero ParkerCOMPREHENSIVE METABOLIC [id number] 00:00:00* Test Item Value Reference Range Interpretation Comme nts GLUCOSE (test code = 2217) 195 MG/DL BUN (test code = 2208) 23 MG/DL CREATININE (test code = 2214) 1.13 MG/DL eGFR (2020 CKD-EPI) (test co de = 84454) 53 ML/MIN/1.73 CALC BUN/CREAT (test code = [...] ALT (test code = 2219) 24 U/L Omero [id number] 00:00:00* Test Item Value Reference Range Interpretation Comme [facility] TSH, THIRD GENERATION (test code = 2821) 1.730 UIU/ML Omero ParkerCBC W/AUTO [id number] 00:00:00* Test Item Value Reference Range Interpretation [...] ABS NUCLEATED RBCS (test cod e = 68796) 0.00 K/UL Omero ParkerHEMOGLOBIN [id number] 00:00:00* Test Item Value Reference Range Interpretation Comme nts HEMOGLOBIN A1c (test code = 98631) 9.1 % Omero ParkerLIPID [id number] 00:00:00* Test Item Value Reference Range Interpretation Comme nts CHOLESTEROL (test code = 2210) 136 MG/DL TRIGLYCERIDES (test code = 2232) 191 MG/DL HDL CHOLESTEROL (test code = 2220) 44 MG/DL CALC LDL CHOL (test code = 2237) 66 MG/DL RISK RATIO LDL/HDL (test cod e = 2238) 1.50 RATIO Omero Patel KeithCBC W/AUTO [id number] 00:00:00* Test Item Value Reference Range Interpretation [...] ABS NUCLEATED RBCS (test cod e = 19543) 0.00 K/UL Omero PrakerHEMOGLOBIN [id number] 00:00:00* Test Item Value Reference Range Interpretation Comme nts HEMOGLOBIN A1c (test code = 07357) 9.1 % Omero ParkerLIPID [id number] 00:00:00* Test Item Value Reference Range Interpretation Comme nts CHOLESTEROL (test code = 2210) 136 MG/DL TRIGLYCERIDES (test code = 2232) 191 MG/DL HDL CHOLESTEROL (test code = 2220) 44 MG/DL CALC LDL CHOL (test code = 2237) 66 MG/DL RISK RATIO LDL/HDL (test cod e = 2238) 1.50 RATIO Omero ParkerCBC W/AUTO [id number] 00:00:00* Test Item Value Reference Range Interpretation [...] ABS NUCLEATED RBCS (test cod e = 24241) 0.00 K/UL Omero F AustinHEMOGLOBIN [id number] 00:00:00* Test Item Value Reference Range Interpretation Comme nts HEMOGLOBIN A1c (test code = 67750) 9.1 % LIPID [id number] 00:00:00* Test Item Value Reference Range Interpretation Comme nts CHOLESTEROL (test code = 2210) 136 MG/DL TRIGLYCERIDES (test code = 2232) 191 MG/DL HDL CHOLESTEROL (test code = 2220) 44 MG/DL CALC LDL CHOL (test code = 2237) 66 MG/DL RISK RATIO LDL/HDL (test cod e = 2238) 1.50 RATIO CBC W/AUTO [id number] 00:00:00* Test Item Value Reference Range Interpretation [...] ABS NUCLEATED RBCS (test cod e = 21956) 0.00 K/UL HEMOGLOBIN [id number] 00:00:00* Test Item Value Reference Range Interpretation Comme nts HEMOGLOBIN A1c (test code = 56938) 9.1 % LIPID [id number] 00:00:00* Test Item Value Reference Range Interpretation Comme nts CHOLESTEROL (test code = 2210) 136 MG/DL TRIGLYCERIDES (test code = 2232) 191 MG/DL HDL CHOLESTEROL (test code = 2220) 44 MG/DL CALC LDL CHOL (test code = 2237) 66 MG/DL RISK RATIO LDL/HDL (test cod e = 2238) 1.50 RATIO CBC W/AUTO [id number] 00:00:00* Test Item Value Reference Range Interpretation [...] ABS NUCLEATED RBCS (test cod e = 14461) 0.00 K/UL HEMOGLOBIN [id number] 00:00:00* Test Item Value Reference Range Interpretation Comme nts HEMOGLOBIN A1c (test code = 83573) 9.1 % Omero Patel AustinLIPID [id number] 00:00:00* Test Item Value Reference Range Interpretation Comme nts CHOLESTEROL (test code = 2210) 136 MG/DL TRIGLYCERIDES (test code = 2232) 191 MG/DL HDL CHOLESTEROL (test code = 2220) 44 MG/DL CALC LDL CHOL (test code = 2237) 66 MG/DL RISK RATIO LDL/HDL (test cod e = 2238) 1.50 RATIO Omero Patel AustinLIPID [id number] 00:00:00* Test Item Value Reference Range Interpretation Comme nts CHOLESTEROL (test code = 2210) 143 MG/DL TRIGLYCERIDES (test code = 2232) 258 MG/DL HDL CHOLESTEROL (test code = 2220) 45 MG/DL CALC LDL CHOL (test code = 2237) 68 MG/DL RISK RATIO LDL/HDL (test cod e = 2238) 1.51 RATIO Omero Patel AustinCOMPREHENSIVE METABOLIC [id number] 00:00:00* Test Item Value Reference Range Interpretation Comme nts GLUCOSE (test code = 2217) 166 MG/DL BUN (test code = 2208) 19 MG/DL CREATININE (test code = 2214) 1.04 MG/DL eGFR AMER. (test cod e = 25778) 63 ML/MIN/1.73 eGFR NON- AMER. (test code = 63076) 55 ML/MIN/1.73 CALC BUN/CREAT (test code = 2235) 18 RATIO SODIUM (test code = 2231) 138 MEQ/L POTASSIUM (test code = 2228) 5.3 MEQ/L CHLORIDE (test code = 2215) 102 MEQ/L CARBON DIOXIDE (test code = 2206) 24 MEQ/L CALCIUM (test code = 2209) 9.6 MG/DL PROTEIN, TOTAL (test code = 222) 7.3 G/DL ALBUMIN (test code = 2201) 4.2 G/DL CALC GLOBULIN (test code = 2240) 3.1 G/DL CALC A/G RATIO (test code = 2234) 1.4 RATIO BILIRUBIN, TOTAL (test code = 220) 0.3 MG/DL ALKALINE PHOSPHATASE (test code = 2203) 81 U/L AST (test code = 221) 26 U/L ALT (test code = 221) 23 U/L Omero [id number] 00:00:00* Test Item Value Reference Range Interpretation Comme [facility] TSH, THIRD GENERATION (test code = 2821) 2.640 UIU/ML Omero ParkerHEMOGLOBIN [id number] 00:00:00* Test Item Value Reference Range Interpretation Comme [facility] HEMOGLOBIN A1c (test code = 79448) 10.0 % Omero ParkerLIPID [id number] 00:00:00* Test Item Value Reference Range Interpretation Comme nts CHOLESTEROL (test code = 2210) 143 MG/DL TRIGLYCERIDES (test code = 2232) 258 MG/DL HDL CHOLESTEROL (test code = 2220) 45 MG/DL CALC LDL CHOL (test code = 2237) 68 MG/DL RISK RATIO LDL/HDL (test cod e = 2238) 1.51 RATIO Omero ParkerCOMPREHENSIVE METABOLIC [id number] 00:00:00* Test Item Value Reference Range Interpretation Comme nts GLUCOSE (test code = 2217) 166 MG/DL BUN (test code = 2208) 19 MG/DL CREATININE (test code = 2214) 1.04 MG/DL eGFR AMER. (test cod e = ) 63 ML/MIN/1.73 eGFR NON- AMER. (test code = 54140) 55 ML/MIN/1.73 CALC BUN/CREAT (test code = [...] 1.4 RATIO BILIRUBIN, TOTAL (test code = 2206) 0.3 MG/DL ALKALINE PHOSPHATASE (test code = 2203) 81 U/L AST (test code = 2217) 26 U/L ALT (test code = 2218) 23 U/L Omero [id number] 00:00:00* Test Item Value Reference Range Interpretation Comme nts TSH, THIRD GENERATION (test code = 2821) 2.640 UIU/ML Omero ParkerHEMOGLOBIN [id number] 00:00:00* Test Item Value Reference Range Interpretation Comme nts HEMOGLOBIN A1c (test code = 15846) 10.0 % Omero ParkerLIPID [id number] 00:00:00* Test Item Value Reference Range Interpretation Comme nts CHOLESTEROL (test code = 2210) 143 MG/DL TRIGLYCERIDES (test code = 2232) 258 MG/DL HDL CHOLESTEROL (test code = 2220) 45 MG/DL CALC LDL CHOL (test code = 2236) 68 MG/DL RISK RATIO LDL/HDL (test cod e = 2238) 1.51 RATIO COMPREHENSIVE METABOLIC [id number] 00:00:00* Test Item Value Reference Range Interpretation Comme nts GLUCOSE (test code = 2217) 166 MG/DL BUN (test code = 8) 19 MG/DL CREATININE (test code = 2214) 1.04 MG/DL eGFR AMER. (test cod e = 66489) 63 ML/MIN/1.73 eGFR NON- AMER. (test code = 25153) 55 ML/MIN/1.73 CALC BUN/CREAT (test code = [...] 0.3 MG/DL ALKALINE PHOSPHATASE (test code = 220) 81 U/L AST (test code = 221) 26 U/L ALT (test code = 221) 23 U/L [id number] 00:00:00* Test Item Value Reference Range Interpretation Comme nts TSH, THIRD GENERATION (test code = 2821) 2.640 UIU/ML HEMOGLOBIN [id number] 00:00:00* Test Item Value Reference Range Interpretation Comme nts HEMOGLOBIN A1c (test code = 08660) 10.0 % LIPID [id number] 00:00:00* Test Item Value Reference Range Interpretation Comme nts CHOLESTEROL (test code = 2210) 143 MG/DL TRIGLYCERIDES (test code = 2232) 258 MG/DL HDL CHOLESTEROL (test code = 2220) 45 MG/DL CALC LDL CHOL (test code = 2237) 68 MG/DL RISK RATIO LDL/HDL (test cod e = 2238) 1.51 RATIO COMPREHENSIVE METABOLIC [id number] 00:00:00* Test Item Value Reference Range Interpretation Comme nts GLUCOSE (test code = 2217) 166 MG/DL BUN (test code = 2208) 19 MG/DL CREATININE (test code = 2214) 1.04 MG/DL eGFR AMER. (test cod e = 53328) 63 ML/MIN/1.73 eGFR NON- AMER. (test code = 84464) 55 ML/MIN/1.73 CALC BUN/CREAT (test code = 2235) 18 RATIO SODIUM (test code = 2231) 138 MEQ/L POTASSIUM (test code = 2228) 5.3 MEQ/L CHLORIDE (test code = 2215) 102 MEQ/L CARBON DIOXIDE (test code = 2206) 24 MEQ/L CALCIUM (test code = 220) 9.6 MG/DL PROTEIN, TOTAL (test code = [...] ALT (test code = 2219) 23 U/L [id number] 00:00:00* Test Item Value Reference Range Interpretation Comme nts TSH, THIRD GENERATION (test code = 2821) 2.640 UIU/ML HEMOGLOBIN [id number] 00:00:00* Test Item Value Reference Range Interpretation Comme nts HEMOGLOBIN A1c (test code = 59247) 10.0 % LIPID [id number] 00:00:00* Test Item Value Reference Range Interpretation Comme nts CHOLESTEROL (test code = 2210) 143 MG/DL TRIGLYCERIDES (test code = 2232) 258 MG/DL HDL CHOLESTEROL (test code = 2220) 45 MG/DL CALC LDL CHOL (test code = 2237) 68 MG/DL RISK RATIO LDL/HDL (test cod e = 2238) 1.51 RATIO Omero F AustinCOMPREHENSIVE METABOLIC [id number] 00:00:00* Test Item Value Reference Range Interpretation Comme nts GLUCOSE (test code = 7) 166 MG/DL BUN (test code = 8) 19 MG/DL CREATININE (test code = 2214) 1.04 MG/DL eGFR AMER. (test cod e = 55847) 63 ML/MIN/1.73 eGFR NON- AMER. (test code = 55765) 55 ML/MIN/1.73 CALC BUN/CREAT (test code = 2235) 18 RATIO SODIUM (test code = 2231) 138 MEQ/L POTASSIUM (test code = 2228) 5.3 MEQ/L CHLORIDE (test code = 2215) 102 MEQ/L CARBON DIOXIDE (test code = 2205) 24 MEQ/L CALCIUM (test code = 2209) [...] ALT (test code = 2219) 23 U/L Omero [id number] 00:00:00* Test Item Value Reference Range Interpretation Comme eliana TSH, THIRD GENERATION (test code = 2821) 2.640 UIU/ML Omero ParkerHEMOGLOBIN [id number] 00:00:00* Test Item Value Reference Range Interpretation Comme nts HEMOGLOBIN A1c (test code = 16283) 10.0 % Omero ParkerMICROALBUMIN/CREATININE, RANDOM AND [id number] 00:00:00* Test Item Value Reference Range Interpretation Comme nts CREATININE, URINE, CONC. (te st code = 2071) 68.9 MG/DL ALBUMIN, URINE, RANDOM (test code = 06527) 0.3 MG/DL CALC ALBUMIN/CREAT, RND (jaimee t code = 18402) 4 MG/G Omero Patel AustinMICROALBUMIN/CREATININE, RANDOM AND [id number] 00:00:00* Test Item Value Reference Range Interpretation Comme nts CREATININE, URINE, CONC. (te st code = 2071) 68.9 MG/DL ALBUMIN, URINE, RANDOM (test code = 24887) 0.3 MG/DL CALC ALBUMIN/CREAT, RND (jaimee t code = 55574) 4 MG/G Omero Patel AustinMICROALBUMIN/CREATININE, RANDOM AND [id number] 00:00:00* Test Item Value Reference Range Interpretation Comme nts CREATININE, URINE, CONC. (te st code = 2071) 68.9 MG/DL ALBUMIN, URINE, RANDOM (test code = 56924) 0.3 MG/DL CALC ALBUMIN/CREAT, RND (jaimee t code = 13137) 4 MG/G MICROALBUMIN/CREATININE, RANDOM AND [id number] 00:00:00* Test Item Value Reference Range Interpretation Comme nts CREATININE, URINE, CONC. (te st code = 2071) 68.9 MG/DL ALBUMIN, URINE, RANDOM (test code = 70403) 0.3 MG/DL CALC ALBUMIN/CREAT, RND (jaimee t code = 81993) 4 MG/G MICROALBUMIN/CREATININE, RANDOM AND [id number] 00:00:00* Test Item Value Reference Range Interpretation Comme nts CREATININE, URINE, CONC. (te st code = 2071) 68.9 MG/DL ALBUMIN, URINE, RANDOM (test code = 49276) 0.3 MG/DL CALC ALBUMIN/CREAT, RND (jaimee t code = 50865) 4 MG/G Omero Patel AustinLIPID [id number] 00:00:00* Test Item Value Reference Range Interpretation Comme nts CHOLESTEROL (test code = 2210) 132 MG/DL TRIGLYCERIDES (test code = 2232) 224 MG/DL HDL CHOLESTEROL (test code = 2220) 45 MG/DL CALC LDL CHOL (test code = 2237) 59 MG/DL RISK RATIO LDL/HDL (test cod e = 2238) 1.31 RATIO Omero ParkerCOMPREHENSIVE METABOLIC [id number] 00:00:00* Test Item Value Reference Range Interpretation Comme nts GLUCOSE (test code = 2217) 137 MG/DL BUN (test code = 2208) 21 MG/DL CREATININE (test code = 2214) 1.21 MG/DL eGFR AMER. (test cod e = 49667) 53 ML/MIN/1.73 eGFR NON- AMER. (test code = 09267) 46 ML/MIN/1.73 CALC BUN/CREAT (test code = [...] ALT (test code = 2219) 22 U/L Omero ParkerHEMOGLOBIN [id number] 00:00:00* Test Item Value Reference Range Interpretation Comme eliana HEMOGLOBIN A1c (test code = 75632) 8.9 % Omero ParkerLIPID [id number] 00:00:00* Test Item Value Reference Range Interpretation Comme nts CHOLESTEROL (test code = 2210) 132 MG/DL TRIGLYCERIDES (test code = 2232) 224 MG/DL HDL CHOLESTEROL (test code = 2220) 45 MG/DL CALC LDL CHOL (test code = 2237) 59 MG/DL RISK RATIO LDL/HDL (test cod e = 2238) 1.31 RATIO Omero ParkerCOMPREHENSIVE METABOLIC [id number] 00:00:00* Test Item Value Reference Range Interpretation Comme nts GLUCOSE (test code = 2217) 137 MG/DL BUN (test code = 2208) 21 MG/DL CREATININE (test code = 2214) 1.21 MG/DL eGFR AMER. (test cod e = 25169) 53 ML/MIN/1.73 eGFR NON- AMER. (test code = 92511) 46 ML/MIN/1.73 CALC BUN/CREAT (test code = [...] ALT (test code = 2219) 22 U/L Omero ParkerHEMOGLOBIN [id number] 00:00:00* Test Item Value Reference Range Interpretation Comme nts HEMOGLOBIN A1c (test code = 82710) 8.9 % Omero ParkerLIPID [id number] 00:00:00* Test Item Value Reference Range Interpretation Comme nts CHOLESTEROL (test code = 2210) 132 MG/DL TRIGLYCERIDES (test code = 2232) 224 MG/DL HDL CHOLESTEROL (test code = 2220) 45 MG/DL CALC LDL CHOL (test code = 2237) 59 MG/DL RISK RATIO LDL/HDL (test cod e = 2238) 1.31 RATIO COMPREHENSIVE METABOLIC [id number] 00:00:00* Test Item Value Reference Range Interpretation Comme nts GLUCOSE (test code = 2217) 137 MG/DL BUN (test code = 2208) 21 MG/DL CREATININE (test code = 2214) 1.21 MG/DL eGFR AMER. (test cod e = 68474) 53 ML/MIN/1.73 eGFR NON- AMER. (test code = 48239) 46 ML/MIN/1.73 CALC BUN/CREAT (test code = [...] (test code = 2219) 22 U/L HEMOGLOBIN [id number] 00:00:00* Test Item Value Reference Range Interpretation Comme nts HEMOGLOBIN A1c (test code = 32239) 8.9 % LIPID [id number] 00:00:00* Test Item Value Reference Range Interpretation Comme nts CHOLESTEROL (test code = 2210) 132 MG/DL TRIGLYCERIDES (test code = 2232) 224 MG/DL HDL CHOLESTEROL (test code = 2220) 45 MG/DL CALC LDL CHOL (test code = 2237) 59 MG/DL RISK RATIO LDL/HDL (test cod e = 2238) 1.31 RATIO COMPREHENSIVE METABOLIC [id number] 00:00:00* Test Item Value Reference Range Interpretation Comme nts GLUCOSE (test code = 2217) 137 MG/DL BUN (test code = 2208) 21 MG/DL CREATININE (test code = 2214) 1.21 MG/DL eGFR AMER. (test cod e = 90626) 53 ML/MIN/1.73 eGFR NON- AMER. (test code = 26306) 46 ML/MIN/1.73 CALC BUN/CREAT (test code = [...] (test code = 2219) 22 U/L HEMOGLOBIN [id number] 00:00:00* Test Item Value Reference Range Interpretation Comme nts HEMOGLOBIN A1c (test code = 74655) 8.9 % LIPID [id number] 00:00:00* Test Item Value Reference Range Interpretation Comme nts CHOLESTEROL (test code = 2210) 132 MG/DL TRIGLYCERIDES (test code = 2232) 224 MG/DL HDL CHOLESTEROL (test code = 2220) 45 MG/DL CALC LDL CHOL (test code = 2237) 59 MG/DL RISK RATIO LDL/HDL (test cod e = 2238) 1.31 RATIO Omero F AustinCOMPREHENSIVE METABOLIC [id number] 00:00:00* Test Item Value Reference Range Interpretation Comme nts GLUCOSE (test code = 2217) 137 MG/DL BUN (test code = 2208) 21 MG/DL CREATININE (test code = 2214) 1.21 MG/DL eGFR AMER. (test cod e = 60763) 53 ML/MIN/1.73 eGFR NON- AMER. (test code = 05612) 46 ML/MIN/1.73 CALC BUN/CREAT (test code = [...] ALT (test code = 2219) 22 U/L Omero ParkerHEMOGLOBIN [id number] 00:00:00* Test Item Value Reference Range Interpretation Comme nts HEMOGLOBIN A1c (test code = 75420) 8.9 % Omero Patel KeithALBUMIN/CREATININE RATIO, URINE, RANDOM [ADDED]2019-09-16 00:00:00* Test Item Value Reference Range Interpretation Comme nts CREATININE, URINE, CONC. (test code = 2072) TEST NOT PERFORMED MG/DL ALBUMIN, URINE, RANDOM (test code = 19671) TEST NOT PERFORMED MG/DL CALC ALBUMIN/CREAT, RND (test code = 31639) TEST NOT PERFORMED MG/G Omero Patel KeithALBUMIN/CREATININE RATIO, URINE, RANDOM [ADDED]2019-09-16 00:00:00* Test Item Value Reference Range Interpretation Comme nts CREATININE, URINE, CONC. (test code = 207) TEST NOT PERFORMED MG/DL ALBUMIN, URINE, RANDOM (test code = 42472) TEST NOT PERFORMED MG/DL CALC ALBUMIN/CREAT, RND (test code = 13497) TEST NOT PERFORMED MG/G Omero F KeithALBUMIN/CREATININE RATIO, URINE, RANDOM [ADDED]2019-09-16 00:00:00* Test Item Value Reference Range Interpretation Comme nts CREATININE, URINE, CONC. (test code = 2072) TEST NOT PERFORMED MG/DL ALBUMIN, URINE, RANDOM (test code = 37120) TEST NOT PERFORMED MG/DL CALC ALBUMIN/CREAT, RND (test code = 57672) TEST NOT PERFORMED MG/G ALBUMIN/CREATININE RATIO, URINE, RANDOM [ADDED]2019-09-16 00:00:00* Test Item Value Reference Range Interpretation Comme nts CREATININE, URINE, CONC. (test code = 207) TEST NOT PERFORMED MG/DL ALBUMIN, URINE, RANDOM (test code = 79456) TEST NOT PERFORMED MG/DL CALC ALBUMIN/CREAT, RND (test code = 56634) TEST NOT PERFORMED MG/G ALBUMIN/CREATININE RATIO, URINE, RANDOM [ADDED]2019-09-16 00:00:00* Test Item Value Reference Range Interpretation Comme nts CREATININE, URINE, CONC. (test code = 207) TEST NOT PERFORMED MG/DL ALBUMIN, URINE, RANDOM (test code = 60232) TEST NOT PERFORMED MG/DL CALC ALBUMIN/CREAT, RND (test code = 38170) TEST NOT PERFORMED MG/G Omero F KeithCOMPREHENSIVE METABOLIC PANEL [ADDED]2019-09-12 00:00:00* Test Item Value Reference Range Interpretation Comme nts GLUCOSE (test code = 2217) 182 MG/DL BUN (test code = 2208) 25 MG/DL CREATININE (test code = 2214) 1.16 MG/DL eGFR AMER. (test cod e = 96211) 56 ML/MIN/1.73 eGFR NON- AMER. (test code = 46418) 48 ML/MIN/1.73 CALC BUN/CREAT (test code = [...] ALT (test code = 2219) 23 U/L Omero ParkerLIPID PANEL [ADDED]2019-09-12 00:00:00* Test Item Value Reference Range Interpretation Comme nts CHOLESTEROL (test code = 2210) 165 MG/DL TRIGLYCERIDES (test code = 2232) 345 MG/DL HDL CHOLESTEROL (test code = 2220) 50 MG/DL CALC LDL CHOL (test code = 2237) 73 MG/DL RISK RATIO LDL/HDL (test cod e = 2238) 1.46 RATIO Omero ParkerTSH, THIRD GENERATION [ADDED]2019-09-12 00:00:00* Test Item Value Reference Range Interpretation Comme nts TSH, THIRD GENERATION (test code = 2821) 9.860 UIU/ML Omero Patel KeithNOTE: [ADDED]2019-09-12 00:00:00* Test Item Value Reference Range Interpretation Comme nts NOTE: (test code = 998) (NOTE) Omero ParkerCOMPREHENSIVE METABOLIC PANEL [ADDED]2019-09-12 00:00:00* Test Item Value Reference Range Interpretation Comme nts GLUCOSE (test code = 2217) 182 MG/DL BUN (test code = 2208) 25 MG/DL CREATININE (test code = 2214) 1.16 MG/DL eGFR AMER. (test cod e = 80636) 56 ML/MIN/1.73 eGFR NON- AMER. (test code = 54307) 48 ML/MIN/1.73 CALC BUN/CREAT (test code = [...] ALT (test code = 2219) 23 U/L Omero ParkerLIPID PANEL [ADDED]2019-09-12 00:00:00* Test Item Value Reference Range Interpretation Comme nts CHOLESTEROL (test code = 2210) 165 MG/DL TRIGLYCERIDES (test code = 2232) 345 MG/DL HDL CHOLESTEROL (test code = 2220) 50 MG/DL CALC LDL CHOL (test code = 2237) 73 MG/DL RISK RATIO LDL/HDL (test cod e = 2238) 1.46 RATIO Omero ParkerTSH, THIRD GENERATION [ADDED]2019-09-12 00:00:00* Test Item Value Reference Range Interpretation Comme nts TSH, THIRD GENERATION (test code = 2821) 9.860 UIU/ML Omero Patel KeithNOTE: [ADDED]2019-09-12 00:00:00* Test Item Value Reference Range Interpretation Comme nts NOTE: (test code = 998) (NOTE) Omero ParkerCOMPREHENSIVE METABOLIC PANEL [ADDED]2019-09-12 00:00:00* Test Item Value Reference Range Interpretation Comme nts GLUCOSE (test code = 2217) 182 MG/DL BUN (test code = 2208) 25 MG/DL CREATININE (test code = 2214) 1.16 MG/DL eGFR AMER. (test cod e = 84856) 56 ML/MIN/1.73 eGFR NON- AMER. (test code = 75015) 48 ML/MIN/1.73 CALC BUN/CREAT (test code = [...] ALT (test code = 2219) 23 U/L Omero Patel AustinLIPID PANEL [ADDED]2019-09-12 00:00:00* Test Item Value Reference [...] MG/DL eGFR AMER. (test cod e = 07632) 56 ML/MIN/1.73 eGFR NON- AMER. (test code = 17626) 48 ML/MIN/1.73 CALC BUN/CREAT (test code = [...] MG/DL eGFR AMER. (test cod e = 12249) 56 ML/MIN/1.73 eGFR NON- AMER. (test code = 21473) 48 ML/MIN/1.73 CALC BUN/CREAT (test code = [...] (test cod e = 2238) 1.46 RATIO Omero ParkerTSH, THIRD GENERATION [ADDED]2019-09-12 00:00:00* Test Item Value Reference Range Interpretation Comme nts TSH, THIRD GENERATION (test code = 2821) 9.860 UIU/ML Omero Patel KeithNOTE: [ADDED]2019-09-12 00:00:00* Test Item Value Reference Range Interpretation Comme nts NOTE: (test code = 998) (NOTE) Omero Patel KeithCBC W/AUTO DIFF WITH PLATELETS [ADDED]2019-09-11 00:00:00* Test [...] COUNT (test code = 1015) 232 K/UL Omero Patel KeithHEMOGLOBIN A1c [ADDED]2019-09-11 00:00:00* Test Item Value Reference Range Interpretation Comme nts HEMOGLOBIN A1c (test code = 52146) 9.0 % Omero F AustinCBC W/AUTO DIFF WITH PLATELETS [ADDED]2019-09-11 00:00:00* Test [...] COUNT (test code = 1015) 232 K/UL Omero ParkerHEMOGLOBIN A1c [ADDED]2019-09-11 00:00:00* Test Item Value Reference Range Interpretation Comme nts HEMOGLOBIN A1c (test code = 10080) 9.0 % Omero Patel AustinCBC W/AUTO DIFF WITH PLATELETS [ADDED]2019-09-11 00:00:00* Test [...] Comme nts HEMOGLOBIN A1c (test code = 13625) 9.0 % CBC W/AUTO DIFF WITH PLATELETS [...] Comme nts HEMOGLOBIN A1c (test code = 94998) 9.0 % CBC W/AUTO DIFF WITH PLATELETS [...] COUNT (test code = 1015) 232 K/UL Omero ParkerHEMOGLOBIN A1c [ADDED]2019-09-11 00:00:00* Test Item Value Reference Range Interpretation Comme nts HEMOGLOBIN A1c (test code = 28285) 9.0 % Omero ParkerCBC W/AUTO [id number] 00:00:00* Test Item Value Reference Range Interpretation [...] COUNT (test code = 1015) 224 K/UL Omero ParkerHEMOGLOBIN [id number] 00:00:00* Test Item Value Reference Range Interpretation Comme [facility] HEMOGLOBIN A1c (test code = 91395) 8.3 % Omero ParkerCOMPREHENSIVE METABOLIC [id number] 00:00:00* Test Item Value Reference Range Interpretation Comme nts GLUCOSE (test code = 2217) 159 MG/DL BUN (test code = 2208) 22 MG/DL CREATININE (test code = 2214) 1.06 MG/DL eGFR AMER. (test cod e = 57082) 62 ML/MIN/1.73 eGFR NON- AMER. (test code = 11495) 54 ML/MIN/1.73 CALC BUN/CREAT (test code = [...] ALT (test code = 2219) 18 U/L Omero ParkerLIPID [id number] 00:00:00* Test Item Value Reference Range Interpretation Comme nts CHOLESTEROL (test code = 2210) 145 MG/DL TRIGLYCERIDES (test code = 2232) 270 MG/DL HDL CHOLESTEROL (test code = 2220) 49 MG/DL CALC LDL CHOL (test code = 2237) 64 MG/DL RISK RATIO LDL/HDL (test cod e = 2238) 1.31 RATIO Omero ParkerCBC W/AUTO [id number] 00:00:00* Test Item Value Reference Range Interpretation [...] COUNT (test code = 1015) 224 K/UL Omero ParkerHEMOGLOBIN [id number] 00:00:00* Test Item Value Reference Range Interpretation Comme eliana HEMOGLOBIN A1c (test code = 84858) 8.3 % Omero ParkerCOMPREHENSIVE METABOLIC [id number] 00:00:00* Test Item Value Reference Range Interpretation Comme nts GLUCOSE (test code = 2217) 159 MG/DL BUN (test code = 2208) 22 MG/DL CREATININE (test code = 2214) 1.06 MG/DL eGFR AMER. (test cod e = 31964) 62 ML/MIN/1.73 eGFR NON- AMER. (test code = 95110) 54 ML/MIN/1.73 CALC BUN/CREAT (test code = [...] ALT (test code = 2219) 18 U/L Omero ParkerLIPID [id number] 00:00:00* Test Item Value Reference Range Interpretation Comme nts CHOLESTEROL (test code = 2210) 145 MG/DL TRIGLYCERIDES (test code = 2232) 270 MG/DL HDL CHOLESTEROL (test code = 2220) 49 MG/DL CALC LDL CHOL (test code = 2237) 64 MG/DL RISK RATIO LDL/HDL (test cod e = 2238) 1.31 RATIO Omero ParkerCBC W/AUTO [id number] 00:00:00* Test Item Value Reference Range Interpretation [...] COUNT (test code = 1015) 224 K/UL Omero Patel AustinHEMOGLOBIN [id number] 00:00:00* Test Item Value Reference Range Interpretation Comme nts HEMOGLOBIN A1c (test code = 30704) 8.3 % COMPREHENSIVE METABOLIC [id number] 00:00:00* Test Item Value Reference Range Interpretation Comme nts GLUCOSE (test code = 2217) 159 MG/DL BUN (test code = 2208) 22 MG/DL CREATININE (test code = 2214) 1.06 MG/DL eGFR AMER. (test cod e = 97631) 62 ML/MIN/1.73 eGFR NON- AMER. (test code = 36254) 54 ML/MIN/1.73 CALC BUN/CREAT (test code = [...] (test code = 2219) 18 U/L LIPID [id number] 00:00:00* Test Item Value Reference Range Interpretation Comme nts CHOLESTEROL (test code = 2210) 145 MG/DL TRIGLYCERIDES (test code = 2232) 270 MG/DL HDL CHOLESTEROL (test code = 2220) 49 MG/DL CALC LDL CHOL (test code = 2237) 64 MG/DL RISK RATIO LDL/HDL (test cod e = 2238) 1.31 RATIO CBC W/AUTO [id number] 00:00:00* Test Item Value Reference Range Interpretation [...] (test code = 1015) 224 K/UL HEMOGLOBIN [id number] 00:00:00* Test Item Value Reference Range Interpretation Comme nts HEMOGLOBIN A1c (test code = 36243) 8.3 % COMPREHENSIVE METABOLIC [id number] 00:00:00* Test Item Value Reference Range Interpretation Comme nts GLUCOSE (test code = 2217) 159 MG/DL BUN (test code = 2208) 22 MG/DL CREATININE (test code = 2214) 1.06 MG/DL eGFR AMER. (test cod e = 00070) 62 ML/MIN/1.73 eGFR NON- AMER. (test code = 33017) 54 ML/MIN/1.73 CALC BUN/CREAT (test code = [...] (test code = 2219) 18 U/L LIPID [id number] 00:00:00* Test Item Value Reference Range Interpretation Comme nts CHOLESTEROL (test code = 2210) 145 MG/DL TRIGLYCERIDES (test code = 2232) 270 MG/DL HDL CHOLESTEROL (test code = 2220) 49 MG/DL CALC LDL CHOL (test code = 2237) 64 MG/DL RISK RATIO LDL/HDL (test cod e = 2238) 1.31 RATIO CBC W/AUTO [id number] 00:00:00* Test Item Value Reference Range Interpretation [...] (test code = 1015) 224 K/UL HEMOGLOBIN [id number] 00:00:00* Test Item Value Reference Range Interpretation Comme nts HEMOGLOBIN A1c (test code = 98476) 8.3 % Omero F AustinCOMPREHENSIVE METABOLIC [id number] 00:00:00* Test Item Value Reference Range Interpretation Comme nts GLUCOSE (test code = 2217) 159 MG/DL BUN (test code = 2208) 22 MG/DL CREATININE (test code = 2214) 1.06 MG/DL eGFR AMER. (test cod e = 98284) 62 ML/MIN/1.73 eGFR NON- AMER. (test code = 93909) 54 ML/MIN/1.73 CALC BUN/CREAT (test code = [...] ALT (test code = 2219) 18 U/L Omero ParkerLIPID [id number] 00:00:00* Test Item Value Reference Range Interpretation Comme nts CHOLESTEROL (test code = 2210) 145 MG/DL TRIGLYCERIDES (test code = 2232) 270 MG/DL HDL CHOLESTEROL (test code = 2220) 49 MG/DL CALC LDL CHOL (test code = 2237) 64 MG/DL RISK RATIO LDL/HDL (test cod e = 2238) 1.31 RATIO Omero Parker
[2024-02-16] MEDS ORDERED: METHYLPREDNISOLONE 125 MG INJ ONE (02:08)
[2024-02-16] MEDS ORDERED: DIPHENHYDRAMINE 50 MG/ML VIAL ONE (02:08)
[2024-02-16] MEDS ORDERED: FAMOTIDINE 20 MG/2 ML VIAL IV ONE (02:09)
--- NOTE | 2024-02-16 03:04 | ER ---
Nurse's Notes [facility] Name: Karin Mendosa Age: 73 yrs Sex: Female : 1950 Arrival Date: 02/16/2024 Time: 01:59 Bed 2 Private MD: Diagnosis: Allergic urticaria Presentation: 02/15 02:08 Chief complaint: Patient's son or daughter states: She woke up complaining that she vc1 couldn't breath and had a rash and was itching all over. Coronavirus screen: Client denies travel out of the [place] in the last 14 days. At this time, the client does not indicate any symptoms associated with coronavirus-19. Ebola Screen: Patient negative for fever greater than or equal to 101.5 degrees Fahrenheit, and additional compatible Ebola Virus Disease symptoms Patient denies exposure to infectious person. Patient denies travel to an Ebola-affected area in the 21 days before illness onset. No symptoms or risks identified at this time. Initial Sepsis Screen: Does the patient meet any 2 criteria? RR > 20 per min. HR > 90 bpm. Yes Does the patient have a suspected source of infection? No. Patient's initial sepsis screen is negative. Risk Assessment: Do you want to hurt yourself or someone else? Patient reports no desire to harm self or others. Onset of symptoms was February 16, 2024. 02:08 Method Of Arrival: Wheelchair vc1 02:08 Acuity: RAY 3 vc1 Triage Assessment: 02:14 General: Appears distressed, uncomfortable, well groomed, well developed, Behavior is vc1 cooperative, anxious. Pain: Denies pain. EENT: Reports "feels like throat is closing". Neuro: Level of Consciousness is awake, alert, obeys commands, Oriented to person, place, time, situation, Appropriate for age. Cardiovascular: Capillary refill < 3 seconds Patient's skin is warm and dry. Rhythm is sinus tachycardia. Respiratory: Reports shortness of breath at rest Onset: The symptoms/episode began/occurred just prior to arrival, the patient has mild shortness of breath. GI: No deficits noted. No signs and/or symptoms were reported involving the gastrointestinal system. : No deficits noted. No signs and/or symptoms were reported regarding the genitourinary system. Derm: Rash noted that is itchy. Musculoskeletal: Circulation, motion, and sensation intact. Range of motion: intact in all extremities. Historical: - Allergies: 02:12 Morphine; vc1 - PMHx: 02:12 Arthritis; Diabetes - NIDDM; Hypertension; Hypothyroidism; vc1 - PSHx: 02:12 back surgery; Cholecystectomy; vc1 - Immunization history:: Adult Immunizations unknown. - Infectious Disease History:: Denies. - Social history:: Smoking status: Patient denies any tobacco usage or history of. Screenin:13 [facility] ED Fall Risk Assessment (Adult) History of falling in the last 3 months, vc1 including since admission No falls in past 3 months (0 pts) Confusion or Disorientation No (0 pts) Intoxicated or Sedated No (0 pts) Impaired Gait No (0 pts) Mobility Assist Device Used No (0 pt) Altered Elimination No (0 pt) Score/Fall Risk Level 0 - 2 = Low Risk Oriented to surroundings, Maintained a safe environment, Educated pt \\T\\ family on fall prevention, incl call for assistance when getting out of bed. Abuse screen: Denies threats or abuse. Nutritional screening: No deficits noted. Tuberculosis screening: No symptoms or risk factors identified. Assessment: 02:16 Cardiovascular: Capillary refill < 3 seconds Patient's skin is warm and dry. vc1 Respiratory: Airway is patent Respiratory effort is even, unlabored, Respiratory pattern is symmetrical, tachypnea Breath sounds are clear bilaterally. 03:19 Reassessment: Patient appears in no apparent distress at this time. Patient and/or al5 family updated on plan of care and expected duration. Pain level reassessed. Patient is alert, oriented x 3, equal unlabored respirations, skin warm/dry/pink. Patient states feeling better. Patient states symptoms have improved. Vital Signs: 02:00 BP 161 / 63; Pulse 105; Resp 18; Pulse Ox 99% on R/A; al5 02:08 BP 174 / 76; Pulse 114; Resp 22; Temp 97.7; Pulse Ox 98% ; Weight 89.81 kg; Height 5 vc1 ft. 3 in. ; Pain 0/10; 02:15 BP 146 / 70; Pulse 94; Resp 18; Pulse Ox 100% on R/A; al5 02:30 BP 113 / 66; Pulse 88; Resp 20; Pulse Ox 98% on R/A; al5 02:45 BP 107 / 63; Pulse 86; Resp 19; Pulse Ox 96% on R/A; al5 03:00 BP 116 / 68; Pulse 85; Resp 14; Pulse Ox 97% on R/A; al5 02:08 Body Mass Index 35.07 (89.81 kg, 160.02 cm) vc1 02:08 Pain Scale: Adult vc1 ED Course: 02:03 Patient arrived in ED. gm2 02:06 Jeff Traore MD is Attending Physician. bo1 02:06 Jo Hudson RN is Primary Nurse. al5 02:12 Triage completed. vc1 02:13 Arm band placed on right wrist. vc1 02:13 Patient has correct armband on for positive identification. Bed in low position. Call vc1 light in reach. Pulse ox on. NIBP on. 02:13 Inserted saline lock: 20 gauge in right antecubital area, using aseptic technique. vc1 Blood collected. Flushed with 10 mL NS. 02:29 Provided Education on: plan of care. al5 02:29 No provider procedures requiring assistance completed. al5 03:20 IV discontinued, intact, bleeding controlled, No redness/swelling at site. Pressure al5 dressing applied. Administered Medications: 02:16 Drug: diphenhydrAMINE IVP 50 mg IVP once Route: IVP; Site: right antecubital; al5 03:20 Follow up: Response: No adverse reaction; Marked relief of symptoms al5 02:16 Drug: Famotidine IVP 20 mg IVP once; dilute with 10 mL 0.9% NaCl; give over 2 minutes al5 Route: IVP; Site: right antecubital; 03:20 Follow up: Response: No adverse reaction; Marked relief of symptoms al5 02:16 Drug: MethylPrednisoLONE IVP 125 mg IVP once Route: IVP; Site: right antecubital; al5 03:20 Follow up: Response: No adverse reaction al5 03:20 Follow up: Response: No adverse reaction; Marked relief of symptoms al5 Medication: 02:17 VIS not applicable for this client. vc1 Outcome: 03:03 Discharge ordered by . bo1 03:20 Discharged to home ambulatory, al5 03:20 Condition: good 03:20 Discharge instructions given to patient, family, Instructed on discharge instructions, follow up and referral plans. medication usage, Demonstrated understanding of instructions, follow-up care, medications, Prescriptions given X 3 03:21 Patient left the ED. al5 Signatures: Zoraida Ingram RN RN 1 Agnes Prasad 2 Jeff Traore MD MD bo1 Jo Hudson RN RN al5
--- NOTE | 2024-02-16 03:04 | EDPHYS ---
Physician Documentation [facility] Name: Karin Mendosa Age: 73 yrs Sex: Female : 1950 Arrival Date: 02/16/2024 Time: 01:59 Bed 2 Private MD: ED Physician Jeff Traore HPI: 02/15 02:39 This 73 yrs old Female presents to ER via Wheelchair with complaints of bo1 Breathing Difficulty, Allergic Reaction. 02:39 The patient has shortness of breath at rest, that occurred at home, After a meal of bo1 chicken. Onset: The symptoms/episode began/occurred acutely, just prior to arrival, 1 hour(s) ago. Duration: The symptoms are continuous. Associated signs and symptoms: Pertinent negatives: non-productive cough. Pt with itchy rash and SOB. Historical: - Allergies: 02:12 Morphine; vc1 - PMHx: 02:12 Arthritis; Diabetes - NIDDM; Hypertension; Hypothyroidism; vc1 - PSHx: 02:12 back surgery; Cholecystectomy; vc1 - Immunization history:: Adult Immunizations unknown. - Infectious Disease History:: Denies. - Social history:: Smoking status: Patient denies any tobacco usage or history of. ROS: 02:59 Constitutional: Negative for fever, chills, and weight loss bo1 02:59 Neck: Negative for pain with movement, pain at rest, 02:59 Cardiovascular: Negative for chest pain, 02:59 Respiratory: Positive for shortness of breath, Negative for cough, 02:59 Abdomen/GI: Negative for abdominal pain, nausea and vomiting, 02:59 Skin: Positive for rash, Itching all over, 02:59 All other systems are negative, Exam: 03:00 Constitutional: This is a well developed, well nourished patient who is awake, alert, bo1 and in moderate acute distress. 03:00 Constitutional: The patient appears alert, awake, anxious, uncomfortable, "itching all over - scratching" 03:00 Head/face: Exam is negative for acute changes, swelling, No angioedema. 03:00 Eyes: Exam is negative for acute changes, 03:00 Neck: External neck: is normal, 03:00 Cardiovascular: Rate: tachycardic, Rhythm: regular, Pulses: no pulse deficits are appreciated, 03:00 Respiratory: the patient does not display signs of respiratory distress, Respirations: no acute changes, Breath sounds: are clear throughout, wheezing: is not appreciated, 03:00 Musculoskeletal/extremity: Rash present and very itchy, pt is scratching all over kyle the arms and trunk. 03:00 Skin: and is diffusely located, Itchy rash, erythematous, Vital Signs: 02:00 BP 161 / 63; Pulse 105; Resp 18; Pulse Ox 99% on R/A; al5 02:08 BP 174 / 76; Pulse 114; Resp 22; Temp 97.7; Pulse Ox 98% ; Weight 89.81 kg; Height 5 vc1 ft. 3 in. ; Pain 0/10; 02:15 BP 146 / 70; Pulse 94; Resp 18; Pulse Ox 100% on R/A; al5 02:30 BP 113 / 66; Pulse 88; Resp 20; Pulse Ox 98% on R/A; al5 02:45 BP 107 / 63; Pulse 86; Resp 19; Pulse Ox 96% on R/A; al5 03:00 BP 116 / 68; Pulse 85; Resp 14; Pulse Ox 97% on R/A; al5 02:08 Body Mass Index 35.07 (89.81 kg, 160.02 cm) vc1 02:08 Pain Scale: Adult vc1 MDM: 02:06 Medical Screening Exam initiated bo1 02:57 Differential diagnosis: Acute allergic reaction - Unknown substance. Data reviewed: bo1 vital signs. Response to treatment: the patient's symptoms have resolved after treatment, the patient is now symptom free. ED course: Pt is much better now after meds. Will be discharged home and on meds for the next two days. 02/15 02:06 Order name: Saline Lock; Complete Time: 02:07 bo1 Administered Medications: 02:16 Drug: diphenhydrAMINE IVP 50 mg IVP once Route: IVP; Site: right antecubital; al5 03:20 Follow up: Response: No adverse reaction; Marked relief of symptoms al5 02:16 Drug: Famotidine IVP 20 mg IVP once; dilute with 10 mL 0.9% NaCl; give over 2 minutes al5 Route: IVP; Site: right antecubital; 03:20 Follow up: Response: No adverse reaction; Marked relief of symptoms al5 02:16 Drug: MethylPrednisoLONE IVP 125 mg IVP once Route: IVP; Site: right antecubital; al5 03:20 Follow up: Response: No adverse reaction al5 03:20 Follow up: Response: No adverse reaction; Marked relief of symptoms al5 Disposition Summary: 02/16/24 03:03 Discharge Ordered Notes: Location: Home bo1 Problem: new bo1 Symptoms: are resolved bo1 Condition: Stable bo1 Diagnosis - Allergic urticaria bo1 Followup: bo1 - With: Private Physician - When: Upon discharge from the Emergency Department - Reason: Recheck today's complaints, Continuance of care Discharge Instructions: - Discharge Summary Sheet bo1 - Allergies, Adult bo1 Forms: - Medication Reconciliation Form bo1 - Antibiotic Education bo1 - Prescription Opioid Use bo1 - Patient Portal Instructions bo1 - Leadership Thank You Letter bo1 Prescriptions: - diphenhydramine HCl 50 mg Oral capsule - take 1 capsule ORAL route every 6 hours for 2 days; 10 capsule; Refills: 0, bo1 Product Selection Permitted - famotidine 20 mg Oral tablet - take 1 tablet ORAL route 2 times per day for 2 days; 5 tablet; Refills: 0, bo1 Product Selection Permitted - Prednisone 20 mg Oral tablet - take 1 tablet ORAL route every 12 hours for 2 days; 5 tablet; Refills: 0, bo1 Product Selection Permitted Signatures: Zoraida Ingram RN RN vc1 Jeff Traore MD MD bo1 Jo Hudson RN RN al5
[2024-02-16 03:27] VITALS: TEMP 97.7
[2024-02-16 03:37] VITALS: BP 116/68; O2SAT 97
== END 2024-02-16 03:21 | disposition home or self-care (01) ==
LOC: ER 01:59
DX: L50.0 Allergic urticaria (principal); R06.02 Shortness of breath
CPT/HCPCS: 96375; 96374; 99284; J1200; J2919

== ENCOUNTER 2024-02-24 16:24 | Emergency (ER) | payer OTHER ==
--- OUTSIDE RECORDS SUMMARY | 2024-02-24 16:31 | XMS REPORT | Continuity of Care Document ---
Author Name Unknown Address [address] [place] [address] 1 [address] [place] [address] [facility] thconnect Address [address] [facility] 1 [address] [place] [address] Care Team Providers Care E Commerce Architect Name Role Phone Sally Singh Primary Care Physician GC_GCBZW_Kadiyala_S Attending Clinician Unavaila ble GC_GCBZW_Kadiyala_S Admitting [...] EVERY DAY 02-28 00:00: 00 Yes 137 Omreo Parker TAKE 1 TABLET BY MOUTH DAILY 02-28 00:00: 00 Yes 40 Omero Parker AMLODIPINE BESYLATE 10 MG TABS 02-28 00:00: 00 Yes Oemro Parker TAKE 1 TABLET BY MOUTH EVERY [...] tablet 2019-02 00:00: 00 Yes 1mcg Omero Parker diclofenac 3 % topical gel 2019-02 00:00: [...] Goal Plan of Care Note [code = 31756-7] Goal Plan of Care Note [code = 46559-3] Goal Plan of Care Note [code = 05299-2] Goal Plan of Care Note [code = 78061-8] Goal Plan of Care Note [code = 55222-3] Goal Plan of Care Note [code = 80363-1] Goal Plan of Care Note [code = 10748-6] Goal Plan of Care Note [code = 55407-1] Goal Plan of Care Note [code = 89159-5] Goal Plan of Care Note [code = 85838-8] Goal Plan of Care Note [code = 22572-8] Goal Plan of Care Note [code = 67988-1] Goal Plan of Care Note [code = 12894-1] Goal Plan of Care Note [code = 51862-3] Goal Plan of Care Note [code = 69415-5] Goal Plan of Care Note [code = 60891-1] Goal Plan of Care Note [code = 09521-9] Goal Plan of Care Note [code = 35630-8] Goal Plan of Care Note [code = 80306-8] Goal Plan of Care Note [code = 97935-4] Goal Plan of Care Note [code = 19052-7] Goal Plan of Care Note [code = 71557-3] Goal Plan of Care Note [code = 79128-5] Goal Plan of Care Note [code = 86118-5] Goal Plan of Care Note [code = 87218-7] Goal Plan of Care Note [code = 40760-0] Goal Plan of Care Note [code = 10306-6] Goal Plan of Care Note [code = 28089-1] Encounters Start Date/Time End Date/Time Encounter Type Admission Type Attending [facility] Care Department Encounter ID Source 2024-01-31 00:00:00 2024-01-31 00:00:00 Outpatient Visit [facility] [id number] Omero Parker 2024-01-03 13:18:40 2024-01-03 13:18:40 Outpatient SFA [facility] [id number] Omero Parker 2024-01-03 00:00:00 2024-01-03 00:00:00 Outpatient Visit SFA [id number] Omero Parker 2023-09-16 09:17:22 2023-09-16 09:17:22 Outpatient SFA [facility] [id number] Omero Parker 2023-09-16 00:00:00 2023-09-16 00:00:00 Outpatient Visit SFA [id number] Omero Parker 2023-05-27 15:01:49 2023-05-27 15:01:49 Outpatient SFA [facility] [id number] Omero Parker 2023-05-20 09:46:42 2023-05-20 09:46:42 Outpatient SFA [facility] [id number] Omero Parker 2023-03-02 09:32:20 2023-03-02 09:32:20 Outpatient SFA [facility] [id number] Omero Parker 2023-02-28 16:55:23 2023-02-28 16:55:23 Outpatient SFA [facility] [id number] Omero Parker 2022-12-25 00:00:00 2022-12-25 00:00:00 Outpatient GC_GCBZW_Ka diyala_S [facility] [id number] [facility] 2022-12-24 00:00:00 2022-12-24 00:00:00 Outpatient GC_GCBZW_Ka Makayla [facility] [id number] [facility] 2022-11-09 08:19:14 2022-11-09 08:19:14 Outpatient SFA S[facility] [id number] Omero Parker 2022-10-11 11:42:48 2022-10-11 11:42:48 Outpatient SFA SFA [id number] Omero Patel Keith 2022-06-20 11:50:09 2022-06-20 11:50:09 Outpatient SFA SFA [id number] Omero Parker 2022-03-08 10:19:19 2022-03-08 10:19:19 Outpatient SFA SFA [id number] Omero Patel Keith 2021-12-26 16:57:36 2021-12-26 16:57:36 Outpatient SFA SFA [id number] Omero Patel Keith 2021-12-26 00:00:00 2021-12-26 00:00:00 Outpatient Visit [id number] 2021-12-13 10:06:48 2021-12-13 10:06:48 Outpatient SFA SFA [id number] Omero Patel Keith 2021-12-12 12:01:06 2021-12-12 12:01:06 Outpatient SFA SFA [id number] 1018 Omero Patel Rockham 2021-12-12 00:00:00 2021-12-12 00:00:00 Outpatient Visit [id number] Results Test Description Test Time Test Comments Results Result Co mments Source COMPREHENSIVE METABOLIC [id number] 05:01:38* Test Item Value Reference Range Interpretation Comme nts GLUCOSE (test code = 2217) 137 MG/DL 70-99 H BUN (test code = 2207) 35 MG/DL 8-23 H CREATININE (test code = 2213) 1.44 MG/DL 0.60-1.30 H eGFR (2020 CKD-EPI) (test co de = 75407) 39 ML/MIN/1.73 >60 L CALC BUN/CREAT (test [...] = 9) 15 U/L 5-40 TSH, THIRD [id number] 05:01:24* Test Item Value Reference Range Interpretation Comme [facility] TSH, THIRD GENERATION (test code = 2821) 0.810 UIU/ML 0.400-4.100 UNLESS OTHERWISE INDICATED, ALL TESTING PERFORMED AT [facility] [address] [facility] [place] [address] HIDE GRADER: KINDRA GUTIERREZ M.D. CLIA NUMBER [id number] [facility] [place]. [id number] HEMOGLOBIN [id number] 03:21:40* Test Item Value Reference Range Interpretation Comme nts HEMOGLOBIN A1c (test code = 07495) 9.1 % 4.2-5.6 H [employer] GUIDELINES FOR HGB A1C: [...] CONSIDER ALTERNATE TESTING OR LABORATORY CONSULTATION. HEMOGLOBIN [id number] 00:00:00* Test Item Value Reference Range Interpretation Comme [facility] HEMOGLOBIN A1c (test code = 88479) 9.1 % Omero Patel AustinLIPID [id number] 00:00:00* Test Item Value Reference Range Interpretation Comme nts CHOLESTEROL (test code = 2210) 255 MG/DL TRIGLYCERIDES (test code = 2232) 493 MG/DL HDL CHOLESTEROL (test code = 2220) 46 MG/DL CALC LDL CHOL (test code = 2237) (NOTE) MG/DL RISK RATIO LDL/HDL (test cod e = 2238) (NOTE) RATIO Omero ParkerCOMPREHENSIVE METABOLIC [id number] 00:00:00* Test Item Value Reference Range Interpretation Comme nts GLUCOSE (test code = 2217) 137 MG/DL BUN (test code = 2208) 35 MG/DL CREATININE (test code = 2214) 1.44 MG/DL eGFR (2020 CKD-EPI) (test co de = 12496) 39 ML/MIN/1.73 CALC BUN/CREAT (test code = [...] = 2219) 15 U/L Omero Diaz, THIRD [id number] 00:00:00* Test Item Value Reference Range Interpretation Comme eliana TSH, THIRD GENERATION (test code = 2821) 0.810 UIU/ML Omero Diaz, THIRD [id number] 08:30:47* Test Item Value Reference Range Interpretation Comme eliana TSH, THIRD GENERATION (test code = 2821) 0.540 UIU/ML 0.400-4.100 UNLESS OTHERWISE INDICATED, ALL TESTING PERFORMED AT [facility] [address] [place] [address] HIDE GRADER: KINDRA GUTIERREZ M.D. CLIA NUMBER [id number] [facility] [place]. [id number] COMPREHENSIVE METABOLIC [id number] 06:57:03* Test Item Value Reference Range Interpretation Comme nts GLUCOSE (test code = 2217) 168 MG/DL 70-99 H BUN (test code = 220) 34 MG/DL 8-23 H CREATININE (test code = 2214) 1.41 MG/DL 0.60-1.30 H eGFR (2020 CKD-EPI) (test co de = 05740) 40 ML/MIN/1.73 >60 L CALC BUN/CREAT (test code = 2235) 24 RATIO 6-28 SODIUM (test code = 2231) 140 MEQ/L 133-146 POTASSIUM (test code = [...] <=1.2 ALKALINE PHOSPHATASE (test code = 2204) 90 U/L 40-142 AST (test code = 2218) 8 U/L 9-40 L ALT (test code = 2219) 9 U/L 5-40 LIPID [id number] 06:57:03* Test Item Value Reference Range Interpretation [...] SPECIMENS. FOR MOREINFORMATION, SEE CLIENT ANNOUNCEMENT AT [email or web address] RISK RATIO LDL/HDL (test code = 2238) 2.06 RATIO <3.22 HEMOGLOBIN [id number] 04:39:43* Test Item Value Reference Range Interpretation Comme nts HEMOGLOBIN A1c (test code = 58466) 8.2 % 4.2-5.6 H [employer] GUIDELINES FOR HGB A1C: [...] CONSIDER ALTERNATE TESTING OR LABORATORY CONSULTATION. LIPID [id number] 00:00:00* Test Item Value Reference Range Interpretation Comme nts CHOLESTEROL (test code = 2210) 175 MG/DL TRIGLYCERIDES (test code = 2232) 156 MG/DL HDL CHOLESTEROL (test code = 2220) 49 MG/DL CALC LDL CHOL (test code = 2237) 101 MG/DL RISK RATIO LDL/HDL (test cod e = 2238) 2.06 RATIO Omero F KeithCOMPREHENSIVE METABOLIC [id number] 00:00:00* Test Item Value Reference Range Interpretation Comme nts GLUCOSE (test code = 2217) 168 MG/DL BUN (test code = 2208) 34 MG/DL CREATININE (test code = 2214) 1.41 MG/DL eGFR (2020 CKD-EPI) (test co de = 21794) 40 ML/MIN/1.73 CALC BUN/CREAT (test code = [...] = 2219) 9 U/L Omero ParkerTSH, THIRD [id number] 00:00:00* Test Item Value Reference Range Interpretation Comme nts TSH, THIRD GENERATION (test code = 2821) 0.540 UIU/ML Omero ParkerHEMOGLOBIN [id number] 00:00:00* Test Item Value Reference Range Interpretation Comme nts HEMOGLOBIN A1c (test code = 73575) 8.2 % Omero ParkerLIPID [id number] 00:00:00* Test Item Value Reference Range Interpretation Comme nts CHOLESTEROL (test code = 2210) 175 MG/DL TRIGLYCERIDES (test code = 2232) 156 MG/DL HDL CHOLESTEROL (test code = 2220) 49 MG/DL CALC LDL CHOL (test code = 2237) 101 MG/DL RISK RATIO LDL/HDL (test cod e = 2238) 2.06 RATIO Omero ParkerCOMPREHENSIVE METABOLIC [id number] 00:00:00* Test Item Value Reference Range Interpretation Comme nts GLUCOSE (test code = 2217) 168 MG/DL BUN (test code = 2208) 34 MG/DL CREATININE (test code = 2214) 1.41 MG/DL eGFR (2020 CKD-EPI) (test co de = 89182) 40 ML/MIN/1.73 CALC BUN/CREAT (test code = [...] = 2219) 9 U/L Omero ParkerTSH, THIRD [id number] 00:00:00* Test Item Value Reference Range Interpretation Comme nts TSH, THIRD GENERATION (test code = 2821) 0.540 UIU/ML Omero ParkerHEMOGLOBIN [id number] 00:00:00* Test Item Value Reference Range Interpretation Comme nts HEMOGLOBIN A1c (test code = 62941) 8.2 % Omero ParkerALBUMIN/CREATININE RATIO, URINE, [id number] 04:59:23* Test Item Value Reference Range Interpretation Comme nts CREATININE, URINE, CONC. (test code = 2072) 23.5 MG/DL NOT ESTAB ALBUMIN, URINE, RANDOM (test code = 08714) 0.6 MG/DL NOT ESTAB CALC ALBUMIN/CREAT, RND (test code = 48228) 26 MG/G <30 Note: Albumin/Cr eatinine ratio reference interval reflects ADA and NKF guidelines. UNLESS OTHERWISE INDICATED, ALL TESTING PERFORMED AT [facility] [address] [place] [address] HIDE GRADER: KINDRA GUTIERREZ M.D. CLIA NUMBER [id number] [place] [id number] ALBUMIN/CREATININE RATIO, RANDOM [id number] 00:00:00* Test Item Value Reference Range Interpretation Comme nts CREATININE, URINE, CONC. (te st code = 2071) 23.5 MG/DL ALBUMIN, URINE, RANDOM (test code = 98325) 0.6 MG/DL CALC ALBUMIN/CREAT, RND (jaimee t code = 67854) 26 MG/G Omero Patel AustinALBUMIN/CREATININE RATIO, RANDOM [id number] 00:00:00* Test Item Value Reference Range Interpretation Comme nts CREATININE, URINE, CONC. (te st code = 2071) 23.5 MG/DL ALBUMIN, URINE, RANDOM (test code = 17974) 0.6 MG/DL CALC ALBUMIN/CREAT, RND (jaimee t code = 64213) 26 MG/G Omero F AustinALBUMIN/CREATININE RATIO, RANDOM [id number] 00:00:00* Test Item Value Reference Range Interpretation Comme nts CREATININE, URINE, CONC. (te st code = 2071) 23.5 MG/DL ALBUMIN, URINE, RANDOM (test code = 02372) 0.6 MG/DL CALC ALBUMIN/CREAT, RND (jaimee t code = 70548) 26 MG/G Omero Patel AustinCOMPREHENSIVE METABOLIC [id number] 00:08:51* Test Item Value Reference Range Interpretation Comme nts GLUCOSE (test code = 2217) 207 MG/DL 70-99 H BUN (test code = 8) 20 MG/DL 8-23 CREATININE (test code = 2214) 1.41 MG/DL 0.60-1.30 H eGFR (2020 CKD-EPI) (test co de = 29521) 40 ML/MIN/1.73 >60 L CALC BUN/CREAT (test [...] code = 2219) 14 U/L 5-40 LIPID [id number] 00:08:51* Test Item Value Reference Range Interpretation [...] SPECIMENS. FOR MOREINFORMATION, SEE CLIENT ANNOUNCEMENT AT [email or web address] RISK RATIO LDL/HDL (test code = 2238) 2.00 RATIO <3.22 COMPREHENSIVE METABOLIC [id number] 00:00:00* Test Item Value Reference Range Interpretation Comme nts GLUCOSE (test code = 2217) 207 MG/DL BUN (test code = 8) 20 MG/DL CREATININE (test code = 2214) 1.41 MG/DL eGFR (2020 CKD-EPI) (test co de = 75228) 40 ML/MIN/1.73 CALC BUN/CREAT (test code = [...] = 2219) 14 U/L Omero Patel AustinLIPID [id number] 00:00:00* Test Item Value Reference Range Interpretation Comme nts CHOLESTEROL (test code = 2210) 164 MG/DL TRIGLYCERIDES (test code = 2232) 363 MG/DL HDL CHOLESTEROL (test code = 2220) 40 MG/DL CALC LDL CHOL (test code = 2237) 80 MG/DL RISK RATIO LDL/HDL (test cod e = 2238) 2.00 RATIO Omero ParkerCOMPREHENSIVE METABOLIC [id number] 00:00:00* Test Item Value Reference Range Interpretation Comme nts GLUCOSE (test code = 2217) 207 MG/DL BUN (test code = 2208) 20 MG/DL CREATININE (test code = 2214) 1.41 MG/DL eGFR (2020 CKD-EPI) (test co de = 37419) 40 ML/MIN/1.73 CALC BUN/CREAT (test code = [...] = 2219) 14 U/L Omero Patel AustinLIPID [id number] 00:00:00* Test Item Value Reference Range Interpretation Comme nts CHOLESTEROL (test code = 2210) 164 MG/DL TRIGLYCERIDES (test code = 2232) 363 MG/DL HDL CHOLESTEROL (test code = 2220) 40 MG/DL CALC LDL CHOL (test code = 2237) 80 MG/DL RISK RATIO LDL/HDL (test cod e = 2238) 2.00 RATIO Omero ParkerCOMPREHENSIVE METABOLIC [id number] 00:00:00* Test Item Value Reference Range Interpretation Comme nts GLUCOSE (test code = 2217) 207 MG/DL BUN (test code = 2208) 20 MG/DL CREATININE (test code = 2214) 1.41 MG/DL eGFR (2020 CKD-EPI) (test co de = 67217) 40 ML/MIN/1.73 CALC BUN/CREAT (test code = [...] code = 2219) 14 U/L Omero ParkerLIPID [id number] 00:00:00* Test Item Value Reference Range Interpretation Comme nts CHOLESTEROL (test code = 2210) 164 MG/DL TRIGLYCERIDES (test code = 2232) 363 MG/DL HDL CHOLESTEROL (test code = 2220) 40 MG/DL CALC LDL CHOL (test code = 2237) 80 MG/DL RISK RATIO LDL/HDL (test cod e = 2238) 2.00 RATIO Omero ParkerHEMOGLOBIN [id number] 04:30:09* Test Item Value Reference Range Interpretation Comme nts HEMOGLOBIN A1c (test code = 56342) 8.6 % 4.2-5.6 H [employer] GUIDELINES FOR HGB A1C: [...] TESTING PERFORMED AT [facility] [address] [place] [address] HIDE GRADER: KINDRA GUTIERREZ M.D. [place] NUMBER [id number] [facility] [place]. [id number] HEMOGLOBIN [id number] 00:00:00* Test Item Value Reference Range Interpretation Commkarol monroy HEMOGLOBIN A1c (test code = 94410) 8.6 % Omero ParkerHEMOGLOBIN [id number] 00:00:00* Test Item Value Reference Range Interpretation Commkarol monroy HEMOGLOBIN A1c (test code = 72531) 8.6 % Omero ParkerHEMOGLOBIN [id number] 00:00:00* Test Item Value Reference Range Interpretation Commkarol monroy HEMOGLOBIN A1c (test code = 74597) 8.6 % Omero Patel AustinTSH, THIRD [id number] 11:05:24* Test Item Value Reference Range Interpretation Commkarol monroy TSH, THIRD GENERATION (test code = 2821) 0.449 UIU/ML 0.400-4.100 LIPID [id number] 07:29:44* Test Item Value Reference Range Interpretation [...] SPECIMENS. FOR MOREINFORMATION, SEE CLIENT ANNOUNCEMENT AT [email or web address] RISK RATIO LDL/HDL (test code = 2238) 1.92 RATIO <3.22 COMPREHENSIVE METABOLIC [id number] 07:29:44* Test Item Value Reference Range Interpretation Comme nts GLUCOSE (test code = 7) 141 MG/DL 70-99 H BUN (test code = 2207) 27 MG/DL 8-23 H CREATININE (test code = 221) 1.31 MG/DL 0.60-1.30 H eGFR (2020 CKD-EPI) (test code = 55573) 44 ML/MIN/1.73 >60 L CALC BUN/CREAT (test [...] TESTING PERFORMED AT [facility] [address] [place] [address] HIDE GRADER: KINDRA GUTIERREZ M.D. CLIA NUMBER [id number] [facility] [place]. [id number] LIPID [id number] 00:00:00* Test Item Value Reference Range Interpretation Comme nts CHOLESTEROL (test code = 2210) 178 MG/DL TRIGLYCERIDES (test code = 2232) 268 MG/DL HDL CHOLESTEROL (test code = 2220) 48 MG/DL CALC LDL CHOL (test code = 2237) 92 MG/DL RISK RATIO LDL/HDL (test cod e = 2238) 1.92 RATIO Omero ParkerCOMPREHENSIVE METABOLIC [id number] 00:00:00* Test Item Value Reference Range Interpretation Comme nts GLUCOSE (test code = 2217) 141 MG/DL BUN (test code = 2208) 27 MG/DL CREATININE (test code = 2214) 1.31 MG/DL eGFR (2020 CKD-EPI) (test co de = 34613) 44 ML/MIN/1.73 CALC BUN/CREAT (test code = [...] = 2219) 12 U/L Omero ParkerTSH, THIRD [id number] 00:00:00* Test Item Value Reference Range Interpretation Comme nts TSH, THIRD GENERATION (test code = 2821) 0.449 UIU/ML Omero ParkerLIPID [id number] 00:00:00* Test Item Value Reference Range Interpretation Comme nts CHOLESTEROL (test code = 2210) 178 MG/DL TRIGLYCERIDES (test code = 2232) 268 MG/DL HDL CHOLESTEROL (test code = 2220) 48 MG/DL CALC LDL CHOL (test code = 2237) 92 MG/DL RISK RATIO LDL/HDL (test cod e = 2238) 1.92 RATIO Omero ParkerCOMPREHENSIVE METABOLIC [id number] 00:00:00* Test Item Value Reference Range Interpretation Comme nts GLUCOSE (test code = 2217) 141 MG/DL BUN (test code = 2208) 27 MG/DL CREATININE (test code = 2214) 1.31 MG/DL eGFR (2020 CKD-EPI) (test co de = 36189) 44 ML/MIN/1.73 CALC BUN/CREAT (test code = [...] = 2219) 12 U/L Omero ParkerTSH, THIRD [id number] 00:00:00* Test Item Value Reference Range Interpretation Comme nts TSH, THIRD GENERATION (test code = 2821) 0.449 UIU/ML Omero ParkerLIPID [id number] 00:00:00* Test Item Value Reference Range Interpretation Comme nts CHOLESTEROL (test code = 2210) 178 MG/DL TRIGLYCERIDES (test code = 2232) 268 MG/DL HDL CHOLESTEROL (test code = 2220) 48 MG/DL CALC LDL CHOL (test code = 2237) 92 MG/DL RISK RATIO LDL/HDL (test cod e = 2238) 1.92 RATIO Omero ParkerCOMPREHENSIVE METABOLIC [id number] 00:00:00* Test Item Value Reference Range Interpretation Comme nts GLUCOSE (test code = 2217) 141 MG/DL BUN (test code = 2208) 27 MG/DL CREATININE (test code = 2214) 1.31 MG/DL eGFR (2020 CKD-EPI) (test co de = 25557) 44 ML/MIN/1.73 CALC BUN/CREAT (test code = [...] = 221) 12 U/L Omero Diaz, THIRD [id number] 00:00:00* Test Item Value Reference Range Interpretation Comme nts TSH, THIRD GENERATION (test code = 2821) 0.449 UIU/ML Omero Diaz, THIRD [id number] 05:16:55* Test Item Value Reference Range Interpretation Comme nts TSH, THIRD GENERATION (test code = 2821) 0.357 UIU/ML 0.400-4.100 L COMPREHENSIVE METABOLIC [id number] 03:49:34* Test Item Value Reference Range Interpretation Comme nts GLUCOSE (test code = 7) 114 MG/DL 70-99 H BUN (test code = 2207) 31 MG/DL 8-23 H CREATININE (test code = 2213) 1.20 MG/DL 0.60-1.30 eGFR (2020 CKD-EPI) (test code = 88995) 48 ML/MIN/1.73 >60 L The NKF-ASN Taskforce recommends use of Cystatin C to confirm eGFR inadults at risk for CKD. [facility] offers eGFR with Cystatin C-Creatinineusing the 2020 CKD-EPI eGFR_creat-cystat equation (order code 3057) toincrease the accuracy of estimated GFR. For more information, contactur client account assistant or see announcement [email or web address] CALC BUN/CREAT (test code = 2234) 26 [...] code = 221) 18 U/L 5-40 LIPID [id number] 03:49:34* Test Item Value Reference Range Interpretation [...] SPECIMENS. FOR MOREINFORMATION, SEE CLIENT ANNOUNCEMENT AT [email or web address] CalcLDL-C RISK RATIO LDL/HDL (test code = 2238) (NOTE) RATIO <3.22 UNABLE TO BERTO CULATE HEMOGLOBIN [id number] 02:59:31* Test Item Value Reference Range Interpretation Comme [facility] HEMOGLOBIN A1c (test code = 00240) 7.3 % 4.2-5.6 H [employer] GUIDELINES FOR HGB A1C: [...] INDICATED, ALL TESTING PERFORMED AT [facility] [address] [place] [address] HIDE GRADER: KINDRA GUTIERREZ M.D. [place] NUMBER [id number] [facility] [place] [place]. [id number] COMPREHENSIVE METABOLIC [id number] 00:00:00* Test Item Value Reference Range Interpretation Comme [facility] GLUCOSE (test code = 2217) 114 MG/DL BUN (test code = 2208) 31 MG/DL CREATININE (test code = 2214) 1.20 MG/DL eGFR (2020 CKD-EPI) (test co de = 35507) 48 ML/MIN/1.73 CALC BUN/CREAT (test code = [...] = 2219) 18 U/L Omero Diaz, THIRD [id number] 00:00:00* Test Item Value Reference Range Interpretation Comme nts TSH, THIRD GENERATION (test code = 2821) 0.357 UIU/ML Omero ParkerLIPID [id number] 00:00:00* Test Item Value Reference Range Interpretation Comme nts CHOLESTEROL (test code = 2210) 193 MG/DL TRIGLYCERIDES (test code = 2232) 461 MG/DL HDL CHOLESTEROL (test code = 2220) 45 MG/DL CALC LDL CHOL (test code = 2237) (NOTE) MG/DL RISK RATIO LDL/HDL (test cod e = 2238) (NOTE) RATIO Omero ParkerHEMOGLOBIN [id number] 00:00:00* Test Item Value Reference Range Interpretation Comme eliana HEMOGLOBIN A1c (test code = 68981) 7.3 % Omero ParkerCOMPREHENSIVE METABOLIC [id number] 00:00:00* Test Item Value Reference Range Interpretation Comme nts GLUCOSE (test code = 2217) 114 MG/DL BUN (test code = 2208) 31 MG/DL CREATININE (test code = 2214) 1.20 MG/DL eGFR (2020 CKD-EPI) (test co de = 38419) 48 ML/MIN/1.73 CALC BUN/CREAT (test code = [...] = 2219) 18 U/L Omero Diaz THIRD [id number] 00:00:00* Test Item Value Reference Range Interpretation Comme nts TSH, THIRD GENERATION (test code = 2821) 0.357 UIU/ML Omero ParkerLIPID [id number] 00:00:00* Test Item Value Reference Range Interpretation Comme nts CHOLESTEROL (test code = 2210) 193 MG/DL TRIGLYCERIDES (test code = 2232) 461 MG/DL HDL CHOLESTEROL (test code = 2220) 45 MG/DL CALC LDL CHOL (test code = 2237) (NOTE) MG/DL RISK RATIO LDL/HDL (test cod e = 2238) (NOTE) RATIO Omero ParkerHEMOGLOBIN [id number] 00:00:00* Test Item Value Reference Range Interpretation Comme nts HEMOGLOBIN A1c (test code = 40391) 7.3 % Omero ParkerCOMPREHENSIVE METABOLIC [id number] 00:00:00* Test Item Value Reference Range Interpretation Comme nts GLUCOSE (test code = 2217) 114 MG/DL BUN (test code = 2208) 31 MG/DL CREATININE (test code = 2214) 1.20 MG/DL eGFR (2020 CKD-EPI) (test co de = 26574) 48 ML/MIN/1.73 CALC BUN/CREAT (test code = [...] = 2219) 18 U/L Omero ParkerTSH, THIRD [id number] 00:00:00* Test Item Value Reference Range Interpretation Comme nts TSH, THIRD GENERATION (test code = 2821) 0.357 UIU/ML Omero ParkerLIPID [id number] 00:00:00* Test Item Value Reference Range Interpretation Comme nts CHOLESTEROL (test code = 2210) 193 MG/DL TRIGLYCERIDES (test code = 2232) 461 MG/DL HDL CHOLESTEROL (test code = 2220) 45 MG/DL CALC LDL CHOL (test code = 2237) (NOTE) MG/DL RISK RATIO LDL/HDL (test cod e = 2238) (NOTE) RATIO Omero ParkerHEMOGLOBIN [id number] 00:00:00* Test Item Value Reference Range Interpretation Comme nts HEMOGLOBIN A1c (test code = 90995) 7.3 % Omero Patel AustinNOTE: [ADDED]2022-06-23 00:00:00* Test Item Value Reference Range Interpretation Comme nts NOTE: (test code = 998) (NOTE) Omero Diaz, THIRD GENERATION [ADDED]2022-06-23 00:00:00* Test Item Value Reference Range Interpretation Comme nts TSH, THIRD GENERATION (test code = 2821) 1.190 UIU/ML Omero Patel AustinNOTE: [ADDED]2022-06-23 00:00:00* Test Item Value Reference Range Interpretation Comme nts NOTE: (test code = 998) (NOTE) Omero Diaz THIRD GENERATION [ADDED]2022-06-23 00:00:00* Test Item Value Reference Range Interpretation Comme nts TSH, THIRD GENERATION (test code = 2821) 1.190 UIU/ML Omero Patel AustinNOTE: [ADDED]2022-06-23 00:00:00* Test Item Value Reference Range Interpretation Comme nts NOTE: (test code = 998) (NOTE) Omero Diaz, THIRD GENERATION [ADDED]2022-06-23 00:00:00* Test Item Value Reference Range Interpretation Comme nts TSH, THIRD GENERATION (test code = 2821) 1.190 UIU/ML Omero ParkerHEMOGLOBIN [id number] 00:00:00* Test Item Value Reference Range Interpretation Comme nts HEMOGLOBIN A1c (test code = 76742) 8.2 % Omero ParkerLIPID [id number] 00:00:00* Test Item Value Reference Range Interpretation Comme nts CHOLESTEROL (test code = 2210) 166 MG/DL TRIGLYCERIDES (test code = 2232) 261 MG/DL HDL CHOLESTEROL (test code = 2220) 47 MG/DL CALC LDL CHOL (test code = 2237) 85 MG/DL RISK RATIO LDL/HDL (test cod e = 2238) 1.81 RATIO Omero ParkerCOMPREHENSIVE METABOLIC [id number] 00:00:00* Test Item Value Reference Range Interpretation Comme nts GLUCOSE (test code = 2217) 115 MG/DL BUN (test code = 2208) 28 MG/DL CREATININE (test code = 2214) 1.39 MG/DL eGFR (2020 CKD-EPI) (test co de = 05011) 41 ML/MIN/1.73 CALC BUN/CREAT (test code = [...] code = 2219) 11 U/L Omero ParkerHEMOGLOBIN [id number] 00:00:00* Test Item Value Reference Range Interpretation Comme nts HEMOGLOBIN A1c (test code = 39443) 8.2 % Omero ParkerLIPID [id number] 00:00:00* Test Item Value Reference Range Interpretation Comme nts CHOLESTEROL (test code = 2210) 166 MG/DL TRIGLYCERIDES (test code = 2232) 261 MG/DL HDL CHOLESTEROL (test code = 2220) 47 MG/DL CALC LDL CHOL (test code = 2237) 85 MG/DL RISK RATIO LDL/HDL (test cod e = 2238) 1.81 RATIO Omero ParkerCOMPREHENSIVE METABOLIC [id number] 00:00:00* Test Item Value Reference Range Interpretation Comme nts GLUCOSE (test code = 2217) 115 MG/DL BUN (test code = 2208) 28 MG/DL CREATININE (test code = 2214) 1.39 MG/DL eGFR (2020 CKD-EPI) (test co de = 50218) 41 ML/MIN/1.73 CALC BUN/CREAT (test code = [...] code = 2219) 11 U/L Omero ParkerHEMOGLOBIN [id number] 00:00:00* Test Item Value Reference Range Interpretation Comme nts HEMOGLOBIN A1c (test code = 36292) 8.2 % Omero ParkerLIPID [id number] 00:00:00* Test Item Value Reference Range Interpretation Comme nts CHOLESTEROL (test code = 2210) 166 MG/DL TRIGLYCERIDES (test code = 2232) 261 MG/DL HDL CHOLESTEROL (test code = 2220) 47 MG/DL CALC LDL CHOL (test code = 2237) 85 MG/DL RISK RATIO LDL/HDL (test cod e = 2238) 1.81 RATIO Omero ParkerCOMPREHENSIVE METABOLIC [id number] 00:00:00* Test Item Value Reference Range Interpretation Comme nts GLUCOSE (test code = 2217) 115 MG/DL BUN (test code = 2208) 28 MG/DL CREATININE (test code = 2214) 1.39 MG/DL eGFR (2020 CKD-EPI) (test co de = 71353) 41 ML/MIN/1.73 CALC BUN/CREAT (test code = [...] (test code = 2219) 11 U/L Omero BargerH, THIRD [id number] 06:35:24* Test Item Value Reference Range Interpretation Comme nts TSH, THIRD GENERATION (test code = 2821) 0.494 UIU/ML 0.400-4.100 UNLESS OTHERWISE INDICATED, ALL TESTING PERFORMED [facility] PATH[facility] [employer] [address] [place] [address] HIDE GRADER: SHAYY GARCIA M.D. [place] NUMBER [id number] [facility] [place]. [id number] HEMOGLOBIN [id number] 05:34:13* Test Item Value Reference Range Interpretation Comme nts HEMOGLOBIN A1c (test code = 40369) 7.9 % 4.2-5.6 H [employer] GUIDELINES FOR HGB A1C: [...] ALTERNATE TESTING OR LABORATORY CONSULTATION. COMPREHENSIVE METABOLIC [id number] 03:52:41* Test Item Value Reference Range Interpretation Comme nts GLUCOSE (test code = 7) 138 MG/DL 70-99 H BUN (test code = 2207) 24 MG/DL 8-23 H CREATININE (test code = 2213) 1.35 MG/DL 0.60-1.30 H eGFR (2020 CKD-EPI) (test code = ) 42 ML/MIN/1.73 >60 L CALC BUN/CREAT (test code = 2234) 18 RATIO 6-28 SODIUM (test code = 2230) 139 MEQ/L 133-146 POTASSIUM (test code = 2227) 5.0 MEQ/L 3.5-5.4 CHLORIDE (test code = 2214) 105 MEQ/L 95-107 CARBON DIOXIDE (test code = 2205) 23 MEQ/L 19-31 CALCIUM (test code = 2208) 9.5 MG/DL 8.5-10.5 PROTEIN, TOTAL (test code = 2228) 7.0 G/DL 6.1-8.3 ALBUMIN (test code = 2200) 4.2 G/DL 3.5-5.2 CALC GLOBULIN (test code = 2239) 2.8 G/DL 1.9-3.7 CALC A/G RATIO (test code = 2233) 1.5 RATIO 1.0-2.6 BILIRUBIN, TOTAL (test code = 2206) <0.2 MG/DL See_Comment [Automated me ssage] The system which generated this result transmitted reference range: <=1.2. The reference range was not used to interpret this result as normal/abnormal. ALKALINE PHOSPHATASE (test code = 2203) 73 U/L 40-142 AST (test code = 2217) 13 U/L 9-40 ALT (test code = 2218) 13 U/L 5-40 LIPID [id number] 03:52:41* Test Item Value Reference Range Interpretation Comme nts CHOLESTEROL (test code = 0) 150 MG/DL <200 TRIGLYCERIDES (test code = 2232) 277 MG/DL <150 H HDL CHOLESTEROL (test code = 2219) 45 MG/DL >39 CALC LDL CHOL (test code = 7) 69 MG/DL <100 NOTE: CALCULATED LDL IS BASED ON GRISELDA-CHAVEZ METHOD WHICHINCLUDES ADJUSTABLE TRIGLYCERIDE:VLDL CHOLESTEROL RATIO.THIS FACTOR VARIES BY MEASURED TRIGLYCERIDE AND NON-HDLCHOLESTEROL CONCENTRATIONS WITH INCREASED CALCULATED LDL SEENIN HIGHER TRIGLYCERIDE OR LOWER NON-HDL SPECIMENS. FOR MOREINFORMATION, SEE CLIENT ANNOUNCEMENT AT [email or web address] RISK RATIO LDL/HDL (test code = [...] Comme nts HEMOGLOBIN A1c (test code = 06883) 7.9 % Omero ParkerTSH, THIRD GENERATION [ADDED]2022-03-09 [...] eGFR (2020 CKD-EPI) (test co de = 11197) 42 ML/MIN/1.73 CALC BUN/CREAT (test code = [...] Comme eliana HEMOGLOBIN A1c (test code = 93502) 7.9 % Omero ParkerTSH, THIRD GENERATION [ADDED]2022-03-09 [...] eGFR (2020 CKD-EPI) (test co de = 25057) 42 ML/MIN/1.73 CALC BUN/CREAT (test code = [...] Comme eliana HEMOGLOBIN A1c (test code = 00462) 7.9 % Omero ParkerTSH, THIRD GENERATION [ADDED]2022-03-09 [...] eGFR (2020 CKD-EPI) (test co de = 70675) 42 ML/MIN/1.73 CALC BUN/CREAT (test code = [...] (test code = 2219) 13 U/L Omero ParkerHEMOGLOBIN [id number] 00:00:00* Test Item Value Reference Range Interpretation Comme nts HEMOGLOBIN A1c (test code = 63722) 9.5 % Omero ParkerCBC W/AUTO [id number] 00:00:00* Test Item Value Reference Range Interpretation [...] ABS NUCLEATED RBCS (test cod e = 65351) 0.00 K/UL Omero ParkerCOMPREHENSIVE METABOLIC [id number] 00:00:00* Test Item Value Reference Range Interpretation Comme nts GLUCOSE (test code = 2217) 165 MG/DL BUN (test code = 2208) 25 MG/DL CREATININE (test code = 2214) 1.25 MG/DL eGFR (2020 CKD-EPI) (test co de = 12946) 46 ML/MIN/1.73 CALC BUN/CREAT (test code = [...] code = 2219) 19 U/L Omero ParkerLIPID [id number] 00:00:00* Test Item Value Reference Range Interpretation Comme nts CHOLESTEROL (test code = 2210) 245 MG/DL TRIGLYCERIDES (test code = 2232) 403 MG/DL HDL CHOLESTEROL (test code = 2220) 43 MG/DL CALC LDL CHOL (test code = 2237) (NOTE) MG/DL RISK RATIO LDL/HDL (test cod e = 2238) (NOTE) RATIO Omero ParkerTSH, THIRD [id number] 00:00:00* Test Item Value Reference Range Interpretation Comme eliana TSH, THIRD GENERATION (test code = 2821) 0.549 UIU/ML Omero ParkerHEMOGLOBIN [id number] 00:00:00* Test Item Value Reference Range Interpretation Comme nts HEMOGLOBIN A1c (test code = 26733) 9.5 % Omero ParkerCBC W/AUTO [id number] 00:00:00* Test Item Value Reference Range Interpretation [...] ABS NUCLEATED RBCS (test cod e = 94853) 0.00 K/UL Omero ParkerCOMPREHENSIVE METABOLIC [id number] 00:00:00* Test Item Value Reference Range Interpretation Comme nts GLUCOSE (test code = 2217) 165 MG/DL BUN (test code = 2208) 25 MG/DL CREATININE (test code = 2214) 1.25 MG/DL eGFR (2020 CKD-EPI) (test co de = 75222) 46 ML/MIN/1.73 CALC BUN/CREAT (test code = [...] code = 2219) 19 U/L Omero ParkerLIPID [id number] 00:00:00* Test Item Value Reference Range Interpretation Comme nts CHOLESTEROL (test code = 2210) 245 MG/DL TRIGLYCERIDES (test code = 2232) 403 MG/DL HDL CHOLESTEROL (test code = 2220) 43 MG/DL CALC LDL CHOL (test code = 2237) (NOTE) MG/DL RISK RATIO LDL/HDL (test cod e = 2238) (NOTE) RATIO Omero ParkerTSH, THIRD [id number] 00:00:00* Test Item Value Reference Range Interpretation Comme eliana TSH, THIRD GENERATION (test code = 2821) 0.549 UIU/ML Omero ParkerHEMOGLOBIN [id number] 00:00:00* Test Item Value Reference Range Interpretation Comme eliana HEMOGLOBIN A1c (test code = 75354) 9.5 % Omero ParkerHEMOGLOBIN [id number] 00:00:00* Test Item Value Reference Range Interpretation Comme eliana HEMOGLOBIN A1c (test code = 06068) 9.5 % CBC W/AUTO [id number] 00:00:00* Test Item Value Reference Range Interpretation [...] ABS NUCLEATED RBCS (test cod e = 81604) 0.00 K/UL COMPREHENSIVE METABOLIC [id number] 00:00:00* Test Item Value Reference Range Interpretation Comme nts GLUCOSE (test code = 2217) 165 MG/DL BUN (test code = 2208) 25 MG/DL CREATININE (test code = 2214) 1.25 MG/DL eGFR (2020 CKD-EPI) (test co de = 40546) 46 ML/MIN/1.73 CALC BUN/CREAT (test code = [...] (test code = 2219) 19 U/L LIPID [id number] 00:00:00* Test Item Value Reference Range Interpretation Comme nts CHOLESTEROL (test code = 2210) 245 MG/DL TRIGLYCERIDES (test code = 2232) 403 MG/DL HDL CHOLESTEROL (test code = 2220) 43 MG/DL CALC LDL CHOL (test code = 2237) (NOTE) MG/DL RISK RATIO LDL/HDL (test cod e = 2238) (NOTE) RATIO TSH, THIRD [id number] 00:00:00* Test Item Value Reference Range Interpretation Comme nts TSH, THIRD GENERATION (test code = 2821) 0.549 UIU/ML CBC W/AUTO [id number] 00:00:00* Test Item Value Reference Range Interpretation [...] ABS NUCLEATED RBCS (test cod e = 73734) 0.00 K/UL Omero F AustinCOMPREHENSIVE METABOLIC [id number] 00:00:00* Test Item Value Reference Range Interpretation Comme nts GLUCOSE (test code = 2217) 165 MG/DL BUN (test code = 2208) 25 MG/DL CREATININE (test code = 2214) 1.25 MG/DL eGFR (2020 CKD-EPI) (test co de = 96172) 46 ML/MIN/1.73 CALC BUN/CREAT (test code = [...] code = 2219) 19 U/L Omero ParkerLIPID [id number] 00:00:00* Test Item Value Reference Range Interpretation Comme nts CHOLESTEROL (test code = 2210) 245 MG/DL TRIGLYCERIDES (test code = 2232) 403 MG/DL HDL CHOLESTEROL (test code = 2220) 43 MG/DL CALC LDL CHOL (test code = 2237) (NOTE) MG/DL RISK RATIO LDL/HDL (test cod e = 2238) (NOTE) RATIO Omero ParkerTSH, THIRD [id number] 00:00:00* Test Item Value Reference Range Interpretation Comme nts TSH, THIRD GENERATION (test code = 2821) 0.549 UIU/ML Omero ParkerCOMPREHENSIVE METABOLIC [id number] 05:40:31* Test Item Value Reference Range Interpretation Comme nts GLUCOSE (test code = 2217) 212 MG/DL 70-99 H BUN (test code = 2208) 24 MG/DL 8-23 H CREATININE (test code = 2214) 1.35 MG/DL 0.60-1.30 H eGFR (2020 CKD-EPI) (test code = 76416) 42 ML/MIN/1.73 >60 L CALC BUN/CREAT (test code = 2235) 18 RATIO 6-28 SODIUM (test code = 2231) 136 MEQ/L 133-146 POTASSIUM (test code = 2228) 5.0 MEQ/L 3.5-5.4 CHLORIDE (test code = 2215) 100 MEQ/L 95-107 CARBON DIOXIDE (test code = 2206) 22 MEQ/L 19-31 CALCIUM (test code = 2209) 10.2 MG/DL 8.5-10.5 PROTEIN, TOTAL (test code = 2229) 7.8 G/DL 6.1-8.3 ALBUMIN (test code = [...] code = 2219) 24 U/L 5-40 LIPID [id number] 05:40:31* Test Item Value Reference Range Interpretation Comme nts CHOLESTEROL (test code = 0) 168 MG/DL <200 TRIGLYCERIDES (test code = 2231) 305 MG/DL <150 H HDL CHOLESTEROL (test code = 2219) 48 MG/DL >39 CALC LDL CHOL (test code = 7) 83 MG/DL <100 NOTE: CALCULATED LDL IS BASED ON GRISELDA-CHAVEZ METHOD WHICHINCLUDES ADJUSTABLE TRIGLYCERIDE:VLDL CHOLESTEROL RATIO.THIS FACTOR VARIES BY MEASURED TRIGLYCERIDE AND NON-HDLCHOLESTEROL CONCENTRATIONS WITH INCREASED CALCULATED LDL SEENIN HIGHER TRIGLYCERIDE OR LOWER NON-HDL SPECIMENS. FOR MOREINFORMATION, SEE CLIENT ANNOUNCEMENT AT [email or web address] RISK RATIO LDL/HDL (test code = 2238) 1.73 RATIO <3.22 UNLESS OTHERW ISE INDICATED, ALL TESTING PERFORMED [facility] [address] [place] [address] HIDE GRADER: SHAYY GARCIA M.D. CLIA NUMBER [id number] [facility] [place]. [id number] HEMOGLOBIN [id number] 03:57:08* Test Item Value Reference Range Interpretation Comme nts HEMOGLOBIN A1c (test code = 26624) 8.4 % 4.2-5.6 H [employer] GUIDELINES FOR HGB A1C: [...] CONSIDER ALTERNATE TESTING OR LABORATORY CONSULTATION. HEMOGLOBIN [id number] 00:00:00* Test Item Value Reference Range Interpretation Comme [facility] HEMOGLOBIN A1c (test code = 02521) 8.4 % Omero ParkerCOMPREHENSIVE METABOLIC [id number] 00:00:00* Test Item Value Reference Range Interpretation Comme nts GLUCOSE (test code = 2217) 212 MG/DL BUN (test code = 2208) 24 MG/DL CREATININE (test code = 2214) 1.35 MG/DL eGFR (2020 CKD-EPI) (test co de = 25136) 42 ML/MIN/1.73 CALC BUN/CREAT (test code = [...] code = 2219) 24 U/L Omero ParkerLIPID [id number] 00:00:00* Test Item Value Reference Range Interpretation Comme nts CHOLESTEROL (test code = 2210) 168 MG/DL TRIGLYCERIDES (test code = 2232) 305 MG/DL HDL CHOLESTEROL (test code = 2220) 48 MG/DL CALC LDL CHOL (test code = 2237) 83 MG/DL RISK RATIO LDL/HDL (test cod e = 2238) 1.73 RATIO Omero ParkerHEMOGLOBIN [id number] 00:00:00* Test Item Value Reference Range Interpretation Comme nts HEMOGLOBIN A1c (test code = 48752) 8.4 % Omero Patel AustinCOMPREHENSIVE METABOLIC [id number] 00:00:00* Test Item Value Reference Range Interpretation Comme nts GLUCOSE (test code = 2217) 212 MG/DL BUN (test code = 2208) 24 MG/DL CREATININE (test code = 2214) 1.35 MG/DL eGFR (2020 CKD-EPI) (test co de = 21052) 42 ML/MIN/1.73 CALC BUN/CREAT (test code = [...] = 2219) 24 U/L Omero Patel AustinLIPID [id number] 00:00:00* Test Item Value Reference Range Interpretation Comme nts CHOLESTEROL (test code = 2210) 168 MG/DL TRIGLYCERIDES (test code = 2232) 305 MG/DL HDL CHOLESTEROL (test code = 2220) 48 MG/DL CALC LDL CHOL (test code = 2237) 83 MG/DL RISK RATIO LDL/HDL (test cod e = 2238) 1.73 RATIO Omero ParkerHEMOGLOBIN [id number] 00:00:00* Test Item Value Reference Range Interpretation Comme nts HEMOGLOBIN A1c (test code = 88171) 8.4 % Omero Patel AustinCOMPREHENSIVE METABOLIC [id number] 00:00:00* Test Item Value Reference Range Interpretation Comme nts GLUCOSE (test code = 2217) 212 MG/DL BUN (test code = 2208) 24 MG/DL CREATININE (test code = 2214) 1.35 MG/DL eGFR (2020 CKD-EPI) (test co de = 19876) 42 ML/MIN/1.73 CALC BUN/CREAT (test code = [...] (test code = 2219) 24 U/L LIPID [id number] 00:00:00* Test Item Value Reference Range Interpretation Comme nts CHOLESTEROL (test code = 2210) 168 MG/DL TRIGLYCERIDES (test code = 2232) 305 MG/DL HDL CHOLESTEROL (test code = 2220) 48 MG/DL CALC LDL CHOL (test code = 2237) 83 MG/DL RISK RATIO LDL/HDL (test cod e = 2238) 1.73 RATIO HEMOGLOBIN [id number] 00:00:00* Test Item Value Reference Range Interpretation Comme nts HEMOGLOBIN A1c (test code = 13875) 8.4 % COMPREHENSIVE METABOLIC [id number] 00:00:00* Test Item Value Reference Range Interpretation Comme nts GLUCOSE (test code = 2217) 212 MG/DL BUN (test code = 2208) 24 MG/DL CREATININE (test code = 2214) 1.35 MG/DL eGFR (2020 CKD-EPI) (test co de = 99805) 42 ML/MIN/1.73 CALC BUN/CREAT (test code = [...] (test code = 2219) 24 U/L LIPID [id number] 00:00:00* Test Item Value Reference Range Interpretation Comme nts CHOLESTEROL (test code = 2210) 168 MG/DL TRIGLYCERIDES (test code = 2232) 305 MG/DL HDL CHOLESTEROL (test code = 2220) 48 MG/DL CALC LDL CHOL (test code = 2237) 83 MG/DL RISK RATIO LDL/HDL (test cod e = 2238) 1.73 RATIO HEMOGLOBIN [id number] 00:00:00* Test Item Value Reference Range Interpretation Comme nts HEMOGLOBIN A1c (test code = 58603) 8.4 % COMPREHENSIVE METABOLIC [id number] 00:00:00* Test Item Value Reference Range Interpretation Comme nts GLUCOSE (test code = 2217) 212 MG/DL BUN (test code = 2208) 24 MG/DL CREATININE (test code = 2214) 1.35 MG/DL eGFR (2020 CKD-EPI) (test co de = 09147) 42 ML/MIN/1.73 CALC BUN/CREAT (test code = [...] = 2219) 24 U/L Omero Patel AustinLIPID [id number] 00:00:00* Test Item Value Reference Range Interpretation Comme nts CHOLESTEROL (test code = 2210) 168 MG/DL TRIGLYCERIDES (test code = 2232) 305 MG/DL HDL CHOLESTEROL (test code = 2220) 48 MG/DL CALC LDL CHOL (test code = 2237) 83 MG/DL RISK RATIO LDL/HDL (test cod e = 2238) 1.73 RATIO Omero Patel AustinLIPID [id number] 00:00:00* Test Item Value Reference Range Interpretation Comme nts CHOLESTEROL (test code = 2210) 156 MG/DL TRIGLYCERIDES (test code = 2232) 182 MG/DL HDL CHOLESTEROL (test code = 2220) 52 MG/DL CALC LDL CHOL (test code = 2237) 76 MG/DL RISK RATIO LDL/HDL (test cod e = 2238) 1.46 RATIO Omero ParkerCOMPREHENSIVE METABOLIC [id number] 00:00:00* Test Item Value Reference Range Interpretation Comme nts GLUCOSE (test code = 2217) 195 MG/DL BUN (test code = 2208) 23 MG/DL CREATININE (test code = 2214) 1.13 MG/DL eGFR (2020 CKD-EPI) (test co de = 65983) 53 ML/MIN/1.73 CALC BUN/CREAT (test code = [...] (test code = 2219) 24 U/L Omero [id number] 00:00:00* Test Item Value Reference Range Interpretation Comme eliana TSH, THIRD GENERATION (test code = 2821) 1.730 UIU/ML Omero ParkerHEMOGLOBIN [id number] 00:00:00* Test Item Value Reference Range Interpretation Comme eliana HEMOGLOBIN A1c (test code = 63987) 9.6 % Omero ParkerLIPID [id number] 00:00:00* Test Item Value Reference Range Interpretation Comme nts CHOLESTEROL (test code = 2210) 156 MG/DL TRIGLYCERIDES (test code = 2232) 182 MG/DL HDL CHOLESTEROL (test code = 2220) 52 MG/DL CALC LDL CHOL (test code = 2237) 76 MG/DL RISK RATIO LDL/HDL (test cod e = 2238) 1.46 RATIO Omero ParkerCOMPREHENSIVE METABOLIC [id number] 00:00:00* Test Item Value Reference Range Interpretation Comme nts GLUCOSE (test code = 2217) 195 MG/DL BUN (test code = 2208) 23 MG/DL CREATININE (test code = 2214) 1.13 MG/DL eGFR (2020 CKD-EPI) (test co de = 59138) 53 ML/MIN/1.73 CALC BUN/CREAT (test code = [...] (test code = 2219) 24 U/L Omero [id number] 00:00:00* Test Item Value Reference Range Interpretation Comme eliana TSH, THIRD GENERATION (test code = 2821) 1.730 UIU/ML Omero ParkerHEMOGLOBIN [id number] 00:00:00* Test Item Value Reference Range Interpretation Comme eliana HEMOGLOBIN A1c (test code = 39583) 9.6 % Omero ParkerLIPID [id number] 00:00:00* Test Item Value Reference Range Interpretation Comme nts CHOLESTEROL (test code = 2210) 156 MG/DL TRIGLYCERIDES (test code = 2232) 182 MG/DL HDL CHOLESTEROL (test code = 2220) 52 MG/DL CALC LDL CHOL (test code = 2237) 76 MG/DL RISK RATIO LDL/HDL (test cod e = 2238) 1.46 RATIO COMPREHENSIVE METABOLIC [id number] 00:00:00* Test Item Value Reference Range Interpretation Comme nts GLUCOSE (test code = 2217) 195 MG/DL BUN (test code = 2208) 23 MG/DL CREATININE (test code = 2214) 1.13 MG/DL eGFR (2020 CKD-EPI) (test co de = 46900) 53 ML/MIN/1.73 CALC BUN/CREAT (test code = [...] ALT (test code = 2219) 24 U/L [id number] 00:00:00* Test Item Value Reference Range Interpretation Comme eliana TSH, THIRD GENERATION (test code = 2821) 1.730 UIU/ML HEMOGLOBIN [id number] 00:00:00* Test Item Value Reference Range Interpretation Comme nts HEMOGLOBIN A1c (test code = 47817) 9.6 % LIPID [id number] 00:00:00* Test Item Value Reference Range Interpretation Comme nts CHOLESTEROL (test code = 2210) 156 MG/DL TRIGLYCERIDES (test code = 2232) 182 MG/DL HDL CHOLESTEROL (test code = 2220) 52 MG/DL CALC LDL CHOL (test code = 2237) 76 MG/DL RISK RATIO LDL/HDL (test cod e = 2238) 1.46 RATIO COMPREHENSIVE METABOLIC [id number] 00:00:00* Test Item Value Reference Range Interpretation Comme nts GLUCOSE (test code = 2217) 195 MG/DL BUN (test code = 2208) 23 MG/DL CREATININE (test code = 2214) 1.13 MG/DL eGFR (2020 CKD-EPI) (test co de = 83731) 53 ML/MIN/1.73 CALC BUN/CREAT (test code = [...] ALT (test code = 2219) 24 U/L [id number] 00:00:00* Test Item Value Reference Range Interpretation Comme nts TSH, THIRD GENERATION (test code = 2821) 1.730 UIU/ML HEMOGLOBIN [id number] 00:00:00* Test Item Value Reference Range Interpretation Comme nts HEMOGLOBIN A1c (test code = 95522) 9.6 % LIPID [id number] 00:00:00* Test Item Value Reference Range Interpretation Comme nts CHOLESTEROL (test code = 2210) 156 MG/DL TRIGLYCERIDES (test code = 2232) 182 MG/DL HDL CHOLESTEROL (test code = 2220) 52 MG/DL CALC LDL CHOL (test code = 2237) 76 MG/DL RISK RATIO LDL/HDL (test cod e = 2238) 1.46 RATIO Omero ParkerCOMPREHENSIVE METABOLIC [id number] 00:00:00* Test Item Value Reference Range Interpretation Comme nts GLUCOSE (test code = 2217) 195 MG/DL BUN (test code = 2208) 23 MG/DL CREATININE (test code = 2214) 1.13 MG/DL eGFR (2020 CKD-EPI) (test co de = 56740) 53 ML/MIN/1.73 CALC BUN/CREAT (test code = [...] (test code = 2219) 24 U/L Omero [id number] 00:00:00* Test Item Value Reference Range Interpretation Comme nts TSH, THIRD GENERATION (test code = 2821) 1.730 UIU/ML Omero ParkerHEMOGLOBIN [id number] 00:00:00* Test Item Value Reference Range Interpretation Comme nts HEMOGLOBIN A1c (test code = 10034) 9.6 % Omero ParkerCBC W/AUTO [id number] 00:00:00* Test Item Value Reference Range Interpretation [...] ABS NUCLEATED RBCS (test cod e = 59347) 0.00 K/UL Omero ParkerHEMOGLOBIN [id number] 00:00:00* Test Item Value Reference Range Interpretation Comme nts HEMOGLOBIN A1c (test code = 04890) 9.1 % Omero ParkerLIPID [id number] 00:00:00* Test Item Value Reference Range Interpretation Comme nts CHOLESTEROL (test code = 2210) 136 MG/DL TRIGLYCERIDES (test code = 2232) 191 MG/DL HDL CHOLESTEROL (test code = 2220) 44 MG/DL CALC LDL CHOL (test code = 2237) 66 MG/DL RISK RATIO LDL/HDL (test cod e = 2238) 1.50 RATIO Omero ParkerCBC W/AUTO [id number] 00:00:00* Test Item Value Reference Range Interpretation [...] ABS NUCLEATED RBCS (test cod e = 61334) 0.00 K/UL Omero Patel AustinHEMOGLOBIN [id number] 00:00:00* Test Item Value Reference Range Interpretation Comme nts HEMOGLOBIN A1c (test code = 75795) 9.1 % Omero Patel AustinLIPID [id number] 00:00:00* Test Item Value Reference Range Interpretation Comme nts CHOLESTEROL (test code = 2210) 136 MG/DL TRIGLYCERIDES (test code = 2232) 191 MG/DL HDL CHOLESTEROL (test code = 2220) 44 MG/DL CALC LDL CHOL (test code = 2237) 66 MG/DL RISK RATIO LDL/HDL (test cod e = 2238) 1.50 RATIO Omero Patel AustinHEMOGLOBIN [id number] 00:00:00* Test Item Value Reference Range Interpretation Comme nts HEMOGLOBIN A1c (test code = 08643) 9.1 % CBC W/AUTO [id number] 00:00:00* Test Item Value Reference Range Interpretation [...] ABS NUCLEATED RBCS (test cod e = 67139) 0.00 K/UL Omero F AustinLIPID [id number] 00:00:00* Test Item Value Reference Range Interpretation Comme nts CHOLESTEROL (test code = 2210) 136 MG/DL TRIGLYCERIDES (test code = 2232) 191 MG/DL HDL CHOLESTEROL (test code = 2220) 44 MG/DL CALC LDL CHOL (test code = 2237) 66 MG/DL RISK RATIO LDL/HDL (test cod e = 2238) 1.50 RATIO CBC W/AUTO [id number] 00:00:00* Test Item Value Reference Range Interpretation [...] ABS NUCLEATED RBCS (test cod e = 48460) 0.00 K/UL HEMOGLOBIN [id number] 00:00:00* Test Item Value Reference Range Interpretation Comme nts HEMOGLOBIN A1c (test code = 86072) 9.1 % LIPID [id number] 00:00:00* Test Item Value Reference Range Interpretation Comme nts CHOLESTEROL (test code = 2210) 136 MG/DL TRIGLYCERIDES (test code = 2232) 191 MG/DL HDL CHOLESTEROL (test code = 2220) 44 MG/DL CALC LDL CHOL (test code = 2237) 66 MG/DL RISK RATIO LDL/HDL (test cod e = 2238) 1.50 RATIO CBC W/AUTO [id number] 00:00:00* Test Item Value Reference Range Interpretation [...] ABS NUCLEATED RBCS (test cod e = 77818) 0.00 K/UL HEMOGLOBIN [id number] 00:00:00* Test Item Value Reference Range Interpretation Comme nts HEMOGLOBIN A1c (test code = 30675) 9.1 % Omero Patel AustinLIPID [id number] 00:00:00* Test Item Value Reference Range Interpretation Comme nts CHOLESTEROL (test code = 2210) 136 MG/DL TRIGLYCERIDES (test code = 2232) 191 MG/DL HDL CHOLESTEROL (test code = 2220) 44 MG/DL CALC LDL CHOL (test code = 2237) 66 MG/DL RISK RATIO LDL/HDL (test cod e = 2238) 1.50 RATIO Omero Patel AustinLIPID [id number] 00:00:00* Test Item Value Reference Range Interpretation Comme nts CHOLESTEROL (test code = 2210) 143 MG/DL TRIGLYCERIDES (test code = 2232) 258 MG/DL HDL CHOLESTEROL (test code = 2220) 45 MG/DL CALC LDL CHOL (test code = 2237) 68 MG/DL RISK RATIO LDL/HDL (test cod e = 2238) 1.51 RATIO Omero Patel AustinCOMPREHENSIVE METABOLIC [id number] 00:00:00* Test Item Value Reference Range Interpretation Comme nts GLUCOSE (test code = 2217) 166 MG/DL BUN (test code = 2208) 19 MG/DL CREATININE (test code = 2214) 1.04 MG/DL eGFR AMER. (test cod e = 62711) 63 ML/MIN/1.73 eGFR NON- AMER. (test code = 67161) 55 ML/MIN/1.73 CALC BUN/CREAT (test code = [...] (test code = 2219) 23 U/L Omero [id number] 00:00:00* Test Item Value Reference Range Interpretation Comme [facility] TSH, THIRD GENERATION (test code = 2821) 2.640 UIU/ML Omero ParkerHEMOGLOBIN [id number] 00:00:00* Test Item Value Reference Range Interpretation Comme nts HEMOGLOBIN A1c (test code = 84321) 10.0 % Omero ParkerLIPID [id number] 00:00:00* Test Item Value Reference Range Interpretation Comme nts CHOLESTEROL (test code = 2210) 143 MG/DL TRIGLYCERIDES (test code = 2232) 258 MG/DL HDL CHOLESTEROL (test code = 2220) 45 MG/DL CALC LDL CHOL (test code = 2236) 68 MG/DL RISK RATIO LDL/HDL (test cod e = 2238) 1.51 RATIO Omero ParkerCOMPREHENSIVE METABOLIC [id number] 00:00:00* Test Item Value Reference Range Interpretation Comme nts GLUCOSE (test code = 2217) 166 MG/DL BUN (test code = 2207) 19 MG/DL CREATININE (test code = 2214) 1.04 MG/DL eGFR AMER. (test cod e = ) 63 ML/MIN/1.73 eGFR NON- AMER. (test code = 57681) 55 ML/MIN/1.73 CALC BUN/CREAT (test code = 223) 18 RATIO SODIUM (test code = 223) 138 MEQ/L POTASSIUM (test code = 2228) 5.3 MEQ/L CHLORIDE (test code = 2215) 102 MEQ/L CARBON DIOXIDE (test code = 2206) 24 MEQ/L CALCIUM (test code = 2209) 9.6 MG/DL PROTEIN, TOTAL (test code = 2228) 7.3 G/DL ALBUMIN (test code = 220) 4.2 G/DL CALC GLOBULIN (test code = 2240) 3.1 G/DL CALC A/G RATIO (test code = 2234) 1.4 RATIO BILIRUBIN, TOTAL (test code = 2206) 0.3 MG/DL ALKALINE PHOSPHATASE (test code = 4) 81 U/L AST (test code = 2218) 26 U/L ALT (test code = 2219) 23 U/L Omero [id number] 00:00:00* Test Item Value Reference Range Interpretation Comme nts TSH, THIRD GENERATION (test code = 2821) 2.640 UIU/ML Omero ParkerLIPID [id number] 00:00:00* Test Item Value Reference Range Interpretation Comme nts CHOLESTEROL (test code = 2210) 143 MG/DL TRIGLYCERIDES (test code = 2232) 258 MG/DL HDL CHOLESTEROL (test code = 2220) 45 MG/DL CALC LDL CHOL (test code = 2237) 68 MG/DL RISK RATIO LDL/HDL (test cod e = 2238) 1.51 RATIO HEMOGLOBIN [id number] 00:00:00* Test Item Value Reference Range Interpretation Comme nts HEMOGLOBIN A1c (test code = 91367) 10.0 % Omero ParkerCOMPREHENSIVE METABOLIC [id number] 00:00:00* Test Item Value Reference Range Interpretation Comme nts GLUCOSE (test code = 2216) 166 MG/DL BUN (test code = 2207) 19 MG/DL CREATININE (test code = 2214) 1.04 MG/DL eGFR AMER. (test cod e = 86266) 63 ML/MIN/1.73 eGFR NON- AMER. (test code = 88930) 55 ML/MIN/1.73 CALC BUN/CREAT (test code = [...] 2204) 81 U/L AST (test code = 221) 26 U/L ALT (test code = 2219) 23 U/L [id number] 00:00:00* Test Item Value Reference Range Interpretation Comme nts TSH, THIRD GENERATION (test code = 2821) 2.640 UIU/ML HEMOGLOBIN [id number] 00:00:00* Test Item Value Reference Range Interpretation Comme nts HEMOGLOBIN A1c (test code = 83424) 10.0 % LIPID [id number] 00:00:00* Test Item Value Reference Range Interpretation Comme nts CHOLESTEROL (test code = 2210) 143 MG/DL TRIGLYCERIDES (test code = 2232) 258 MG/DL HDL CHOLESTEROL (test code = 2220) 45 MG/DL CALC LDL CHOL (test code = 2237) 68 MG/DL RISK RATIO LDL/HDL (test cod e = 223) 1.51 RATIO COMPREHENSIVE METABOLIC [id number] 00:00:00* Test Item Value Reference Range Interpretation Comme nts GLUCOSE (test code = 2217) 166 MG/DL BUN (test code = 2208) 19 MG/DL CREATININE (test code = 2214) 1.04 MG/DL eGFR AMER. (test cod e = 94830) 63 ML/MIN/1.73 eGFR NON- AMER. (test code = 76717) 55 ML/MIN/1.73 CALC BUN/CREAT (test code = [...] 2204) 81 U/L AST (test code = 221) 26 U/L ALT (test code = 2219) 23 U/L [id number] 00:00:00* Test Item Value Reference Range Interpretation Comme nts TSH, THIRD GENERATION (test code = 2821) 2.640 UIU/ML HEMOGLOBIN [id number] 00:00:00* Test Item Value Reference Range Interpretation Comme nts HEMOGLOBIN A1c (test code = 41911) 10.0 % LIPID [id number] 00:00:00* Test Item Value Reference Range Interpretation Comme nts CHOLESTEROL (test code = 2210) 143 MG/DL TRIGLYCERIDES (test code = 2232) 258 MG/DL HDL CHOLESTEROL (test code = 2220) 45 MG/DL CALC LDL CHOL (test code = 2237) 68 MG/DL RISK RATIO LDL/HDL (test cod e = 2238) 1.51 RATIO Omero F AustinCOMPREHENSIVE METABOLIC [id number] 00:00:00* Test Item Value Reference Range Interpretation Comme nts GLUCOSE (test code = 2217) 166 MG/DL BUN (test code = 2208) 19 MG/DL CREATININE (test code = 2214) 1.04 MG/DL eGFR AMER. (test cod e = 25212) 63 ML/MIN/1.73 eGFR NON- AMER. (test code = 62416) 55 ML/MIN/1.73 CALC BUN/CREAT (test code = 2235) 18 RATIO SODIUM (test code = 223) 138 MEQ/L POTASSIUM (test code = 2228) 5.3 MEQ/L CHLORIDE (test code = 2215) 102 MEQ/L CARBON DIOXIDE (test code = 2206) 24 MEQ/L CALCIUM (test code = 2209) 9.6 MG/DL PROTEIN, TOTAL (test code = 2228) 7.3 G/DL ALBUMIN (test code = 2201) 4.2 G/DL CALC GLOBULIN (test code = 2240) 3.1 G/DL CALC A/G RATIO (test code = 2234) 1.4 RATIO BILIRUBIN, TOTAL (test code = 2206) 0.3 MG/DL ALKALINE PHOSPHATASE (test code = 2203) 81 U/L AST (test code = 2217) 26 U/L ALT (test code = 2218) 23 U/L Omero [id number] 00:00:00* Test Item Value Reference Range Interpretation Comme nts TSH, THIRD GENERATION (test code = 2821) 2.640 UIU/ML Omero ParkerHEMOGLOBIN [id number] 00:00:00* Test Item Value Reference Range Interpretation Comme nts HEMOGLOBIN A1c (test code = 75245) 10.0 % Omero ParkerMICROALBUMIN/CREATININE, RANDOM AND [id number] 00:00:00* Test Item Value Reference Range Interpretation Comme nts CREATININE, URINE, CONC. (te st code = 207) 68.9 MG/DL ALBUMIN, URINE, RANDOM (test code = 88040) 0.3 MG/DL CALC ALBUMIN/CREAT, RND (jaimee t code = 37130) 4 MG/G Omero Patel AustinMICROALBUMIN/CREATININE, RANDOM AND [id number] 00:00:00* Test Item Value Reference Range Interpretation Comme nts CREATININE, URINE, CONC. (te st code = 2071) 68.9 MG/DL ALBUMIN, URINE, RANDOM (test code = 96282) 0.3 MG/DL CALC ALBUMIN/CREAT, RND (jaimee t code = 19049) 4 MG/G Omero Patel AustinMICROALBUMIN/CREATININE, RANDOM AND [id number] 00:00:00* Test Item Value Reference Range Interpretation Comme nts CREATININE, URINE, CONC. (te st code = 2071) 68.9 MG/DL ALBUMIN, URINE, RANDOM (test code = 89057) 0.3 MG/DL CALC ALBUMIN/CREAT, RND (jaimee t code = 55605) 4 MG/G MICROALBUMIN/CREATININE, RANDOM AND [id number] 00:00:00* Test Item Value Reference Range Interpretation Comme nts CREATININE, URINE, CONC. (te st code = 2071) 68.9 MG/DL ALBUMIN, URINE, RANDOM (test code = 49427) 0.3 MG/DL CALC ALBUMIN/CREAT, RND (jaimee t code = 02481) 4 MG/G MICROALBUMIN/CREATININE, RANDOM AND [id number] 00:00:00* Test Item Value Reference Range Interpretation Comme nts CREATININE, URINE, CONC. (te st code = 2071) 68.9 MG/DL ALBUMIN, URINE, RANDOM (test code = 61853) 0.3 MG/DL CALC ALBUMIN/CREAT, RND (jaimee t code = 83326) 4 MG/G Omero F AustinLIPID [id number] 00:00:00* Test Item Value Reference Range Interpretation Comme nts CHOLESTEROL (test code = 2210) 132 MG/DL TRIGLYCERIDES (test code = 2232) 224 MG/DL HDL CHOLESTEROL (test code = 2220) 45 MG/DL CALC LDL CHOL (test code = 2237) 59 MG/DL RISK RATIO LDL/HDL (test cod e = 2238) 1.31 RATIO Omero F RockhamCOMPREHENSIVE METABOLIC [id number] 00:00:00* Test Item Value Reference Range Interpretation Comme nts GLUCOSE (test code = 2217) 137 MG/DL BUN (test code = 2208) 21 MG/DL CREATININE (test code = 2214) 1.21 MG/DL eGFR AMER. (test cod e = 22949) 53 ML/MIN/1.73 eGFR NON- AMER. (test code = 95534) 46 ML/MIN/1.73 CALC BUN/CREAT (test code = [...] code = 2219) 22 U/L Omero ParkerHEMOGLOBIN [id number] 00:00:00* Test Item Value Reference Range Interpretation Comme eliana HEMOGLOBIN A1c (test code = 98022) 8.9 % Omero ParkerLIPID [id number] 00:00:00* Test Item Value Reference Range Interpretation Comme nts CHOLESTEROL (test code = 2210) 132 MG/DL TRIGLYCERIDES (test code = 2232) 224 MG/DL HDL CHOLESTEROL (test code = 2220) 45 MG/DL CALC LDL CHOL (test code = 2237) 59 MG/DL RISK RATIO LDL/HDL (test cod e = 2238) 1.31 RATIO Omero ParkerCOMPREHENSIVE METABOLIC [id number] 00:00:00* Test Item Value Reference Range Interpretation Comme nts GLUCOSE (test code = 2217) 137 MG/DL BUN (test code = 2208) 21 MG/DL CREATININE (test code = 2214) 1.21 MG/DL eGFR AMER. (test cod e = 96113) 53 ML/MIN/1.73 eGFR NON- AMER. (test code = 12243) 46 ML/MIN/1.73 CALC BUN/CREAT (test code = [...] (test code = 2219) 22 U/L Omero Patel AustinLIPID [id number] 00:00:00* Test Item Value Reference Range Interpretation Comme nts CHOLESTEROL (test code = 2210) 132 MG/DL TRIGLYCERIDES (test code = 2232) 224 MG/DL HDL CHOLESTEROL (test code = 2220) 45 MG/DL CALC LDL CHOL (test code = 2237) 59 MG/DL RISK RATIO LDL/HDL (test cod e = 2238) 1.31 RATIO COMPREHENSIVE METABOLIC [id number] 00:00:00* Test Item Value Reference Range Interpretation Comme nts GLUCOSE (test code = 2217) 137 MG/DL BUN (test code = 2208) 21 MG/DL CREATININE (test code = 2214) 1.21 MG/DL eGFR AMER. (test cod e = 74647) 53 ML/MIN/1.73 eGFR NON- AMER. (test code = 59581) 46 ML/MIN/1.73 CALC BUN/CREAT (test code = [...] (test code = 2219) 22 U/L HEMOGLOBIN [id number] 00:00:00* Test Item Value Reference Range Interpretation Comme nts HEMOGLOBIN A1c (test code = 01724) 8.9 % Omero Patel AustinHEMOGLOBIN [id number] 00:00:00* Test Item Value Reference Range Interpretation Comme nts HEMOGLOBIN A1c (test code = 13666) 8.9 % LIPID [id number] 00:00:00* Test Item Value Reference Range Interpretation Comme nts CHOLESTEROL (test code = 2210) 132 MG/DL TRIGLYCERIDES (test code = 2232) 224 MG/DL HDL CHOLESTEROL (test code = 2220) 45 MG/DL CALC LDL CHOL (test code = 2237) 59 MG/DL RISK RATIO LDL/HDL (test cod e = 2238) 1.31 RATIO COMPREHENSIVE METABOLIC [id number] 00:00:00* Test Item Value Reference Range Interpretation Comme nts GLUCOSE (test code = 2217) 137 MG/DL BUN (test code = 2208) 21 MG/DL CREATININE (test code = 2214) 1.21 MG/DL eGFR AMER. (test cod e = 80841) 53 ML/MIN/1.73 eGFR NON- AMER. (test code = 98050) 46 ML/MIN/1.73 CALC BUN/CREAT (test code = [...] (test code = 2219) 22 U/L HEMOGLOBIN [id number] 00:00:00* Test Item Value Reference Range Interpretation Comme nts HEMOGLOBIN A1c (test code = 78596) 8.9 % LIPID [id number] 00:00:00* Test Item Value Reference Range Interpretation Comme nts CHOLESTEROL (test code = 2210) 132 MG/DL TRIGLYCERIDES (test code = 2232) 224 MG/DL HDL CHOLESTEROL (test code = 2220) 45 MG/DL CALC LDL CHOL (test code = 2237) 59 MG/DL RISK RATIO LDL/HDL (test cod e = 2238) 1.31 RATIO Omero ParkerCOMPREHENSIVE METABOLIC [id number] 00:00:00* Test Item Value Reference Range Interpretation Comme nts GLUCOSE (test code = 2217) 137 MG/DL BUN (test code = 2208) 21 MG/DL CREATININE (test code = 2214) 1.21 MG/DL eGFR AMER. (test cod e = 45059) 53 ML/MIN/1.73 eGFR NON- AMER. (test code = 71416) 46 ML/MIN/1.73 CALC BUN/CREAT (test code = [...] code = 2219) 22 U/L Omero ParkerHEMOGLOBIN [id number] 00:00:00* Test Item Value Reference Range Interpretation Comme eliana HEMOGLOBIN A1c (test code = 06413) 8.9 % Omero ParkerALBUMIN/CREATININE RATIO, URINE, RANDOM [ADDED]2019-09-16 00:00:00* Test Item Value Reference Range Interpretation Comme eliana CREATININE, URINE, CONC. (test code = 2072) TEST NOT PERFORMED MG/DL ALBUMIN, URINE, RANDOM (test code = 02224) TEST NOT PERFORMED MG/DL CALC ALBUMIN/CREAT, RND (test code = 04408) TEST NOT PERFORMED MG/G Omero F AustinALBUMIN/CREATININE RATIO, URINE, RANDOM [ADDED]2019-09-16 00:00:00* Test Item Value Reference Range Interpretation Comme nts CREATININE, URINE, CONC. (test code = 207) TEST NOT PERFORMED MG/DL ALBUMIN, URINE, RANDOM (test code = 68845) TEST NOT PERFORMED MG/DL CALC ALBUMIN/CREAT, RND (test code = 43109) TEST NOT PERFORMED MG/G Omero F AustinALBUMIN/CREATININE RATIO, URINE, RANDOM [ADDED]2019-09-16 00:00:00* Test Item Value Reference Range Interpretation Comme nts CREATININE, URINE, CONC. (test code = 207) TEST NOT PERFORMED MG/DL ALBUMIN, URINE, RANDOM (test code = 87262) TEST NOT PERFORMED MG/DL CALC ALBUMIN/CREAT, RND (test code = 61577) TEST NOT PERFORMED MG/G ALBUMIN/CREATININE RATIO, URINE, RANDOM [ADDED]2019-09-16 00:00:00* Test Item Value Reference Range Interpretation Comme nts CREATININE, URINE, CONC. (test code = 207) TEST NOT PERFORMED MG/DL ALBUMIN, URINE, RANDOM (test code = 61538) TEST NOT PERFORMED MG/DL CALC ALBUMIN/CREAT, RND (test code = 51577) TEST NOT PERFORMED MG/G ALBUMIN/CREATININE RATIO, URINE, RANDOM [ADDED]2019-09-16 00:00:00* Test Item Value Reference Range Interpretation Comme nts CREATININE, URINE, CONC. (test code = 207) TEST NOT PERFORMED MG/DL ALBUMIN, URINE, RANDOM (test code = 62150) TEST NOT PERFORMED MG/DL CALC ALBUMIN/CREAT, RND (test code = 05492) TEST NOT PERFORMED MG/G Omero F AustinCOMPREHENSIVE METABOLIC PANEL [ADDED]2019-09-12 00:00:00* Test Item Value Reference Range Interpretation Comme nts GLUCOSE (test code = 2217) 182 MG/DL BUN (test code = 2208) 25 MG/DL CREATININE (test code = 2214) 1.16 MG/DL eGFR AMER. (test cod e = 08834) 56 ML/MIN/1.73 eGFR NON- AMER. (test code = 84073) 48 ML/MIN/1.73 CALC BUN/CREAT (test code = [...] 0.2 MG/DL ALKALINE PHOSPHATASE (test code = 220) 75 U/L AST (test code = 221) 24 U/L ALT (test code = 221) 23 U/L Omero Amanda KeithLIPID PANEL [ADDED]2019-09-12 00:00:00* Test Item Value Reference Range Interpretation Comme nts CHOLESTEROL (test code = 2210) 165 MG/DL TRIGLYCERIDES (test code = 2232) 345 MG/DL HDL CHOLESTEROL (test code = 2220) 50 MG/DL CALC LDL CHOL (test code = 2237) 73 MG/DL RISK RATIO LDL/HDL (test cod e = 2238) 1.46 RATIO Omero Patel KeithTSH, THIRD GENERATION [ADDED]2019-09-12 00:00:00* Test Item Value Reference Range Interpretation Comme nts TSH, THIRD GENERATION (test code = 2821) 9.860 UIU/ML Omero ParkerNOTE: [ADDED]2019-09-12 00:00:00* Test Item Value Reference Range Interpretation Comme nts NOTE: (test code = 998) (NOTE) Omero Amanda KeithCOMPREHENSIVE METABOLIC PANEL [ADDED]2019-09-12 00:00:00* Test Item Value Reference Range Interpretation Comme nts GLUCOSE (test code = 2217) 182 MG/DL BUN (test code = 2207) 25 MG/DL CREATININE (test code = 2214) 1.16 MG/DL eGFR AMER. (test cod e = 03718) 56 ML/MIN/1.73 eGFR NON- AMER. (test code = 40631) 48 ML/MIN/1.73 CALC BUN/CREAT (test code = [...] cod e = 2238) 1.46 RATIO Omero Patel Denita, THIRD GENERATION [ADDED]2019-09-12 00:00:00* Test Item Value Reference Range Interpretation Comme nts TSH, THIRD GENERATION (test code = 2821) 9.860 UIU/ML Omero Patel KeithNOTE: [ADDED]2019-09-12 00:00:00* Test Item Value Reference Range Interpretation Comme nts NOTE: (test code = 998) (NOTE) Omero Amanda AustinLIPID PANEL [ADDED]2019-09-12 00:00:00* Test Item Value Reference Range Interpretation Comme nts CHOLESTEROL (test code = 2210) 165 MG/DL TRIGLYCERIDES (test code = 2232) 345 MG/DL HDL CHOLESTEROL (test code = 2220) 50 MG/DL CALC LDL CHOL (test code = 2237) 73 MG/DL RISK RATIO LDL/HDL (test cod e = 2238) 1.46 RATIO COMPREHENSIVE METABOLIC PANEL [ADDED]2019-09-12 00:00:00* Test Item Value Reference Range Interpretation Comme nts GLUCOSE (test code = 2217) 182 MG/DL BUN (test code = 2208) 25 MG/DL CREATININE (test code = 2214) 1.16 MG/DL eGFR AMER. (test cod e = 62461) 56 ML/MIN/1.73 eGFR NON- AMER. (test code = 75377) 48 ML/MIN/1.73 CALC BUN/CREAT (test code = [...] (test code = 2219) 23 U/L Omero Diaz, THIRD GENERATION [ADDED]2019-09-12 00:00:00* Test Item Value [...] MG/DL eGFR AMER. (test cod e = 83677) 56 ML/MIN/1.73 eGFR NON- AMER. (test code = 31930) 48 ML/MIN/1.73 CALC BUN/CREAT (test code = [...] MG/DL eGFR AMER. (test cod e = 87580) 56 ML/MIN/1.73 eGFR NON- AMER. (test code = 44082) 48 ML/MIN/1.73 CALC BUN/CREAT (test code = [...] (test code = 2821) 9.860 UIU/ML Omero ParkerNOTE: [ADDED]2019-09-12 00:00:00* Test Item Value Reference Range Interpretation Comme nts NOTE: (test code = 998) (NOTE) Omero ParkerCBC W/AUTO DIFF WITH PLATELETS [ADDED]2019-09-11 00:00:00* Test [...] code = 1015) 232 K/UL Omero Patel AustinHEMOGLOBIN A1c [ADDED]2019-09-11 00:00:00* Test Item Value Reference Range Interpretation Comme nts HEMOGLOBIN A1c (test code = 42364) 9.0 % Omero Patel AustinCBC W/AUTO DIFF [...] code = 1015) 232 K/UL Omero Patel AustinHEMOGLOBIN A1c [ADDED]2019-09-11 00:00:00* Test Item Value Reference Range Interpretation Comme nts HEMOGLOBIN A1c (test code = 11351) 9.0 % Omero Patel AustinCBC W/AUTO DIFF [...] Comme nts HEMOGLOBIN A1c (test code = 95806) 9.0 % CBC W/AUTO DIFF WITH PLATELETS [...] Comme nts HEMOGLOBIN A1c (test code = 17438) 9.0 % CBC W/AUTO DIFF WITH PLATELETS [...] Comme nts HEMOGLOBIN A1c (test code = 76614) 9.0 % Omero ParkerHEMOGLOBIN [id number] 00:00:00* Test Item Value Reference Range Interpretation Comme eliana HEMOGLOBIN A1c (test code = 75808) 8.3 % Omero ParkerCOMPREHENSIVE METABOLIC [id number] 00:00:00* Test Item Value Reference Range Interpretation Comme nts GLUCOSE (test code = 2217) 159 MG/DL BUN (test code = 2208) 22 MG/DL CREATININE (test code = 2214) 1.06 MG/DL eGFR AMER. (test cod e = 40279) 62 ML/MIN/1.73 eGFR NON- AMER. (test code = 65054) 54 ML/MIN/1.73 CALC BUN/CREAT (test code = [...] code = 2219) 18 U/L Omero ParkerLIPID [id number] 00:00:00* Test Item Value Reference Range Interpretation Comme nts CHOLESTEROL (test code = 2210) 145 MG/DL TRIGLYCERIDES (test code = 2232) 270 MG/DL HDL CHOLESTEROL (test code = 2220) 49 MG/DL CALC LDL CHOL (test code = 2237) 64 MG/DL RISK RATIO LDL/HDL (test cod e = 2238) 1.31 RATIO Omero ParkerCBC W/AUTO [id number] 00:00:00* Test Item Value Reference Range Interpretation [...] code = 1015) 224 K/UL Omero ParkerHEMOGLOBIN [id number] 00:00:00* Test Item Value Reference Range Interpretation Comme nts HEMOGLOBIN A1c (test code = 28864) 8.3 % Omero ParkerCOMPREHENSIVE METABOLIC [id number] 00:00:00* Test Item Value Reference Range Interpretation Comme nts GLUCOSE (test code = 2217) 159 MG/DL BUN (test code = 2208) 22 MG/DL CREATININE (test code = 2214) 1.06 MG/DL eGFR AMER. (test cod e = 14595) 62 ML/MIN/1.73 eGFR NON- AMER. (test code = 72216) 54 ML/MIN/1.73 CALC BUN/CREAT (test code = [...] code = 2219) 18 U/L Omero ParkerLIPID [id number] 00:00:00* Test Item Value Reference Range Interpretation Comme nts CHOLESTEROL (test code = 2210) 145 MG/DL TRIGLYCERIDES (test code = 2232) 270 MG/DL HDL CHOLESTEROL (test code = 2220) 49 MG/DL CALC LDL CHOL (test code = 2237) 64 MG/DL RISK RATIO LDL/HDL (test cod e = 2238) 1.31 RATIO Omero ParkerCBC W/AUTO [id number] 00:00:00* Test Item Value Reference Range Interpretation [...] code = 1015) 224 K/UL Omero ParkerHEMOGLOBIN [id number] 00:00:00* Test Item Value Reference Range Interpretation Comme nts HEMOGLOBIN A1c (test code = 03881) 8.3 % COMPREHENSIVE METABOLIC [id number] 00:00:00* Test Item Value Reference Range Interpretation Comme nts GLUCOSE (test code = 2217) 159 MG/DL BUN (test code = 2208) 22 MG/DL CREATININE (test code = 2214) 1.06 MG/DL eGFR AMER. (test cod e = 44497) 62 ML/MIN/1.73 eGFR NON- AMER. (test code = 40891) 54 ML/MIN/1.73 CALC BUN/CREAT (test code = [...] (test code = 2219) 18 U/L LIPID [id number] 00:00:00* Test Item Value Reference Range Interpretation Comme nts CHOLESTEROL (test code = 2210) 145 MG/DL TRIGLYCERIDES (test code = 2232) 270 MG/DL HDL CHOLESTEROL (test code = 2220) 49 MG/DL CALC LDL CHOL (test code = 2237) 64 MG/DL RISK RATIO LDL/HDL (test cod e = 2238) 1.31 RATIO CBC W/AUTO [id number] 00:00:00* Test Item Value Reference Range Interpretation [...] (test code = 1015) 224 K/UL HEMOGLOBIN [id number] 00:00:00* Test Item Value Reference Range Interpretation Comme nts HEMOGLOBIN A1c (test code = 33678) 8.3 % COMPREHENSIVE METABOLIC [id number] 00:00:00* Test Item Value Reference Range Interpretation Comme nts GLUCOSE (test code = 2217) 159 MG/DL BUN (test code = 2208) 22 MG/DL CREATININE (test code = 2214) 1.06 MG/DL eGFR AMER. (test cod e = 78056) 62 ML/MIN/1.73 eGFR NON- AMER. (test code = 36357) 54 ML/MIN/1.73 CALC BUN/CREAT (test code = [...] (test code = 2219) 18 U/L LIPID [id number] 00:00:00* Test Item Value Reference Range Interpretation Comme nts CHOLESTEROL (test code = 2210) 145 MG/DL TRIGLYCERIDES (test code = 2232) 270 MG/DL HDL CHOLESTEROL (test code = 2220) 49 MG/DL CALC LDL CHOL (test code = 2237) 64 MG/DL RISK RATIO LDL/HDL (test cod e = 2238) 1.31 RATIO CBC W/AUTO [id number] 00:00:00* Test Item Value Reference Range Interpretation [...] (test code = 1015) 224 K/UL HEMOGLOBIN [id number] 00:00:00* Test Item Value Reference Range Interpretation Comme nts HEMOGLOBIN A1c (test code = 96067) 8.3 % Omero Amanda ParkerCOMPREHENSIVE METABOLIC [id number] 00:00:00* Test Item Value Reference Range Interpretation Comme nts GLUCOSE (test code = 2217) 159 MG/DL BUN (test code = 2208) 22 MG/DL CREATININE (test code = 2214) 1.06 MG/DL eGFR AMER. (test cod e = 03710) 62 ML/MIN/1.73 eGFR NON- AMER. (test code = 80430) 54 ML/MIN/1.73 CALC BUN/CREAT (test code = [...] code = 2219) 18 U/L Omero ParkerLIPID [id number] 00:00:00* Test Item Value Reference Range Interpretation Comme nts CHOLESTEROL (test code = 2210) 145 MG/DL TRIGLYCERIDES (test code = 2232) 270 MG/DL HDL CHOLESTEROL (test code = 2220) 49 MG/DL CALC LDL CHOL (test code = 2237) 64 MG/DL RISK RATIO LDL/HDL (test cod e = 2238) 1.31 [facility] [id number] 00:00:00* Test Item Value Reference Range Interpretation [...] (test code = 1015) 224 K/UL Omero Parker
[2024-02-24] MEDS ORDERED: NA CHLORIDE 0.9% 1,000 ML ONE ×2 (16:39→16:40)
[2024-02-24] MEDS ORDERED: DIPHENHYDRAMINE 50 MG/ML VIAL ONE (16:40)
[2024-02-24] MEDS ORDERED: FAMOTIDINE 20 MG/2 ML VIAL IV ONE (16:40)
[2024-02-24] MEDS ORDERED: METHYLPREDNISOLONE 125 MG INJ ONE (16:40)
--- NOTE | 2024-02-24 18:02 | ER ---
Nurse's Notes [facility] Name: Karin Mendosa Age: 73 yrs Sex: Female : 1950 Arrival Date: 02/24/2024 Time: 16:24 Bed 10 Private MD: Diagnosis: Acute allergic reaction- diclofenac Presentation: 02/23 16:31 Chief complaint: Patient states: Took dicofenac, reports itching and itchy throat. jl7 Coronavirus screen: At this time, the client does not indicate any symptoms associated with coronavirus-19. Ebola Screen: No symptoms or risks identified at this time. Onset: The symptoms/episode began/occurred acutely. Anaphylaxis evaluation, no signs or symptoms of anaphylaxis were noted. Initial Sepsis Screen: Does the patient meet any 2 criteria? No. Patient's initial sepsis screen is negative. Does the patient have a suspected source of infection? No. Patient's initial sepsis screen is negative. Risk Assessment: Do you want to hurt yourself or someone else? Patient reports no desire to harm self or others. Onset of symptoms was February 24, 2024. 16:31 Method Of Arrival: Ambulatory [facility] 16:31 Acuity: RAY 2 jl7 Triage Assessment: 16:33 General: Appears in no apparent distress. uncomfortable, Behavior is calm, cooperative, jl7 appropriate for age. Pain: Denies pain. Cardiovascular: Patient's skin is warm and dry. Respiratory: Airway is patent Respiratory effort is even, unlabored, Respiratory pattern is regular, symmetrical. Derm: Skin is pink, warm \T\ dry. Historical: - Allergies: 16:33 Morphine; jl7 17:23 diclofenac sodium; sb4 - PMHx: 16:33 Arthritis; Diabetes - NIDDM; Hypertension; Hypothyroidism; jl7 - PSHx: 16:33 back surgery; Cholecystectomy; jl7 - Immunization history:: Adult Immunizations unknown. - Infectious Disease History:: Denies. - Social history:: Smoking status: Patient denies any tobacco usage or history of. Screenin:15 Abuse screen: Denies threats or abuse. Denies injuries from another. Nutritional ss screening: No deficits noted. Tuberculosis screening: Never had TB. Assessment: 18:15 Reassessment: Patient states feeling better. Patient states symptoms have improved. ss General: Appears in no apparent distress. comfortable, Behavior is calm, cooperative. Neuro: Level of Consciousness is awake, alert, obeys commands, Oriented to person, place, time, situation. Respiratory: Airway is patent Respiratory effort is even, unlabored, Respiratory pattern is regular, symmetrical, Breath sounds are clear bilaterally. Derm: Skin is intact, is healthy with good turgor, Skin is pink, warm \T\ dry. normal. Musculoskeletal: Circulation, motion, and sensation intact. Range of motion: intact in all extremities, Swelling absent. Vital Signs: 16:31 BP 138 / 71; Pulse 120; Resp 19; Pulse Ox 97% ; jl7 18:04 Pulse 67; sb4 ED Course: 16:25 Patient arrived in ED. mr 16:32 [facility] sb[facility] 16:32 Pedro Calabrese MD is Attending Physician. sb4 16:33 Triage completed. jl7 16:33 Arm band placed on right wrist. Patient placed in an exam room, on a stretcher, on jl7 pulse oximetry. 16:43 Inserted saline lock: 20 gauge in right antecubital area, using aseptic technique. zm Flushed with 10 mL NS. 18:14 Marnie Flanagan, RN is Primary Nurse. ss 18:15 Patient has correct armband on for positive identification. Bed in low position. ss 18:15 No provider procedures requiring assistance completed. IV discontinued, intact, ss bleeding controlled, No redness/swelling at site. Pressure dressing applied. Administered Medications: 16:40 Drug: NS 0.9% IV 1000 ml IV at 1 bolus Per protocol; to be given as a bolus over 60 jl7 minutes Route: IV; Rate: 1 bolus; Site: right antecubital; 18:15 Follow up: IV Status: Completed infusion; IV Intake: 1000ml ss 16:40 Drug: diphenhydrAMINE IVP 25 mg IVP once Route: IVP; Site: right antecubital; jl7 18:15 Follow up: Response: No adverse reaction ss 16:42 Drug: Famotidine IVP 20 mg IVP once; dilute with 10 mL 0.9% NaCl; give over 2 minutes jl7 Route: IVP; Site: right antecubital; 18:15 Follow up: Response: No adverse reaction; Marked relief of symptoms; Medication ss Administered at Departure 16:45 Drug: MethylPrednisoLONE IVP 125 mg IVP once Route: IVP; Site: right antecubital; jl7 18:15 Follow up: Response: No adverse reaction; Marked relief of symptoms ss Medication: 18:15 VIS not applicable for this client. ss Intake: 18:15 IV: 1000ml; Total: 1000ml. ss Outcome: 18:02 Discharge ordered by . sb4 18:15 Discharged to home ambulatory, ss 18:15 Condition: good 18:15 Discharge instructions given to patient, Instructed on discharge instructions, follow up and referral plans. medication usage, Demonstrated understanding of instructions, follow-up care, medications, Prescriptions given X 3, 18:17 Patient left the ED. ss Signatures: Sweta Chairez, Reg Reg mr Marnie Flanagan, RN RN Bong Simpson RN RN jl7 Kat Leary Sophia, PA-C PA-C sb4
--- NOTE | 2024-02-24 18:02 | EDPHYS ---
Physician Documentation [facility] Name: Karin Mendosa Age: 73 yrs Sex: Female : 1950 Arrival Date: 02/24/2024 Time: 16:24 Bed 10 Private MD: ED Physician Pedro Calbarese HPI: 02/23 16:56 This 73 yrs old Female presents to ER via Ambulatory with complaints of sb4 Allergic Reaction, Breathing Difficulty. 16:56 71-year-old female presents with allergic reaction to diclofenac. She reports throat sb4 itching, diffuse warmth and redness around her skin. States that she had a similar reaction a few weeks ago after taking this medicine but she had also just eaten a meal and thought it was secondary to the food. She took the medication again today and had the same reaction. Historical: - Allergies: 16:33 Morphine; jl7 17:23 diclofenac sodium; sb4 - PMHx: 16:33 Arthritis; Diabetes - NIDDM; Hypertension; Hypothyroidism; jl7 - PSHx: 16:33 back surgery; Cholecystectomy; jl7 - Immunization history:: Adult Immunizations unknown. - Infectious Disease History:: Denies. - Social history:: Smoking status: Patient denies any tobacco usage or history of. ROS: 16:56 Constitutional: Negative for fever, chills, and weight loss, sb4 16:56 ENT: Positive for Per HPI, 16:56 Skin: Positive for erythema, Pruritus, 16:56 All other systems are negative, Exam: 16:56 Head/Face: Normocephalic, atraumatic. Eyes: Extra-ocular motions intact. Periorbital sb4 areas with no swelling, redness, or edema. ENT: Mucous membranes moist. 16:56 Respiratory: No increased work of breathing, no retractions or nasal flaring. Abdomen/GI: Soft, non-tender, no distension. 16:56 Constitutional: The patient appears alert, awake, anxious, Flush 16:56 Cardiovascular: Rate: tachycardic, Rhythm: regular, 16:56 Skin: Appearance: Color: erythematous, Temperature: warm, Vital Signs: 16:31 BP 138 / 71; Pulse 120; Resp 19; Pulse Ox 97% ; jl7 18:04 Pulse 67; sb4 MDM: 16:32 Medical Screening Exam initiated sb4 18:01 Data reviewed: vital signs, nurses notes, and as a result, I will discharge patient. sb4 Counseling: I had a detailed discussion with the patient and/or guardian regarding the historical points, exam findings, and any diagnostic results supporting the discharge/admit diagnosis, to return to the emergency department if symptoms worsen or persist or if there are any questions or concerns that arise at home. 02/23 16:37 Order name: IV Start; Complete Time: 16:43 sb4 Administered Medications: 16:40 Drug: NS 0.9% IV 1000 ml IV at 1 bolus Per protocol; to be given as a bolus over 60 jl7 minutes Route: IV; Rate: 1 bolus; Site: right antecubital; 18:15 Follow up: IV Status: Completed infusion; IV Intake: 1000ml ss 16:40 Drug: diphenhydrAMINE IVP 25 mg IVP once Route: IVP; Site: right antecubital; jl7 18:15 Follow up: Response: No adverse reaction ss 16:42 Drug: Famotidine IVP 20 mg IVP once; dilute with 10 mL 0.9% NaCl; give over 2 minutes jl7 Route: IVP; Site: right antecubital; 18:15 Follow up: Response: No adverse reaction; Marked relief of symptoms; Medication ss Administered at Departure 16:45 Drug: MethylPrednisoLONE IVP 125 mg IVP once Route: IVP; Site: right antecubital; jl7 18:15 Follow up: Response: No adverse reaction; Marked relief of symptoms ss Disposition: 02/24 07:02 Co-signature as Attending Physician, Pedro Calabrese MD I reviewed the patient's care rn provided by the Advanced Practice Provider and agree with the diagnosis and treatment plan. Disposition Summary: 02/24/24 18:02 Discharge Ordered Notes: Location: Home sb4 Problem: new sb4 Symptoms: have improved sb4 Condition: Stable sb4 Diagnosis - Acute allergic reaction- diclofenac sb4 Followup: sb4 - With: Emergency Department - When: As needed - Reason: Trouble breathing, Worsening of condition Discharge Instructions: - Discharge Summary Sheet sb4 - Allergies, Adult sb4 Forms: - Patient Portal Instructions sb4 - Leadership Thank You Letter sb4 Prescriptions: - Pepcid 20 mg Oral Tablet - take 1 tablet ORAL route every 12 hours for 5 days; 10 tablet; Refills: 0, sb4 Product Selection Permitted - Prednisone 20 mg Oral Tablet - take 1 tablet ORAL route once daily for 5 days; 5 tablet; Refills: 0, Product sb4 Selection Permitted - Loratadine 10 mg Oral Tablet - take 1 tablet ORAL route once daily; 14 tablet; Refills: 0, Product Selection sb4 Permitted Signatures: Pedro Calabrese MD MD rn Leal, Jahala, RN RN [id number] Kathleen Fuller PA-C PA-C sb4 Marnie Flanagan RN ss
[2024-02-24 23:18] VITALS: BP 138/71; O2SAT 97
== END 2024-02-24 18:17 | disposition home or self-care (01) ==
LOC: ER 16:24
DX: T78.49XA Other allergy, initial encounter (principal); T39.395A Adverse effect of other nonsteroidal anti-inflammatory drugs [NSAID], initial encounter; R06.02 Shortness of breath; M19.90 Unspecified osteoarthritis, unspecified site; E11.9 Type 2 diabetes mellitus without complications; I10 Essential (primary) hypertension; E03.9 Hypothyroidism, unspecified; Y92.9 Unspecified place or not applicable
CPT/HCPCS: 96361; 96375; 96374; 99284; J1200; J2919; J7030 ×2

== ENCOUNTER 2024-06-30 20:20 | Emergency (ER) | payer OTHER ==
--- OUTSIDE RECORDS SUMMARY | 2024-06-30 20:30 | XMS REPORT | Continuity of Care Document ---
Author Name Unknown Address [address] [place] [address] [address] [place] [address] [facility] Address [address] [place] [address] [address] [place] [address] Care Team Providers Care Cable Braider Name Role Phone Sally Singh Primary Care Physician [phone] GC_GCBZW_Kadiyala_S Attending Clinician Unavaila ble GC_GCBZW_Kadiyala_S Admitting Clinician Unavaila ble Allergies, Adverse Reactions, Alerts Allergy Name Allergy Type Status Severity Reaction(s) Onset Date Inactive Date Treating Clinician Comments Source diclofen ac Propensi ty to adverse reaction to drug Active 04-02 00:00: 00 Omero Parker Morphine Sulfate - Injectio n Propensi ty to adverse reaction to drug Active 03-08 00:00: 00 Omero Parker Medications Ordered Medication Name Filled Medication Name Start Date Stop Date Current Medication? Ordering Clinician Indication Dosage Frequency Signature (SIG) Comments Components Source atorvastati n 80 mg tablet 04-02 00:00: 00 Yes 1mg Omero Parker fenofibrate 120 mg tablet 2023-02 [...] pen 09-15 00:00: 00 Yes (3 mL) Oemro Parker amlodipine 10 mg tablet 09-15 00:00: [...] TAKE 1 TABLET EVERY 8 HOURS NEEDED. 2023-1 0-20 00:00: 00 07-01 00:00 :00 No 600 Omeroadia Parker LISINOPRIL 40 MG TABS 8 00:00: 00 Yes Omero Parker INJECT 40 UNITS DAILY 10-11 00:00: 00 Yes 200 Omero Parker TAKE 1 TABLET DAILY NEEDED. 10-11 00:00: 00 07-01 00:00 :00 No 125 Omero Parker TAKE 1 TABLET BY MOUTH EVERY DAY 10-11 00:00: 00 07-01 00:00 :00 No 137 Omero Amanda Parker TAKE 1 TABLET BY MOUTH EVERY EVENING 10-11 00:00: 00 07-01 00:00 :00 No 20 Omero Amanda Parker TAKE 1 TABLET EVERY 8 HOURS NEEDED. 10-11 00:00: 00 07-01 00:00 :00 No 600 Omero Parker TAKE 1 TABLET BY MOUTH EVERY MORNING 8- 00:00: 00 07-01 00:00 :00 No 10 Omero Amanda Parker TAKE 1 TABLET BY MOUTH DAILY. 10-02 00:00: 00 07-01 00:00 :00 No 10 Omero Amanda Parker TAKE 1 TABLET BY MOUTH EVERY MORNING 14 00:00: 00 07-01 00:00 :00 No 10 Omero Amanda Parker FARXIGA 10 MG TABS 13 00:00: 00 Yes Omero Parker LISINOPRIL 40 MG TABS - 00:00: 00 Yes Omero Amanda Parker AMLODIPINE BESYLATE 10 MG TABS 03-08 00:00: 00 Yes Omero Amanda Parker UNITHROID 137 MCG TABS - 00:00: 00 Yes Omero Parker TAKE 1 TABLET BY MOUTH EVERY EVENING - 00:00: 00 07-01 00:00 :00 No 20 Omero Amanda Parker TAKE 1 TABLET BY MOUTH EVERY DAY 03-08 00:00: 00 07-01 00:00 :00 No 137 Omero Parker TAKE 1 TABLET BY MOUTH TWICE A DAY 1-12 00:00: 00 07-01 00:00 :00 No 1000 Omero Parker TAKE 1 TABLET BY MOUTH EVERY MORNING 1-12 00:00: 00 07-01 00:00 :00 No 10 [...] 1 TABLET BY MOUTH EVERY DAY 2021-02 2 00:00: 00 07-01 00:00 :00 No 137 Omero Parker TAKE 1 TABLET DAILY. 2021-02 2- 00:00: 00 07-01 00:00 :00 [...] IBUPROFEN 600 MG TABS 8-23 00:00: 00 No IBUPROFEN 600 MG TABS 2022-0 8-23 00:00: 00 No IBUPROFEN 600 MG TABS 2-0 8-23 00:00: 00 Yes Omero Parker &lt 2022-0 7-21 00:00: 00 No 600 &lt 2022-0 7-21 00:00: 00 No &lt 2022-0 7-21 00:00: 00 No 600 &lt 2022-0 7-21 00:00: 00 No &lt 2022-0 7-21 00:00: 00 Yes 600 Omero Parker &lt 2022-0 7-21 00:00: 00 Yes Omero Parker &lt 2022-0 7- 00:00: 00 No &lt 2022-0 7- 00:00: 00 No &lt 2022-0 7- 00:00: 00 Yes Omero Parker Tresiba FlexTouch U-200 insulin 200 unit/mL (3 mL) subcutaneou s pen 2021-0 - 00:00: 00 No (3 mL) lisinopril 40 mg tablet 2021-0 -25 00:00: 00 No 1mg atorvastati n 20 mg tablet 2021-0 5-25 00:00: 00 No 1mg levothyroxi ne 137 mcg tablet 2021-0 -25 00:00: 00 No 1mcg Tresiba FlexTouch U-200 insulin 200 unit/mL (3 mL) subcutaneou s pen 2021-0 - 00:00: 00 No (3 mL) lisinopril 40 mg tablet 2021-0 5-25 00:00: 00 No 1mg atorvastati n 20 mg tablet 2021-0 5-25 00:00: 00 No 1mg levothyroxi ne 137 mcg tablet 2021-0 5-25 00:00: 00 No 1mcg Tresiba FlexTouch U-200 insulin 200 unit/mL (3 mL) subcutaneou s pen 2021-0 -25 00:00: 00 Yes (3 mL) Omero Parker lisinopril 40 mg tablet 2021-0 5-25 00:00: 00 Yes 1mg Omero Parker atorvastati n 20 mg tablet 2021-0 5-25 00:00: 00 Yes 1mg Omero Parker levothyroxi ne 137 mcg tablet 07-19 00:00: 00 Yes 1mcg Omero Parker metformin 1,000 mg tablet 2- 00:00: 00 No 1mg ibuprofen 600 mg tablet 04-13 00:00: 00 No 1mg metformin 1,000 mg tablet 04-13 00:00: 00 No 1mg ibuprofen 600 mg tablet 04-13 00:00: 00 No 1mg metformin 1,000 mg tablet 04-13 00:00: 00 Yes 1mg Omero Parker ibuprofen 600 mg tablet 04-13 00:00: 00 Yes 1mg Omero Parker lisinopril 40 mg tablet 2020-02 00:00: 00 [...] lisinopril 40 mg tablet 2020-02 00:00: 00 Yes 1mg Omero Pakrer atorvastati n 20 mg tablet 2020-02 00:00: 00 Yes 1mg Omero Parker ibuprofen 600 mg tablet 2020-02 00:00: 00 Yes 1mg Omero Parker levothyroxi ne 137 mcg tablet 2020-02 00:00: 00 Yes 1mcg Omero Parker Tresiba [...] mL) subcutaneou s pen 09-29 00:00: 00 Yes (3 mL) Omero Parker lisinopril 40 mg tablet 09-29 00:00: 00 Yes 1mg Omero Parker atorvastati n 20 mg tablet 09-29 00:00: 00 Yes 1mg Omero Parker ibuprofen 600 mg tablet 09-29 00:00: 00 Yes 1mg Omero Parker Dose Unknown 09-29 00:00: 00 Yes Omero Parker levothyroxi ne 137 mcg tablet 09-29 00:00: 00 Yes 1mcg Omero Parker lisinopril 40 mg tablet 08-22 00:00: 00 No 1mg lisinopril 40 mg tablet 08-22 00:00: 00 No 1mg lisinopril 40 mg tablet 08-22 00:00: 00 Yes 1mg Omero Parker levothyroxi ne 137 mcg tablet 07-16 00:00: 00 No 1mcg levothyroxi ne 137 mcg tablet 07-16 00:00: 00 No 1mcg levothyroxi ne 137 mcg tablet 07-16 00:00: 00 Yes 1mcg Omero Parker atorvastati [...] 06-03 00:00: 00 Yes 1mcg Omero Parker lisinopril 30 mg tablet - 00:00: 00 No 1mg atorvastati n 20 mg tablet - 00:00: 00 No 1mg glimepiride 1 mg tablet - 00:00: 00 No 1mg metformin 1,000 mg tablet - 00:00: 00 No 1mg levothyroxi ne 137 mcg tablet - 00:00: 00 No 1mcg lisinopril 30 mg [...] 1mg Omero Parker glimepiride 1 mg tablet 03-09 00:00: 00 Yes 1mg Omero Parker metformin 1,000 mg tablet 03-09 00:00: 00 Yes 1mg Omero Parker levothyroxi ne 137 mcg tablet 03-09 00:00: 00 Yes 1mcg Omero Parker metformin 1,000 mg tablet 03-02 00:00: 00 No 1mg metformin 1,000 mg tablet 03-02 00:00: 00 No 1mg metformin 1,000 mg tablet 03-02 00:00: 00 Yes 1mg Omero Parker diclofenac 3 % topical gel [...] mcg tablet 2019-02 00:00: 00 No 1mcg diclofenac 3 % topical gel 2019-02 00:00: 00 Yes 1% Omero Parker lisinopril 30 mg tablet 2019-02 00:00: 00 Yes 1mg Omero Parker atorvastati n 20 mg tablet 2019-02 00:00: 00 Yes 1mg Omero Parker levothyroxi ne 137 mcg tablet 2019-02 00:00: 00 Yes 1mcg Omero Parker glimepiride [...] 09-07 00:00: 00 Yes 1mcg Omero Parker levothyroxi ne 100 mcg tablet - 00:00: 00 No 1mcg levothyroxi ne 100 mcg tablet 08-03 00:00: 00 No 1mcg levothyroxi ne 100 mcg tablet 08-03 00:00: 00 Yes 1mcg Omero Parker lisinopril 30 mg tablet - 00:00: 00 No 1mg lisinopril 30 mg tablet - 00:00: 00 No 1mg lisinopril 30 mg tablet 05-28 00:00: 00 Yes 1mg Omero Parker Tresiba [...] mL) subcutaneou s pen 05-27 00:00: 00 Yes 30(3 mL) Omero Parker atorvastati n 20 mg tablet 05-27 00:00: 00 Yes 1mg Omero Parker metformin 1,000 mg tablet - 00:00: 00 Yes 1mg Omero Parker metformin 1,000 mg tablet 05-03 00:00: 00 No 1mg metformin 1,000 mg tablet 05-03 00:00: 00 No 1mg metformin 1,000 mg tablet 05-03 00:00: 00 Yes 1mg Omero Parker Tresiba [...] 2018-02 00:00: 00 Yes 1mcg Omero Parker Immunizations Ordered Immunization Name Filled Immunization Name Date Status Comments Source Moderna COVID-19 Vaccine 2020-05-07 00:00:00 Completed Moderna COVID-19 Vaccine 2020-05-07 00:00:00 Completed Moderna COVID-19 Vaccine Moderna COVID-19 Vaccine 2020-05-07 00:00:00 Completed Omero Parker Moderna COVID-19 Vaccine 2020-04-01 00:00:00 Completed Moderna COVID-19 Vaccine 2020-04-01 00:00:00 Completed Moderna COVID-19 Vaccine Moderna COVID-19 Vaccine 2020-04-01 00:00:00 Completed Omero Parker Influenza, seasonal, inj 2020-01-05 00:00:00 Completed Influenza, seasonal, inj 2020-01-05 00:00:00 Completed Influenza, seasonal, inj Influenza, seasonal, inj 2020-01-05 00:00:00 Completed Omero Parker Influenza, seasonal, inj 2019-12-26 00:00:00 Completed Influenza, seasonal, inj 2019-12-26 00:00:00 Completed Influenza, seasonal, inj Influenza, seasonal, inj 2019-12-26 00:00:00 Completed Omero Parker Vital Signs Vital Name Observation Time Observation Value Comments S rodolfo BP Systolic 2024-04-02 09:36:00 136 mm[Hg] Glenn Parker BP Diastolic 2024-04-02 09:36:00 77 mm[Hg] Jarrett karuna Amanda Parker Weight Measured 2024-04-02 09:36:00 200.40 pounds Omero Parker Height Measured 2024-04-02 09:36:00 63.00 inches Omero Parker Body Temperature 2024-04-02 09:36:00 98.70 degrees Omeroadia Parker Heart Rate 2024-04-02 09:36:00 87.00 /min Jessica en F Keith Respiratory Rate 2024-04-02 09:36:00 18.00 /min Omero F Keith BP Systolic 2024-01-31 16:20:00 128 mm[Hg] Step hen F Keith BP Diastolic 2024-01-31 16:20:00 70 mm[Hg] Jarrett phen F Keith Weight Measured 2024-01-31 16:20:00 200.80 pounds Omero F Keith Height Measured 2024-01-31 16:20:00 63.00 inches Omero F Keith Body Temperature 2024-01-31 16:20:00 97.80 degrees Omero F Keith Heart Rate 2024-01-31 16:20:00 98.00 /min Jessica en F Keith Respiratory Rate 2024-01-31 16:20:00 18.00 /min Omero F Keith BP Systolic 2024-01-03 13:19:00 161 mm[Hg] Step hen F Keith BP Diastolic 2024-01-03 13:19:00 81 mm[Hg] Jarrett [...] 2022-06-20 11:57:00 80.00 /min Jessica en F Keiht Respiratory Rate 2022-06-20 11:57:00 Omero F Keith [...] en F Keith Respiratory Rate 2022-03-08 10:23:00 Omeroadia Parker BP Systolic 2021-12-26 17:05:00 166 mm[Hg] Step hen F Keith BP Diastolic 2021-12-26 17:05:00 85 mm[Hg] Jarrett phen Amanda Parker Weight Measured 2021-12-26 17:05:00 208.50 pounds Omero Parker Height Measured 2021-12-26 17:05:00 63.00 inches Omero Parker Body Temperature 2021-12-26 17:05:00 Omeroaida Parker Heart Rate 2021-12-26 17:05:00 92.00 /min Jessica en F Keith Respiratory Rate 2021-12-26 17:05:00 Omero Amanda Parker BP Systolic 2021-12-12 12:05:00 160 mm[Hg] Glenn cheek F Keith BP Diastolic 2021-12-12 12:05:00 84 mm[Hg] Jarrett phen Amanda Parker Weight Measured 2021-12-12 12:05:00 207.00 pounds Omero Parker Height Measured 2021-12-12 12:05:00 63.00 inches Omero Parker Body Temperature 2021-12-12 12:05:00 98.30 degrees Omero Amanda Parker Heart Rate 2021-12-12 12:05:00 91.00 /min Jessica en Amanda Parker Respiratory Rate 2021-12-12 12:05:00 17.00 /min [...] Goal Plan of Care Note [code = 38446-1] Goal Plan of Care Note [code = 06166-7] Goal Plan of Care Note [code = 08163-2] Goal Plan of Care Note [code = 21498-1] Goal Plan of Care Note [code = 84799-6] Goal Plan of Care Note [code = 18337-7] Goal Plan of Care Note [code = 31239-1] Goal Plan of Care Note [code = 36241-1] Goal Plan of Care Note [code = 68069-2] Goal Plan of Care Note [code = 93626-5] Goal Plan of Care Note [code = 54717-3] Goal Plan of Care Note [code = 87976-9] Goal Plan of Care Note [code = 77645-8] Goal Plan of Care Note [code = 28106-0] Goal Plan of Care Note [code = 58424-2] Goal Plan of Care Note [code = 15604-2] Goal Plan of Care Note [code = 32745-4] Goal Plan of Care Note [code = 86072-9] Goal Plan of Care Note [code = 79734-7] Goal Plan of Care Note [code = 68871-6] Goal Plan of Care Note [code = 41647-3] Goal Plan of Care Note [code = 26808-0] Goal Plan of Care Note [code = 70521-8] Goal Plan of Care Note [code = 01424-1] Goal Plan of Care Note [code = 23340-2] Goal Plan of Care Note [code = 33888-5] Goal Plan of Care Note [code = 28343-0] Goal Plan of Care Note [code = 30795-0] Encounters Start Date/Time End Date/Time Encounter Type Admission Type Attending [facility] Facility Care Department Encounter ID Source 2024-04-02 09:23:18 2024-04-02 09:23:18 Outpatient [facility] [id number] Omero Parker 2024-04-02 00:00:00 2024-04-02 00:00:00 Outpatient Visit [facility] [id number] Omero Parker 2024-01-31 00:00:00 2024-01-31 00:00:00 Outpatient Visit [facility] [id number] Omero Patel Keith 2024-01-03 13:18:40 2024-01-03 13:18:40 Outpatient [facility] [id number] Omero Parker 2024-01-03 00:00:00 2024-01-03 00:00:00 Outpatient Visit [facility] [id number] Omero Parker 2023-09-16 09:17:22 2023-09-16 09:17:22 Outpatient [facility] [id number] Omero Parker 2023-09-16 00:00:00 2023-09-16 00:00:00 Outpatient Visit [facility] [id number] Omero Parker 2023-05-27 15:01:49 2023-05-27 15:01:49 Outpatient [facility] [id number] Omero Parker 2023-05-20 09:46:42 2023-05-20 09:46:42 Outpatient [facility] [id number] Omero Parker 2023-03-02 09:32:20 2023-03-02 09:32:20 Outpatient [facility] [id number] Omero Patel Keith 2023-02-28 16:55:23 2023-02-28 16:55:23 Outpatient [facility] [id number] Omero Patel Keith 2022-12-25 00:00:00 2022-12-25 00:00:00 Outpatient GC_GCBZW_Ka diyala_S PRIV PRIV [id number] [facility] 2022-12-24 00:00:00 2022-12-24 00:00:00 Outpatient GC_GCBZW_Ka diyala_S PRIV PRIV [id number] [facility] 2022-11-09 08:19:14 2022-11-09 08:19:14 Outpatient [facility] [id number] Omero Patel Keith 2022-10-11 11:42:48 2022-10-11 11:42:48 Outpatient [facility] [id number] Omero Parker 2022-06-20 11:50:09 2022-06-20 11:50:09 Outpatient [facility] [id number] Omero Parker 2022-03-08 10:19:19 2022-03-08 10:19:19 Outpatient [facility] [id number] Omero Parker 2021-12-26 16:57:36 2021-12-26 16:57:36 Outpatient [facility] [id number] Omero Parker 2021-12-26 00:00:00 2021-12-26 00:00:00 Outpatient Visit [id number] 2021-12-13 10:06:48 2021-12-13 10:06:48 Outpatient [facility] [id number] Omero Parker 2021-12-12 12:01:06 2021-12-12 12:01:06 Outpatient [facility] [id number] Omero Parker 2021-12-12 00:00:00 2021-12-12 00:00:00 Outpatient Visit [id number] Results Test Description Test Time Test Comments Results Result Co mments Source LIPID [id number] 04:33:16* Test Item Value Reference Range Interpretation Comme nts CHOLESTEROL (test code = 2210) 175 MG/DL <200 TRIGLYCERIDES (test code = 2232) 309 MG/DL <150 H HDL CHOLESTEROL (test code = 2220) 43 MG/DL >39 CALC LDL CHOL (test code = 2237) 91 MG/DL <100 NOTE: CALCULATED LDL IS BASED ON GRISELDA-CHAVEZ METHOD WHICHINCLUDES ADJUSTABLE TRIGLYCERIDE:VLDL CHOLESTEROL RATIO.THIS FACTOR VARIES BY MEASURED TRIGLYCERIDE AND NON-HDLCHOLESTEROL CONCENTRATIONS WITH INCREASED CALCULATED LDL SEENIN HIGHER TRIGLYCERIDE OR LOWER NON-HDL SPECIMENS. FOR MOREINFORMATION, SEE CLIENT ANNOUNCEMENT AT [email or web address] RISK RATIO LDL/HDL (test code = 2238) 2.12 RATIO <3.22 UNLESS OTHERW ISE INDICATED, ALL TESTING PERFORMED AT [facility] [address] [place] [address] SURGICAL DENTAL ASSISTANT: KINDRA GUTIERREZ M.D. CLIA NUMBER [id number] [facility] [place]. [id number] COMPREHENSIVE METABOLIC [id number] 04:33:16* Test Item Value Reference Range Interpretation Comme nts GLUCOSE (test code = 2216) 181 MG/DL 70-99 H BUN (test code = 2207) 26 MG/DL 8-23 H CREATININE (test code = 2214) 1.31 MG/DL 0.60-1.30 H eGFR (2020 CKD-EPI) (test co de = 59853) 43 ML/MIN/1.73 >60 L CALC BUN/CREAT (test code = 2234) 20 RATIO 6-28 SODIUM (test code = 223) 139 MEQ/L 133-146 POTASSIUM (test code = 2228) 4.8 MEQ/L 3.5-5.4 CHLORIDE (test code = 2215) 104 MEQ/L 95-107 CARBON DIOXIDE (test code = 2206) 20 MEQ/L 19-31 CALCIUM (test code = 2209) 9.4 MG/DL 8.5-10.5 PROTEIN, TOTAL (test code = 222) 6.9 G/DL 6.1-8.3 ALBUMIN (test code = 2201) 4.1 G/DL 3.5-5.2 CALC GLOBULIN (test code = 2240) 2.8 G/DL 1.9-3.7 CALC A/G RATIO (test code = 2234) 1.5 RATIO 1.0-2.6 BILIRUBIN, TOTAL (test code = 2207) 0.3 MG/DL <=1.2 ALKALINE PHOSPHATASE (test code = 2203) 95 U/L 40-142 AST (test code = 2218) 15 U/L 9-40 ALT (test code = 2219) 15 U/L 5-40 LIPID [id number] 05:01:38* Test Item Value Reference Range Interpretation Comme nts CHOLESTEROL (test code = 2209) 255 MG/DL <200 H TRIGLYCERIDES (test code = 2232) 493 MG/DL <150 H HDL CHOLESTEROL (test code = 2219) 46 MG/DL >39 CALC LDL CHOL (test code [...] SPECIMENS. FOR MOREINFORMATION, SEE CLIENT ANNOUNCEMENT AT [email or web address] CalcLDL-[email or web address] RISK RATIO LDL/HDL (test code = 223) (NOTE) RATIO <3.22 UNABLE TO BERTO CULATE COMPREHENSIVE METABOLIC [id number] 05:01:38* Test Item Value Reference Range Interpretation Comme nts GLUCOSE (test code = 2217) 137 MG/DL 70-99 H BUN (test code = 2207) 35 MG/DL 8-23 H CREATININE (test code = 2214) 1.44 MG/DL 0.60-1.30 H eGFR (2020 CKD-EPI) (test co de = 00633) 39 ML/MIN/1.73 >60 L CALC BUN/CREAT (test code = 2235) 24 RATIO 6-28 SODIUM (test code = 2231) 136 MEQ/L 133-146 POTASSIUM (test code = 2228) 4.9 MEQ/L 3.5-5.4 CHLORIDE (test code = 2215) 101 MEQ/L 95-107 CARBON DIOXIDE (test code = 2206) 23 MEQ/L 19-31 CALCIUM (test code = 2209) 9.7 MG/DL 8.5-10.5 PROTEIN, TOTAL (test code = 2229) 7.5 G/DL 6.1-8.3 ALBUMIN (test code = 2201) 4.2 G/DL 3.5-5.2 CALC GLOBULIN (test code = 2240) 3.3 G/DL 1.9-3.7 CALC A/G RATIO (test code = 2234) 1.3 RATIO 1.0-2.6 BILIRUBIN, TOTAL (test code = 2207) <0.2 MG/DL <=1.2 ALKALINE PHOSPHATASE (test code = 2204) 88 U/L 40-142 AST (test code = 2218) 13 U/L 9-40 ALT (test code = 2219) 15 U/L 5-40 TSH, THIRD [id number] 05:01:24* Test Item Value Reference Range Interpretation Comme nts TSH, THIRD GENERATION (test code = 2821) 0.810 UIU/ML 0.400-4.100 UNLESS OTHERWISE INDICATED, ALL TESTING PERFORMED AT [facility] [address] [place] [address] SURGICAL DENTAL ASSISTANT: KINDRA GUTIERREZ M.D. CLIA NUMBER [id number] [facility] [place]. [id number] HEMOGLOBIN [id number] 03:21:40* Test Item Value Reference Range Interpretation Comme [facility] HEMOGLOBIN A1c (test code = 21824) 9.1 % 4.2-5.6 H [employer] GUIDELINES FOR HGB A1C: [...] CONSIDER ALTERNATE TESTING OR LABORATORY CONSULTATION. HEMOGLOBIN [id number] 00:00:00* Test Item Value Reference Range Interpretation Comme [facility] HEMOGLOBIN A1c (test code = 53955) 9.1 % Omero ParkerLIPID [id number] 00:00:00* Test Item Value Reference Range Interpretation Comme nts CHOLESTEROL (test code = 2210) 255 MG/DL TRIGLYCERIDES (test code = 2232) 493 MG/DL HDL CHOLESTEROL (test code = 2220) 46 MG/DL CALC LDL CHOL (test code = 2237) (NOTE) MG/DL RISK RATIO LDL/HDL (test cod e = 2238) (NOTE) RATIO Omero ParkerCOMPREHENSIVE METABOLIC [id number] 00:00:00* Test Item Value Reference Range Interpretation Comme nts GLUCOSE (test code = 2217) 137 MG/DL BUN (test code = 2208) 35 MG/DL CREATININE (test code = 2214) 1.44 MG/DL eGFR (2020 CKD-EPI) (test co de = 43902) 39 ML/MIN/1.73 CALC BUN/CREAT (test code = [...] (test code = 2219) 15 U/L Omero ParkerTSH, THIRD [id number] 00:00:00* Test Item Value Reference Range Interpretation Comme eliana TSH, THIRD GENERATION (test code = 2821) 0.810 UIU/ML Omero ParkerHEMOGLOBIN [id number] 00:00:00* Test Item Value Reference Range Interpretation Comme eliana HEMOGLOBIN A1c (test code = 71275) 9.1 % Omero ParkerLIPID [id number] 00:00:00* Test Item Value Reference Range Interpretation Comme nts CHOLESTEROL (test code = 2210) 255 MG/DL TRIGLYCERIDES (test code = 2232) 493 MG/DL HDL CHOLESTEROL (test code = 2220) 46 MG/DL CALC LDL CHOL (test code = 2237) (NOTE) MG/DL RISK RATIO LDL/HDL (test cod e = 2238) (NOTE) RATIO Omero ParkerCOMPREHENSIVE METABOLIC [id number] 00:00:00* Test Item Value Reference Range Interpretation Comme nts GLUCOSE (test code = 2217) 137 MG/DL BUN (test code = 2208) 35 MG/DL CREATININE (test code = 2214) 1.44 MG/DL eGFR (2020 CKD-EPI) (test co de = 21243) 39 ML/MIN/1.73 CALC BUN/CREAT (test code = [...] = 2219) 15 U/L Omero Diaz, THIRD [id number] 00:00:00* Test Item Value Reference Range Interpretation Comme nts TSH, THIRD GENERATION (test code = 2821) 0.810 UIU/ML Omero Diaz THIRD [id number] 08:30:47* Test Item Value Reference Range Interpretation Comme nts TSH, THIRD GENERATION (test code = 2821) 0.540 UIU/ML 0.400-4.100 UNLESS OTHERWISE INDICATED, ALL TESTING PERFORMED AT [facility] [address] [place] [address] SURGICAL DENTAL ASSISTANT: KINDRA GUTIERREZ M.D. CLIA NUMBER [id number] [facility] [place]. [id number] LIPID [id number] 06:57:03* Test Item Value Reference Range Interpretation [...] = 2238) 2.06 RATIO <3.22 COMPREHENSIVE METABOLIC [id number] 06:57:03* Test Item Value Reference Range Interpretation Comme nts GLUCOSE (test code = 2217) 168 MG/DL 70-99 H BUN (test code = 2207) 34 MG/DL 8-23 H CREATININE (test code = 2213) 1.41 MG/DL 0.60-1.30 H eGFR (2020 CKD-EPI) (test co de = 26845) 40 ML/MIN/1.73 >60 L CALC BUN/CREAT (test code = 2234) 24 RATIO 6-28 SODIUM (test code = 2230) 140 MEQ/L 133-146 POTASSIUM (test code = 2227) 4.8 MEQ/L 3.5-5.4 CHLORIDE (test code = 2214) 106 MEQ/L 95-107 CARBON DIOXIDE (test code = 2205) 22 MEQ/L 19-31 CALCIUM (test code = 2208) 9.6 MG/DL 8.5-10.5 PROTEIN, TOTAL (test code = 2228) 7.1 G/DL 6.1-8.3 ALBUMIN (test code = 2200) 4.1 G/DL 3.5-5.2 CALC GLOBULIN (test code = 2239) 3.0 G/DL 1.9-3.7 CALC A/G RATIO (test code = 2233) 1.4 RATIO 1.0-2.6 BILIRUBIN, TOTAL (test code = 2206) 0.3 MG/DL <=1.2 ALKALINE PHOSPHATASE (test code = 2203) 90 U/L 40-142 AST (test code = 2217) 8 U/L 9-40 L ALT (test code = 2218) 9 U/L 5-40 HEMOGLOBIN [id number] 04:39:43* Test Item Value Reference Range Interpretation Comme nts HEMOGLOBIN A1c (test code = 03075) 8.2 % 4.2-5.6 H [employer] GUIDELINES FOR HGB A1C: [...] CONSIDER ALTERNATE TESTING OR LABORATORY CONSULTATION. HEMOGLOBIN [id number] 00:00:00* Test Item Value Reference Range Interpretation Comme nts HEMOGLOBIN A1c (test code = 78997) 8.2 % Omero ParkerLIPID [id number] 00:00:00* Test Item Value Reference Range Interpretation Comme nts CHOLESTEROL (test code = 2210) 175 MG/DL TRIGLYCERIDES (test code = 2232) 156 MG/DL HDL CHOLESTEROL (test code = 2220) 49 MG/DL CALC LDL CHOL (test code = 2237) 101 MG/DL RISK RATIO LDL/HDL (test cod e = 2238) 2.06 RATIO Omero ParkerCOMPREHENSIVE METABOLIC [id number] 00:00:00* Test Item Value Reference Range Interpretation Comme nts GLUCOSE (test code = 2217) 168 MG/DL BUN (test code = 2208) 34 MG/DL CREATININE (test code = 2214) 1.41 MG/DL eGFR (2020 CKD-EPI) (test co de = 81587) 40 ML/MIN/1.73 CALC BUN/CREAT (test code = [...] = 2219) 9 U/L Omero ParkerTSH, THIRD [id number] 00:00:00* Test Item Value Reference Range Interpretation Comme eliana TSH, THIRD GENERATION (test code = 2821) 0.540 UIU/ML Omero ParkerHEMOGLOBIN [id number] 00:00:00* Test Item Value Reference Range Interpretation Comme eliana HEMOGLOBIN A1c (test code = 65456) 8.2 % Omero ParkerLIPID [id number] 00:00:00* Test Item Value Reference Range Interpretation Comme nts CHOLESTEROL (test code = 2210) 175 MG/DL TRIGLYCERIDES (test code = 2232) 156 MG/DL HDL CHOLESTEROL (test code = 2220) 49 MG/DL CALC LDL CHOL (test code = 2237) 101 MG/DL RISK RATIO LDL/HDL (test cod e = 2238) 2.06 RATIO Omero ParkerCOMPREHENSIVE METABOLIC [id number] 00:00:00* Test Item Value Reference Range Interpretation Comme nts GLUCOSE (test code = 2217) 168 MG/DL BUN (test code = 2208) 34 MG/DL CREATININE (test code = 2214) 1.41 MG/DL eGFR (2020 CKD-EPI) (test co de = 28982) 40 ML/MIN/1.73 CALC BUN/CREAT (test code = [...] = 2219) 9 U/L Omero ParkerTSH, THIRD [id number] 00:00:00* Test Item Value Reference Range Interpretation Comme nts TSH, THIRD GENERATION (test code = 2821) 0.540 UIU/ML Omero ParkerHEMOGLOBIN [id number] 00:00:00* Test Item Value Reference Range Interpretation Comme nts HEMOGLOBIN A1c (test code = 15128) 8.2 % Omero ParkerLIPID [id number] 00:00:00* Test Item Value Reference Range Interpretation Comme nts CHOLESTEROL (test code = 2210) 175 MG/DL TRIGLYCERIDES (test code = 2232) 156 MG/DL HDL CHOLESTEROL (test code = 2220) 49 MG/DL CALC LDL CHOL (test code = 2237) 101 MG/DL RISK RATIO LDL/HDL (test cod e = 2238) 2.06 RATIO Omero ParkerCOMPREHENSIVE METABOLIC [id number] 00:00:00* Test Item Value Reference Range Interpretation Comme nts GLUCOSE (test code = 2217) 168 MG/DL BUN (test code = 2208) 34 MG/DL CREATININE (test code = 2214) 1.41 MG/DL eGFR (2020 CKD-EPI) (test co de = 65737) 40 ML/MIN/1.73 CALC BUN/CREAT (test code = [...] (test code = 2219) 9 U/L [facility] [id number] 00:00:00* Test Item Value Reference Range Interpretation Comme nts TSH, THIRD GENERATION (test code = 2821) 0.540 UIU/ML Omero ParkerALBUMIN/CREATININE RATIO, URINE, [id number] 04:59:23* Test Item Value Reference Range Interpretation Comme nts CREATININE, URINE, CONC. (test code = 2072) 23.5 MG/DL NOT ESTAB ALBUMIN, URINE, RANDOM (test code = 62802) 0.6 MG/DL NOT ESTAB CALC ALBUMIN/CREAT, RND (test code = 54134) 26 MG/G <30 Note: Albumin/Cr eatinine ratio reference interval reflects ADA and NKF guidelines. UNLESS OTHERWISE INDICATED, ALL TESTING PERFORMED AT [facility] [address] [place] [address] SURGICAL DENTAL ASSISTANT: KINDRA GUTIERREZ M.D. CLIA NUMBER [id number] [facility] [place]. [id number] ALBUMIN/CREATININE RATIO, RANDOM [id number] 00:00:00* Test Item Value Reference Range Interpretation Comme nts CREATININE, URINE, CONC. (te st code = 2071) 23.5 MG/DL ALBUMIN, URINE, RANDOM (test code = 01542) 0.6 MG/DL CALC ALBUMIN/CREAT, RND (jaimee t code = 94835) 26 MG/G Omero Patel AustinALBUMIN/CREATININE RATIO, RANDOM [id number] 00:00:00* Test Item Value Reference Range Interpretation Comme nts CREATININE, URINE, CONC. (te st code = 2071) 23.5 MG/DL ALBUMIN, URINE, RANDOM (test code = 71313) 0.6 MG/DL CALC ALBUMIN/CREAT, RND (jaimee t code = 98023) 26 MG/G Omero Patel AustinALBUMIN/CREATININE RATIO, RANDOM [id number] 00:00:00* Test Item Value Reference Range Interpretation Comme nts CREATININE, URINE, CONC. (te st code = 2071) 23.5 MG/DL ALBUMIN, URINE, RANDOM (test code = 40858) 0.6 MG/DL CALC ALBUMIN/CREAT, RND (jaimee t code = 15201) 26 MG/G Omero F AustinALBUMIN/CREATININE RATIO, RANDOM [id number] 00:00:00* Test Item Value Reference Range Interpretation Comme nts CREATININE, URINE, CONC. (te st code = 2071) 23.5 MG/DL ALBUMIN, URINE, RANDOM (test code = 61846) 0.6 MG/DL CALC ALBUMIN/CREAT, RND (jaimee t code = 92396) 26 MG/G Omero ParkerCOMPREHENSIVE METABOLIC [id number] 00:08:51* Test Item Value Reference Range Interpretation Comme nts GLUCOSE (test code = 2217) 207 MG/DL 70-99 H BUN (test code = 2208) 20 MG/DL 8-23 CREATININE (test code = 2214) 1.41 MG/DL 0.60-1.30 H eGFR (2020 CKD-EPI) (test co de = 16311) 40 ML/MIN/1.73 >60 L CALC BUN/CREAT (test code = 2234) 14 RATIO 6-28 SODIUM (test code = 223) 141 MEQ/L 133-146 POTASSIUM (test code = 2227) 5.2 MEQ/L 3.5-5.4 CHLORIDE (test code = 2214) 105 MEQ/L 95-107 CARBON DIOXIDE (test code = 2205) 23 MEQ/L 19-31 CALCIUM (test code = 2208) 9.4 MG/DL 8.5-10.5 PROTEIN, TOTAL (test code = 2228) 6.6 G/DL 6.1-8.3 ALBUMIN (test code = 2200) 3.8 G/DL 3.5-5.2 CALC GLOBULIN (test code = 224) 2.8 G/DL 1.9-3.7 CALC A/G RATIO (test code = 2233) 1.4 RATIO 1.0-2.6 BILIRUBIN, TOTAL (test code = 2206) 0.3 MG/DL <=1.2 ALKALINE PHOSPHATASE (test code = 2203) 79 U/L 40-142 AST (test code = 2218) 14 U/L 9-40 ALT (test code = 2219) 14 U/L 5-40 LIPID [id number] 00:08:51* Test Item Value Reference Range Interpretation [...] = 2238) 2.00 RATIO <3.22 COMPREHENSIVE METABOLIC [id number] 00:00:00* Test Item Value Reference Range Interpretation Comme nts GLUCOSE (test code = 2217) 207 MG/DL BUN (test code = 2208) 20 MG/DL CREATININE (test code = 2214) 1.41 MG/DL eGFR (2020 CKD-EPI) (test co de = 05195) 40 ML/MIN/1.73 CALC BUN/CREAT (test code = [...] code = 2219) 14 U/L Omero ParkerLIPID [id number] 00:00:00* Test Item Value Reference Range Interpretation Comme nts CHOLESTEROL (test code = 2210) 164 MG/DL TRIGLYCERIDES (test code = 2232) 363 MG/DL HDL CHOLESTEROL (test code = 2220) 40 MG/DL CALC LDL CHOL (test code = 2237) 80 MG/DL RISK RATIO LDL/HDL (test cod e = 2238) 2.00 RATIO Omero Amanda KeithCOMPREHENSIVE METABOLIC [id number] 00:00:00* Test Item Value Reference Range Interpretation Comme nts GLUCOSE (test code = 2217) 207 MG/DL BUN (test code = 2208) 20 MG/DL CREATININE (test code = 2214) 1.41 MG/DL eGFR (2020 CKD-EPI) (test co de = 93056) 40 ML/MIN/1.73 CALC BUN/CREAT (test code = [...] code = 2219) 14 U/L Omero ParkerLIPID [id number] 00:00:00* Test Item Value Reference Range Interpretation Comme nts CHOLESTEROL (test code = 2210) 164 MG/DL TRIGLYCERIDES (test code = 2232) 363 MG/DL HDL CHOLESTEROL (test code = 2220) 40 MG/DL CALC LDL CHOL (test code = 2237) 80 MG/DL RISK RATIO LDL/HDL (test cod e = 2238) 2.00 RATIO Omero ParkerCOMPREHENSIVE METABOLIC [id number] 00:00:00* Test Item Value Reference Range Interpretation Comme nts GLUCOSE (test code = 2217) 207 MG/DL BUN (test code = 2208) 20 MG/DL CREATININE (test code = 2214) 1.41 MG/DL eGFR (2020 CKD-EPI) (test co de = 43864) 40 ML/MIN/1.73 CALC BUN/CREAT (test code = [...] code = 2219) 14 U/L Omero ParkerLIPID [id number] 00:00:00* Test Item Value Reference Range Interpretation Comme nts CHOLESTEROL (test code = 2210) 164 MG/DL TRIGLYCERIDES (test code = 2232) 363 MG/DL HDL CHOLESTEROL (test code = 2220) 40 MG/DL CALC LDL CHOL (test code = 2237) 80 MG/DL RISK RATIO LDL/HDL (test cod e = 2238) 2.00 RATIO Omero ParkerCOMPREHENSIVE METABOLIC [id number] 00:00:00* Test Item Value Reference Range Interpretation Comme nts GLUCOSE (test code = 2217) 207 MG/DL BUN (test code = 2208) 20 MG/DL CREATININE (test code = 2214) 1.41 MG/DL eGFR (2020 CKD-EPI) (test co de = 85903) 40 ML/MIN/1.73 CALC BUN/CREAT (test code = [...] = 2219) 14 U/L Omero Patel AustinLIPID [id number] 00:00:00* Test Item Value Reference Range Interpretation Comme nts CHOLESTEROL (test code = 2210) 164 MG/DL TRIGLYCERIDES (test code = 2232) 363 MG/DL HDL CHOLESTEROL (test code = 2220) 40 MG/DL CALC LDL CHOL (test code = 2237) 80 MG/DL RISK RATIO LDL/HDL (test cod e = 2238) 2.00 RATIO Omero ParkerHEMOGLOBIN [id number] 04:30:09* Test Item Value Reference Range Interpretation Comme eliana HEMOGLOBIN A1c (test code = 11340) 8.6 % 4.2-5.6 H [employer] GUIDELINES FOR HGB A1C: [...] INDICATED, ALL TESTING PERFORMED AT [facility] [address] [place] [address] SURGICAL DENTAL ASSISTANT: KINDRA GUTIERREZ M.D. CLIA NUMBER [id number] [facility] [place]. [id number] HEMOGLOBIN [id number] 00:00:00* Test Item Value Reference Range Interpretation Comme eliana HEMOGLOBIN A1c (test code = 18018) 8.6 % Omero ParkerHEMOGLOBIN [id number] 00:00:00* Test Item Value Reference Range Interpretation Comme eliana HEMOGLOBIN A1c (test code = 65364) 8.6 % Omero ParkerHEMOGLOBIN [id number] 00:00:00* Test Item Value Reference Range Interpretation Comme eliana HEMOGLOBIN A1c (test code = 64096) 8.6 % Omero ParkerHEMOGLOBIN [id number] 00:00:00* Test Item Value Reference Range Interpretation Comme eliana HEMOGLOBIN A1c (test code = 29988) 8.6 % Omero Patel AustinTSH, THIRD [id number] 11:05:24* Test Item Value Reference Range Interpretation Comme eliana TSH, THIRD GENERATION (test code = 2821) 0.449 UIU/ML 0.400-4.100 LIPID [id number] 07:29:44* Test Item Value Reference Range Interpretation Comme eliana CHOLESTEROL (test code = 2210) 178 MG/DL [...] SPECIMENS. FOR MOREINFORMATION, SEE CLIENT ANNOUNCEMENT AT [email or web address] /[email or web address]-[email or web address] RISK RATIO LDL/HDL (test code = 223) 1.92 RATIO <3.22 COMPREHENSIVE METABOLIC [id number] 07:29:44* Test Item Value Reference Range Interpretation Comme nts GLUCOSE (test code = 2216) 141 MG/DL 70-99 H BUN (test code = 2207) 27 MG/DL 8-23 H CREATININE (test code = 221) 1.31 MG/DL 0.60-1.30 H eGFR (2020 CKD-EPI) (test code = 34846) 44 ML/MIN/1.73 >60 L CALC BUN/CREAT (test code = 2235) 21 RATIO 6-28 SODIUM (test code = 223) 139 MEQ/L 133-146 POTASSIUM (test code = 2228) 4.6 MEQ/L 3.5-5.4 CHLORIDE (test code = 2215) 105 MEQ/L 95-107 CARBON DIOXIDE (test code = 2206) 23 MEQ/L 19-31 CALCIUM (test code = 2209) 9.4 MG/DL 8.5-10.5 PROTEIN, TOTAL (test code = 222) 6.9 G/DL 6.1-8.3 ALBUMIN (test code = 220) 3.9 G/DL 3.5-5.2 CALC GLOBULIN (test code = 2240) 3.0 G/DL 1.9-3.7 CALC A/G RATIO (test code = 2234) 1.3 RATIO 1.0-2.6 BILIRUBIN, TOTAL (test code = 220) 0.3 MG/DL See_Comment [Automated me ssage] The system which generated this result transmitted reference range: <=1.2. The reference range was not used to interpret this result as normal/abnormal. ALKALINE PHOSPHATASE (test code = 4) 69 U/L 40-142 AST (test code = 2218) 11 U/L 9-40 ALT (test code = 2219) 12 U/L 5-40 UNLESS OTHERWISE INDICATED, ALL TESTING PERFORMED AT [facility] [address] [place] [address] SURGICAL DENTAL ASSISTANT: Meg SIMMONSIA NUMBER [id number] [facility] [place]. [id number] TSH, THIRD [id number] 00:00:00* Test Item Value Reference Range Interpretation Comme nts TSH, THIRD GENERATION (test code = 2821) 0.449 UIU/ML Omero ParkerLIPID [id number] 00:00:00* Test Item Value Reference Range Interpretation Comme nts CHOLESTEROL (test code = 2210) 178 MG/DL TRIGLYCERIDES (test code = 2232) 268 MG/DL HDL CHOLESTEROL (test code = 2220) 48 MG/DL CALC LDL CHOL (test code = 2237) 92 MG/DL RISK RATIO LDL/HDL (test cod e = 2238) 1.92 RATIO Omero ParkerCOMPREHENSIVE METABOLIC [id number] 00:00:00* Test Item Value Reference Range Interpretation Comme nts GLUCOSE (test code = 2217) 141 MG/DL BUN (test code = 2208) 27 MG/DL CREATININE (test code = 2214) 1.31 MG/DL eGFR (2020 CKD-EPI) (test co de = 54051) 44 ML/MIN/1.73 CALC BUN/CREAT (test code = [...] (test code = 2219) 12 U/L Omero Diaz, THIRD [id number] 00:00:00* Test Item Value Reference Range Interpretation Comme nts TSH, THIRD GENERATION (test code = 2821) 0.449 UIU/ML Omero ParkerLIPID [id number] 00:00:00* Test Item Value Reference Range Interpretation Comme nts CHOLESTEROL (test code = 2210) 178 MG/DL TRIGLYCERIDES (test code = 2232) 268 MG/DL HDL CHOLESTEROL (test code = 2220) 48 MG/DL CALC LDL CHOL (test code = 2237) 92 MG/DL RISK RATIO LDL/HDL (test cod e = 2238) 1.92 RATIO Omero ParkerCOMPREHENSIVE METABOLIC [id number] 00:00:00* Test Item Value Reference Range Interpretation Comme nts GLUCOSE (test code = 2217) 141 MG/DL BUN (test code = 2208) 27 MG/DL CREATININE (test code = 2214) 1.31 MG/DL eGFR (2020 CKD-EPI) (test co de = 35525) 44 ML/MIN/1.73 CALC BUN/CREAT (test code = [...] (test code = 2219) 12 U/L Omero BargerH, THIRD [id number] 00:00:00* Test Item Value Reference Range Interpretation Comme nts TSH, THIRD GENERATION (test code = 2821) 0.449 UIU/ML Omero ParkerLIPID [id number] 00:00:00* Test Item Value Reference Range Interpretation Comme nts CHOLESTEROL (test code = 2210) 178 MG/DL TRIGLYCERIDES (test code = 2232) 268 MG/DL HDL CHOLESTEROL (test code = 2220) 48 MG/DL CALC LDL CHOL (test code = 2237) 92 MG/DL RISK RATIO LDL/HDL (test cod e = 2238) 1.92 RATIO Omero ParkerCOMPREHENSIVE METABOLIC [id number] 00:00:00* Test Item Value Reference Range Interpretation Comme nts GLUCOSE (test code = 2217) 141 MG/DL BUN (test code = 2208) 27 MG/DL CREATININE (test code = 2214) 1.31 MG/DL eGFR (2020 CKD-EPI) (test co de = 34817) 44 ML/MIN/1.73 CALC BUN/CREAT (test code = [...] = 2219) 12 U/L Omero ParkerTSH, THIRD [id number] 00:00:00* Test Item Value Reference Range Interpretation Comme nts TSH, THIRD GENERATION (test code = 2821) 0.449 UIU/ML Omero ParkerLIPID [id number] 00:00:00* Test Item Value Reference Range Interpretation Comme nts CHOLESTEROL (test code = 2210) 178 MG/DL TRIGLYCERIDES (test code = 2232) 268 MG/DL HDL CHOLESTEROL (test code = 2220) 48 MG/DL CALC LDL CHOL (test code = 2237) 92 MG/DL RISK RATIO LDL/HDL (test cod e = 2238) 1.92 RATIO Omero ParkerCOMPREHENSIVE METABOLIC [id number] 00:00:00* Test Item Value Reference Range Interpretation Comme nts GLUCOSE (test code = 2217) 141 MG/DL BUN (test code = 2208) 27 MG/DL CREATININE (test code = 2214) 1.31 MG/DL eGFR (2020 CKD-EPI) (test co de = 55203) 44 ML/MIN/1.73 CALC BUN/CREAT (test code = [...] (test code = 2219) 12 U/L Omero Patel DenitaTahira, THIRD [id number] 05:16:55* Test Item Value Reference Range Interpretation Comme nts TSH, THIRD GENERATION (test code = 2821) 0.357 UIU/ML 0.400-4.100 L COMPREHENSIVE METABOLIC [id number] 03:49:34* Test Item Value Reference Range Interpretation Comme nts GLUCOSE (test code = 2217) 114 MG/DL 70-99 H BUN (test code = 2208) 31 MG/DL 8-23 H CREATININE (test code = 2214) 1.20 MG/DL 0.60-1.30 eGFR (2020 CKD-EPI) (test code = 46098) 48 ML/MIN/1.73 >60 L The NKF-ASN Taskforce recommends use of Cystatin C to confirm eGFR inadults at risk for CKD. [facility] offers eGFR with Cystatin C-Creatinineusing the 2020 CKD-EPI eGFR_creat-cystat equation (order code 3057) toincrease the accuracy of estimated GFR. For more information, contactyour contract accountant or see announcement [email or web address] ([email or web address] CALC BUN/CREAT (test code = 2234) 26 RATIO 6-28 SODIUM (test code = 2230) 141 MEQ/L 133-146 POTASSIUM (test code = 2227) 5.2 MEQ/L 3.5-5.4 CHLORIDE (test code = 2214) 106 MEQ/L 95-107 CARBON DIOXIDE (test code = 2205) 22 MEQ/L 19-31 CALCIUM (test code = 2208) 9.6 MG/DL 8.5-10.5 PROTEIN, TOTAL (test code = 2228) 6.8 G/DL 6.1-8.3 ALBUMIN (test code = 2200) 4.2 G/DL 3.5-5.2 CALC GLOBULIN (test code = 224) 2.6 G/DL 1.9-3.7 CALC A/G RATIO (test [...] code = 2219) 18 U/L 5-40 LIPID [id number] 03:49:34* Test Item Value Reference Range Interpretation [...] SPECIMENS. FOR MOREINFORMATION, SEE CLIENT ANNOUNCEMENT AT [email or web address]/ CalcLDL-C RISK RATIO LDL/HDL (test code = 2238) (NOTE) RATIO <3.22 UNABLE TO BERTO CULATE HEMOGLOBIN [id number] 02:59:31* Test Item Value Reference Range Interpretation Comme nts HEMOGLOBIN A1c (test code = 09891) 7.3 % 4.2-5.6 H [employer] GUIDELINES FOR HGB A1C: [...] TESTING PERFORMED AT [facility] [address] [place] [address] SURGICAL DENTAL ASSISTANT: KINDRA GUTIERREZ M.D. [place] NUMBER [id number] [facility] [place]. [id number] LIPID [id number] 00:00:00* Test Item Value Reference Range Interpretation Comme nts CHOLESTEROL (test code = 2210) 193 MG/DL TRIGLYCERIDES (test code = 2232) 461 MG/DL HDL CHOLESTEROL (test code = 2220) 45 MG/DL CALC LDL CHOL (test code = 2237) (NOTE) MG/DL RISK RATIO LDL/HDL (test cod e = 2238) (NOTE) RATIO Omero Patel AustinHEMOGLOBIN [id number] 00:00:00* Test Item Value Reference Range Interpretation Comme nts HEMOGLOBIN A1c (test code = 03089) 7.3 % Omero F AustinCOMPREHENSIVE METABOLIC [id number] 00:00:00* Test Item Value Reference Range Interpretation Comme nts GLUCOSE (test code = 2217) 114 MG/DL BUN (test code = 2208) 31 MG/DL CREATININE (test code = 2214) 1.20 MG/DL eGFR (2020 CKD-EPI) (test co de = 71031) 48 ML/MIN/1.73 CALC BUN/CREAT (test code = [...] = 2219) 18 U/L Omero ParkerTSH, THIRD [id number] 00:00:00* Test Item Value Reference Range Interpretation Comme nts TSH, THIRD GENERATION (test code = 2821) 0.357 UIU/ML Omero ParkerLIPID [id number] 00:00:00* Test Item Value Reference Range Interpretation Comme nts CHOLESTEROL (test code = 2210) 193 MG/DL TRIGLYCERIDES (test code = 2232) 461 MG/DL HDL CHOLESTEROL (test code = 2220) 45 MG/DL CALC LDL CHOL (test code = 2237) (NOTE) MG/DL RISK RATIO LDL/HDL (test cod e = 2238) (NOTE) RATIO Omero ParkerHEMOGLOBIN [id number] 00:00:00* Test Item Value Reference Range Interpretation Comme nts HEMOGLOBIN A1c (test code = 29758) 7.3 % Omero ParkerCOMPREHENSIVE METABOLIC [id number] 00:00:00* Test Item Value Reference Range Interpretation Comme nts GLUCOSE (test code = 2217) 114 MG/DL BUN (test code = 2208) 31 MG/DL CREATININE (test code = 2214) 1.20 MG/DL eGFR (2020 CKD-EPI) (test co de = 50599) 48 ML/MIN/1.73 CALC BUN/CREAT (test code = [...] = 2219) 18 U/L Omero ParkerTSH, THIRD [id number] 00:00:00* Test Item Value Reference Range Interpretation Comme eliana TSH, THIRD GENERATION (test code = 2821) 0.357 UIU/ML Omero ParkerLIPID [id number] 00:00:00* Test Item Value Reference Range Interpretation Comme nts CHOLESTEROL (test code = 2210) 193 MG/DL TRIGLYCERIDES (test code = 2232) 461 MG/DL HDL CHOLESTEROL (test code = 2220) 45 MG/DL CALC LDL CHOL (test code = 2237) (NOTE) MG/DL RISK RATIO LDL/HDL (test cod e = 2238) (NOTE) RATIO Omero ParkerHEMOGLOBIN [id number] 00:00:00* Test Item Value Reference Range Interpretation Comme eliana HEMOGLOBIN A1c (test code = 39273) 7.3 % Omero ParkerCOMPREHENSIVE METABOLIC [id number] 00:00:00* Test Item Value Reference Range Interpretation Comme nts GLUCOSE (test code = 2217) 114 MG/DL BUN (test code = 2208) 31 MG/DL CREATININE (test code = 2214) 1.20 MG/DL eGFR (2020 CKD-EPI) (test co de = 11144) 48 ML/MIN/1.73 CALC BUN/CREAT (test code = [...] = 2219) 18 U/L Omero ParkerTSH, THIRD [id number] 00:00:00* Test Item Value Reference Range Interpretation Comme eliana TSH, THIRD GENERATION (test code = 2821) 0.357 UIU/ML Omero ParkerLIPID [id number] 00:00:00* Test Item Value Reference Range Interpretation Comme nts CHOLESTEROL (test code = 2210) 193 MG/DL TRIGLYCERIDES (test code = 2232) 461 MG/DL HDL CHOLESTEROL (test code = 2220) 45 MG/DL CALC LDL CHOL (test code = 2237) (NOTE) MG/DL RISK RATIO LDL/HDL (test cod e = 2238) (NOTE) RATIO Omero ParkerHEMOGLOBIN [id number] 00:00:00* Test Item Value Reference Range Interpretation Comme eliana HEMOGLOBIN A1c (test code = 29842) 7.3 % Omero ParkerCOMPREHENSIVE METABOLIC [id number] 00:00:00* Test Item Value Reference Range Interpretation Comme nts GLUCOSE (test code = 2217) 114 MG/DL BUN (test code = 2208) 31 MG/DL CREATININE (test code = 2214) 1.20 MG/DL eGFR (2020 CKD-EPI) (test co de = 52933) 48 ML/MIN/1.73 CALC BUN/CREAT (test code = [...] (test code = 2219) 18 U/L Omero BargerH, THIRD [id number] 00:00:00* Test Item Value Reference Range Interpretation Comme nts TSH, THIRD GENERATION (test code = 2821) 0.357 UIU/ML Omero Patel KeithNOTE:2022-06-23 06:01:29* Test Item Value Reference Range Interpretation Comme nts NOTE: (test code = 998) (NOTE) IN ACCORDANCE [facility] FEDERAL GUIDELINES REQUIRING ALL VERBAL REQUESTS FOR LABORATORY TESTS TO BE ACCOMPANIED BY WRITTEN AUTHORIZATION WITHIN 30 DAYS OF THIS REQUEST, PLEASE SIGN BELOW AND RETURN A COPY OF THIS REPORT BY FAX TO THE LABORATORY SCANNING DEPARTMENT AT [phone]. PHYSICIAN'S SIGNATURE DATE [facility] has important pathology staff changes effective 04/25/2022. New pathology staff will provide uninterrupted, excellent patient care and clinical consultation. See URL: [email or web address]. UNLESS OTHERWISE INDICATED, ALL TESTING PERFORMED AT [facility] [address] [place] [address] SURGICAL DENTAL ASSISTANT: KINDRA GUTIERREZ M.D. CLIA NUMBER [id number] [facility] [place]. [id number] TSH, THIRD [id number] 02:17:51* Test Item Value Reference Range Interpretation Comme nts TSH, THIRD GENERATION (test code = 2821) 1.190 UIU/ML 0.400-4.100 TSH, THIRD GENERATION [ADDED]2022-06-23 00:00:00* Test Item Value Reference Range Interpretation Comme nts TSH, THIRD GENERATION (test code = 2821) 1.190 UIU/ML Omero Patel Shelley: [ADDED]2022-06-23 00:00:00* Test Item Value Reference Range [...] nts NOTE: (test code = 998) (NOTE) LEYLA Carranza GENERATION [ADDED]2022-06-23 00:00:00* Test Item Value Reference Range Interpretation Comme nts TSH, THIRD GENERATION (test code = 2821) 1.190 UIU/ML Omero Patel AustinNOTE: [ADDED]2022-06-23 00:00:00* Test Item Value Reference Range Interpretation Comme nts NOTE: (test code = 998) (NOTE) Omero ParkerLIPID [id number] 22:43:02* Test Item Value Reference Range Interpretation [...] SPECIMENS. FOR MOREINFORMATION, SEE CLIENT ANNOUNCEMENT AT [email or web address] /CalcLDL-C RISK RATIO LDL/HDL (test code = 2238) 1.81 RATIO <3.22 COMPREHENSIVE METABOLIC [id number] 22:43:02* Test Item Value Reference Range Interpretation Comme nts GLUCOSE (test code = 2216) 115 MG/DL 70-99 H BUN (test code = 2207) 28 MG/DL 8-23 H CREATININE (test code = 2213) 1.39 MG/DL 0.60-1.30 H eGFR (2020 CKD-EPI) (test code = 09037) 41 ML/MIN/1.73 >60 L CALC BUN/CREAT (test code = 5) 20 RATIO 6-28 SODIUM (test code = 223) 139 MEQ/L 133-146 POTASSIUM (test code = 222) 5.7 MEQ/L 3.5-5.4 H CHLORIDE (test code = 2214) 102 MEQ/L 95-107 CARBON DIOXIDE (test code = 2205) 20 MEQ/L 19-31 CALCIUM (test code = 2208) 9.8 MG/DL 8.5-10.5 PROTEIN, TOTAL (test code = 2228) 7.0 G/DL 6.1-8.3 ALBUMIN (test code = 2200) 4.1 G/DL 3.5-5.2 CALC GLOBULIN (test code [...] (test code = 2219) 11 U/L 5-40 [facility] has impo rtant pathology staff changes effective 04/25/2022. New pathology staff will provide uninterrupted, excellent patient care and clinical consultation. See URL: [email or web address] UNLESS OTHERWISE INDICATED, ALL TESTING PERFORMED AT [facility] [address] [place] [id number] SURGICAL DENTAL ASSISTANT: Meg SIMMONSIA NUMBER [id number] [facility] [place]. [id number] HEMOGLOBIN [id number] 05:25:06* Test Item Value Reference Range Interpretation Comme nts HEMOGLOBIN A1c (test code = 32468) 8.2 % 4.2-5.6 H [employer] GUIDELINES FOR HGB A1C: [...] ALTERNATE TESTING OR LABORATORY CONSULTATION. COMPREHENSIVE METABOLIC [id number] 00:00:00* Test Item Value Reference Range Interpretation Comme nts GLUCOSE (test code = 2217) 115 MG/DL BUN (test code = 2208) 28 MG/DL CREATININE (test code = 2214) 1.39 MG/DL eGFR (2020 CKD-EPI) (test co de = 52783) 41 ML/MIN/1.73 CALC BUN/CREAT (test code = [...] (test code = 2219) 11 U/L Omero Patel AustinHEMOGLOBIN [id number] 00:00:00* Test Item Value Reference Range Interpretation Comme nts HEMOGLOBIN A1c (test code = 23376) 8.2 % Omero Amanda AustinLIPID [id number] 00:00:00* Test Item Value Reference Range Interpretation Comme nts CHOLESTEROL (test code = 2210) 166 MG/DL TRIGLYCERIDES (test code = 2232) 261 MG/DL HDL CHOLESTEROL (test code = 2220) 47 MG/DL CALC LDL CHOL (test code = 2237) 85 MG/DL RISK RATIO LDL/HDL (test cod e = 2238) 1.81 RATIO Omero ParkerCOMPREHENSIVE METABOLIC [id number] 00:00:00* Test Item Value Reference Range Interpretation Comme nts GLUCOSE (test code = 2217) 115 MG/DL BUN (test code = 2208) 28 MG/DL CREATININE (test code = 2214) 1.39 MG/DL eGFR (2020 CKD-EPI) (test co de = 46373) 41 ML/MIN/1.73 CALC BUN/CREAT (test code = [...] code = 2219) 11 U/L Omero ParkerHEMOGLOBIN [id number] 00:00:00* Test Item Value Reference Range Interpretation Comme nts HEMOGLOBIN A1c (test code = 23015) 8.2 % Omero ParkerLIPID [id number] 00:00:00* Test Item Value Reference Range Interpretation Comme nts CHOLESTEROL (test code = 2210) 166 MG/DL TRIGLYCERIDES (test code = 2232) 261 MG/DL HDL CHOLESTEROL (test code = 2220) 47 MG/DL CALC LDL CHOL (test code = 2237) 85 MG/DL RISK RATIO LDL/HDL (test cod e = 2238) 1.81 RATIO Omero ParkerCOMPREHENSIVE METABOLIC [id number] 00:00:00* Test Item Value Reference Range Interpretation Comme nts GLUCOSE (test code = 2217) 115 MG/DL BUN (test code = 2208) 28 MG/DL CREATININE (test code = 2214) 1.39 MG/DL eGFR (2020 CKD-EPI) (test co de = 00531) 41 ML/MIN/1.73 CALC BUN/CREAT (test code = [...] code = 2219) 11 U/L Omero ParkerHEMOGLOBIN [id number] 00:00:00* Test Item Value Reference Range Interpretation Comme nts HEMOGLOBIN A1c (test code = 30337) 8.2 % Omero ParkerLIPID [id number] 00:00:00* Test Item Value Reference Range Interpretation Comme nts CHOLESTEROL (test code = 2210) 166 MG/DL TRIGLYCERIDES (test code = 2232) 261 MG/DL HDL CHOLESTEROL (test code = 2220) 47 MG/DL CALC LDL CHOL (test code = 2237) 85 MG/DL RISK RATIO LDL/HDL (test cod e = 2238) 1.81 RATIO Omero ParkerCOMPREHENSIVE METABOLIC [id number] 00:00:00* Test Item Value Reference Range Interpretation Comme nts GLUCOSE (test code = 2217) 115 MG/DL BUN (test code = 2208) 28 MG/DL CREATININE (test code = 2214) 1.39 MG/DL eGFR (2020 CKD-EPI) (test co de = 68453) 41 ML/MIN/1.73 CALC BUN/CREAT (test code = [...] code = 2219) 11 U/L Omero ParkerHEMOGLOBIN [id number] 00:00:00* Test Item Value Reference Range Interpretation Comme nts HEMOGLOBIN A1c (test code = 92972) 8.2 % Omero ParkerLIPID [id number] 00:00:00* Test Item Value Reference Range Interpretation Comme nts CHOLESTEROL (test code = 2210) 166 MG/DL TRIGLYCERIDES (test code = 2232) 261 MG/DL HDL CHOLESTEROL (test code = 2220) 47 MG/DL CALC LDL CHOL (test code = 2237) 85 MG/DL RISK RATIO LDL/HDL (test cod e = 2238) 1.81 RATIO Omero ParkerTSH, THIRD [id number] 06:35:24* Test Item Value Reference Range Interpretation Comme nts TSH, THIRD GENERATION (test code = 2821) 0.494 UIU/ML 0.400-4.100 UNLESS OTHERWISE INDICATED, ALL TESTING PERFORMED [facility] [address] [place] [address] SURGICAL DENTAL ASSISTANT: SHAYY GARCIA M.D. CLIA NUMBER [id number] [place]. [id number] HEMOGLOBIN [id number] 05:34:13* Test Item Value Reference Range Interpretation Comme nts HEMOGLOBIN A1c (test code = 77813) 7.9 % 4.2-5.6 H [employer] GUIDELINES FOR HGB A1C: [...] ALTERNATE TESTING OR LABORATORY CONSULTATION. COMPREHENSIVE METABOLIC [id number] 03:52:41* Test Item Value Reference Range Interpretation Comme nts GLUCOSE (test code = 2217) 138 MG/DL 70-99 H BUN (test code = 2207) 24 MG/DL 8-23 H CREATININE (test code = 2214) 1.35 MG/DL 0.60-1.30 H eGFR (2020 CKD-EPI) (test code = 77472) 42 ML/MIN/1.73 >60 L CALC BUN/CREAT (test [...] code = 2219) 13 U/L 5-40 LIPID [id number] 03:52:41* Test Item Value Reference Range Interpretation [...] SPECIMENS. FOR MOREINFORMATION, SEE CLIENT ANNOUNCEMENT AT [email or web address] RISK RATIO LDL/HDL (test code = 2238) 1.53 RATIO <3.22 HEMOGLOBIN A1c [ADDED]2022-03-09 00:00:00* Test Item Value Reference Range Interpretation Comme nts HEMOGLOBIN A1c (test code = 77449) 7.9 % Omero BargerH, THIRD GENERATION [ADDED]2022-03-09 [...] eGFR (2020 CKD-EPI) (test co de = 21434) 42 ML/MIN/1.73 CALC BUN/CREAT (test code = [...] Comme eliana HEMOGLOBIN A1c (test code = 00760) 7.9 % Omero ParkerTSH, THIRD GENERATION [ADDED]2022-03-09 [...] eGFR (2020 CKD-EPI) (test co de = 79148) 42 ML/MIN/1.73 CALC BUN/CREAT (test code = [...] Comme eliana HEMOGLOBIN A1c (test code = 79550) 7.9 % Omero ParkerTSH, THIRD GENERATION [ADDED]2022-03-09 [...] eGFR (2020 CKD-EPI) (test co de = 03088) 42 ML/MIN/1.73 CALC BUN/CREAT (test code = [...] Comme eliana HEMOGLOBIN A1c (test code = 63904) 7.9 % Omero ParkerTSH, THIRD GENERATION [ADDED]2022-03-09 [...] eGFR (2020 CKD-EPI) (test co de = 45882) 42 ML/MIN/1.73 CALC BUN/CREAT (test code = [...] code = 2219) 13 U/L Omero Patel AustinLIPID PANEL [ADDED]2022-03-09 00:00:00* Test Item Value Reference Range Interpretation Comme nts CHOLESTEROL (test code = 2210) 150 MG/DL TRIGLYCERIDES (test code = 2232) 277 MG/DL HDL CHOLESTEROL (test code = 2220) 45 MG/DL CALC LDL CHOL (test code = 2237) 69 MG/DL RISK RATIO LDL/HDL (test cod e = 2238) 1.53 RATIO Omero ParkerCBC W/AUTO DIFF WITH [id number] 08:22:24* Test Item Value Reference Range Interpretation [...] = 1065) 0.0 /100 WBC'S See_Comment [Automated [employer]] The system which generated this result [...] 0.00-0.10 ABS NUCLEATED RBCS (test code = 83118) 0.00 K/UL 0.00-0.11 HEMOGLOBIN [id number] 07:58:23* Test Item Value Reference Range Interpretation Comme [facility] HEMOGLOBIN A1c (test code = 39528) 9.5 % 4.2-5.6 H [employer] GUIDELINES FOR HGB A1C: [...] ALTERNATE TESTING OR LABORATORY CONSULTATION. TSH, THIRD [id number] 05:47:57* Test Item Value Reference Range Interpretation Comme [facility] TSH, THIRD GENERATION (test code = 2821) 0.549 UIU/ML 0.400-4.100 UNLESS OTHERWISE INDICATED, ALL TESTING PERFORMED [facility] [address] [place] [address] SURGICAL DENTAL ASSISTANT: SHAYY GARCIA M.D. CLIA NUMBER [id number] [facility]. [id number] COMPREHENSIVE METABOLIC [id number] 04:41:17* Test Item Value Reference Range Interpretation Comme nts GLUCOSE (test code = 2217) 165 MG/DL 70-99 H BUN (test code = 2208) 25 MG/DL 8-23 H CREATININE (test code = 2214) 1.25 MG/DL 0.60-1.30 eGFR (2020 CKD-EPI) (test code = 50456) 46 ML/MIN/1.73 >60 L The NKF-ASN Taskforce recommends use of Cystatin C to confirm eGFR inadults at risk for CKD. [facility] offers eGFR with Cystatin C-Creatinineusing the 2020 CKD-EPI eGFR_creat-cystat equation (order code 3057) toincrease the accuracy of estimated GFR. For more information, contactyour contract accountant or see announcement [email or web address] CALC BUN/CREAT (test code = 2234) 20 [...] 80 U/L 40-142 AST (test code = 8) 18 U/L 9-40 ALT (test code = 221) 19 U/L 5-40 LIPID [id number] 04:41:17* Test Item Value Reference Range Interpretation Comme nts CHOLESTEROL (test code = 2209) 245 MG/DL <200 H TRIGLYCERIDES (test code = 2232) 403 MG/DL <150 H HDL CHOLESTEROL (test code = 0) 43 MG/DL >39 CALC LDL CHOL (test [...] SPECIMENS. FOR MOREINFORMATION, SEE CLIENT ANNOUNCEMENT AT [email or web address] CalcLDL-C RISK RATIO LDL/HDL (test code = 2238) (NOTE) RATIO <3.22 UNABLE TO BERTO CULATE COMPREHENSIVE METABOLIC [id number] 00:00:00* Test Item Value Reference Range Interpretation Comme nts GLUCOSE (test code = 2217) 165 MG/DL BUN (test code = 2208) 25 MG/DL CREATININE (test code = 2214) 1.25 MG/DL eGFR (2020 CKD-EPI) (test co de = 09584) 46 ML/MIN/1.73 CALC BUN/CREAT (test code = [...] (test code = 2219) 19 U/L Omero Amanda AustinLIPID [id number] 00:00:00* Test Item Value Reference Range Interpretation Comme nts CHOLESTEROL (test code = 2210) 245 MG/DL TRIGLYCERIDES (test code = 2232) 403 MG/DL HDL CHOLESTEROL (test code = 2220) 43 MG/DL CALC LDL CHOL (test code = 2237) (NOTE) MG/DL RISK RATIO LDL/HDL (test cod e = 2238) (NOTE) RATIO Omero Amanda KeithH, THIRD [id number] 00:00:00* Test Item Value Reference Range Interpretation Comme nts TSH, THIRD GENERATION (test code = 2821) 0.549 UIU/ML Omero ParkerHEMOGLOBIN [id number] 00:00:00* Test Item Value Reference Range Interpretation Comme nts HEMOGLOBIN A1c (test code = 59885) 9.5 % Omero ParkerCBC W/AUTO [id number] 00:00:00* Test Item Value Reference Range Interpretation [...] ABS NUCLEATED RBCS (test cod e = 50420) 0.00 K/UL Omero ParkerCOMPREHENSIVE METABOLIC [id number] 00:00:00* Test Item Value Reference Range Interpretation Comme nts GLUCOSE (test code = 2217) 165 MG/DL BUN (test code = 2208) 25 MG/DL CREATININE (test code = 2214) 1.25 MG/DL eGFR (2020 CKD-EPI) (test co de = 16154) 46 ML/MIN/1.73 CALC BUN/CREAT (test code = [...] (test code = 2219) 19 U/L Omero Patel AustinLIPID [id number] 00:00:00* Test Item Value Reference Range Interpretation Comme nts CHOLESTEROL (test code = 2210) 245 MG/DL TRIGLYCERIDES (test code = 2232) 403 MG/DL HDL CHOLESTEROL (test code = 2220) 43 MG/DL CALC LDL CHOL (test code = 2237) (NOTE) MG/DL RISK RATIO LDL/HDL (test cod e = 2238) (NOTE) RATIO Omero Patel AustinHEMOGLOBIN [id number] 00:00:00* Test Item Value Reference Range Interpretation Comme nts HEMOGLOBIN A1c (test code = 31283) 9.5 % TSH, THIRD [id number] 00:00:00* Test Item Value Reference Range Interpretation Comme nts TSH, THIRD GENERATION (test code = 2821) 0.549 UIU/ML Omero Patel AustinHEMOGLOBIN [id number] 00:00:00* Test Item Value Reference Range Interpretation Comme nts HEMOGLOBIN A1c (test code = 86802) 9.5 % Omero ParkerCBC W/AUTO [id number] 00:00:00* Test Item Value Reference Range Interpretation [...] ABS NUCLEATED RBCS (test cod e = 65512) 0.00 K/UL COMPREHENSIVE METABOLIC [id number] 00:00:00* Test Item Value Reference Range Interpretation Comme nts GLUCOSE (test code = 2217) 165 MG/DL BUN (test code = 2208) 25 MG/DL CREATININE (test code = 2214) 1.25 MG/DL eGFR (2020 CKD-EPI) (test co de = 43053) 46 ML/MIN/1.73 CALC BUN/CREAT (test code = [...] ALT (test code = 2219) 19 U/L CBC W/AUTO [id number] 00:00:00* Test Item Value Reference Range Interpretation [...] ABS NUCLEATED RBCS (test cod e = 45277) 0.00 K/UL Omero F AustinLIPID [id number] 00:00:00* Test Item Value Reference Range Interpretation Comme nts CHOLESTEROL (test code = 2210) 245 MG/DL TRIGLYCERIDES (test code = 2232) 403 MG/DL HDL CHOLESTEROL (test code = 2220) 43 MG/DL CALC LDL CHOL (test code = 2237) (NOTE) MG/DL RISK RATIO LDL/HDL (test cod e = 2238) (NOTE) RATIO TSH, THIRD [id number] 00:00:00* Test Item Value Reference Range Interpretation Comme nts TSH, THIRD GENERATION (test code = 2821) 0.549 UIU/ML COMPREHENSIVE METABOLIC [id number] 00:00:00* Test Item Value Reference Range Interpretation Comme nts GLUCOSE (test code = 2217) 165 MG/DL BUN (test code = 2208) 25 MG/DL CREATININE (test code = 2214) 1.25 MG/DL eGFR (2020 CKD-EPI) (test co de = 39581) 46 ML/MIN/1.73 CALC BUN/CREAT (test code = [...] (test code = 2219) 19 U/L Omero Patel AustinLIPID [id number] 00:00:00* Test Item Value Reference Range Interpretation Comme nts CHOLESTEROL (test code = 2210) 245 MG/DL TRIGLYCERIDES (test code = 2232) 403 MG/DL HDL CHOLESTEROL (test code = 2220) 43 MG/DL CALC LDL CHOL (test code = 2237) (NOTE) MG/DL RISK RATIO LDL/HDL (test cod e = 2238) (NOTE) RATIO Omero ParkerTSH, THIRD [id number] 00:00:00* Test Item Value Reference Range Interpretation Comme nts TSH, THIRD GENERATION (test code = 2821) 0.549 UIU/ML Omero ParkerHEMOGLOBIN [id number] 00:00:00* Test Item Value Reference Range Interpretation Comme nts HEMOGLOBIN A1c (test code = 90339) 9.5 % Omero ParkerCBC W/AUTO [id number] 00:00:00* Test Item Value Reference Range Interpretation [...] ABS NUCLEATED RBCS (test cod e = 92329) 0.00 K/UL Omero ParkerCOMPREHENSIVE METABOLIC [id number] 00:00:00* Test Item Value Reference Range Interpretation Comme nts GLUCOSE (test code = 2217) 165 MG/DL BUN (test code = 2208) 25 MG/DL CREATININE (test code = 2214) 1.25 MG/DL eGFR (2020 CKD-EPI) (test co de = 76104) 46 ML/MIN/1.73 CALC BUN/CREAT (test code = [...] code = 2219) 19 U/L Omero ParkerLIPID [id number] 00:00:00* Test Item Value Reference Range Interpretation Comme nts CHOLESTEROL (test code = 2210) 245 MG/DL TRIGLYCERIDES (test code = 2232) 403 MG/DL HDL CHOLESTEROL (test code = 2220) 43 MG/DL CALC LDL CHOL (test code = 2237) (NOTE) MG/DL RISK RATIO LDL/HDL (test cod e = 2238) (NOTE) RATIO Omero ParkerTSH, THIRD [id number] 00:00:00* Test Item Value Reference Range Interpretation Comme eliana TSH, THIRD GENERATION (test code = 2821) 0.549 UIU/ML Omero ParkerHEMOGLOBIN [id number] 00:00:00* Test Item Value Reference Range Interpretation Comme nts HEMOGLOBIN A1c (test code = 64303) 9.5 % Omero ParkerCBC W/AUTO [id number] 00:00:00* Test Item Value Reference Range Interpretation [...] ABS NUCLEATED RBCS (test cod e = 17717) 0.00 K/UL Omero Patel KeithCOMPREHENSIVE METABOLIC [id number] 05:40:31* Test Item Value Reference Range Interpretation Comme nts GLUCOSE (test code = 2217) 212 MG/DL 70-99 H BUN (test code = 2208) 24 MG/DL 8-23 H CREATININE (test code = 2214) 1.35 MG/DL 0.60-1.30 H eGFR (2020 CKD-EPI) (test code = 70849) 42 ML/MIN/1.73 >60 L CALC BUN/CREAT (test code = 2235) 18 RATIO 6-28 SODIUM (test code = 223) 136 MEQ/L 133-146 POTASSIUM (test code = [...] code = 2219) 24 U/L 5-40 LIPID [id number] 05:40:31* Test Item Value Reference Range Interpretation Comme nts CHOLESTEROL (test code = 2210) 168 MG/DL <200 TRIGLYCERIDES (test code = 2232) 305 MG/DL <150 H HDL CHOLESTEROL (test code = 2220) 48 MG/DL >39 CALC LDL CHOL (test code = 2237) 83 MG/DL <100 NOTE: CALCULATED LDL IS BASED ON GRISELDA-CHAVEZ METHOD WHICHINCLUDES ADJUSTABLE TRIGLYCERIDE:VLDL CHOLESTEROL RATIO.THIS FACTOR VARIES BY MEASURED TRIGLYCERIDE AND NON-HDLCHOLESTEROL CONCENTRATIONS WITH INCREASED CALCULATED LDL SEENIN HIGHER TRIGLYCERIDE OR LOWER NON-HDL SPECIMENS. FOR MOREINFORMATION, SEE CLIENT ANNOUNCEMENT AT [email or web address] RISK RATIO LDL/HDL (test code = 2238) 1.73 RATIO <3.22 UNLESS OTHERW ISE INDICATED, ALL TESTING PERFORMED [facility] [address] [place] [address] SURGICAL DENTAL ASSISTANT: SHAYY GARCIA M.D. IA NUMBER [id number] [facility] [place]. [id number] HEMOGLOBIN [id number] 03:57:08* Test Item Value Reference Range Interpretation Comme nts HEMOGLOBIN A1c (test code = 34601) 8.4 % 4.2-5.6 H [employer] GUIDELINES FOR HGB A1C: [...] CONSIDER ALTERNATE TESTING OR LABORATORY CONSULTATION. LIPID [id number] 00:00:00* Test Item Value Reference Range Interpretation Comme nts CHOLESTEROL (test code = 2210) 168 MG/DL TRIGLYCERIDES (test code = 2232) 305 MG/DL HDL CHOLESTEROL (test code = 2220) 48 MG/DL CALC LDL CHOL (test code = 2237) 83 MG/DL RISK RATIO LDL/HDL (test cod e = 2238) 1.73 RATIO Omero ParkerHEMOGLOBIN [id number] 00:00:00* Test Item Value Reference Range Interpretation Comme nts HEMOGLOBIN A1c (test code = 33753) 8.4 % Omero ParkerCOMPREHENSIVE METABOLIC [id number] 00:00:00* Test Item Value Reference Range Interpretation Comme nts GLUCOSE (test code = 2217) 212 MG/DL BUN (test code = 2208) 24 MG/DL CREATININE (test code = 2214) 1.35 MG/DL eGFR (2020 CKD-EPI) (test co de = 83042) 42 ML/MIN/1.73 CALC BUN/CREAT (test code = [...] (test code = 2219) 24 U/L LIPID [id number] 00:00:00* Test Item Value Reference Range Interpretation Comme nts CHOLESTEROL (test code = 2210) 168 MG/DL TRIGLYCERIDES (test code = 2232) 305 MG/DL HDL CHOLESTEROL (test code = 2220) 48 MG/DL CALC LDL CHOL (test code = 2237) 83 MG/DL RISK RATIO LDL/HDL (test cod e = 2238) 1.73 RATIO COMPREHENSIVE METABOLIC [id number] 00:00:00* Test Item Value Reference Range Interpretation Comme nts GLUCOSE (test code = 2217) 212 MG/DL BUN (test code = 2208) 24 MG/DL CREATININE (test code = 2214) 1.35 MG/DL eGFR (2020 CKD-EPI) (test co de = 68125) 42 ML/MIN/1.73 CALC BUN/CREAT (test code = [...] = 2219) 24 U/L Omero Patel AustinLIPID [id number] 00:00:00* Test Item Value Reference Range Interpretation Comme nts CHOLESTEROL (test code = 2210) 168 MG/DL TRIGLYCERIDES (test code = 2232) 305 MG/DL HDL CHOLESTEROL (test code = 2220) 48 MG/DL CALC LDL CHOL (test code = 2237) 83 MG/DL RISK RATIO LDL/HDL (test cod e = 2238) 1.73 RATIO Omero ParkerHEMOGLOBIN [id number] 00:00:00* Test Item Value Reference Range Interpretation Comme nts HEMOGLOBIN A1c (test code = 01214) 8.4 % HEMOGLOBIN [id number] 00:00:00* Test Item Value Reference Range Interpretation Comme nts HEMOGLOBIN A1c (test code = 34184) 8.4 % Omero ParkerCOMPREHENSIVE METABOLIC [id number] 00:00:00* Test Item Value Reference Range Interpretation Comme nts GLUCOSE (test code = 2217) 212 MG/DL BUN (test code = 2208) 24 MG/DL CREATININE (test code = 2214) 1.35 MG/DL eGFR (2020 CKD-EPI) (test co de = 55368) 42 ML/MIN/1.73 CALC BUN/CREAT (test code = [...] (test code = 2219) 24 U/L LIPID [id number] 00:00:00* Test Item Value Reference Range Interpretation Comme nts CHOLESTEROL (test code = 2210) 168 MG/DL TRIGLYCERIDES (test code = 2232) 305 MG/DL HDL CHOLESTEROL (test code = 2220) 48 MG/DL CALC LDL CHOL (test code = 2237) 83 MG/DL RISK RATIO LDL/HDL (test cod e = 2238) 1.73 RATIO COMPREHENSIVE METABOLIC [id number] 00:00:00* Test Item Value Reference Range Interpretation Comme nts GLUCOSE (test code = 2217) 212 MG/DL BUN (test code = 2208) 24 MG/DL CREATININE (test code = 2214) 1.35 MG/DL eGFR (2020 CKD-EPI) (test co de = 69904) 42 ML/MIN/1.73 CALC BUN/CREAT (test code = [...] code = 2219) 24 U/L Omero Patel AustinHEMOGLOBIN [id number] 00:00:00* Test Item Value Reference Range Interpretation Comme nts HEMOGLOBIN A1c (test code = 32903) 8.4 % LIPID [id number] 00:00:00* Test Item Value Reference Range Interpretation Comme nts CHOLESTEROL (test code = 2210) 168 MG/DL TRIGLYCERIDES (test code = 2232) 305 MG/DL HDL CHOLESTEROL (test code = 2220) 48 MG/DL CALC LDL CHOL (test code = 2237) 83 MG/DL RISK RATIO LDL/HDL (test cod e = 2238) 1.73 RATIO Omero Patel AustinHEMOGLOBIN [id number] 00:00:00* Test Item Value Reference Range Interpretation Comme nts HEMOGLOBIN A1c (test code = 49291) 8.4 % Omero Patel AustinCOMPREHENSIVE METABOLIC [id number] 00:00:00* Test Item Value Reference Range Interpretation Comme nts GLUCOSE (test code = 2217) 212 MG/DL BUN (test code = 2208) 24 MG/DL CREATININE (test code = 2214) 1.35 MG/DL eGFR (2020 CKD-EPI) (test co de = 76803) 42 ML/MIN/1.73 CALC BUN/CREAT (test code = [...] code = 2219) 24 U/L Omero ParkerLIPID [id number] 00:00:00* Test Item Value Reference Range Interpretation Comme nts CHOLESTEROL (test code = 2210) 168 MG/DL TRIGLYCERIDES (test code = 2232) 305 MG/DL HDL CHOLESTEROL (test code = 2220) 48 MG/DL CALC LDL CHOL (test code = 2237) 83 MG/DL RISK RATIO LDL/HDL (test cod e = 2238) 1.73 RATIO Omero ParkerHEMOGLOBIN [id number] 00:00:00* Test Item Value Reference Range Interpretation Comme nts HEMOGLOBIN A1c (test code = 77902) 8.4 % Omero ParkerCOMPREHENSIVE METABOLIC [id number] 00:00:00* Test Item Value Reference Range Interpretation Comme nts GLUCOSE (test code = 2217) 212 MG/DL BUN (test code = 2208) 24 MG/DL CREATININE (test code = 2214) 1.35 MG/DL eGFR (2020 CKD-EPI) (test co de = 80084) 42 ML/MIN/1.73 CALC BUN/CREAT (test code = [...] (test code = 2219) 24 U/L Omero F AustinTSH, THIRD [id number] 05:23:02* Test Item Value Reference Range Interpretation Comme nts TSH, THIRD GENERATION (test code = 2821) 1.730 UIU/ML 0.400-4.100 UNLESS OTHERWISE INDICATED, ALL TESTING PERFORMED [facility] [address] [place] [address] SURGICAL DENTAL ASSISTANT: SHAYY GARCIA M.D. IA NUMBER [id number] [facility] [place]. [id number] HEMOGLOBIN [id number] 04:30:06* Test Item Value Reference Range Interpretation Comme nts HEMOGLOBIN A1c (test code = 78503) 9.6 % 4.2-5.6 H [employer] GUIDELINES FOR HGB A1C: [...] CONSIDER ALTERNATE TESTING OR LABORATORY CONSULTATION. LIPID [id number] 02:53:37* Test Item Value Reference Range Interpretation [...] = 2238) 1.46 RATIO <3.22 COMPREHENSIVE METABOLIC [id number] 02:53:37* Test Item Value Reference Range Interpretation Comme nts GLUCOSE (test code = 2217) 195 MG/DL 70-99 H BUN (test code = 2208) 23 MG/DL 8-23 CREATININE (test code = 2214) 1.13 MG/DL 0.60-1.30 eGFR (2020 CKD-EPI) (test code = 64212) 53 ML/MIN/1.73 >60 L CALC BUN/CREAT (test [...] as normal/abnormal. ALKALINE PHOSPHATASE (test code = 4) 77 U/L 40-142 AST (test code = 2218) 26 U/L 9-40 ALT (test code = 2219) 24 U/L 5-40 COMPREHENSIVE METABOLIC [id number] 00:00:00* Test Item Value Reference Range Interpretation Comme nts GLUCOSE (test code = 2217) 195 MG/DL BUN (test code = 2208) 23 MG/DL CREATININE (test code = 2214) 1.13 MG/DL eGFR (2020 CKD-EPI) (test co de = 52553) 53 ML/MIN/1.73 CALC BUN/CREAT (test code = 223) 20 RATIO SODIUM (test code = 223) 141 [...] (test code = 2219) 24 U/L Omero [id number] 00:00:00* Test Item Value Reference Range Interpretation Comme eliana TSH, THIRD GENERATION (test code = 2821) 1.730 UIU/ML Omero ParkerHEMOGLOBIN [id number] 00:00:00* Test Item Value Reference Range Interpretation Comme nts HEMOGLOBIN A1c (test code = 57907) 9.6 % Omero ParkerLIPID [id number] 00:00:00* Test Item Value Reference Range Interpretation Comme nts CHOLESTEROL (test code = 2210) 156 MG/DL TRIGLYCERIDES (test code = 2232) 182 MG/DL HDL CHOLESTEROL (test code = 2220) 52 MG/DL CALC LDL CHOL (test code = 2237) 76 MG/DL RISK RATIO LDL/HDL (test cod e = 2238) 1.46 RATIO LIPID [id number] 00:00:00* Test Item Value Reference Range Interpretation Comme nts CHOLESTEROL (test code = 2210) 156 MG/DL TRIGLYCERIDES (test code = 2232) 182 MG/DL HDL CHOLESTEROL (test code = 2220) 52 MG/DL CALC LDL CHOL (test code = 2237) 76 MG/DL RISK RATIO LDL/HDL (test cod e = 2238) 1.46 RATIO Omero ParkerCOMPREHENSIVE METABOLIC [id number] 00:00:00* Test Item Value Reference Range Interpretation Comme nts GLUCOSE (test code = 2217) 195 MG/DL BUN (test code = 2208) 23 MG/DL CREATININE (test code = 2214) 1.13 MG/DL eGFR (2020 CKD-EPI) (test co de = 85058) 53 ML/MIN/1.73 CALC BUN/CREAT (test code = [...] code = 2219) 24 U/L COMPREHENSIVE METABOLIC [id number] 00:00:00* Test Item Value Reference Range Interpretation Comme nts GLUCOSE (test code = 2217) 195 MG/DL BUN (test code = 2208) 23 MG/DL CREATININE (test code = 2214) 1.13 MG/DL eGFR (2020 CKD-EPI) (test co de = 79244) 53 ML/MIN/1.73 CALC BUN/CREAT (test code = [...] (test code = 2219) 24 U/L Omero [id number] 00:00:00* Test Item Value Reference Range Interpretation Comme nts TSH, THIRD GENERATION (test code = 2821) 1.730 UIU/ML HEMOGLOBIN [id number] 00:00:00* Test Item Value Reference Range Interpretation Comme nts HEMOGLOBIN A1c (test code = 31379) 9.6 % [id number] 00:00:00* Test Item Value Reference Range Interpretation Comme nts TSH, THIRD GENERATION (test code = 2821) 1.730 UIU/ML Omero Patel AustinLIPID [id number] 00:00:00* Test Item Value Reference Range Interpretation Comme nts CHOLESTEROL (test code = 2210) 156 MG/DL TRIGLYCERIDES (test code = 2232) 182 MG/DL HDL CHOLESTEROL (test code = 2220) 52 MG/DL CALC LDL CHOL (test code = 2237) 76 MG/DL RISK RATIO LDL/HDL (test cod e = 2238) 1.46 RATIO HEMOGLOBIN [id number] 00:00:00* Test Item Value Reference Range Interpretation Comme nts HEMOGLOBIN A1c (test code = 87415) 9.6 % Omero ParkerCOMPREHENSIVE METABOLIC [id number] 00:00:00* Test Item Value Reference Range Interpretation Comme nts GLUCOSE (test code = 2217) 195 MG/DL BUN (test code = 2208) 23 MG/DL CREATININE (test code = 2214) 1.13 MG/DL eGFR (2020 CKD-EPI) (test co de = 42010) 53 ML/MIN/1.73 CALC BUN/CREAT (test code = [...] (test code = 2219) 24 U/L LIPID [id number] 00:00:00* Test Item Value Reference Range Interpretation Comme nts CHOLESTEROL (test code = 2210) 156 MG/DL TRIGLYCERIDES (test code = 2232) 182 MG/DL HDL CHOLESTEROL (test code = 2220) 52 MG/DL CALC LDL CHOL (test code = 2237) 76 MG/DL RISK RATIO LDL/HDL (test cod e = 2238) 1.46 RATIO Omero [id number] 00:00:00* Test Item Value Reference Range Interpretation Comme [facility] TSH, THIRD GENERATION (test code = 2821) 1.730 UIU/ML HEMOGLOBIN [id number] 00:00:00* Test Item Value Reference Range Interpretation Comme nts HEMOGLOBIN A1c (test code = 90329) 9.6 % COMPREHENSIVE METABOLIC [id number] 00:00:00* Test Item Value Reference Range Interpretation Comme nts GLUCOSE (test code = 2217) 195 MG/DL BUN (test code = 2208) 23 MG/DL CREATININE (test code = 2214) 1.13 MG/DL eGFR (2020 CKD-EPI) (test co de = 65130) 53 ML/MIN/1.73 CALC BUN/CREAT (test code = [...] (test code = 2219) 24 U/L Omero [id number] 00:00:00* Test Item Value Reference Range Interpretation Comme [facility] [place] TSH, THIRD GENERATION (test code = 2821) 1.730 UIU/ML Omero ParkerHEMOGLOBIN [id number] 00:00:00* Test Item Value Reference Range Interpretation Comme eliana HEMOGLOBIN A1c (test code = 44839) 9.6 % Omero ParkerLIPID [id number] 00:00:00* Test Item Value Reference Range Interpretation Comme nts CHOLESTEROL (test code = 2210) 156 MG/DL TRIGLYCERIDES (test code = 2232) 182 MG/DL HDL CHOLESTEROL (test code = 2220) 52 MG/DL CALC LDL CHOL (test code = 2237) 76 MG/DL RISK RATIO LDL/HDL (test cod e = 2238) 1.46 RATIO Omero ParkerCOMPREHENSIVE METABOLIC [id number] 00:00:00* Test Item Value Reference Range Interpretation Comme nts GLUCOSE (test code = 2217) 195 MG/DL BUN (test code = 2208) 23 MG/DL CREATININE (test code = 2214) 1.13 MG/DL eGFR (2020 CKD-EPI) (test co de = 86517) 53 ML/MIN/1.73 CALC BUN/CREAT (test code = [...] (test code = 2219) 24 U/L Omero [id number] 00:00:00* Test Item Value Reference Range Interpretation Comme nts TSH, THIRD GENERATION (test code = 2821) 1.730 UIU/ML Omero ParkerHEMOGLOBIN [id number] 00:00:00* Test Item Value Reference Range Interpretation Comme nts HEMOGLOBIN A1c (test code = 59920) 9.6 % Omero ParkerLIPID [id number] 00:00:00* Test Item Value Reference Range Interpretation Comme nts CHOLESTEROL (test code = 2210) 156 MG/DL TRIGLYCERIDES (test code = 2232) 182 MG/DL HDL CHOLESTEROL (test code = 2220) 52 MG/DL CALC LDL CHOL (test code = 2237) 76 MG/DL RISK RATIO LDL/HDL (test cod e = 2238) 1.46 RATIO Omero ParkerLIPID [id number] 00:00:00* Test Item Value Reference Range Interpretation Comme nts CHOLESTEROL (test code = 2210) 136 MG/DL TRIGLYCERIDES (test code = 2232) 191 MG/DL HDL CHOLESTEROL (test code = 2220) 44 MG/DL CALC LDL CHOL (test code = 2237) 66 MG/DL RISK RATIO LDL/HDL (test cod e = 2238) 1.50 RATIO Omero ParkerCBC W/AUTO [id number] 00:00:00* Test Item Value Reference Range Interpretation [...] ABS NUCLEATED RBCS (test cod e = 47167) 0.00 K/UL Omero ParkerHEMOGLOBIN [id number] 00:00:00* Test Item Value Reference Range Interpretation Comme nts HEMOGLOBIN A1c (test code = 08850) 9.1 % LIPID [id number] 00:00:00* Test Item Value Reference Range Interpretation Comme nts CHOLESTEROL (test code = 2210) 136 MG/DL TRIGLYCERIDES (test code = 2232) 191 MG/DL HDL CHOLESTEROL (test code = 2220) 44 MG/DL CALC LDL CHOL (test code = 2237) 66 MG/DL RISK RATIO LDL/HDL (test cod e = 2238) 1.50 RATIO HEMOGLOBIN [id number] 00:00:00* Test Item Value Reference Range Interpretation Comme nts HEMOGLOBIN A1c (test code = 28006) 9.1 % Omero ParkerLIPID [id number] 00:00:00* Test Item Value Reference Range Interpretation Comme nts CHOLESTEROL (test code = 2210) 136 MG/DL TRIGLYCERIDES (test code = 2232) 191 MG/DL HDL CHOLESTEROL (test code = 2220) 44 MG/DL CALC LDL CHOL (test code = 2237) 66 MG/DL RISK RATIO LDL/HDL (test cod e = 2238) 1.50 RATIO Omero ParkerCBC W/AUTO [id number] 00:00:00* Test Item Value Reference Range Interpretation [...] ABS NUCLEATED RBCS (test cod e = 76337) 0.00 K/UL CBC W/AUTO [id number] 00:00:00* Test Item Value Reference Range Interpretation [...] ABS NUCLEATED RBCS (test cod e = 53424) 0.00 K/UL Omero ParkerHEMOGLOBIN [id number] 00:00:00* Test Item Value Reference Range Interpretation Comme nts HEMOGLOBIN A1c (test code = 39179) 9.1 % LIPID [id number] 00:00:00* Test Item Value Reference Range Interpretation Comme nts CHOLESTEROL (test code = 2210) 136 MG/DL TRIGLYCERIDES (test code = 2232) 191 MG/DL HDL CHOLESTEROL (test code = 2220) 44 MG/DL CALC LDL CHOL (test code = 2237) 66 MG/DL RISK RATIO LDL/HDL (test cod e = 2238) 1.50 RATIO HEMOGLOBIN [id number] 00:00:00* Test Item Value Reference Range Interpretation Comme nts HEMOGLOBIN A1c (test code = 84812) 9.1 % Omero ParkerLIPID [id number] 00:00:00* Test Item Value Reference Range Interpretation Comme nts CHOLESTEROL (test code = 2210) 136 MG/DL TRIGLYCERIDES (test code = 2232) 191 MG/DL HDL CHOLESTEROL (test code = 2220) 44 MG/DL CALC LDL CHOL (test code = 2237) 66 MG/DL RISK RATIO LDL/HDL (test cod e = 2238) 1.50 RATIO Omero ParkerCBC W/AUTO [id number] 00:00:00* Test Item Value Reference Range Interpretation [...] ABS NUCLEATED RBCS (test cod e = 48061) 0.00 K/UL CBC W/AUTO [id number] 00:00:00* Test Item Value Reference Range Interpretation [...] ABS NUCLEATED RBCS (test cod e = 72045) 0.00 K/UL Omero F AustinHEMOGLOBIN [id number] 00:00:00* Test Item Value Reference Range Interpretation Comme nts HEMOGLOBIN A1c (test code = 81451) 9.1 % Omero ParkerLIPID [id number] 00:00:00* Test Item Value Reference Range Interpretation Comme nts CHOLESTEROL (test code = 2210) 136 MG/DL TRIGLYCERIDES (test code = 2232) 191 MG/DL HDL CHOLESTEROL (test code = 2220) 44 MG/DL CALC LDL CHOL (test code = 2237) 66 MG/DL RISK RATIO LDL/HDL (test cod e = 2238) 1.50 RATIO Omero ParkerCBC W/AUTO [id number] 00:00:00* Test Item Value Reference Range Interpretation [...] ABS NUCLEATED RBCS (test cod e = 02930) 0.00 K/UL Omero ParkerHEMOGLOBIN [id number] 00:00:00* Test Item Value Reference Range Interpretation Comme nts HEMOGLOBIN A1c (test code = 03407) 9.1 % Omero ParkerCOMPREHENSIVE METABOLIC [id number] 00:00:00* Test Item Value Reference Range Interpretation Comme nts GLUCOSE (test code = 2217) 166 MG/DL BUN (test code = 2208) 19 MG/DL CREATININE (test code = 2214) 1.04 MG/DL eGFR AMER. (test cod e = 65894) 63 ML/MIN/1.73 eGFR NON- AMER. (test code = 59393) 55 ML/MIN/1.73 CALC BUN/CREAT (test code = [...] (test code = 2219) 23 U/L Omero [id number] 00:00:00* Test Item Value Reference Range Interpretation Comme [place]iana TSH, THIRD GENERATION (test code = 2821) 2.640 UIU/ML Omero ParkerHEMOGLOBIN [id number] 00:00:00* Test Item Value Reference Range Interpretation Comme eliana HEMOGLOBIN A1c (test code = 76977) 10.0 % Omero ParkerLIPID [id number] 00:00:00* Test Item Value Reference Range Interpretation Comme nts CHOLESTEROL (test code = 2210) 143 MG/DL TRIGLYCERIDES (test code = 2232) 258 MG/DL HDL CHOLESTEROL (test code = 2220) 45 MG/DL CALC LDL CHOL (test code = 2237) 68 MG/DL RISK RATIO LDL/HDL (test cod e = 2238) 1.51 RATIO LIPID [id number] 00:00:00* Test Item Value Reference Range Interpretation Comme nts CHOLESTEROL (test code = 2210) 143 MG/DL TRIGLYCERIDES (test code = 2232) 258 MG/DL HDL CHOLESTEROL (test code = 2220) 45 MG/DL CALC LDL CHOL (test code = 2237) 68 MG/DL RISK RATIO LDL/HDL (test cod e = 2238) 1.51 RATIO Omero ParkerCOMPREHENSIVE METABOLIC [id number] 00:00:00* Test Item Value Reference Range Interpretation Comme nts GLUCOSE (test code = 2217) 166 MG/DL BUN (test code = 2208) 19 MG/DL CREATININE (test code = 2214) 1.04 MG/DL eGFR AMER. (test cod e = 38588) 63 ML/MIN/1.73 eGFR NON- AMER. (test code = 54241) 55 ML/MIN/1.73 CALC BUN/CREAT (test code = [...] ALT (test code = 2219) 23 U/L [id number] 00:00:00* Test Item Value Reference Range Interpretation Comme nts TSH, THIRD GENERATION (test code = 2821) 2.640 UIU/ML HEMOGLOBIN [id number] 00:00:00* Test Item Value Reference Range Interpretation Comme nts HEMOGLOBIN A1c (test code = 25038) 10.0 % COMPREHENSIVE METABOLIC [id number] 00:00:00* Test Item Value Reference Range Interpretation Comme nts GLUCOSE (test code = 2217) 166 MG/DL BUN (test code = 2208) 19 MG/DL CREATININE (test code = 2214) 1.04 MG/DL eGFR AMER. (test cod e = ) 63 ML/MIN/1.73 eGFR NON- AMER. (test code = 68149) 55 ML/MIN/1.73 CALC BUN/CREAT (test code = 2235) 18 RATIO SODIUM (test code = 2231) 138 MEQ/L POTASSIUM (test code = 2228) 5.3 MEQ/L CHLORIDE (test code = 2215) 102 MEQ/L CARBON DIOXIDE (test code = 2206) 24 MEQ/L CALCIUM (test code = 2209) 9.6 MG/DL PROTEIN, TOTAL (test code = 222) 7.3 G/DL ALBUMIN (test code = 220) 4.2 G/DL CALC GLOBULIN (test code = 2240) 3.1 G/DL CALC A/G RATIO (test code = 2234) 1.4 RATIO BILIRUBIN, TOTAL (test code = 2206) 0.3 MG/DL ALKALINE PHOSPHATASE (test code = 2204) 81 U/L AST (test code = 2218) 26 U/L ALT (test code = 2219) 23 U/L Omero [id number] 00:00:00* Test Item Value Reference Range Interpretation Comme nts TSH, THIRD GENERATION (test code = 2821) 2.640 UIU/ML Omero Patel AustinLIPID [id number] 00:00:00* Test Item Value Reference Range Interpretation Comme nts CHOLESTEROL (test code = 2210) 143 MG/DL TRIGLYCERIDES (test code = 2232) 258 MG/DL HDL CHOLESTEROL (test code = 2220) 45 MG/DL CALC LDL CHOL (test code = 7) 68 MG/DL RISK RATIO LDL/HDL (test cod e = 2238) 1.51 RATIO HEMOGLOBIN [id number] 00:00:00* Test Item Value Reference Range Interpretation Comme nts HEMOGLOBIN A1c (test code = 80448) 10.0 % Omero ParkerLIPID [id number] 00:00:00* Test Item Value Reference Range Interpretation Comme nts CHOLESTEROL (test code = 2210) 143 MG/DL TRIGLYCERIDES (test code = 2232) 258 MG/DL HDL CHOLESTEROL (test code = 2220) 45 MG/DL CALC LDL CHOL (test code = 2237) 68 MG/DL RISK RATIO LDL/HDL (test cod e = 2238) 1.51 RATIO Omero ParkerCOMPREHENSIVE METABOLIC [id number] 00:00:00* Test Item Value Reference Range Interpretation Comme nts GLUCOSE (test code = 2217) 166 MG/DL BUN (test code = 2208) 19 MG/DL CREATININE (test code = 2214) 1.04 MG/DL eGFR AMER. (test cod e = 92255) 63 ML/MIN/1.73 eGFR NON- AMER. (test code = 34583) 55 ML/MIN/1.73 CALC BUN/CREAT (test code = [...] ALT (test code = 2219) 23 U/L [id number] 00:00:00* Test Item Value Reference Range Interpretation Comme nts TSH, THIRD GENERATION (test code = 2821) 2.640 UIU/ML COMPREHENSIVE METABOLIC [id number] 00:00:00* Test Item Value Reference Range Interpretation Comme nts GLUCOSE (test code = 2217) 166 MG/DL BUN (test code = 2208) 19 MG/DL CREATININE (test code = 2214) 1.04 MG/DL eGFR AMER. (test cod e = 47417) 63 ML/MIN/1.73 eGFR NON- AMER. (test code = 57310) 55 ML/MIN/1.73 CALC BUN/CREAT (test code = [...] 2217) 26 U/L ALT (test code = 2219) 23 U/L Omero Patel AustinHEMOGLOBIN [id number] 00:00:00* Test Item Value Reference Range Interpretation Comme nts HEMOGLOBIN A1c (test code = 23794) 10.0 % [id number] 00:00:00* Test Item Value Reference Range Interpretation Comme nts TSH, THIRD GENERATION (test code = 2821) 2.640 UIU/ML Omero ParkerHEMOGLOBIN [id number] 00:00:00* Test Item Value Reference Range Interpretation Comme nts HEMOGLOBIN A1c (test code = 11687) 10.0 % Omero Patel AustinLIPID [id number] 00:00:00* Test Item Value Reference Range Interpretation Comme nts CHOLESTEROL (test code = 2210) 143 MG/DL TRIGLYCERIDES (test code = 2232) 258 MG/DL HDL CHOLESTEROL (test code = 2220) 45 MG/DL CALC LDL CHOL (test code = 2237) 68 MG/DL RISK RATIO LDL/HDL (test cod e = 2238) 1.51 RATIO Omero ParkerCOMPREHENSIVE METABOLIC [id number] 00:00:00* Test Item Value Reference Range Interpretation Comme nts GLUCOSE (test code = 7) 166 MG/DL BUN (test code = 2207) 19 MG/DL CREATININE (test code = 2214) 1.04 MG/DL eGFR AMER. (test cod e = 88418) 63 ML/MIN/1.73 eGFR NON- AMER. (test code = 92021) 55 ML/MIN/1.73 CALC BUN/CREAT (test code = 2235) 18 RATIO SODIUM (test code = 223) 138 MEQ/L POTASSIUM (test code = 2228) 5.3 MEQ/L CHLORIDE (test code = 2215) 102 MEQ/L CARBON DIOXIDE (test code = 2206) 24 MEQ/L CALCIUM (test code = 2209) 9.6 MG/DL PROTEIN, TOTAL (test code = 222) 7.3 G/DL ALBUMIN (test code = 220) 4.2 G/DL CALC GLOBULIN (test code = 2240) 3.1 G/DL CALC A/G RATIO (test code = 2234) 1.4 RATIO BILIRUBIN, TOTAL (test code = 2206) 0.3 MG/DL ALKALINE PHOSPHATASE (test code = 2203) 81 U/L AST (test code = 221) 26 U/L ALT (test code = 221) 23 U/L Omero [id number] 00:00:00* Test Item Value Reference Range Interpretation Comme [facility] [place] TSH, THIRD GENERATION (test code = 2821) 2.640 UIU/ML Omero ParkerHEMOGLOBIN [id number] 00:00:00* Test Item Value Reference Range Interpretation Comme [facility] [facility] HEMOGLOBIN A1c (test code = 32345) 10.0 % Omero ParkerLIPID [id number] 00:00:00* Test Item Value Reference Range Interpretation Comme nts CHOLESTEROL (test code = 2210) 143 MG/DL TRIGLYCERIDES (test code = 2232) 258 MG/DL HDL CHOLESTEROL (test code = 2220) 45 MG/DL CALC LDL CHOL (test code = 2237) 68 MG/DL RISK RATIO LDL/HDL (test cod e = 2238) 1.51 RATIO Omero Patel AustinMICROALBUMIN/CREATININE, RANDOM AND [id number] 00:00:00* Test Item Value Reference Range Interpretation Comme eliana CREATININE, URINE, CONC. (te st code = 2072) 68.9 MG/DL ALBUMIN, URINE, RANDOM (test code = 08685) 0.3 MG/DL CALC ALBUMIN/CREAT, RND (jaimee t code = 81491) 4 MG/G Omero Patel AustinMICROALBUMIN/CREATININE, RANDOM AND [id number] 00:00:00* Test Item Value Reference Range Interpretation Comme nts CREATININE, URINE, CONC. (te st code = 2071) 68.9 MG/DL ALBUMIN, URINE, RANDOM (test code = 23195) 0.3 MG/DL CALC ALBUMIN/CREAT, RND (jaimee t code = 32379) 4 MG/G MICROALBUMIN/CREATININE, RANDOM AND [id number] 00:00:00* Test Item Value Reference Range Interpretation Comme nts CREATININE, URINE, CONC. (te st code = 2071) 68.9 MG/DL ALBUMIN, URINE, RANDOM (test code = 57426) 0.3 MG/DL CALC ALBUMIN/CREAT, RND (jaimee t code = 53748) 4 MG/G Omero F AustinMICROALBUMIN/CREATININE, RANDOM AND [id number] 00:00:00* Test Item Value Reference Range Interpretation Comme nts CREATININE, URINE, CONC. (te st code = 2071) 68.9 MG/DL ALBUMIN, URINE, RANDOM (test code = 66688) 0.3 MG/DL CALC ALBUMIN/CREAT, RND (jaimee t code = 04872) 4 MG/G MICROALBUMIN/CREATININE, RANDOM AND [id number] 00:00:00* Test Item Value Reference Range Interpretation Comme nts CREATININE, URINE, CONC. (te st code = 2071) 68.9 MG/DL ALBUMIN, URINE, RANDOM (test code = 42655) 0.3 MG/DL CALC ALBUMIN/CREAT, RND (jaimee t code = 63573) 4 MG/G Omero F AustinMICROALBUMIN/CREATININE, RANDOM AND [id number] 00:00:00* Test Item Value Reference Range Interpretation Comme nts CREATININE, URINE, CONC. (te st code = 2071) 68.9 MG/DL ALBUMIN, URINE, RANDOM (test code = 79966) 0.3 MG/DL CALC ALBUMIN/CREAT, RND (jaimee t code = 23117) 4 MG/G Omero F AustinCOMPREHENSIVE METABOLIC [id number] 00:00:00* Test Item Value Reference Range Interpretation Comme nts GLUCOSE (test code = 2217) 137 MG/DL BUN (test code = 2208) 21 MG/DL CREATININE (test code = 2214) 1.21 MG/DL eGFR AMER. (test cod e = 97449) 53 ML/MIN/1.73 eGFR NON- AMER. (test code = 42520) 46 ML/MIN/1.73 CALC BUN/CREAT (test code = [...] code = 2219) 22 U/L Omero ParkerHEMOGLOBIN [id number] 00:00:00* Test Item Value Reference Range Interpretation Comme nts HEMOGLOBIN A1c (test code = 91860) 8.9 % Omero ParkerLIPID [id number] 00:00:00* Test Item Value Reference Range Interpretation Comme nts CHOLESTEROL (test code = 2210) 132 MG/DL TRIGLYCERIDES (test code = 2232) 224 MG/DL HDL CHOLESTEROL (test code = 2220) 45 MG/DL CALC LDL CHOL (test code = 2237) 59 MG/DL RISK RATIO LDL/HDL (test cod e = 2238) 1.31 RATIO COMPREHENSIVE METABOLIC [id number] 00:00:00* Test Item Value Reference Range Interpretation Comme nts GLUCOSE (test code = 2217) 137 MG/DL BUN (test code = 2208) 21 MG/DL CREATININE (test code = 2214) 1.21 MG/DL eGFR AMER. (test cod e = 73062) 53 ML/MIN/1.73 eGFR NON- AMER. (test code = 39509) 46 ML/MIN/1.73 CALC BUN/CREAT (test code = [...] ALT (test code = 2219) 22 U/L LIPID [id number] 00:00:00* Test Item Value Reference Range Interpretation Comme nts CHOLESTEROL (test code = 2210) 132 MG/DL TRIGLYCERIDES (test code = 2232) 224 MG/DL HDL CHOLESTEROL (test code = 2220) 45 MG/DL CALC LDL CHOL (test code = 2237) 59 MG/DL RISK RATIO LDL/HDL (test cod e = 2238) 1.31 RATIO Omero F AustinCOMPREHENSIVE METABOLIC [id number] 00:00:00* Test Item Value Reference Range Interpretation Comme nts GLUCOSE (test code = 2217) 137 MG/DL BUN (test code = 8) 21 MG/DL CREATININE (test code = 2214) 1.21 MG/DL eGFR AMER. (test cod e = 57860) 53 ML/MIN/1.73 eGFR NON- AMER. (test code = 89343) 46 ML/MIN/1.73 CALC BUN/CREAT (test code = [...] code = 2219) 22 U/L Omero ParkerHEMOGLOBIN [id number] 00:00:00* Test Item Value Reference Range Interpretation Comme nts HEMOGLOBIN A1c (test code = 80150) 8.9 % HEMOGLOBIN [id number] 00:00:00* Test Item Value Reference Range Interpretation Comme nts HEMOGLOBIN A1c (test code = 49907) 8.9 % Omero ParkerLIPID [id number] 00:00:00* Test Item Value Reference Range Interpretation Comme nts CHOLESTEROL (test code = 2210) 132 MG/DL TRIGLYCERIDES (test code = 2232) 224 MG/DL HDL CHOLESTEROL (test code = 2220) 45 MG/DL CALC LDL CHOL (test code = 2237) 59 MG/DL RISK RATIO LDL/HDL (test cod e = 2238) 1.31 RATIO COMPREHENSIVE METABOLIC [id number] 00:00:00* Test Item Value Reference Range Interpretation Comme nts GLUCOSE (test code = 2217) 137 MG/DL BUN (test code = 8) 21 MG/DL CREATININE (test code = 2214) 1.21 MG/DL eGFR AMER. (test cod e = 03062) 53 ML/MIN/1.73 eGFR NON- AMER. (test code = 34232) 46 ML/MIN/1.73 CALC BUN/CREAT (test code = [...] ALT (test code = 2219) 22 U/L LIPID [id number] 00:00:00* Test Item Value Reference Range Interpretation Comme nts CHOLESTEROL (test code = 2210) 132 MG/DL TRIGLYCERIDES (test code = 2232) 224 MG/DL HDL CHOLESTEROL (test code = 2220) 45 MG/DL CALC LDL CHOL (test code = 2237) 59 MG/DL RISK RATIO LDL/HDL (test cod e = 2238) 1.31 RATIO Omero ParkerCOMPREHENSIVE METABOLIC [id number] 00:00:00* Test Item Value Reference Range Interpretation Comme nts GLUCOSE (test code = 2217) 137 MG/DL BUN (test code = 2208) 21 MG/DL CREATININE (test code = 2214) 1.21 MG/DL eGFR AMER. (test cod e = 41343) 53 ML/MIN/1.73 eGFR NON- AMER. (test code = 41115) 46 ML/MIN/1.73 CALC BUN/CREAT (test code = [...] code = 2219) 22 U/L Omero ParkerHEMOGLOBIN [id number] 00:00:00* Test Item Value Reference Range Interpretation Comme nts HEMOGLOBIN A1c (test code = 71045) 8.9 % HEMOGLOBIN [id number] 00:00:00* Test Item Value Reference Range Interpretation Comme [facility] HEMOGLOBIN A1c (test code = 87049) 8.9 % Omero ParkerLIPID [id number] 00:00:00* Test Item Value Reference Range Interpretation Comme nts CHOLESTEROL (test code = 2210) 132 MG/DL TRIGLYCERIDES (test code = 2232) 224 MG/DL HDL CHOLESTEROL (test code = 2220) 45 MG/DL CALC LDL CHOL (test code = 2237) 59 MG/DL RISK RATIO LDL/HDL (test cod e = 2238) 1.31 RATIO Omero ParkerCOMPREHENSIVE METABOLIC [id number] 00:00:00* Test Item Value Reference Range Interpretation Comme nts GLUCOSE (test code = 2217) 137 MG/DL BUN (test code = 2208) 21 MG/DL CREATININE (test code = 2214) 1.21 MG/DL eGFR AMER. (test cod e = 97711) 53 ML/MIN/1.73 eGFR NON- AMER. (test code = 15400) 46 ML/MIN/1.73 CALC BUN/CREAT (test code = [...] code = 2219) 22 U/L Omero ParkerHEMOGLOBIN [id number] 00:00:00* Test Item Value Reference Range Interpretation Comme [facility] HEMOGLOBIN A1c (test code = 51516) 8.9 % Omero ParkerLIPID [id number] 00:00:00* Test Item Value Reference Range Interpretation Comme nts CHOLESTEROL (test code = 2210) 132 MG/DL TRIGLYCERIDES (test code = 2232) 224 MG/DL HDL CHOLESTEROL (test code = 2220) 45 MG/DL CALC LDL CHOL (test code = 2237) 59 MG/DL RISK RATIO LDL/HDL (test cod e = 2238) 1.31 RATIO Omero Patel AustinALBUMIN/CREATININE RATIO, URINE, RANDOM [ADDED]2019-09-16 00:00:00* Test Item Value Reference Range Interpretation Comme nts CREATININE, URINE, CONC. (test code = 2071) TEST NOT PERFORMED MG/DL ALBUMIN, URINE, RANDOM (test code = 63000) TEST NOT PERFORMED MG/DL CALC ALBUMIN/CREAT, RND (test code = 45517) TEST NOT PERFORMED MG/G Omero F AustinALBUMIN/CREATININE RATIO, URINE, RANDOM [ADDED]2019-09-16 00:00:00* Test Item Value Reference Range Interpretation Comme nts CREATININE, URINE, CONC. (test code = 2071) TEST NOT PERFORMED MG/DL ALBUMIN, URINE, RANDOM (test code = 53743) TEST NOT PERFORMED MG/DL CALC ALBUMIN/CREAT, RND (test code = 23885) TEST NOT PERFORMED MG/G ALBUMIN/CREATININE RATIO, URINE, RANDOM [ADDED]2019-09-16 00:00:00* Test Item Value Reference Range Interpretation Comme nts CREATININE, URINE, CONC. (test code = 2071) TEST NOT PERFORMED MG/DL ALBUMIN, URINE, RANDOM (test code = 76055) TEST NOT PERFORMED MG/DL CALC ALBUMIN/CREAT, RND (test code = 24769) TEST NOT PERFORMED MG/G Omero F AustinALBUMIN/CREATININE RATIO, URINE, RANDOM [ADDED]2019-09-16 00:00:00* Test Item Value Reference Range Interpretation Comme nts CREATININE, URINE, CONC. (test code = 207) TEST NOT PERFORMED MG/DL ALBUMIN, URINE, RANDOM (test code = 16487) TEST NOT PERFORMED MG/DL CALC ALBUMIN/CREAT, RND (test code = 18708) TEST NOT PERFORMED MG/G ALBUMIN/CREATININE RATIO, URINE, RANDOM [ADDED]2019-09-16 00:00:00* Test Item Value Reference Range Interpretation Comme nts CREATININE, URINE, CONC. (test code = 207) TEST NOT PERFORMED MG/DL ALBUMIN, URINE, RANDOM (test code = 30686) TEST NOT PERFORMED MG/DL CALC ALBUMIN/CREAT, RND (test code = 82209) TEST NOT PERFORMED MG/G Omero ParkerALBUMIN/CREATININE RATIO, URINE, RANDOM [ADDED]2019-09-16 00:00:00* Test Item Value Reference Range Interpretation Comme nts CREATININE, URINE, CONC. (test code = 2072) TEST NOT PERFORMED MG/DL ALBUMIN, URINE, RANDOM (test code = 51485) TEST NOT PERFORMED MG/DL CALC ALBUMIN/CREAT, RND (test code = 33322) TEST NOT PERFORMED MG/G Omero ParkerTSH, THIRD GENERATION [ADDED]2019-09-12 00:00:00* Test Item Value Reference Range Interpretation Comme nts TSH, THIRD GENERATION (test code = 2821) 9.860 UIU/ML Omero Patel KeithNOTE: [ADDED]2019-09-12 00:00:00* Test Item Value Reference Range Interpretation Comme nts NOTE: (test code = 998) (NOTE) Omero Patel KeithCOMPREHENSIVE METABOLIC PANEL [ADDED]2019-09-12 00:00:00* Test Item Value Reference Range Interpretation Comme nts GLUCOSE (test code = 2217) 182 MG/DL BUN (test code = 2208) 25 MG/DL CREATININE (test code = 2214) 1.16 MG/DL eGFR AMER. (test cod e = 16054) 56 ML/MIN/1.73 eGFR NON- AMER. (test code = 75187) 48 ML/MIN/1.73 CALC BUN/CREAT (test code = [...] code = 2219) 23 U/L Omero Patel KeithLIPID PANEL [ADDED]2019-09-12 00:00:00* Test Item Value [...] cod e = 2238) 1.46 RATIO Omero ParkerBEULAH, THIRD GENERATION [ADDED]2019-09-12 00:00:00* Test Item Value [...] MG/DL eGFR AMER. (test cod e = 83062) 56 ML/MIN/1.73 eGFR NON- AMER. (test code = 73134) 48 ML/MIN/1.73 CALC BUN/CREAT (test code = [...] ALT (test code = 2219) 23 U/L TSH, THIRD GENERATION [ADDED]2019-09-12 00:00:00* Test Item Value Reference Range Interpretation Comme nts TSH, THIRD GENERATION (test code = 2821) 9.860 UIU/ML Omero Amanda KeithNOTE: [ADDED]2019-09-12 00:00:00* Test Item Value Reference Range Interpretation Comme nts NOTE: (test code = 998) (NOTE) Omero Patel AustinLIPID PANEL [ADDED]2019-09-12 00:00:00* Test [...] MG/DL eGFR AMER. (test cod e = 80389) 56 ML/MIN/1.73 eGFR NON- AMER. (test code = 88847) 48 ML/MIN/1.73 CALC BUN/CREAT (test code = [...] MG/DL eGFR AMER. (test cod e = 91214) 56 ML/MIN/1.73 eGFR NON- AMER. (test code = 63527) 48 ML/MIN/1.73 CALC BUN/CREAT (test code = [...] ALT (test code = 2219) 23 U/L TSH, THIRD GENERATION [ADDED]2019-09-12 00:00:00* Test Item Value Reference Range Interpretation Comme nts TSH, THIRD GENERATION (test code = 2821) 9.860 UIU/ML Omero Patel KeithNOTE: [ADDED]2019-09-12 00:00:00* Test Item Value Reference Range Interpretation Comme nts NOTE: (test code = 998) (NOTE) Omero Patel KeithCOMPREHENSIVE METABOLIC PANEL [ADDED]2019-09-12 00:00:00* Test Item Value Reference Range Interpretation Comme nts GLUCOSE (test code = 2217) 182 MG/DL BUN (test code = 2208) 25 MG/DL CREATININE (test code = 2214) 1.16 MG/DL eGFR AMER. (test cod e = 47957) 56 ML/MIN/1.73 eGFR NON- AMER. (test code = 22928) 48 ML/MIN/1.73 CALC BUN/CREAT (test code = [...] code = 2219) 23 U/L Omero Patel KeithLIPID PANEL [ADDED]2019-09-12 00:00:00* Test Item Value [...] MG/DL eGFR AMER. (test cod e = 51835) 56 ML/MIN/1.73 eGFR NON- AMER. (test code = 77784) 48 ML/MIN/1.73 CALC BUN/CREAT (test code = [...] code = 2219) 23 U/L Omero Patel KeithLIPID PANEL [ADDED]2019-09-12 00:00:00* Test Item Value Reference Range Interpretation Comme nts CHOLESTEROL (test code = 2210) 165 MG/DL TRIGLYCERIDES (test code = 2232) 345 MG/DL HDL CHOLESTEROL (test code = 2220) 50 MG/DL CALC LDL CHOL (test code = 2237) 73 MG/DL RISK RATIO LDL/HDL (test cod e = 2238) 1.46 RATIO Omero Patel [place] W/AUTO DIFF WITH PLATELETS [...] Comme nts HEMOGLOBIN A1c (test code = 66534) 9.0 % Omero ParkerCBC W/AUTO DIFF WITH PLATELETS [ADDED]2019-09-11 [...] Comme nts HEMOGLOBIN A1c (test code = 12075) 9.0 % CBC W/AUTO DIFF WITH PLATELETS [...] Comme nts HEMOGLOBIN A1c (test code = 07102) 9.0 % Omero Patel KeithCBC W/AUTO DIFF WITH PLATELETS [...] Comme nts HEMOGLOBIN A1c (test code = 43016) 9.0 % CBC W/AUTO DIFF WITH PLATELETS [...] Comme nts HEMOGLOBIN A1c (test code = 85205) 9.0 % Omero Patel KeithCBC W/AUTO DIFF WITH PLATELETS [...] Comme nts HEMOGLOBIN A1c (test code = 45480) 9.0 % Omero Patel AustinLIPID [id number] 00:00:00* Test Item Value Reference Range Interpretation Comme nts CHOLESTEROL (test code = 2210) 145 MG/DL TRIGLYCERIDES (test code = 2232) 270 MG/DL HDL CHOLESTEROL (test code = 2220) 49 MG/DL CALC LDL CHOL (test code = 2237) 64 MG/DL RISK RATIO LDL/HDL (test cod e = 2238) 1.31 RATIO Omero ParkerCBC W/AUTO [id number] 00:00:00* Test Item Value Reference Range Interpretation [...] code = 1015) 224 K/UL Omero ParkerHEMOGLOBIN [id number] 00:00:00* Test Item Value Reference Range Interpretation Comme nts HEMOGLOBIN A1c (test code = 98374) 8.3 % HEMOGLOBIN [id number] 00:00:00* Test Item Value Reference Range Interpretation Comme nts HEMOGLOBIN A1c (test code = 87111) 8.3 % Omero ParkerCOMPREHENSIVE METABOLIC [id number] 00:00:00* Test Item Value Reference Range Interpretation Comme nts GLUCOSE (test code = 2217) 159 MG/DL BUN (test code = 2208) 22 MG/DL CREATININE (test code = 2214) 1.06 MG/DL eGFR AMER. (test cod e = 04599) 62 ML/MIN/1.73 eGFR NON- AMER. (test code = 09361) 54 ML/MIN/1.73 CALC BUN/CREAT (test code = [...] (test code = 2219) 18 U/L LIPID [id number] 00:00:00* Test Item Value Reference Range Interpretation Comme nts CHOLESTEROL (test code = 2210) 145 MG/DL TRIGLYCERIDES (test code = 2232) 270 MG/DL HDL CHOLESTEROL (test code = 2220) 49 MG/DL CALC LDL CHOL (test code = 2237) 64 MG/DL RISK RATIO LDL/HDL (test cod e = 2238) 1.31 RATIO COMPREHENSIVE METABOLIC [id number] 00:00:00* Test Item Value Reference Range Interpretation Comme nts GLUCOSE (test code = 2217) 159 MG/DL BUN (test code = 2208) 22 MG/DL CREATININE (test code = 2214) 1.06 MG/DL eGFR AMER. (test cod e = 70170) 62 ML/MIN/1.73 eGFR NON- AMER. (test code = 35067) 54 ML/MIN/1.73 CALC BUN/CREAT (test code = [...] (test code = 2219) 18 U/L Omero ParkerCBC W/AUTO [id number] 00:00:00* Test Item Value Reference Range Interpretation [...] COUNT (test code = 1015) 224 K/UL LIPID [id number] 00:00:00* Test Item Value Reference Range Interpretation Comme nts CHOLESTEROL (test code = 2210) 145 MG/DL TRIGLYCERIDES (test code = 2232) 270 MG/DL HDL CHOLESTEROL (test code = 2220) 49 MG/DL CALC LDL CHOL (test code = 2237) 64 MG/DL RISK RATIO LDL/HDL (test cod e = 2238) 1.31 RATIO Omero Patel KeithHEMOGLOBIN [id number] 00:00:00* Test Item Value Reference Range Interpretation Comme nts HEMOGLOBIN A1c (test code = 01546) 8.3 % CBC W/AUTO [id number] 00:00:00* Test Item Value Reference Range Interpretation [...] code = 1015) 224 K/UL Omero ParkerHEMOGLOBIN [id number] 00:00:00* Test Item Value Reference Range Interpretation Comme [facility] HEMOGLOBIN A1c (test code = 22129) 8.3 % Omero ParkerCOMPREHENSIVE METABOLIC [id number] 00:00:00* Test Item Value Reference Range Interpretation Comme nts GLUCOSE (test code = 2217) 159 MG/DL BUN (test code = 2208) 22 MG/DL CREATININE (test code = 2214) 1.06 MG/DL eGFR AMER. (test cod e = 73456) 62 ML/MIN/1.73 eGFR NON- AMER. (test code = 35418) 54 ML/MIN/1.73 CALC BUN/CREAT (test code = [...] (test code = 2219) 18 U/L LIPID [id number] 00:00:00* Test Item Value Reference Range Interpretation Comme nts CHOLESTEROL (test code = 2210) 145 MG/DL TRIGLYCERIDES (test code = 2232) 270 MG/DL HDL CHOLESTEROL (test code = 2220) 49 MG/DL CALC LDL CHOL (test code = 2237) 64 MG/DL RISK RATIO LDL/HDL (test cod e = 2238) 1.31 RATIO COMPREHENSIVE METABOLIC [id number] 00:00:00* Test Item Value Reference Range Interpretation Comme nts GLUCOSE (test code = 2217) 159 MG/DL BUN (test code = 2208) 22 MG/DL CREATININE (test code = 2214) 1.06 MG/DL eGFR AMER. (test cod e = 94965) 62 ML/MIN/1.73 eGFR NON- AMER. (test code = 66251) 54 ML/MIN/1.73 CALC BUN/CREAT (test code = [...] (test code = 2219) 18 U/L Omero Patel [facility] W/AUTO [id number] 00:00:00* Test Item Value Reference Range Interpretation [...] COUNT (test code = 1015) 224 K/UL LIPID [id number] 00:00:00* Test Item Value Reference Range Interpretation Comme nts CHOLESTEROL (test code = 2210) 145 MG/DL TRIGLYCERIDES (test code = 2232) 270 MG/DL HDL CHOLESTEROL (test code = 2220) 49 MG/DL CALC LDL CHOL (test code = 2237) 64 MG/DL RISK RATIO LDL/HDL (test cod e = 2238) 1.31 RATIO Omero ParkerCBC W/AUTO [id number] 00:00:00* Test Item Value Reference Range Interpretation [...] code = 1015) 224 K/UL Omero ParkerHEMOGLOBIN [id number] 00:00:00* Test Item Value Reference Range Interpretation Comme nts HEMOGLOBIN A1c (test code = 90445) 8.3 % Omero ParkerCOMPREHENSIVE METABOLIC [id number] 00:00:00* Test Item Value Reference Range Interpretation Comme nts GLUCOSE (test code = 2217) 159 MG/DL BUN (test code = 2208) 22 MG/DL CREATININE (test code = 2214) 1.06 MG/DL eGFR AMER. (test cod e = 90437) 62 ML/MIN/1.73 eGFR NON- AMER. (test code = 07413) 54 ML/MIN/1.73 CALC BUN/CREAT (test code = [...] code = 2219) 18 U/L Omero ParkerLIPID [id number] 00:00:00* Test Item Value Reference Range Interpretation Comme nts CHOLESTEROL (test code = 2210) 145 MG/DL TRIGLYCERIDES (test code = 2232) 270 MG/DL HDL CHOLESTEROL (test code = 2220) 49 MG/DL CALC LDL CHOL (test code = 2237) 64 MG/DL RISK RATIO LDL/HDL (test cod e = 2238) 1.31 RATIO Omero ParkerCBC W/AUTO [id number] 00:00:00* Test Item Value Reference Range Interpretation [...] code = 1015) 224 K/UL Omero ParkerHEMOGLOBIN [id number] 00:00:00* Test Item Value Reference Range Interpretation Comme nts HEMOGLOBIN A1c (test code = 03162) 8.3 % Omero ParkerCOMPREHENSIVE METABOLIC [id number] 00:00:00* Test Item Value Reference Range Interpretation Comme nts GLUCOSE (test code = 2217) 159 MG/DL BUN (test code = 2208) 22 MG/DL CREATININE (test code = 2214) 1.06 MG/DL eGFR AMER. (test cod e = 95940) 62 ML/MIN/1.73 eGFR NON- AMER. (test code = 72857) 54 ML/MIN/1.73 CALC BUN/CREAT (test code = [...] (test code = 2219) 18 U/L Omero F Keith Notes Date/Time Note Provider Source Omero AmandaFelicitas [facility]2024-12-06 00:00:00 Omero Claudio [facility]2024-11-08 00:00:00 Omero Claudio [facility]2024-07-22 00:00:00 Omero Parker [facility]
[2024-06-30] MEDS ORDERED: KETOROLAC 30 MG/ML INJ ONE (21:09)
[2024-06-30] MEDS ORDERED: droPERidol 5 MG/2 ML VIAL ONE (21:09)
[2024-06-30] MEDS ORDERED: cloNIDine HCL 0.1 MG TAB ONE (21:10)
[2024-06-30] MEDS ORDERED: NA CHLORIDE 0.9% 500 ML ONE (21:10)
[2024-06-30] MEDS ORDERED: METOCLOPRAMIDE 10 MG/2mL INJ ONE (21:10)
[2024-06-30 21:17] LABS: Absolute Basophils 0.1 K/uL (0-0.5); Absolute Eosinophils 0.2 K/uL (0-0.5); Absolute Lymphocytes (CBC) 3.5 K/uL (0.7-4.9); Absolute Monocytes 0.6 K/uL (0.1-1.3); Absolute Neutrophil 4.8 K/uL (1.8-8.0); Basophils % 0.7 % (0-1.3); Eosinophils % 2.6 % (0-4.4); Hematocrit 38.3 % (36.0-45.0); Hemoglobin 13.1 g/dL (12.0-15.0); Lymphocytes % 37.6 % (15.3-44.8); MCHC 34.3 g/dL (32.0-36.0); MCV 87.4 fL (80-100); Monocytes % 6.9 % (3.3-12.3); Neutrophils % 52.2 % (41.7-73.7); Nucleated Red Blood Cells % 0.1 % (0-0); Platelets 195 thou/uL (152-406); RBC Red Blood Cell Count 4.38 M/uL (3.86-4.86); Red Cell Distribution Width 14.3 % (12.1-15.2)
[2024-06-30 21:24] LABS: PT Prothrombin Time 11.1 SECONDS (10-13.0); Protime INR 0.97
--- NOTE | 2024-06-30 21:26 | RAD REPORT ---
EXAMINATION: ONE VIEW CHEST XR CLINICAL INDICATION: Female, 74 years old.,CHEST PAIN TECHNIQUE: Frontal chest projection is submitted. Examination is limited by patient positioning and t echnique. COMPARISON: 03/09/2023 FINDINGS: The lungs are well inflated and clear. No pneumothorax or sizable effusion. The heart is normal in s ize. Mediastinal contours are unremarkable. IMPRESSION: No acute intrathoracic abnormalities.
[2024-06-30 21:38] LABS: ALT/SGPT 21 U/L (13-56); Albumin 3.2 g/dL (3.4-5.0); Albumin/Globulin Ratio 0.8 (1.1-1.8); Alkaline Phosphatase 100 U/L (45-117); Anion Gap 8.8 mEq/L (5.0-15.0); BUN Blood Urea Nitrogen 23 mg/dL (7-18); Bicarbonate 26 mEq/L (21-32); Bilirubin Total 0.3 mg/dL (0.2-1.0); Globulin 4.1 g/dL (2.3-3.5); Glomerular Filtration Rate 41 ml/min (=/>90); Glucose Level 164 mg/dL (74-106); Magnesium 2.1 mg/dL (1.6-2.4); NT PRO-BNP 324 pg/mL (<125); Potassium 3.8 mEq/L (3.5-5.1); Protein, Total 7.3 g/dL (6.4-8.2); Sodium Level 138 mEq/L (136-145); Troponin High Sensitivity 5.8 pg/mL (<58.9)
[2024-06-30 21:39] LABS: AST/SGOT < 10 U/L (15-37); Bilirubin Direct < 0.2 mg/dL (0-0.2); Bilirubin Indirect, Calculated 0.1 mg/dL (0.2-0.8)
[2024-06-30 21:41] LABS: Thyroid Stimulating Hormone 0.26 uIU/mL (0.358-3.740)
--- NOTE | 2024-06-30 22:04 | RAD REPORT ---
EXAM: CT Head Brain Wo Cont HISTORY: HEADACHE COMPARISON: 09/24/2020 TECHNIQUE: Multiple contiguous axial images were obtained for a CT of the brain without contrast. Sag ittal and coronal reformats were performed. One or more of the following dose reduction techniques were used: Automated exposure control, adjus tment of the mA and kV according to patient size, and iterative reconstruction. Unless otherwise specified, incidental findings do not require dedicated imaging follow-up. FINDINGS: No evidence of hydrocephalus, intracranial hemorrhage, or extra-axial fluid collection. The brain is normal in morphology. The calvarium is intact. The visualized paranasal sinuses and mastoid air cells are essentially clear . IMPRESSION: No evidence of acute intracranial abnormality.
[2024-07-01] MEDS ORDERED: PROMETHAZINE 25 MG TABLET ONE (00:40)
[2024-07-01] MEDS ORDERED: TRAMADOL HCL 50 MG TAB ONE (00:40)
--- NOTE | 2024-07-01 00:40 | EDPHYS ---
Physician Documentation [facility] Name: Karin Mendosa Age: 74 yrs Sex: Female : 1950 Arrival Date: 06/30/2024 Time: 20:20 Bed 15 Private MD: ED Physician Haile Calderón HPI: 06/30 20:25 This 74 yrs old Female presents to ER via Unassigned with complaints of High sp4 Blood Pressure, Arm Pain - left. 07/01 06:11 Patient presents with left-sided chest discomfort, elevated blood pressure and acute sp4 moderate to severe headache.. Historical: - Allergies: 06/30 20:53 diclofenac sodium; cp4 20:53 Morphine; cp4 - Home Meds: 20:53 amlodipine oral [Active]; atorvastatin 20 mg Oral tab 1 tab once daily [Active]; cp4 Farxiga Oral [Active]; isulin [Active]; lisinopril 40 mg Oral tab 1 tab once daily [Active]; metformin 1 Oral tab 1 tab 2 times per day [Active]; - PMHx: 20:53 Arthritis; Diabetes - NIDDM; Hypertension; Hypothyroidism; cp4 - PSHx: 20:53 back surgery; Cholecystectomy; cp4 - Immunization history:: Adult Immunizations up to date. - Infectious Disease History:: Denies. - Social history:: Smoking status: Patient denies any tobacco usage or history of. - Family history:: not pertinent. ROS: 07/01 06:11 Constitutional: Negative for fever, chills, and weight loss, positive chest pressure, sp4 positive headache, positive elevated blood pressure All other systems are negative, Exam: 06/30 21:06 ECG was reviewed by the Attending Physician. EKG 2106 normal sinus rhythm. sp4 07/01 06:11 Constitutional: This is a well developed, well nourished patient who is awake, alert, sp4 and in no acute distress. Head/Face: Normocephalic, atraumatic. Eyes: Pupils equal round and reactive to light, extra-ocular motions intact. Lids and lashes normal. Conjunctiva and sclera are not injected. Cornea within normal limits. Periorbital areas with no swelling, redness, or edema. ENT: Nares patent. No nasal discharge, no septal abnormalities noted. Tympanic membranes are normal and external auditory canals are clear. Oropharynx with no redness, swelling, or masses, exudates, or evidence of obstruction, uvula midline. Mucous membranes moist. Neck: Trachea midline, no thyromegaly or masses palpated, and no cervical lymphadenopathy. Supple, full range of motion without nuchal rigidity, or vertebral point tenderness. Chest/axilla: Normal chest wall appearance and motion. Nontender with no deformity. No lesions are appreciated. Cardiovascular: Regular rate and rhythm with a normal S1 and S2. No gallops, murmurs, or rubs. Normal PMI, no JVD. No pulse deficits. Respiratory: Lungs have equal breath sounds bilaterally, clear to auscultation and percussion. No rales, rhonchi or wheezes noted. No increased work of breathing, no retractions or nasal flaring. Abdomen/GI: Soft, with normal bowel sounds. No distension or tympany. No guarding or rebound. No evidence of tenderness throughout. Back: No spinal tenderness. No costovertebral tenderness. Skin: Warm, dry with normal turgor. Normal color with no rashes, no lesions, and no evidence of cellulitis. MS/ Extremity: Pulses equal, no cyanosis. Neurovascular intact. Full, normal range of motion. Neuro: Awake and alert, GCS 15, oriented to person, place, time, and situation. Cranial nerves II-XII grossly intact. Motor strength 5/5 in all extremities. Sensory grossly intact. Psych: Awake, alert, with orientation to person, place and time. Behavior, mood, and affect are within normal limits Vital Signs: 06/30 20:51 BP 207 / 105; Pulse 94; Resp 18; Temp 98.1; Pulse Ox 93% ; Weight 85.28 kg; Height 5 cp4 ft. 5 in. ; Pain 7/10; 21:00 BP 184 / 88; Pulse 82; Resp 18; Pulse Ox 96% ; Pain 5/10; rg5 21:33 BP 148 / 65; Pulse 78; Resp 18; Pulse Ox 97% ; Pain 3/10; rg5 22:03 BP 136 / 64; Pulse 75; Resp 18; Pulse Ox 97% on R/A; Pain 0/10; rg5 22:35 BP 134 / 63; Pulse 72; Resp 17; Pulse Ox 96% on R/A; Pain 0/10; rg5 23:30 BP 134 / 62; Pulse 70; Resp 17; Pulse Ox 95% on R/A; Pain 0/10; rg5 07/01 00:12 BP 127 / 63; Pulse 71; Resp 17; Pulse Ox 96% on R/A; Pain 0/10; rg5 06/30 20:51 Body Mass Index 31.28 (85.28 kg, 165.1 cm) cp4 06/30 20:51 Pain Scale: Adult cp4 21:00 Pain Scale: Adult rg5 21:33 Pain Scale: Adult rg5 22:03 Pain Scale: Adult rg5 22:35 Pain Scale: Adult rg5 23:30 Pain Scale: Adult rg5 07/01 00:12 Pain Scale: Adult rg5 NIH Stroke Scale Scores: 06/30 21:06 NIHSS Score: 0 sp4 Jian Coma Score: 07/01 06:11 Eye Response: spontaneous(4). Motor Response: obeys commands(6). Verbal Response: sp4 oriented(5). Total: 15. MDM: 06/30 20:25 Medical Screening Exam initiated sp4 07/01 00:38 ED course: EXAM: CT Head Brain Wo Cont HISTORY: HEADACHE COMPARISON: 09/24/2020 sp4 TECHNIQUE: Multiple contiguous axial images were obtained for a CT of the brain without contrast. Sagittal and coronal reformats were performed. One or more of the following dose reduction techniques were used: Automated exposure control, adjustment of the mA and kV according to patient size, and iterative reconstruction. Unless otherwise specified, incidental findings do not require dedicated imaging follow-up. FINDINGS: No evidence of hydrocephalus, intracranial hemorrhage, or extra-axial fluid collection. The brain is normal in morphology. The calvarium is intact. The visualized paranasal sinuses and mastoid air cells are essentially clear. IMPRESSION: No evidence of acute intracranial abnormality. . ED course: EXAMINATION: ONE VIEW CHEST XR CLINICAL INDICATION: Female, 74 years old.,CHEST PAIN TECHNIQUE: Frontal chest projection is submitted. Examination is limited by patient positioning and technique. COMPARISON: 03/09/2023 FINDINGS: The lungs are well inflated and clear. No pneumothorax or sizable effusion. The heart is normal in size. Mediastinal contours are unremarkable. IMPRESSION: No acute intrathoracic abnormalities. . 06:14 Differential diagnosis: hypertensive crisis, Malignant HTN, intracerebral hemorrhage. Data reviewed: vital signs, nurses notes, lab test result(s), EKG, radiologic studies, CT scan. Consideration of Admission/Observation Escalation of care including admission/observation considered. 06/30 20:25 Order name: Basic Metabolic Panel; Complete Time: 00:06/30 20:25 Order name: CBC with Diff; Complete Time: 00:06/30 20:25 Order name: LFT's; Complete Time: 00:06/30 20:25 Order name: Magnesium; Complete Time: 00:06/30 20:25 Order name: NT PRO-BNP; Complete Time: 00:06/30 20:25 Order name: PT-INR; Complete Time: :06/30 20:25 Order name: Troponin HS; Complete Time: 00:06/30 20:54 Order name: TSH; Complete Time: 00:06/30 20:54 Order name: T4 Free; Complete Time: 00:06/30 22:57 Order name: Troponin High Sensitivity; Complete Time: 00:06/30 20:25 Order name: XRAY Chest (1 view); Complete Time: 00:06/30 20:54 Order name: CT Head Brain wo Cont; Complete Time: 00:06/30 20:25 Order name: Cardiac monitoring; Complete Time: 21:20 06/30 20:25 Order name: EKG - Nurse/Tech; Complete Time: 21:20 06/30 20:25 Order name: IV Saline Lock; Complete Time: 21:20 06/30 20:25 Order name: Labs collected and sent; Complete Time: 21:20 06/30 20:25 Order name: O2 Per Protocol; Complete Time: 21:20 06/30 20:25 Order name: O2 Sat Monitoring; Complete Time: 21:20 EC/06 21:06 Rate is 76 beats/min. Rhythm is regular, Normal Sinus Rhythm. QRS [place] is Normal. MI sp4 interval is normal. QRS interval is normal. QT interval is normal. No Q waves. T waves are Normal. No ST changes noted. Interpreted by me. Reviewed by me. Administered Medications: 21:19 Drug: metoCLOPramide IVP 10 mg IVP once; over 1 to 2 minutes Route: IVP; Site: right rg5 antecubital; 21:39 Follow up: Response: No adverse reaction rg5 21:19 Drug: Droperidol IVP 1.25 mg IVP once Route: IVP; Site: right antecubital; rg5 21:39 Follow up: Response: No adverse reaction; Pain is decreased rg5 21:19 Drug: Ketorolac IVP 15 mg IVP once Route: IVP; Site: right antecubital; rg5 21:39 Follow up: Response: No adverse reaction; Pain is decreased rg5 21:19 Drug: NS 0.9% IV 500 ml 500 ml IV at 1 bolus once; to be given as a bolus over 30 rg5 minutes Volume: 500 ml; Route: IV; Rate: 1 bolus; Site: right antecubital; 22:00 Follow up: IV Status: Completed infusion; IV Intake: 500ml rg5 21:20 Drug: cloNIDine PO 0.2 mg PO once Route: PO; rg5 21:39 Follow up: Response: No adverse reaction; Blood pressure is lowered rg5 07/01 00:43 Drug: traMADol PO 100 mg PO once Route: PO; rg5 00:52 Follow up: Response: No adverse reaction; Pain is decreased rg5 00:43 Drug: Promethazine PO 25 mg PO once Route: PO; rg5 00:51 Follow up: Response: No adverse reaction; Pain is decreased rg5 Disposition Summary: 07/01/24 00:39 Discharge Ordered Notes: Location: Home sp4 Problem: new sp4 Symptoms: have improved sp4 Condition: Stable sp4 Diagnosis - Acute hypertensive urgency, acute tension headache, acute noncardiac chest pain, sp4 acute stress response Followup: sp4 - With: Private Physician - When: 7 - 10 days - Reason: Recheck today's complaints Discharge Instructions: - Discharge Summary Sheet sp4 - Hypertension, Adult, [id number] sp4 Forms: - Patient Portal Instructions sp4 Prescriptions: - Fioricet 50-300-40 mg Oral capsule - take 1 capsule ORAL route every 8 hours PRN headache; 30 capsule; Refills: 0, sp4 Product Selection Permitted - clonidine HCl 0.1 mg Oral tablet - take 1 tablet ORAL route every 8 hours PRN Blood pressure above 180 systolic; sp4 60 tablet; Refills: 0, Product Selection Permitted NIH Stroke Scale - NIH Stroke Score Date: 06/30/2024 Time: 21:06 Total Score = 0 10. Dysarthria (speech clarity - read or repeat words) - 0(Normal) 11. Extinction and Inattention (visual/tactile/auditory/spatial/personal) - 0(No abnormality) 1a. Level of Consciousness (LOC) - 0(Alert) 1b. Level of Consciousness (LOC) (Month \T\ Age) - 0(Both) 1c. LOC Commands (Open \T\ Closes Eyes/Sizing Sprayer) - 0(Both) 2. Best Gaze (Lateral Gaze Paresis) - 0(Normal) 3. Visual Field Loss - 0(No visual loss) 4. Facial Palsy - 0(Normal) 5a. Left Arm: Motor (10-second hold) - 0(No drift) 5b. Right Arm: Motor (10-second hold) - 0(No drift) 6a. Left Leg: Motor (5-second hold - always test supine) - 0(No drift) 6b. Right Leg: Motor (5-second hold - always test supine) - 0(No drift) 7. Limb Ataxia (finger/nose \T\ heel/haynes - test with eyes open) - 0(Absent) 8. Sensory Loss (pinprick arms/legs/face) - 0(Normal) 9. Best Language: Aphasia (description/naming/reading) - 0(No aphasia) Initials: sp4 Signatures: Dispatcher [employer] EDHaile Seay MD MD sp4 Marycruz Cintron cp4 Blake Fall, RN RN rg5 Corrections: (The following items were deleted from the chart) 06/30 20:55 20:55 THYROID STIMULAT HORMONE+C.LAB.BRZ ordered. EDMS EDMS 20:55 20:55 Head Brain Wo Cont+CT.RAD.BRZ ordered. EDMS EDMS 20:55 20:55 T4 FREE+C.LAB.BRZ ordered. EDMS EDMS
--- NOTE | 2024-07-01 00:40 | ER ---
Nurse's Notes [facility] Name: Karin Mendosa Age: 74 yrs Sex: Female : 1950 Arrival Date: 06/30/2024 Time: 20:20 Bed 15 Private MD: Diagnosis: Acute hypertensive urgency, acute tension headache, acute noncardiac chest pain, acute stress response Presentation: 06/30 20:51 Chief complaint: Patient states: left shoulder pain that started two days ago. cp4 Coronavirus screen: Client denies travel out of the [place] in the last 14 days. At this time, the client does not indicate any symptoms associated with coronavirus-19. Ebola Screen: Patient negative for fever greater than or equal to 101.5 degrees Fahrenheit, and additional compatible Ebola Virus Disease symptoms Patient denies exposure to infectious person. Patient denies travel to an Ebola-affected area in the 21 days before illness onset. No symptoms or risks identified at this time. Initial Sepsis Screen: Does the patient meet any 2 criteria? HR > 90 bpm. No. Patient's initial sepsis screen is negative. Does the patient have a suspected source of infection? No. Patient's initial sepsis screen is negative. Risk Assessment: Do you want to hurt yourself or someone else? Patient reports no desire to harm self or others. Onset of symptoms was June 28, 2024. 20:51 Method Of Arrival: Ambulatory 4 20:51 Acuity: RAY 3 cp4 Triage Assessment: 20:53 General: Appears in no apparent distress. uncomfortable, Behavior is calm, cooperative, cp4 appropriate for age. Pain: Complains of pain in left shoulder Pain does not radiate. Pain currently is 7 out of 10 on a pain scale. Historical: - Allergies: 20:53 diclofenac sodium; cp4 20:53 Morphine; cp4 - Home Meds: 20:53 amlodipine oral [Active]; atorvastatin 20 mg Oral tab 1 tab once daily [Active]; cp4 Farxiga Oral [Active]; isulin [Active]; lisinopril 40 mg Oral tab 1 tab once daily [Active]; metformin 1 Oral tab 1 tab 2 times per day [Active]; - PMHx: 20:53 Arthritis; Diabetes - NIDDM; Hypertension; Hypothyroidism; cp4 - PSHx: 20:53 back surgery; Cholecystectomy; cp4 - Immunization history:: Adult Immunizations up to date. - Infectious Disease History:: Denies. - Social history:: Smoking status: Patient denies any tobacco usage or history of. - Family history:: not pertinent. Screenin:00 [facility] ED Fall Risk Assessment (Adult) History of falling in the last 3 months, rg5 including since admission No falls in past 3 months (0 pts) Confusion or Disorientation No (0 pts) Intoxicated or Sedated No (0 pts) Impaired Gait No (0 pts) Mobility Assist Device Used No (0 pt) Altered Elimination No (0 pt) Score/Fall Risk Level 0 - 2 = Low Risk Oriented to surroundings, Maintained a safe environment, Hourly rounding (assess needs \T\ fall precautionary measures) done. Abuse screen: Denies threats or abuse. Nutritional screening: No deficits noted. Tuberculosis screening: No symptoms or risk factors identified. Assessment: 21:00 General: Appears in no apparent distress. comfortable, Behavior is calm, cooperative, rg5 appropriate for age. 21:00 Pain: Complains of pain in head \T\ left arm Quality of pain is described as aching. rg5 Neuro: Level of Consciousness is awake, alert, obeys commands, Oriented to person, place, time, situation. Neuro: Reports headache. Cardiovascular: Reports chest pain. Respiratory: Airway is patent Trachea midline Respiratory effort is even, unlabored, Respiratory pattern is regular, symmetrical, Breath sounds are clear. GI: Abdomen is round non-distended, Abd is soft and non tender. : No signs and/or symptoms were reported regarding the genitourinary system. EENT: No deficits noted. Derm: Skin is intact, Skin is dry, Skin is normal, Skin temperature is warm. Musculoskeletal: Circulation, motion, and sensation intact. Range of motion: intact in all extremities. 22:03 Reassessment: Patient and/or family updated on plan of care and expected duration. Pain rg5 level reassessed. Patient is alert, oriented x 3, equal unlabored respirations, skin warm/dry/pink. Patient states feeling better. Patient states symptoms have improved. 23:00 Reassessment: Patient and/or family updated on plan of care and expected duration. Pain rg5 level reassessed. Patient is alert, oriented x 3, equal unlabored respirations, skin warm/dry/pink. Patient states symptoms have improved. 07/01 00:12 Reassessment: Patient and/or family updated on plan of care and expected duration. Pain rg5 level reassessed. Patient is alert, oriented x 3, equal unlabored respirations, skin warm/dry/pink. Patient states feeling better. Patient states symptoms have improved. Vital Signs: 06/30 20:51 BP 207 / 105; Pulse 94; Resp 18; Temp 98.1; Pulse Ox 93% ; Weight 85.28 kg; Height 5 cp4 ft. 5 in. ; Pain 7/10; 21:00 BP 184 / 88; Pulse 82; Resp 18; Pulse Ox 96% ; Pain 5/10; rg5 21:33 BP 148 / 65; Pulse 78; Resp 18; Pulse Ox 97% ; Pain 3/10; rg5 22:03 BP 136 / 64; Pulse 75; Resp 18; Pulse Ox 97% on R/A; Pain 0/10; rg5 22:35 BP 134 / 63; Pulse 72; Resp 17; Pulse Ox 96% on R/A; Pain 0/10; rg5 23:30 BP 134 / 62; Pulse 70; Resp 17; Pulse Ox 95% on R/A; Pain 0/10; rg5 07/01 00:12 BP 127 / 63; Pulse 71; Resp 17; Pulse Ox 96% on R/A; Pain 0/10; rg5 06/30 20:51 Body Mass Index 31.28 (85.28 kg, 165.1 cm) cp4 06/30 20:51 Pain Scale: Adult cp4 21:00 Pain Scale: Adult rg5 21:33 Pain Scale: Adult rg5 22:03 Pain Scale: Adult rg5 22:35 Pain Scale: Adult rg5 23:30 Pain Scale: Adult rg5 07/01 00:12 Pain Scale: Adult rg5 [place] Coma Score: 06:11 Eye Response: spontaneous(4). Motor Response: obeys commands(6). Verbal Response: sp4 oriented(5). Total: 15. NIH Stroke Scale Scores: 06/30 21:06 NIHSS Score: 0 sp4 ED Course: 20:22 Patient arrived in ED. im 20:24 Haile Calderón MD is Attending Physician. sp4 20:48 Blake Fall RN is Primary Nurse. rg5 20:48 XRAY Chest (1 view) In Process Unspecified. EDMS 20:53 Triage completed. cp4 20:53 Arm band placed on right wrist. Patient placed in waiting room. cp4 21:00 Patient has correct armband on for positive identification. Client placed on continuous rg5 cardiac and pulse oximetry monitoring. NIBP monitoring applied. phototypesetting equipment monitor on. Pulse ox on. NIBP on. Door closed. Noise minimized. Warm blanket given. 21:00 No provider procedures requiring assistance completed. Inserted saline lock: 20 gauge rg5 in right antecubital area, using aseptic technique. Blood collected. Flushed with 10 mL NS. 21:27 CT Head Brain wo Cont In Process Unspecified. EDMS 05/07 00:50 Provided Education on: post er care done. rg5 00:50 IV discontinued, bleeding controlled, No redness/swelling at site. Pressure dressing rg5 applied. Administered Medications: 05 21:19 Drug: metoCLOPramide IVP 10 mg IVP once; over 1 to 2 minutes Route: IVP; Site: right rg5 antecubital; 21:39 Follow up: Response: No adverse reaction rg5 21:19 Drug: Droperidol IVP 1.25 mg IVP once Route: IVP; Site: right antecubital; rg5 21:39 Follow up: Response: No adverse reaction; Pain is decreased rg5 21:19 Drug: Ketorolac IVP 15 mg IVP once Route: IVP; Site: right antecubital; rg5 21:39 Follow up: Response: No adverse reaction; Pain is decreased rg5 21:19 Drug: NS 0.9% IV 500 ml 500 ml IV at 1 bolus once; to be given as a bolus over 30 rg5 minutes Volume: 500 ml; Route: IV; Rate: 1 bolus; Site: right antecubital; 22:00 Follow up: IV Status: Completed infusion; IV Intake: 500ml rg5 21:20 Drug: cloNIDine PO 0.2 mg PO once Route: PO; rg5 21:39 Follow up: Response: No adverse reaction; Blood pressure is lowered rg5 07/01 00:43 Drug: traMADol PO 100 mg PO once Route: PO; rg5 00:52 Follow up: Response: No adverse reaction; Pain is decreased rg5 00:43 Drug: Promethazine PO 25 mg PO once Route: PO; rg5 00:51 Follow up: Response: No adverse reaction; Pain is decreased rg5 Medication: 06/30 21:00 VIS not applicable for this client. rg5 Intake: 22:00 IV: 500ml; Total: 500ml. rg5 Outcome: 07/01 00:39 Discharge ordered by . sp4 00:50 Discharged to home ambulatory, rg5 00:50 Condition: stable 00:50 Discharge instructions given to patient, family, Instructed on discharge instructions, follow up and referral plans. Demonstrated understanding of instructions, follow-up care, medications, Prescriptions given X 2, 00:52 Patient left the ED. rg5 NIH Stroke Scale - NIH Stroke Score Date: 06/30/2024 Time: 21:06 Total Score = 0 10. Dysarthria (speech clarity - read or repeat words) - 0(Normal) 11. Extinction and Inattention (visual/tactile/auditory/spatial/personal) - 0(No abnormality) 1a. Level of Consciousness (LOC) - 0(Alert) 1b. Level of Consciousness (LOC) (Month \T\ Age) - 0(Both) 1c. LOC Commands (Open \T\ Closes Eyes/Creative Manager) - 0(Both) 2. Best Gaze (Lateral Gaze Paresis) - 0(Normal) 3. Visual Field Loss - 0(No visual loss) 4. Facial Palsy - 0(Normal) 5a. Left Arm: Motor (10-second hold) - 0(No drift) 5b. Right Arm: Motor (10-second hold) - 0(No drift) 6a. Left Leg: Motor (5-second hold - always test supine) - 0(No drift) 6b. Right Leg: Motor (5-second hold - always test supine) - 0(No drift) 7. Limb Ataxia (finger/nose \T\ heel/haynes - test with eyes open) - 0(Absent) 8. Sensory Loss (pinprick arms/legs/face) - 0(Normal) 9. Best Language: Aphasia (description/naming/reading) - 0(No aphasia) Initials: sp4 Signatures: Dispatcher [employer] Haile Wynne MD MD sp4 Liliam Rios Christina cp4 Blake Fall, RN RN rg5
[2024-07-01 08:27] VITALS: TEMP 98.1
[2024-07-01 08:38] VITALS: BP 127/63; O2SAT 96
--- NOTE | 2024-07-02 11:46 | EKG ---
Test Date: 2024-06-30 Test Time: 21:06:24 Roll Or Tape Edge Machine Operator: MARILYN MEASUREMENT RESULTS: Intervals: Rate: 76 MO: 184 QRSD: 92 QT: 422 QTc: 474 [place]: P: 57 MO: 184 QRS: 54 T: 64 INTERPRETIVE STATEMENTS: Normal sinus rhythm Nonspecific ST abnormality Abnormal ECG Compared to ECG 03/09/2023 18:24:19 ST (T wave) deviation now present Myocardial infarct finding no longer present Electronically Signed On 07-02-24 11:42:15 CDT by Last Woody
== END 2024-07-01 00:52 | disposition home or self-care (01) ==
LOC: ER 20:20
DX: I16.0 Hypertensive urgency (principal); G44.209 Tension-type headache, unspecified, not intractable; F43.0 Acute stress reaction; I10 Essential (primary) hypertension; E11.9 Type 2 diabetes mellitus without complications; Z79.4 Long term (current) use of insulin
CPT/HCPCS: 96361; 93005; 85025; 80048; 36415; 83735; 85610; 80076; 84443; 84484 ×2; 84439; 83880; 70450; 71045; 96375; 96374; 99285; Q0169; J2765; J1790; J7040